=== PATIENT | female | born 1945 | race Caucasian/White ===

== ENCOUNTER → 2016-06-24 | Outpatient (CLI) | payer OTHER ==
[~2016-06-24] MED LIST: CYAN50TA2; FLUC150T54 PO; [UNRECOGNIZED DRUG - CODE]
[2016-06-24 12:09] LABS: BASO % 0.3 %; BASO ABS # 0.03 K/uL (0-0.2); COMPLETE YES; EOS % 1.9 %; HEMATOCRIT 44.1 % (37-47); IG% 0.1 %; LYMPH % 19.4 %; LYMPH ABS # 2.29 K/uL (1.2-3.4); MEAN CELL VOLUME 93.8 fL (80-100); MEAN CORPUSCULAR HEMOGLOBIN 32.1 pg (25-34); MEAN CORPUSCULAR HGB CONC 34.2 g/dl (32-36); MONO % 8.1 %; NEUT % 70.2 %; PLATELET COUNT 291 K/uL (130-400); WHITE BLOOD COUNT 11.82 K/uL (4.8-10.8)
[2016-06-24 12:38] LABS: ALT/SGPT 25 U/L (12-78); BLOOD UREA NITROGEN 22 mg/dl (7-18); BUN/CREATININE RATIO 28.7 (10-20); CALCIUM 8.6 mg/dl (8.5-10.1); CARBON DIOXIDE 26 mmol/L (21-32); CHLORIDE 105 mmol/L (98-107); CHOLESTEROL 249 mg/dl (0-200); CREATININE 0.75 mg/dl (0.60-1.20); GLUCOSE 88 mg/dl (70-99); SODIUM 141 mmol/L (136-145)
[2016-06-24 12:43] LABS: ALB/GLOB RATIO 0.9 (0.9-2); ALKALINE PHOSPHATASE 55 U/L (45-117); AST/SGOT 21 U/L (15-37); CHOLESTEROL/HDL RATIO 3.2; HDL CHOLESTEROL 77 mg/dl; LDL CHOLESTEROL CALCULATED 157 mg/dl; TRIGLYCERIDES 74 mg/dl (0-150); VERY LOW DENSITY LIPOPROT CALC 15 mg/dl
--- NOTE | 2016-07-23 12:30 | CODING QUERY MEDICAL NECESSITY ---
CQSUPPORTING DIAGNOSIS NEEDED A supporting diagnosis is required for the test/procedure performed on this patient in order for us to be reimbursed by the patient's insurance. Please provide a supporting diagnosis for the following test/procedure listed below next to the test name along with your signature. *If there is no additional diagnosis for this patient that would support the following test/procedure please document that below next to the test/procedure. Test(s)/Procedure(s) that require a supporting diagnosis: DOS 06/24/16 VITAMIN D TEST Provider Signature: Date: Thank you Ana Munoz Health Information Management Once completed, please kindly fax back to [phone] For questions please call [phone]
== END | disposition home or self-care (01) ==
LOC: C.LAB 11:35
PROVIDERS: ATTEND Internal Medicine
DX: Z00.00 Encounter for general adult medical examination without abnormal findings (principal); E78.5 Hyperlipidemia, unspecified; K52.831 Collagenous colitis; M85.80 Other specified disorders of bone density and structure, unspecified site

== ENCOUNTER → 2016-08-21 | Outpatient (CLI) | payer OTHER ==
[2016-08-21 18:35] LABS: URINE APPEARANCE CLOUDY (CLEAR); URINE BILIRUBIN NEG (NEG); URINE COLOR DK YELLOW; URINE EPITHELIAL CELL AUTO >30 /lpf (0-5); URINE NITRITE NEG (NEG); URINE PH 5.5 (4.5-7.5); URINE SPECIFIC GRAVITY 1.024 (1.000-1.030); UROBILINOGEN NEG (NEG)
[2016-08-21 18:42] LABS: MANUAL MICROSCOPIC REQUIRED? NO; REVIEW REQ? NO
== END | disposition home or self-care (01) ==
LOC: C.LABPVFM 07:35
PROVIDERS: ATTEND Internal Medicine
DX: R10.31 Right lower quadrant pain (principal); R39.9 Unspecified symptoms and signs involving the genitourinary system

== ENCOUNTER → 2016-08-23 | Outpatient (CLI) | payer OTHER ==
[2016-08-23 12:42] LABS: BASO % 0.6 %; BASO ABS # 0.05 K/uL (0-0.2); COMPLETE YES; EOS % 1.8 %; HEMATOCRIT 43.8 % (37-47); IG% 0.1 %; LYMPH % 30.7 %; LYMPH ABS # 2.56 K/uL (1.2-3.4); MEAN CELL VOLUME 92.2 fL (80-100); MEAN CORPUSCULAR HEMOGLOBIN 31.8 pg (25-34); MEAN CORPUSCULAR HGB CONC 34.5 g/dl (32-36); MEAN PLATELET VOLUME 10.6 fL (7.4-10.4); MONO % 11.6 %; NEUT % 55.2 %; PLATELET COUNT 316 K/uL (130-400); RED BLOOD COUNT 4.75 M/uL (4.2-5.4); WHITE BLOOD COUNT 8.33 K/uL (4.8-10.8)
[2016-08-23 13:32] LABS: ALT/SGPT 22 U/L (12-78); BLOOD UREA NITROGEN 12 mg/dl (7-18); CALCIUM 8.7 mg/dl (8.5-10.1); CARBON DIOXIDE 26 mmol/L (21-32); CHLORIDE 107 mmol/L (98-107); CREATININE 0.69 mg/dl (0.60-1.20); GLUCOSE 90 mg/dl (70-99); POTASSIUM 4.2 mmol/L (3.5-5.1); SODIUM 140 mmol/L (136-145)
[2016-08-23 13:35] LABS: ALB/GLOB RATIO 0.9 (0.9-2); ALKALINE PHOSPHATASE 55 U/L (45-117); AST/SGOT 14 U/L (15-37)
== END | disposition home or self-care (01) ==
LOC: C.LABPVFM 10:05
PROVIDERS: ATTEND Internal Medicine
DX: R10.31 Right lower quadrant pain (principal)

== ENCOUNTER → 2016-08-28 | Outpatient (CLI) | payer OTHER ==
[~2016-08-28] MED LIST changes: +OPTIRAY 320 IV PRN
--- NOTE | 2016-08-28 13:38 | DIAGNOSTIC IMAGING REPORT ---
CT UROGRAM CLINICAL HISTORY: Generalized abdominal pain. Hematuria. COMPARISON STUDY: No priors. TECHNIQUE: Before and following the IV administration of 93 cc of Optiray 320, CT urogram of the abdomen and pelvis is performed from the lung bases to the proximal femora. Images are reviewed in the axial, sagittal, and coronal planes. IV contrast was administered without complication. CT DOSE: 1794.28 mGycm FINDINGS: Lung bases: The heart is normal in size and without pericardial effusion. The lung bases are clear noting chronic dependent change. There is a tiny hiatal hernia. Liver: The contrast-enhanced liver is normal in size, contour, and attenuation. There is minimal central intrahepatic biliary ductal dilatation. The hepatic veins and portal veins are patent. Gallbladder: There is a large calcified gallstone which measures at least 2.3 cm. The gallbladder is otherwise normal in appearance. Spleen: Normal in size and attenuation. Pancreas: Moderately atrophic and grossly unremarkable. Adrenal glands: Unremarkable. Kidneys and ureters: The contrast enhanced kidneys demonstrate mild cortical atrophy. There are no renal calculi identified on the unenhanced images. The kidneys enhance and excrete symmetrically. There is no enhancing renal cortical mass lesion identified. There is an approximately 1 cm segment of focal ureteral narrowing with urothelial thickening and mild surrounding inflammatory change involving the proximal right ureter located just below the ureteropelvic junction. This is best seen on axial image #180, and is located at the level of L2-L3. This causes minimal right hydronephrosis. There is no left-sided hydronephrosis. The remainder of the right ureter is normal in appearance. No abnormalities seen involving the renal pelvis bilaterally or along the course of the left ureter. Abdominal vasculature: The abdominal aorta is normal in course and caliber noting mild to moderate atherosclerotic calcification. Bowel: The small bowel and colon are normal in course and caliber. A duodenal diverticulum is incidentally noted. There is mild colonic diverticulosis without CT evidence of acute diverticulitis. Moderate colonic fecal retention is observed. The appendix is well-visualized and normal. Peritoneum: There is no intraperitoneal free air or abdominal ascites. There is a fat-containing umbilical hernia, as well as fat-containing infraumbilical hernias. Lymphadenopathy: None. Pelvic viscera: The bladder is normal as visualized. The uterus is surgically absent. No adnexal lesion is seen. Numerous phleboliths are identified in the pelvis. Skeletal structures: The Skeletal structures are osteopenic. There is mild lumbar sacral spondylosis. A hemitransitional left lumbosacral segment is incidentally noted. There are sclerotic degenerative changes noted at the sacroiliac joints. No lytic or blastic bony lesions are seen. IMPRESSION: 1. There is an approximately 1 cm segment of focal narrowing with associated urothelial thickening and mild periureteric stranding involving the proximal right ureter located just below the ureteropelvic junction. This causes very mild right-sided hydronephrosis. The appearance is nonspecific, and although this could represent focal stricture or an inflammatory process a urothelial lesion is not excluded. Follow-up with urology is recommended. 2. The remainder of the right ureter is normal. No urothelial abnormality is suggested within the renal pelvis bilaterally or along the course of the left ureter. 3. No renal calculi are identified. 4. No enhancing renal cortical mass is seen. 5. Cholelithiasis. 6. The bladder is normal as imaged. 7. Additional findings as above. Electronically signed by: Michael Grimaldo M.D. 08/28/2016 1:36 PM Dictated Date/Time: 08/28/2016 1:20 PM
== END | disposition home or self-care (01) ==
LOC: C.CTS 11:05
PROVIDERS: ATTEND Internal Medicine
DX: R10.31 Right lower quadrant pain (principal); R31.9 Hematuria, unspecified; R93.41 Abnormal radiologic findings on diagnostic imaging of renal pelvis, ureter, or bladder; K80.20 Calculus of gallbladder without cholecystitis without obstruction

== ENCOUNTER → 2016-10-22 | Outpatient (CLI) | payer OTHER ==
[~2016-10-22] MED LIST changes: +FUROSEMIDE INJ 10 MG/ML 2 ML VIAL IV ONE; -OPTIRAY 320 IV PRN
--- NOTE | 2016-10-22 12:29 | DIAGNOSTIC IMAGING REPORT ---
RENAL SCAN DIURETIC (MAG 3) CLINICAL HISTORY: Hydronephrosis. COMPARISON STUDY: CT of the abdomen and pelvis August 28, 2016. TECHNIQUE: 8.2 mCi of technetium 99m MAG3 was injected IV at 10:50 AM on October 22, 2016. Flow and function curves were obtained. 20 mg of Lasix IV was administered during this exam. FINDINGS: Flow to both kidneys is preserved and relatively symmetric. Excretion of radiotracer by both kidneys was noted prior to Lasix administration. Split function was 43% left kidney and 57% right kidney. There is no evidence for a significant obstruction following Lasix administration. IMPRESSION: 1. No evidence of a significant obstruction. 2. Split function of 43% left kidney and 57% right kidney. Electronically signed by: Vance Khan M.D. 10/22/2016 12:28 PM Dictated Date/Time: 10/22/2016 12:24 PM
== END | disposition home or self-care (01) ==
LOC: C.NUCL 10:30
PROVIDERS: ATTEND Urology
DX: N13.30 Unspecified hydronephrosis (principal)

== ENCOUNTER → 2016-12-25 | Outpatient (CLI) | payer OTHER ==
[~2016-12-25] MED LIST changes: -FUROSEMIDE INJ 10 MG/ML 2 ML VIAL IV ONE
[2016-12-25 12:43] LABS: BASO % 0.4 %; BASO ABS # 0.03 K/uL (0-0.2); COMPLETE YES; HEMATOCRIT 45.7 % (37-47); IG% 0.1 %; LYMPH % 25.4 %; LYMPH ABS # 2.17 K/uL (1.2-3.4); MEAN CELL VOLUME 93.5 fL (80-100); MEAN CORPUSCULAR HEMOGLOBIN 32.1 pg (25-34); MEAN CORPUSCULAR HGB CONC 34.4 g/dl (32-36); MEAN PLATELET VOLUME 10.9 fL (7.4-10.4); MONO % 11.7 %; NEUT % 60.4 %; PLATELET COUNT 261 K/uL (130-400); RED BLOOD COUNT 4.89 M/uL (4.2-5.4); WHITE BLOOD COUNT 8.55 K/uL (4.8-10.8)
[2016-12-25 13:00] LABS: ALT/SGPT 28 U/L (12-78); AST/SGOT 20 U/L (15-37); BLOOD UREA NITROGEN 17 mg/dl (7-18); BUN/CREATININE RATIO 23.4 (10-20); CALCIUM 9.5 mg/dl (8.5-10.1); CARBON DIOXIDE 29 mmol/L (21-32); CHLORIDE 105 mmol/L (98-107); CREATININE 0.74 mg/dl (0.60-1.20); GLUCOSE 91 mg/dl (70-99); POTASSIUM 4.3 mmol/L (3.5-5.1); SODIUM 140 mmol/L (136-145)
[2016-12-25 13:11] LABS: ALB/GLOB RATIO 0.9 (0.9-2); ALKALINE PHOSPHATASE 63 U/L (45-117)
== END | disposition home or self-care (01) ==
LOC: C.LABBFT 10:03
PROVIDERS: ATTEND Internal Medicine
DX: R39.9 Unspecified symptoms and signs involving the genitourinary system (principal); R53.83 Other fatigue

== ENCOUNTER → 2017-04-04 | Outpatient (CLI) | payer OTHER ==
--- NOTE | 2017-04-04 13:29 | DIAGNOSTIC IMAGING REPORT ---
LEFT HIP 2 VIEWS HISTORY: M25.552 Left hip pain left [id number] COMPARISON: None. FINDINGS: There is no fracture or dislocation. Soft tissues are unremarkable. Moderate cartilage space narrowing within the left hip consistent with degenerative change. The visualized pelvic bones are intact. IMPRESSION: 1. No fracture or dislocation within the left hip. 2. Moderate left hip osteoarthritis. Electronically signed by: Villa Rushing M.D. 04/04/2017 1:27 PM Dictated Date/Time: 04/04/2017 1:25 PM
== END | disposition home or self-care (01) ==
LOC: C.RAD1850 13:14
PROVIDERS: ATTEND Internal Medicine
DX: M25.552 Pain in left hip (principal)

== ENCOUNTER → 2017-04-09 | Outpatient (CLI) | payer OTHER ==
--- NOTE | 2017-04-11 08:12 | MAMMOGRAPHY REPORT ---
BILATERAL DIGITAL SCREENING MAMMOGRAM WITH CAD: 04/09/2017 CLINICAL HISTORY: Routine screening. Patient has no complaints. TECHNIQUE: Bilateral CC and MLO views were obtained. Current study was also evaluated with a Compute r Aided Detection (CAD) system. COMPARISON: Comparison is made to exams dated: 10/28/2014 mammogram, 07/28/2014 mammogram, 05/07/2013 mammogram, 03/13/2011 mammogram, and 03/04/2011 mammogram. BREAST COMPOSITION: There are scattered areas of fibroglandular density in both breasts. FINDINGS: There is a newly visualized 11 mm mass versus focal asymmetry in the upper outer middle on e third of the right breast, for which additional spot compression tomosynthesis views and possible u ltrasound are recommended. There are stable asymmetries in the left upper outer quadrant. Scattered benign-appearing punctate m acro calcifications in the left breast, and a stable right-shaped biopsy marker clip in the right lorne ast. No other suspicious mass, architectural distortion or cluster of microcalcifications is seen. IMPRESSION: ACR BI-RADS CATEGORY 0: INCOMPLETE EVALUATION: NEED ADDITIONAL IMAGING EVALUATION The newly visualized 11 mm mass versus focal asymmetry in the right upper outer breast needs addition al evaluation. The patient will be called to schedule an appointment. Approximately 10% of breast cancers are not detected with mammography. A negative mammographic report should not delay biopsy if a clinically suggestive mass is present. Nery Connell M.D. ay/:04/09/2017 11:15:34 Solderer: Shana CHAVEZ)(Hussein), [facility] letter sent: Addl Imaging 0 BI-RADS Code: ACR BI-RADS Category 0: Incomplete Evaluation: Need Additional Imaging Evaluation
== END | disposition home or self-care (01) ==
LOC: C.MAMM 10:41
PROVIDERS: ATTEND Internal Medicine
DX: Z12.31 Encounter for screening mammogram for malignant neoplasm of breast (principal); N63.11 Unspecified lump in the right breast, upper outer quadrant

== ENCOUNTER → 2017-04-15 | Outpatient (CLI) | payer OTHER ==
[2017-04-15 17:55] LABS: BLOOD UREA NITROGEN 18 mg/dl (7-18); BUN/CREATININE RATIO 27.1 (10-20); CREATININE 0.66 mg/dl (0.60-1.20)
== END | disposition home or self-care (01) ==
LOC: C.LABPVFM 12:37
PROVIDERS: ATTEND Urology
DX: R31.9 Hematuria, unspecified (principal)

== ENCOUNTER → 2017-04-28 | Outpatient (CLI) | payer OTHER ==
--- NOTE | 2017-04-29 07:49 | MAMMOGRAPHY REPORT ---
UNILATERAL RIGHT DIGITAL DIAGNOSTIC MAMMOGRAM TOMOSYNTHESIS AND TARGETED RIGHT ULTRASOUND: 04/28/2017 CLINICAL HISTORY: 72-year-old woman called back from screening mammography for a newly visualized 11 mm mass in the right upper outer quadrant. Patient has a history of prior benign right breast biopsy with cherelle-shaped biopsy marker clip in place in the 12:00 axis. TECHNIQUE: Spot compression right CC and MLO 2-D and tomosynthesis images were obtained. COMPARISON: Comparison is made to exams dated: 04/09/2017 mammogram - [facility], 10/28/2014 mammogram, 07/28/2014 mammogram, 05/07/2013 mammogram, 03/13/2011 mammogram, and 03/04/2011 mammogram. BREAST COMPOSITION: There are scattered areas of fibroglandular density in the right breast. FINDINGS: There is a persistent lobulated, partially circumscribed, 6 x 6 x 13 mm mass in the upper outer middle one third of the right breast. No associated architectural distortion or calcification, however a portion of the mass is tubular extending anteriorly from the mass, which suggests it could be within a duct. Further characterization with ultrasound was performed. Targeted ultrasound was performed in the right upper outer quadrant, in the 9:00 axis, 8 cm from the nipple, there is a multiloculated cystic mass within internal nonvascular septations and debris. On ultrasound it measures approximately 7.4 x 3.8 x 7.8 mm although difficult to measure the largest vineet ne due to multiple lobulations of the mass. Given the interval development mammographically, althoug h this most likely represents a complicated cyst/focal fibrocystic change, definitive characterizatio n with ultrasound guided cyst aspiration versus core needle biopsy is recommended. IMPRESSION: ACR BI-RADS CATEGORY 4: SUSPICIOUS, TARGETED ULTRASOUND ACR BI-RADS CATEGORY 4: SUSPICIO US 1. Ultrasound guided cyst aspiration versus core needle biopsy is recommended for a multiloculated c ystic appearing 13 mm mass in the 9:00 right breast, 8 cm from the nipple, thought to correlate with a newly visualized mammographic mass. These results and recommendations were discussed with the patient at the time of the exam. She tenta tively scheduled the procedure prior to leaving our department. Approximately 10% of breast cancers are not detected with mammography. A negative mammographic report should not delay biopsy if a clinically suggestive mass is present. Nery Connell M.D. ay/:04/28/2017 12:27:03 Nuclear Medicine Tech: Shana CHAVEZ)(Hussein), [facility] letter sent: Abnormal 4/5 BI-RADS Code: ACR BI-RADS Category 4: Suspicious Ultrasound BI-RADS: ACR BI-RADS Category 4: Suspici ous
== END | disposition home or self-care (01) ==
LOC: C.MAMM 11:05
PROVIDERS: ATTEND Internal Medicine
DX: N63.11 Unspecified lump in the right breast, upper outer quadrant (principal)

== ENCOUNTER → 2017-04-30 | Outpatient (CLI) | payer OTHER ==
--- NOTE | 2017-04-30 17:50 | DIAGNOSTIC IMAGING REPORT ---
IVP CLINICAL HISTORY: Hematuria. Right ureteral stricture. COMPARISON STUDY: CT of the abdomen and pelvis September 07, 2012 and renal MAG3 scan October 22, 2016. TECHNIQUE: Initially, a paralegal legal secretary KUB was obtained. An intravenous pyelogram was then performed following intravenous injection 100 cc of Optiray 320 IV. FINDINGS: Numerous pelvic calcifications are unchanged and likely reflect phleboliths when correlating with prior CT. No urinary calculi are identified. Both nephrograms are symmetric. There is no hydronephrosis. There is mild smooth narrowing of the proximal right ureter. This is immediately inferior to the ureteropelvic junction and is at site of narrowing shown on CT of August 28, 2016. However, the degree of narrowing appears diminished when compared to prior exam. Left collecting system and ureter are normal. There is minimal post void residual. IMPRESSION: 1. No urinary calculi or hydronephrosis. 2. Mild smooth narrowing of the proximal right ureter immediately inferior to the right ureteropelvic junction. This is at site of narrowing shown on CT of August 28, 2016 however the degree of narrowing appears diminished compared to prior exam. This remains indeterminate although no significant irregularity to strongly suggest a urothelial malignancy. Consideration could be given to a follow-up hematuria protocol CT in 6 months. Electronically signed by: Vance Khan M.D. 04/30/2017 5:48 PM Dictated Date/Time: 04/30/2017 2:30 PM
== END | disposition home or self-care (01) ==
LOC: C.RAD 12:37
PROVIDERS: ATTEND Urology
DX: N13.5 Crossing vessel and stricture of ureter without hydronephrosis (principal); R31.9 Hematuria, unspecified

== ENCOUNTER → 2017-05-06 | Outpatient (CLI) | payer OTHER ==
--- NOTE | 2017-05-06 13:08 | MAMMOGRAPHY REPORT ---
UNILATERAL RIGHT DIGITAL DIAGNOSTIC MAMMOGRAM TOMOSYNTHESIS: 05/06/2017 CLINICAL HISTORY: Status post ultrasound-guided cyst aspiration of a multiloculated cyst in the 9:00 right breast. Please refer to the report from right breast ultrasound guided cyst aspiration performed at the same time for full detail. IMPRESSION: Please refer to the report from right breast ultrasound guided cyst aspiration performed at the same time for full detail. Approximately 10% of breast cancers are not detected with mammography. A negative mammographic report should not delay biopsy if a clinically suggestive mass is present. Nery Connell M.D. ay/:05/06/2017 10:20:52 Senior Writer: Laura Mccullough, [facility] BI-RADS Code: n/a
--- NOTE | 2017-05-06 13:08 | MAMMOGRAPHY REPORT ---
ASPIRATION RIGHT BREAST: 05/06/2017 CLINICAL HISTORY: Cystic appearing multiloculated mass in the 9:00 right breast, 8 cm from the nipple thought to correlate with an increasing mammographic mass. Patient presents for ultrasound guided c yst aspiration versus core needle biopsy. COMPARISON: Comparison is made to exams dated: 04/28/2017 ultrasound, 04/28/2017 mammogram, 04/09/20 17 mammogram - [facility], 10/28/2014 mammogram, 07/28/2014 mammogram, and 05/07/2013 mammogram. PROCEDURE DESCRIPTION: After explaining the risks, benefits and alternatives of the procedure to the patient, informed consent was obtained both verbally and in writing. Specific risks for cyst aspirat ion include: Bleeding, infection, puncture of adjacent structure, pain, bruising, nontarget biopsy, s ampling error and medication reaction. The anechoic multi loculated cystic appearing mass in the 9:00 right breast, 8 cm from the nipple was identified and targeted for cyst aspiration. 1% buffered lidocaine without epinephrine was administ ered subcutaneously and intraparenchymally as local anesthesia. While watching with ultrasound, a 22 -gauge needle was advanced into the locules of the suspected cyst and aspiration was performed. The mass resolved completely, confirming cystic nature. The fluid was clear to pinkish in color and rins ed in [employer]toL[employer]. It was then sent to the pathology department for cytologic analysis. Postprocedure right CC and ML 2-D and tomosynthesis images were obtained. On the 2-D views, there is persistent focal asymmetry in the 9:00 middle to posterior right breast in the area of suspected cys t. On the corresponding tomosynthesis images, masslike borders are no longer present, concordant wit h the resolution seen on ultrasound. Pending benign cytology results would recommend routine tomosyn thesis mammography in one year. IMPRESSION: ASPIRATION Status post aspiration to resolution of the suspected multiloculated 13 mm cyst in the 9:00 right lorne ast. The fluid was sent to the pathology department for cytologic analysis. The patient will receive notification of the pathology results from her referring physician. Nery Connell M.D. ay/:05/06/2017 10:24:30 Religious Education Director: Laura Mccullough, [facility]
== END | disposition home or self-care (01) ==
LOC: C.MAMM 09:22
PROVIDERS: ATTEND Internal Medicine
DX: R92.8 Other abnormal and inconclusive findings on diagnostic imaging of breast (principal); N63.10 Unspecified lump in the right breast, unspecified quadrant

== ENCOUNTER 2017-05-12 16:19 | Observation (INO) | payer OTHER ==
[~2017-05-12] VITALS: Ht 167.6 cm; Wt 92.4 kg
[~2017-05-12 16:19] MED LIST changes: -FLUC150T54 PO; +FLUC150T63 PO; -[UNRECOGNIZED DRUG - CODE]; +[UNRECOGNIZED DRUG - CODE] TOP
--- NOTE | 2017-05-12 17:07 | DIAGNOSTIC IMAGING REPORT ---
CHEST ONE VIEW PORTABLE CLINICAL HISTORY: 72 years-old Female presenting with CHEST PAIN. TECHNIQUE: Portable upright AP view of the chest was obtained. COMPARISON: None. FINDINGS: Cardiomediastinal silhouette normal. Lungs and pleural spaces clear. Osseous structures normal. Upper abdomen normal. IMPRESSION: 1. No acute cardiopulmonary disease. Electronically signed by: Juliocesar Alfred M.D. 05/12/2017 5:06 PM Dictated Date/Time: 05/12/2017 5:05 PM
[2017-05-12 17:11] LABS: BASO % 0.2 %; BASO ABS # 0.02 K/uL (0-0.2); EOS % 0.8 %; HEMATOCRIT 45.6 % (37-47); HEMOGLOBIN 15.7 g/dL (12.0-16.0); IG# 0.05 K/uL (0.00-0.02); LYMPH % 18.4 %; LYMPH ABS # 2.24 K/uL (1.2-3.4); MEAN CELL VOLUME 93.1 fL (80-100); MEAN CORPUSCULAR HGB CONC 34.4 g/dl (32-36); MEAN PLATELET VOLUME 9.6 fL (7.4-10.4); MONO % 8.7 %; MONO ABS # 1.06 K/uL (0.11-0.59); NEUT % 71.5 %; PLATELET COUNT 267 K/uL (130-400); RED CELL DISTRIBUTION WIDTH CV 12.7 % (11.5-14.5); RED CELL DISTRIBUTION WIDTH SD 43.7 fL (36.4-46.3); WHITE BLOOD COUNT 12.17 K/uL (4.8-10.8)
[2017-05-12 17:33] LABS: ALBUMIN 3.6 gm/dl (3.4-5.0); ALT/SGPT 25 U/L (12-78); AST/SGOT 20 U/L (15-37); BLOOD UREA NITROGEN 17 mg/dl (7-18); CARBON DIOXIDE 25 mmol/L (21-32); CREATININE 0.75 mg/dl (0.60-1.20); GLUCOSE 90 mg/dl (70-99); LIPASE 243 U/L (73-393); POTASSIUM 3.8 mmol/L (3.5-5.1); SODIUM 136 mmol/L (136-145)
[2017-05-12 17:38] LABS: ALKALINE PHOSPHATASE 63 U/L (45-117); CKMB 1.9 ng/ml (0.5-3.6); TOTAL PROTEIN 7.7 gm/dl (6.4-8.2)
[2017-05-12] MEDS ORDERED: MELO7.5T5 PO (18:19)
[2017-05-12] MEDS ORDERED: ASPIRIN 81 MG CHEW PO STA (18:20)
[2017-05-12] MEDS ORDERED: NITROGLYCERIN OINT 2% 1GM PACKET EXT ONE (18:30)
[2017-05-12] MEDS ORDERED: GI COCKTAIL PO STA (19:00)
[2017-05-12] MEDS ORDERED: LIDOCAINE HCL 2% VISC SOLN 20 ML UDC ONE (19:10)
[2017-05-12] MEDS ORDERED: ALUMINUM/MAGNESIUM SUSP 30 ML UDC ONE (19:10)
--- NOTE | 2017-05-12 20:20 | EMERGENCY ROOM VISIT NOTE ---
History Report prepared by Jack: Lina Brantley Under the Supervision of: Dr. Genaro River M.D. First contact with patient: 16:35 Chief Complaint: CARDIAC ASSESSMENT Stated Complaint: CHEST PAIN INTO BACK, SOB, GERD History of Present Illness The patient is a 72 year old female who presents to the Emergency Room for a cardiac assessment. The patient states that she started to experience chest pressure last night when walking home up a hill. She reports that this is abnormal. She complains that it radiated right into the center of her back. She states that she was short of breath and nauseous. She states that the chest pain is intermittent. The patient states that at its peak the pain was a 5/10 in severity. She notes that she was also weak. The patient complains of a cough. She states that she took one tablet of Meloxicam last night and a tablespoon of vinegar and water with no relief. She notes that she has the prescription for her knee arthritis. The patient denies having heart or lung problems and being a smoker. The patient notes that her mother was a smoker, she normally has a low blood pressure, and that both her parents of CHF. Pt denies LOC, headache, fevers, chills, runny nose, lightheadedness, diaphoresis, visual changes, neck pain, vomiting, abdominal pain, melena, hematochezia, urinary symptoms, numbness, lymphadenopathy, rash, or other complaints. Source of History: patient Onset: last night Position: other (global) Symptom Intensity: 5/10 Quality: pressure Timing: intermittent Associated Symptoms: + cough, + chest pain, + SOB, + nausea, + back pain, + weakness Review of Systems See HPI for pertinent positives and negatives. A total of ten systems were reviewed and were otherwise negative. Past Medical & Surgical Medical Problems: (1) Arthritis (2) GERD (gastroesophageal reflux disease) (3) Uterine cancer Surgical Problems: (1) S/P hysterectomy Family History CHF (congestive heart failure) Social History Smoking Status: Never Smoker Drug Use: none Marital Status: Housing Status: lives alone Occupation Status: retired Current/Historical Medications Scheduled Estradiol (Climara), 1 PATCH TOP WK Scheduled PRN Meloxicam (Mobic), 1 TAB PO UD PRN for Pain Allergies Coded Allergies: Adhesives (Verified Allergy, Intermediate, Skin reaction, 05/12/17) Diazepam (Verified Allergy, Intermediate, Paradoxial reaction, 05/12/17) Physical Exam Vital Signs Date Time Temp Pulse Resp B/P (MAP) Pulse Ox O2 Delivery O2 Flow Rate FiO2 05/12/17 18:25 65 16 188/96 97 Room Air 05/12/17 17:52 97 Room Air 05/12/17 17:37 65 05/12/17 16:52 98 Room Air 05/12/17 16:52 99 Room Air 05/12/17 16:34 37.1 68 20 182/91 99 Room Air Physical Exam GENERAL: Awake, alert, well-appearing, in no distress HENT: Normocephalic, atraumatic. Oropharynx unremarkable. EYES: Normal conjunctiva. Sclera non-icteric. NECK: Supple. No nuchal rigidity. FROM. No JVD. RESPIRATORY: Clear to auscultation. CARDIAC: Regular rate, normal rhythm. Extremities warm and well perfused. Pulses equal. ABDOMEN: Soft, non-distended. No tenderness to palpation. No rebound or guarding. No masses. RECTAL: Deferred. MUSCULOSKELETAL: Chest examination reveals no tenderness. The back is symmetrical on inspection without obvious abnormality. There is no CVA tenderness to palpation. No joint edema. LOWER EXTREMITIES: Calves are equal size bilaterally and non-tender. No edema. No discoloration. NEURO: Normal sensorium. No sensory or motor deficits noted. SKIN: No rash or jaundice noted. Medical Decision & Procedures ER Provider Diagnostic Interpretation: Radiology results as stated below per my review and radiologist interpretation: CHEST ONE VIEW PORTABLE CLINICAL HISTORY: 72 years-old Female presenting with CHEST PAIN. TECHNIQUE: Portable upright AP view of the chest was obtained. COMPARISON: None. FINDINGS: Cardiomediastinal silhouette normal. Lungs and pleural spaces clear. Osseous structures normal. Upper abdomen normal. IMPRESSION: 1. No acute cardiopulmonary disease. Electronically signed by: Juliocesar Alfred M.D. 05/12/2017 5:06 PM Dictated Date/Time: 05/12/2017 5:05 PM Laboratory Results 05/12/17 17:00 Red Blood Count 4.90, Mean Corpuscular Volume 93.1, Mean Corpuscular Hemoglobin 32.0, Mean Corpuscular Hemoglobin Concent 34.4, Mean Platelet Volume 9.6, Neutrophils (%) (Auto) 71.5, Lymphocytes (%) (Auto) 18.4, Monocytes (%) (Auto) 8.7, Eosinophils (%) (Auto) 0.8, Basophils (%) (Auto) 0.2, Neutrophils # (Auto) 8.70, Lymphocytes # (Auto) 2.24, Monocytes # (Auto) 1.06, Eosinophils # (Auto) 0.10, Basophils # (Auto) 0.02 05/12/17 17:00 Test 05/12/17 17:00 05/12/17 17:45 White Blood Count 12.17 K/uL (4.8-10.8) Red Blood Count 4.90 M/uL (4.2-5.4) Hemoglobin 15.7 g/dL (12.0-16.0) Hematocrit 45.6 % (37-47) Mean Corpuscular Volume 93.1 fL (80-100) Mean Corpuscular Hemoglobin 32.0 pg (25-34) Mean Corpuscular Hemoglobin Concent 34.4 g/dl (32-36) Platelet Count 267 K/uL (130-400) Mean Platelet Volume 9.6 fL (7.4-10.4) Neutrophils (%) (Auto) 71.5 % Lymphocytes (%) (Auto) 18.4 % Monocytes (%) (Auto) 8.7 % Eosinophils (%) (Auto) 0.8 % Basophils (%) (Auto) 0.2 % Neutrophils # (Auto) 8.70 K/uL (1.4-6.5) Lymphocytes # (Auto) 2.24 K/uL (1.2-3.4) Monocytes # (Auto) 1.06 K/uL (0.11-0.59) Eosinophils # (Auto) 0.10 K/uL (0-0.5) Basophils # (Auto) 0.02 K/uL (0-0.2) RDW Standard Deviation 43.7 fL (36.4-46.3) RDW Coefficient of Variation 12.7 % (11.5-14.5) Immature Granulocyte % (Auto) 0.4 % Immature Granulocyte # (Auto) 0.05 K/uL (0.00-0.02) Anion Gap 9.0 mmol/L (3-11) Est Creatinine Clear Calc Drug Dose 79.8 ml/min Estimated GFR () 91.0 Estimated GFR (Non- 78.5 BUN/Creatinine Ratio 22.6 (10-20) Calcium Level 9.0 mg/dl (8.5-10.1) Total Bilirubin 0.5 mg/dl (0.2-1) Direct Bilirubin < 0.1 mg/dl (0-0.2) Aspartate Amino Transf (AST/SGOT) 20 U/L (15-37) Alanine Aminotransferase (ALT/SGPT) 25 U/L (12-78) Alkaline Phosphatase 63 U/L (45-117) Total Creatine Kinase 82 U/L (26-192) Creatine Kinase MB 1.9 ng/ml (0.5-3.6) Creatine Kinase MB Ratio 2.3 (0-3.0) Troponin I < 0.015 ng/ml (0-0.045) Pro-B-Type Natriuretic Peptide 432 pg/ml (0-900) Total Protein 7.7 gm/dl (6.4-8.2) Albumin 3.6 gm/dl (3.4-5.0) Lipase 243 U/L (73-393) D-Dimer 740 ug/L FEU (0-500) Laboratory results reviewed by me Medications Administered Medications (Trade) Dose Ordered Sig/Colette Route Start Time Stop Time Status Last Admin Dose Admin Nitroglycerin (Nitroglycerin 2% Oint) 0.5 inch NOW ONCE EXT 05/12/17 18:30 05/12/17 18:31 DC 05/12/17 18:24 0.5 INCH Aspirin (Aspirin Chew) 324 mg NOW STAT PO 05/12/17 18:20 05/12/17 18:23 DC 05/12/17 18:25 324 MG Miscellaneous Medication (Gi Cocktail) 24 ml NOW STAT PO 05/12/17 19:00 05/12/17 19:02 DC 05/12/17 19:14 24 ML ECG Indication: chest pain Rate (beats per minute): 69 Rhythm: normal sinus Findings: ST depression (Anterior, mild), no ectopy Comparison ECG Date: no prior available Change: Repeat ECG: Sinus with premature supraventricular complex. Rate of 64 bpm. No ischemic change. When compared to the first, the ST depression is resolved. ED Course 1636: The patient was evaluated in room B4B. A complete history and physical exam was performed. 1816: I reevaluated the patient and she is still experiencing some chest discomfort. We will repeat the EKG. 1819: Ordered Aspirin 324 mg PO. 1821: Discussed the patient's case with Dr. Elle Scott [facility]. He asked for the patient to have a D-Dimer done. 1829: Ordered Nitroglycerin 0.5 inch EXT. 1899: I reevaluated the patient and is doing well. She still has some discomfort in her chest. 1914: I discussed the patient's case with Dr. Elle Scott [facility] Hospitalist. I let him know the patient's D-Dimer was elevated and gave him her second ECG. The patient will be evaluated for further treatment and disposition.. Medical Decision Triage Nursing notes reviewed. The patient's presentation and history were concerning for chest pain. Etiologies such as cardiac ischemia, aortic dissection, pulmonary embolism, pneumonia, pneumothorax, musculoskeletal, infections, gastrointestinal, as well as others were entertained. Patient was evaluated. ECG showed some subtle ST depressions. No old ones available. Chest imaging was unremarkable. Mediastinum normal. The patient had a slight leukocytosis on CBC. Chem panel was unremarkable. Cardiac markers negative. The patient had a benign abdomen. She was given aspirin and nitro paste. A repeat ECG was performed and actually looked better than the first. The patient has a concerning story given her symptoms. Internal medicine was consulted. Dr. Almeida. I discussed the case. He requested a d- dimer be added. This was mildly elevated over the normal range. I did notify him. He will follow-up on the workup as he is going to evaluate the patient now. Medication Reconcilliation Current Medication List: was personally reviewed by me Blood Pressure Screening Patient's blood pressure: Elevated blood pressure Will be further monitored by hospitalist. Consults Time Called: 1816 Consulting Physician: Dr. Elle Scott [facility] Returned Call: 1821 Discussed the patient's case with Dr. Elle Scott [facility]. He asked for the patient to have a D-Dimer done. 1914: I discussed the patient's case with Dr. Elle Scott [facility]. I let him know the patient's D-Dimer was elevated and gave him her second ECG. The patient will be evaluated for further treatment and disposition.. Impression Primary Impression: Substernal chest pain Scribe Attestation The scribe's documentation has been prepared under my direction and personally reviewed by me in its entirety. I confirm that the note above accurately reflects all work, treatment, procedures, and medical decision making performed by me. Departure Information Dispostion Being Evaluated By Hospitalist Referrals Brooklyn Khan M.D. (PCP) Patient Instructions [facility]
[2017-05-12] MEDS ORDERED: ALUMINUM/MAGNESIUM/SIMETH (MAALOX MAX) 30 ML UDC PO PRN (21:15)
[2017-05-12] MEDS ORDERED: ONDANSETRON INJ 2 MG/ML 2 ML VIAL IV PRN (21:15)
[2017-05-12] MEDS ORDERED: POLYETHYLENE (MIRALAX) 17 GM PACK PO PRN (21:15)
[2017-05-12] MEDS ORDERED: ZOLPIDEM TARTRATE 5 MG TAB PO PRN (21:15)
[2017-05-12] MEDS ORDERED: MAGNESIUM HYDROXIDE SUSP 30 ML UDC PO PRN (21:15)
[2017-05-12] MEDS ORDERED: MoRPHine SULFATE 2 MG/ML CARP IV PRN (21:15)
[2017-05-12] MEDS ORDERED: NITROGLYCERIN 0.4 MG SL PER TAB CHARGE SL PRN (21:15)
[2017-05-12] MEDS ORDERED: ACETAMINOPHEN 325 MG TAB PO PRN (21:15)
[2017-05-12] MEDS ORDERED: IV FLUIDS COMPLETED PRN (21:30)
[2017-05-12] MEDS ORDERED: SIMVASTATIN 20 MG TAB PO SCH (21:30)
--- NOTE | 2017-05-12 21:30 | History and Physical ---
History & Physical Date & Time of Service: May 12, 2017 at 21:21 Chief Complaint: Chest Pain Into Back, Sob, Gerd Primary Care Physician: Brooklyn Khan M.D. History of Present Illness Source: patient 72 year old female with no significant past medical history presented to the emergency room for evaluation of chest pain. Patient was going up until yesterday when she started having significant shortness of breath. Today she woke up with pain substernal that radiates to the back 11/25. Pain was not associated with any diaphoresis/dizziness or shortness of breath. She did have some weakness and some cough that was not resolved with meloxicam. After coming to the ED she had nitroglycerin placed on her chest and chest pain improved Her EKG in the ED showed some ST depressions that improved after the nitroglycerin on the repeat EKG Denies smoking or drinking Both parents had congestive heart failure in a very old age Past medical history of arthritis/GERD/uterine cancer status post hysterectomy Past Medical/Surgical History Medical Problems: (1) Arthritis Status: Chronic (2) GERD (gastroesophageal reflux disease) Status: Chronic (3) Uterine cancer Status: Resolved Surgical Problems: (1) S/P hysterectomy Status: Resolved Family History CHF (congestive heart failure) Social History Smoking Status: Never Smoker Drug Use: none Marital Status: Occupational Status: retired Allergies Coded Allergies: Adhesives (Verified Allergy, Intermediate, Skin reaction, 05/12/17) Diazepam (Verified Allergy, Intermediate, Paradoxial reaction, 05/12/17) Home Medications Scheduled Estradiol (Climara), 1 PATCH TOP WK Scheduled PRN Meloxicam (Mobic), 1 TAB PO UD PRN for Pain Review of Systems Constitutional: No fever, No chills, No sweats, No weight loss, No weakness, No fatigue, No problem reported Eyes: No worsening of vision, No eye pain, No redness, No discharge, No diplopia, No problem reported ENT: No hearing loss, No unusual epistaxis, No nasal symptoms, No sore throat, No tinnitus, No dental problems, No trouble swallowing, No problem reported Respiratory: + shortness of breath, No cough, No sputum, No wheezing, No dyspnea on exertion, No dyspnea at rest, No hemoptysis, No problem reported Cardiovascular: + chest pain, No orthopnea, No PND, No edema, No claudication, No palpitations, No problem reported Abdomen: No pain, No nausea, No vomiting, No diarrhea, No constipation, No GI bleeding, No problem reported Musculoskeletal: No joint pain, No muscle pain, No swelling, No calf pain, No problem reported Genitourinary - Female: No dysuria, No urinary frequency, No urinary urgency, No urinary incontinence, No urinary retention, No hematuria, No dysmenorrhea, No menorrhagia, No metrorrhagia, No rash, No vaginal bleeding, No vaginal discharge, No vaginal itching, No vulvodynia, No , No problem reported Neurologic: No memory loss, No paralysis, No weakness, No numbness/tingling, No vertigo, No balance problems, No problem reported Psychiatric: No depression symptoms, No anhedonism, No anxiety, No insomnia, No substance abuse, No problem reported Endocrine: No fatigue, No excessive thirst, No excessive urination, No problem reported Hematologic / Lymphatic: No abnormal bleeding/bruising, No clotting problems, No swollen lymph nodes, No night sweats, No problem reported Integumentary: No rash, No itch, No new/changing skin lesions, No color change , No bleeding, No problem reported Allergic / Immunologic: No environmental allergies, No seasonal allergies, No pet sensitivities, No food allergies, No hives, No frequent infections, No poor healing, No prolonged convalescence, No problem reported Physical Exam Vital Signs Date Time Temp Pulse Resp B/P (MAP) Pulse Ox O2 Delivery O2 Flow Rate FiO2 05/12/17 21:10 82 18 160/97 97 Room Air 05/12/17 20:19 19 05/12/17 20:10 166/108 05/12/17 20:09 169/96 05/12/17 19:49 66 20 05/12/17 19:19 64 12 05/12/17 18:49 67 16 05/12/17 18:26 188/96 05/12/17 18:25 65 16 188/96 97 Room Air 05/12/17 18:19 66 13 96 05/12/17 17:52 97 Room Air 05/12/17 17:49 65 13 97 05/12/17 17:37 65 05/12/17 17:30 176/104 05/12/17 16:52 98 Room Air 05/12/17 16:52 99 Room Air 05/12/17 16:34 37.1 68 20 182/91 99 Room Air General Appearance: WD/WN, no apparent distress Head: normocephalic, atraumatic Eyes: normal inspection, EOMI ENT: normal ENT inspection, hearing grossly normal Neck: supple Respiratory/Chest: chest non-tender, lungs clear, normal breath sounds, no respiratory distress, no accessory muscle use Cardiovascular: regular rate, rhythm, no edema, no gallop, no JVD, no murmur, normal peripheral pulses Abdomen/GI: normal bowel sounds, non tender, soft, no organomegaly, no pulsatile mass Back: normal inspection Extremities/Musculoskelatal: normal inspection, no calf tenderness, normal capillary refill Neurologic/Psych: ride mechanic II-XII nml as tested, no motor/sensory deficits, alert, normal mood/affect, normal reflexes, oriented x 3 Skin: normal color, warm/dry, no rash Diagnostics Laboratory Results Results Past 24 Hours Test 05/12/17 17:00 05/12/17 17:45 05/12/17 21:15 Range/Units White Blood Count 12.17 4.8-10.8 K/uL Red Blood Count 4.90 4.2-5.4 M/uL Hemoglobin 15.7 12.0-16.0 g/dL Hematocrit 45.6 37-47 % Mean Corpuscular Volume 93.1 80-100 fL Mean Corpuscular Hemoglobin 32.0 25-34 pg Mean Corpuscular Hemoglobin Concent 34.4 32-36 g/dl Platelet Count 267 130-400 K/uL Mean Platelet Volume 9.6 7.4-10.4 fL Neutrophils (%) (Auto) 71.5 % Lymphocytes (%) (Auto) 18.4 % Monocytes (%) (Auto) 8.7 % Eosinophils (%) (Auto) 0.8 % Basophils (%) (Auto) 0.2 % Neutrophils # (Auto) 8.70 1.4-6.5 K/uL Lymphocytes # (Auto) 2.24 1.2-3.4 K/uL Monocytes # (Auto) 1.06 0.11-0.59 K/uL Eosinophils # (Auto) 0.10 0-0.5 K/uL Basophils # (Auto) 0.02 0-0.2 K/uL RDW Standard Deviation 43.7 36.4-46.3 fL RDW Coefficient of Variation 12.7 11.5-14.5 % Immature Granulocyte % (Auto) 0.4 % Immature Granulocyte # (Auto) 0.05 0.00-0.02 K/uL Sodium Level 136 136-145 mmol/L Potassium Level 3.8 3.5-5.1 mmol/L Chloride Level 103 98-107 mmol/L Carbon Dioxide Level 25 21-32 mmol/L Anion Gap 9.0 3-11 mmol/L Blood Urea Nitrogen 17 7-18 mg/dl Creatinine 0.75 0.60-1.20 mg/dl Est Creatinine Clear Calc Drug Dose 79.8 ml/min Estimated GFR () 91.0 Estimated GFR (Non- 78.5 BUN/Creatinine Ratio 22.6 10-20 Random Glucose 90 70-99 mg/dl Calcium Level 9.0 8.5-10.1 mg/dl Total Bilirubin 0.5 0.2-1 mg/dl Direct Bilirubin < 0.1 0-0.2 mg/dl Aspartate Amino Transf (AST/SGOT) 20 15-37 U/L Alanine Aminotransferase (ALT/SGPT) 25 12-78 U/L Alkaline Phosphatase 63 45-117 U/L Total Creatine Kinase 82 26-192 U/L Creatine Kinase MB 1.9 0.5-3.6 ng/ml Creatine Kinase MB Ratio 2.3 0-3.0 Troponin I < 0.015 0-0.045 ng/ml Pro-B-Type Natriuretic Peptide 432 0-900 pg/ml Total Protein 7.7 6.4-8.2 gm/dl Albumin 3.6 3.4-5.0 gm/dl Lipase 243 73-393 U/L D-Dimer 740 0-500 ug/L FEU Impression Assessment and Plan 72 year old female with no significant past medical history presented to the emergency room for evaluation of chest pain. Assessment Chest pain rule out ACS GERD History of dyslipidemia, as per patient she took Lipitor for a long time but close to home muscle aches so she stopped it History of uterine cancer status post hysterectomy plan: D-dimer was minimally elevated, patient does not have tachycardia and not on beta bobby to suppress any tachycardia, no shortness of breath right now, normal oxygen saturation in room air, no history suggestive of pulmonary embolism, risks of having CT angiogram to rule out pulmonary embolism are more than benefits, d-dimer can be repeated prior to discharge after hydration if primary team thinks it's necessary admit to telemetry obtain serial cardiac enz NTG SL/topical prn CP consult spike driver pain management Check hemoglobin A1c/lipids to stratify patient risk factors repeat EKG prn chest pain Patient agreed to start lower dose of simvastatin until her LDL results come back Resuscitation Status FULL RESUSCITATION VTE Prophylaxis VTE Risk Assessment Done? Y/N: Yes Risk Level: Moderate
[2017-05-12 22:53] VITALS: BP 152/87; PULSE 72; TEMP 37.1; O2SAT 98; Ht 167.6 cm; Wt 92.4 kg
[2017-05-12] MEDS ORDERED: SODIUM CHLORIDE 0.9% 1000ML 1,000 ML IV SCH (23:00)
--- NOTE | 2017-05-12 23:00 | NUR ---
A/ID: Patient received to room 221. Ambulated without difficulty from litter to bed. A/O X4, denies pain or SOB at this time. campus monitor on, SR on quality assurance monitor, vitals stable. Patient denies history of falls. Patient oriented to room. Call krishnamurthy in reach.
[2017-05-13] MEDS ORDERED: NITROGLYCERIN OINT 2% 1GM PACKET EXT SCH
--- NOTE | 2017-05-13 | NUR ---
assessment completed refer to emr. vss. sr on tele rate 60's. nss infusing at 50ml/hr. denies needs. call krishnamurthy in reach
[2017-05-13 00:13] VITALS: BP 121/79; PULSE 66; TEMP 37.3; O2SAT 97
[2017-05-13] MEDS: NITROGLYCERIN 2% OINTMENT 30GM TUBE EXT SCH ×2 (00:22→05:57)
[2017-05-13 03:23] LABS: BASO % 0.2 %; BASO ABS # 0.03 K/uL (0-0.2); EOS % 0.6 %; EOS ABS # 0.08 K/uL (0-0.5); HEMATOCRIT 40.2 % (37-47); HEMOGLOBIN 13.7 g/dL (12.0-16.0); IG# 0.03 K/uL (0.00-0.02); LYMPH % 11.8 %; LYMPH ABS # 1.59 K/uL (1.2-3.4); MEAN CELL VOLUME 92.6 fL (80-100); MEAN CORPUSCULAR HEMOGLOBIN 31.6 pg (25-34); MEAN CORPUSCULAR HGB CONC 34.1 g/dl (32-36); MEAN PLATELET VOLUME 9.5 fL (7.4-10.4); MONO % 11.5 %; MONO ABS # 1.55 K/uL (0.11-0.59); NEUT % 75.7 %; NEUT ABS # 10.16 K/uL (1.4-6.5); PLATELET COUNT 223 K/uL (130-400); RED CELL DISTRIBUTION WIDTH CV 12.7 % (11.5-14.5); RED CELL DISTRIBUTION WIDTH SD 43.1 fL (36.4-46.3); WHITE BLOOD COUNT 13.44 K/uL (4.8-10.8)
[2017-05-13 03:41] LABS: ALBUMIN 2.9 gm/dl (3.4-5.0); ALT/SGPT 20 U/L (12-78); AST/SGOT 17 U/L (15-37); BLOOD UREA NITROGEN 12 mg/dl (7-18); CALCIUM 7.7 mg/dl (8.5-10.1); CARBON DIOXIDE 25 mmol/L (21-32); CREATININE 0.65 mg/dl (0.60-1.20); GLUCOSE 105 mg/dl (70-99); POTASSIUM 3.7 mmol/L (3.5-5.1); SODIUM 136 mmol/L (136-145)
[2017-05-13 03:54] LABS: ALKALINE PHOSPHATASE 49 U/L (45-117); TOTAL PROTEIN 6.2 gm/dl (6.4-8.2)
[2017-05-13 03:55] VITALS: BP 123/76; PULSE 76; TEMP 37; O2SAT 96
--- NOTE | 2017-05-13 04:19 | NUR ---
denies needs. resting in bed. call krishnamurthy in reach
[2017-05-13 07:12] LABS: HEMOGLOBIN A1C 5.5 % (4.5-5.6)
--- NOTE | 2017-05-13 08:00 | NUR ---
A/ID: [id number]. States she has chest pain when laying flat. SR on the monitor. No edema. Lungs clear on room air. Abdomen soft, non-tender. Voiding clear, yellow urine. Skin intact. IV site intact, IVF infusing per order. Call krishnamurthy within reach, encouraged to ring for assistance. Will continue to monitor.
[2017-05-13 08:06] VITALS: BP 133/84; PULSE 75; TEMP 37.5; O2SAT 96
[2017-05-13] MEDS ORDERED: ASPIRIN 325 MG ECTAB PO SCH (09:00)
[2017-05-13] MEDS ORDERED: ENOXAPARIN 40 MG/0.4 ML SYR SC SCH (09:00)
--- NOTE | 2017-05-13 09:37 | CARDIOLOGY CONSULTATION ---
DATE OF CONSULTATION: 05/13/2017 DATE OF CONSULTATION: 05/13/2017 REQUESTING: Dr. Zachary Villalobos. BUTTER LIQUEFIER: Jose Alberto Vigil D.O, [facility]. REASON FOR CONSULTATION: Chest discomfort, possible esophageal reflux disease and esophageal spasm. Dear Kevon, Thank you for requesting cardiology consultation on Yuly with regards to her chest discomfort. She notes on Friday she was walking along a hill in her yard. She then carried some presents to a neighbor and while walking she had noticed some chest tightness. It did radiate into her back. She described shortness of breath as well. It lasted for a period of time and then resolved. There was no associated diaphoresis. There was no radiation to her neck or arm. She was not nauseous. She notes this sensation did scare her. It did resolve and then she notes yesterday she sort of had discomfort all day describing a mild tightness in her chest. Yesterday activity did not change it in any way. It persisted and she just kind of felt weak and tired all day. She was scared enough that she came to the Emergency Room. It sounds like she did receive lidocaine with Maalox and that did help her discomfort. She notes she has had some degree of worsening shortness of breath over the last year. She denies any fevers or chills or night sweats. She denies any recent viral illness or upper respiratory tract infection. She does have reflux symptoms often. She does lay flat at night and denies PND, orthopnea. She does note when she wakes in the morning that she has a cough and she describes her chest as rattling slightly like her parents when they had congestive heart failure. She denies any palpitations or fluttering, lower extremity edema, symptoms of claudication. Her appetite and weight are stable. She denies any current bleeding. She did have some bleeding in the spring which has been worked up by Dr. Rolle of urology, which she describes at this point as being benign. SOCIAL HISTORY: She lives by herself. She denies any tobacco or alcohol. ALLERGIES: She notes with atorvastatin that she took in 1999 she had significant myalgias. SHE IS ALLERGIC TO ADHESIVES AND DIAZEPAM. FAMILY HISTORY: Her dad had bypass surgery and had heart failure. Her mom had heart failure. MEDICATIONS: Reviewed. PAST MEDICAL HISTORY: 1. Esophageal reflux disease. 2. Cholelithiasis. 3. Marked hyperlipidemia with an LDL of 221. 4. Osteoarthritis. 5. History of uterine cancer status post hysterectomy. PHYSICAL EXAMINATION: GENERAL: She is awake, alert, oriented x3. She is in no acute distress, well-appearing female who looks her stated age. VITAL SIGNS: Her heart rate is 75, respirations 20, blood pressure 133/84, sats 96% on room air. HEAD, EYES, EARS, NOSE, AND THROAT: I could not palpate her carotid upstrokes well. They felt mildly reduced. Her sclerae is anicteric. Her hearing is normal. There were no carotid bruits. LUNGS: She has Velcro-like sounds in both lower lung [place], worse on the right compared to the left, concerning for sounds of interstitial lung disease. There were no rhonchi or wheezing. HEART: Regular rate and rhythm. No appreciable murmurs, rubs or gallops. ABDOMEN: Soft, nontender, nondistended, positive bowel sounds. EXTREMITIES: No clubbing, cyanosis or edema. PSYCHIATRIC: Affect appeared appropriate. NEUROLOGIC: She is awake, alert and oriented x3. EKG normal sinus rhythm. Mild nonspecific ST changes. When repeated the ST changes had resolved. Chest x-ray no active disease. Her previous CAT scan was reviewed. IMPRESSIONS: Chest discomfort. A lot of this sounds like esophageal reflux disease and possibly esophageal spasm. She had significant relief of her symptoms after receiving Maalox and viscous lidocaine. She wakes up in the morning and it sounds like she is having reflux at night. I did discuss that our job is to rule out things that are going to hurt her and in light of that I recommend a stress echo to rule out coronary ischemia which will be performed in the [facility] lab today. I did discuss with her the goal is to get her heart rate 85% maximum predicted for her age. At this point, she has refused reflux medication. I discussed with her I think it is important that she takes something at least like H2 blockers as she is against taking proton pump inhibitors. Her lung sounds do sound like she might have interstitial lung disease, I do wonder if she is aspirating at some point. This would explain potentially her elevated white count as well without any symptoms of a URI. She does note that she has gallstones, whether she has some intermittent acute cholecystitis is unclear. With regards to her lipids I discussed with her given the fact she had myalgias on atorvastatin we could try a hydrophilic statin like Crestor at a low dose starting at 5 mg along with Coenzyme Q10 200 mg daily to reduce her LDL, which based on the guidelines even with high HDL she should be on high intensity statin therapy. Further recommendations will be forthcoming after her stress echo.
[2017-05-13] MEDS ORDERED: ROSUVASTATIN CALCIUM 5 MG TAB PO SCH (10:00)
[2017-05-13] MEDS ORDERED: RANITIDINE HCL 150 MG TAB PO SCH (10:00)
--- NOTE | 2017-05-13 12:00 | NUR ---
Patient reassessed, see EMR for full details. Denies chest pain at this time. Call krishnamurthy within reach. Will continue to monitor.
[2017-05-13 12:26] VITALS: BP 133/82; PULSE 71; TEMP 37.5; O2SAT 97
--- NOTE | 2017-05-13 12:37 | EXERCISE STRESS ECHO ---
*NOTICE TO RECEIVING LIBERTARIAN AGENCY This information is strictly Confidential and protected under [place] law. [place] law prohibits you from making any further disclosure of this information unless further disclosure is expressly permitted by the written consent of the person to whom it pertains or is authorized by law. A general authorization for the release of medical or other information is not sufficient for this purpose. Hospital accepts no responsibility if the information is made available to any other person, INCLUDING THE PATIENT. Interpretation Summary * Name: LOGAN BILLINGSLEY Study Date: 05/13/2017 09:11 AM BP: 141/71 mmHg * Patient Location: C.2T\S\E221\S\1 HR: 67 * : 1945 (M/d/yyyy) Gender: Female Height: 66 in * Age: 72 yrs Ethnicity: CA Weight: 203 lb * Ordering Physician: Twila Goldman * Referring Physician: Self, Referred * Performed By: Neeru Knapp RCS * * Reason For Study: Chest Pain * BSA: 2.0 m2 * -- Conclusions -- * Stress Echo: * 1. Negative stress echo for ischemia at 95 % MPHR. * 2. Negative exercise ECG for ischemia at 95 % MPHR. * 3. No significant blood pressure change recorded. * 4. No arrhythmia. Occasional PVCs in recovery. * 5. Study terminated due to shortness of breath. No chest pain reported. * 6. Poor exercise tolerance. * Echo: * 1. Normal left ventricular size and systolic function. EF 55-60%. No definite regional wall motion abnormalities. No left ventricular hypertrophy. * 2. No significant valvular abnormalities visualized. * 3. Normal estimated right ventricular systolic pressure. Procedure Details * ECHOEX, CPT #[id number] * ECHO COLOR FLOW, CPT #[id number] * ECHO DOPPLER, CPT #[id number] Left Ventricle * The left ventricle is normal in size. * There is normal left ventricular wall thickness. * Ejection Fraction = 55-60%. * Left ventricular systolic function is normal. * Resting wall motion: Normal. Stress wall motion: Appropriate increase in Left ventricular systolic function and decrease in cavity size. No stress induced segmental wall motion abnormalities. * The left ventricular ejection fraction increases normally with stress. The left ventricular end-systolic cavity size reduces post-stress (normal response). The left ventricular wall motion with stress is normal. Right Ventricle * The right ventricle is normal in size and function. * The right ventricular systolic function is normal as assessed by tricuspid annular plane systolic excursion (TAPSE) (normal >1.5 cm). Atria * The left atrial size is normal. * Right atrial size is normal. * There is no evidence of atrial septal defect, but resolution does not allow assessment for a patent foramen ovale. Mitral Valve * The mitral valve leaflets appear normal. There is no evidence of stenosis, fluttering, or prolapse. * There is trace mitral regurgitation. Tricuspid Valve * The tricuspid valve is not well visualized, but is grossly normal. * There is no tricuspid stenosis. * There is trace tricuspid regurgitation. Aortic Valve * The aortic valve is trileaflet. * No hemodynamically significant valvular aortic stenosis. * No aortic regurgitation is present. Pulmonic Valve * The pulmonary valve is inadequately visualized, but the Doppler data is adequate for interpretation. * Mild pulmonic valvular regurgitation. Great Vessels * The aortic root is normal size. * Ascending aorta of normal dimension * Aortic arch of normal dimension. * IVC normal in size and inspiratory collapse. Pericardium * There is no pericardial effusion. Stress Parameters * NSR at [address] abnormality. * < [address] depression in II, III, aVF. * Rest heart rate was '67' BPM. * Rest blood pressure was '141/71' * Maximum heart rate achieved was 139 bpm. * Maximum heart rate was 95 % of maximum age-predicted heart rate. * Maximum blood pressure was '141/71' * Total exercise time was '3:48' * Maximum exercise MET level achieved was '5.5' METS * Maximum treadmill speed was '2.5' miles per hour. * Maximum treadmill elevation was '12'% grade. * Exercise was terminated due to 'fatigue after achieving target heart rate' MMode 2D Measurements and Calculations IVSd 0.93 cm IVSs 1.3 cm LVIDd 4.8 cm LVIDs 2.8 cm LVPWd 0.86 cm LVPWs 1.4 cm IVS/LVPW 1.1 FS 41.6 % EDV(Teich) 106.5 ml ESV(Teich) 29.3 ml EF(Teich) 72.5 % EDV(cubed) 109.3 ml ESV(cubed) 21.7 ml EF(cubed) 80.1 % % IVS thick 41.2 % % LVPW thick 67.2 % LV mass(C)d 145.0 grams LV mass(C)dI 72.0 grams/m\S\2 LV mass(C)s 123.2 grams LV mass(C)sI 61.2 grams/m\S\2 SV(Teich) 77.2 ml SI(Teich) 38.4 ml/m\S\2 SV(cubed) 87.5 ml SI(cubed) 43.5 ml/m\S\2 Ao root diam 3.1 cm Ao root area 7.6 cm\S\2 ACS 1.6 cm LA dimension 3.7 cm asc Aorta Diam 2.9 cm LA/Ao 1.2 EDV(MOD-sp4) 91.0 ml ESV(MOD-sp4) 40.0 ml EF(MOD-sp4) 56.0 % EDV(MOD-sp2) 95.0 ml ESV(MOD-sp2) 44.0 ml EF(MOD-sp2) 53.7 % SV(MOD-sp4) 51.0 ml SI(MOD-sp4) 25.3 ml/m\S\2 SV(MOD-sp2) 51.0 ml SI(MOD-sp2) 25.3 ml/m\S\2 Doppler Measurements and Calculations MV E max ila 66.1 cm/sec MV A max ila 53.6 cm/sec MV E/A 1.2 MV P1/2t max ila 81.5 cm/sec MV P1/2t 83.0 msec MVA(P1/2t) 2.7 cm\S\2 MV dec slope 287.7 cm/sec\S\2 MV dec time 0.26 sec Ao V2 max 140.2 cm/sec Ao max PG 7.9 mmHg Ao max PG (full) 2.5 mmHg LV V1 max PG 5.3 mmHg LV V1 max 115.6 cm/sec PA V2 max 82.0 cm/sec PA max PG 2.7 mmHg PI max ila 169.3 cm/sec PI max PG 11.7 mmHg PI dec slope 168.4 cm/sec\S\2 PI P1/2t 294.5 msec TR max ila 263.2 cm/sec RVSP(TR) 30.7 mmHg RAP systole 3.0 mmHg
[2017-05-13] MEDS ORDERED: ZNT150 PO ×2 (13:33→13:47)
[2017-05-13] MEDS ORDERED: CRS5 PO ×2 (13:33→13:47)
[2017-05-13] MEDS ORDERED: ASPEC325 PO ×2 (13:33→13:47)
--- NOTE | 2017-05-13 13:47 | Discharge Instructions ---
Discharge Instructions Date of Service May 13, 2017. Admission Reason for Admission: Substernal Chest Pain Discharge Discharge Diagnosis / Problem: Chest pain Discharge Goals Goal(s): Decrease discomfort, Improve function, Diagnostic testing, Therapeutic intervention Activity Recommendations Activity Limitations: resume your previous activity (as tolerated) . Instructions / Follow-Up Instructions / Follow-Up You were admitted to the hospital for observation after presenting with hours of chest pain and shortness of breath. You underwent cardiac workup which included a stress echocardiogram, EKGs, and checking serial cardiac enzymes. These tests were negative for acute ischemia or changes concerning for an acute cardiac event. It is possible that your pain may actually be more so due to your underlying acid reflux disease and/or esophageal spasms. While in the hospital, your cholesterol levels were checked, which were high. Since you developed muscle aches/pains previously while on Lipitor (atorvastatin), you were started on a different statin medication to help lower your cholesterol and lower your cardiovascular risk per the project mgr's recommendations. Medications: *Please take rosuvastatin (Crestor) 5 mg by mouth daily. This is a medication to lower your cholesterol. *You may take Coenzyme Q10 200 mg by mouth daily with the Crestor. This may help prevent muscle aches from the statin medication. *Please take aspirin daily. This also helps to reduce your cardiovascular risk. *You may take ranitidine (Zantac) 150 mg by mouth twice a day. This is an antihistamine that can help with your acid reflux. *Continue your other home medications as prescribed. Follow up: *You will be scheduled to follow up with your primary care provider following discharge. Please let them know about the changes to your medications. *You will also be scheduled to follow up with the project mgr, Dr. Vigil, in about 2 weeks. Please seek medical attention if you experience fevers, chills, sweats, dizziness/lightheadedness, loss of consciousness, chest pain, shortness of breath, nausea, vomiting, numbness or tingling. Current Hospital Diet Patient's current hospital diet: Vegetarian Diet, AHA Diet (Heart Healthy) Discharge Diet Recommended Diet: AHA Diet (Heart Healthy) Procedures Procedures Performed: Stress echocardiogram Pending Studies Studies pending at discharge: no Laboratory Results Hemoglobin A1c Test 05/13/17 03:16 Range/Units Estimated Average Glucose 111 mg/dl Hemoglobin A1c 5.5 4.5-5.6 % Lipid Panel Test 05/12/17 17:00 Range/Units Triglycerides Level 128 0-150 mg/dl Cholesterol Level 326 H 0-200 mg/dl HDL Cholesterol 79 mg/dl Cholesterol/HDL Ratio 4.1 LDL Cholesterol, Calculated 221 mg/dl Medical Emergencies . Who to Call and When: Medical Emergencies: If at any time you feel your situation is an emergency, please call 911 immediately. . Non-Emergent Contact Non-Emergency issues call your: Primary Care Provider, Chief Media Officer Call Non-Emergent contact if: you have a fever, your pain is not controlled, your pain is worsening, your pain is unusual for you, your pain is concerning you, you have any medication questions . Past History Medical & Surgical History: (1) Substernal chest pain . "Provider Documentation" section prepared by Twila Goldman. . VTE Core Measure Inpt VTE Proph given/why not?: Enoxaparin (Lovenox)SQ
[2017-05-13 13:57] VITALS: BP 133/82; PULSE 71; TEMP 37.5; O2SAT 97
--- NOTE | 2017-05-13 14:04 | NUR ---
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 Khan on FridayMay 23 at 2:00 pm. I also call Dr. Vigil's office to arrange a follow up appointment. The pattern wheel maker will talk w/ Dr. Vigil and then contact the pt directly w/ the appt details.
--- NOTE | 2017-05-13 14:04 | Discharge Summary ---
Discharge Summary Date of Service May 13, 2017. Discharge Summary Admission Date: May 12, 2017 at 21:20 Discharge Date: May 13, 2017 Discharge Disposition: Home Principal Diagnosis: Chest pain Problems/Secondary Diagnoses: HLD, GERD, arthritis, h/o uterine cancer Procedures: Stress echo: Interpretation Summary * Name: LOGAN BILLINGSLEY Study Date: 05/13/2017 09:11 AM BP: 141/71 mmHg * Patient Location: [facility]\S\[facility]\S\1 HR: 67 * : 1945 (M/d/yyyy) Gender: Female Height: 66 in * Age: 72 yrs Ethnicity: CA Weight: 203 lb * Ordering Physician: Twila Goldman * Referring Physician: Self, Referred * Performed By: Neeru Knapp RCS * * Reason For Study: Chest Pain * BSA: 2.0 m2 * -- Conclusions -- * Stress Echo: * 1. Negative stress echo for ischemia at 95 % MPHR. * 2. Negative exercise ECG for ischemia at 95 % MPHR. * 3. No significant blood pressure change recorded. * 4. No arrhythmia. Occasional PVCs in recovery. * 5. Study terminated due to shortness of breath. No chest pain reported. * 6. Poor exercise tolerance. * Echo: * 1. Normal left ventricular size and systolic function. EF 55-60%. No definite regional wall motion abnormalities. No left ventricular hypertrophy. * 2. No significant valvular abnormalities visualized. * 3. Normal estimated right ventricular systolic pressure. Procedure Details * ECHOEX, CPT #[id number] * ECHO COLOR FLOW, CPT #[id number] * ECHO DOPPLER, CPT #[id number] Left Ventricle * The left ventricle is normal in size. * There is normal left ventricular wall thickness. * Ejection Fraction = 55-60%. * Left ventricular systolic function is normal. * Resting wall motion: Normal. Stress wall motion: Appropriate increase in Left ventricular systolic function and decrease in cavity size. No stress induced segmental wall motion abnormalities. * The left ventricular ejection fraction increases normally with stress. The left ventricular end-systolic cavity size reduces post-stress (normal response). The left ventricular wall motion with stress is normal. Right Ventricle * The right ventricle is normal in size and function. * The right ventricular systolic function is normal as assessed by tricuspid annular plane systolic excursion (TAPSE) (normal >1.5 cm). Atria * The left atrial size is normal. * Right atrial size is normal. * There is no evidence of atrial septal defect, but resolution does not allow assessment for a patent foramen ovale. Mitral Valve * The mitral valve leaflets appear normal. There is no evidence of stenosis, fluttering, or prolapse. * There is trace mitral regurgitation. Tricuspid Valve * The tricuspid valve is not well visualized, but is grossly normal. * There is no tricuspid stenosis. * There is trace tricuspid regurgitation. Aortic Valve * The aortic valve is trileaflet. * No hemodynamically significant valvular aortic stenosis. * No aortic regurgitation is present. Pulmonic Valve * The pulmonary valve is inadequately visualized, but the Doppler data is adequate for interpretation. * Mild pulmonic valvular regurgitation. Great Vessels * The aortic root is normal size. * Ascending aorta of normal dimension * Aortic arch of normal dimension. * IVC normal in size and inspiratory collapse. Pericardium * There is no pericardial effusion. Consultations: Cardiology Medication Reconciliation New Medications: Aspirin (Aspirin) 325 Mg Ectab 325 MG PO QAM for 30 Days, #30 TABS . Ranitidine HCl (Ranitidine HCl) 150 Mg Tab 150 MG PO BID for 30 Days, #60 TAB . Rosuvastatin Calcium (Crestor) 5 Mg Tab 5 MG PO QAM for 30 Days, #30 TAB . Continued Medications: Estradiol (Climara) 0.075 Mg/24 Hr Dis 1 PATCH TOP WK CHANGE ON MONDAYS Meloxicam (Mobic) Unknown Strength Tab 1 TAB PO UD PRN for Pain Discharge Exam The patient reports feeling well. She did report some 4/10 dull, crampy/ spasmodic chest pain this morning, but it resolved on its own. She denies any shortness of breath, dizziness, sweats, or nausea today. She notes a history of GERD and a hiatal hernia. She was previously on a PPI but stopped taking it as her symptoms had gotten better. She does not want to take a PPI anymore but is open to Zantac. The patient denies fevers, chills, sweats, palpitations, claudication, cough, wheezing, shortness of breath, nausea, vomiting, abdominal pain, dysuria, hematuria, urinary retention, paralysis, weakness, numbness and tingling. Constitutional: No fever, No chills, No sweats Eyes: No worsening of vision, No eye pain, No diplopia ENT: No hearing loss, No nasal symptoms, No trouble swallowing Respiratory: No cough, No wheezing, No shortness of breath Cardiovascular: +Chest pain this morning, now resolved. No claudication, No palpitations Abdomen: No pain, No nausea, No vomiting Musculoskeletal: No joint pain, No muscle pain, No swelling Genitourinary - Female: No dysuria, No urinary retention, No hematuria Neurologic: No paralysis, No weakness, No numbness/tingling Integumentary: No rash, No itch, No color change General appearance: +Obese. Well-developed, well-nourished, no apparent distress Head: Normocephalic, atraumatic Eyes: Normal inspection, PERRL, EOMI ENT: Normal ENT inspection, hearing grossly normal, pharynx normal Neck: Supple, no JVD, trachea midline Respiratory/Chest: Lungs clear to auscultation, normal breath sounds, no respiratory distress Cardiovascular: Regular rate & rhythm, no gallop, no murmur Abdomen/GI: Normal bowel sounds, non-tender, soft Extremities/Musculoskeletal: Normal inspection, no calf tenderness, no pedal edema Neurological/Psych: Alert, normal mood/affect, oriented x 3 Skin: Normal color, warm/dry, no rash Hospital Course 72 y/o female with a history of HLD, GERD, arthritis and h/o uterine cancer who presents with chest pain and shortness of breath. Chest pain, ACS r/o -Admit to telemetry for observation. No acute events overnight. Pt in sinus rhythm with HR in 70s. -Troponin negative x 3 -Cardiology consulted, appreciate recs: Did not tolerate Lipitor in the past due to myalgia, will try Crestor instead with CoQ10 200 mg PO qd. Agree with stress testing. -Stress echo negative, stress EKG negative. No chest pain. -Lipid panel with elevated cholesterol -HgbA1c 5.5 -Continue ASA HLD -Total cholesterol 326, non-HDL 247 -Crestor 5 mg PO qd GERD--pain could be secondary to GERD/esophageal spasm -Zantac 150 mg PO BID DVT prophylaxis -Enoxaparin 40 mg SC q24h Code Status -Level I, FULL RESUSCITATION STATUS Dispo -D/C to home -F/u with PCP and cardiology (Dr. Vigil) PA Physician Supervision Note: I interviewed and examined the patient. Discussed with Twila Goldman PAC and agree with findings and plan as documented in the note. Any exceptions or clarifications are listed here: None Patient feels relieved that her stress test was unremarkable she is going to start on Zantac at home and attempt to use statin, Crestor was chosen by Dr. Rodrigues. Vitals are stable cardiac exam is regular lungs are clear Patient will be discharged with a noncardiac origin of her discomfort follow-up with Dr. Ward for management of her dyslipidemia and consideration of GI evaluation for dyspepsia Documented By: Zachary Villalobos Total Time Spent: Greater than 30 minutes This includes examination of the patient, discharge planning, medication reconciliation, and communication with other providers. Discharge Instructions Please refer to the electronic Patient Visit Report (Discharge Instructions) for additional information. Additional Copies To Brooklyn Khan M.D.
[2017-05-13] MEDS ORDERED: COEN100C6 PO (14:06)
--- NOTE | 2017-05-13 14:30 | NUR ---
Patient discharged. All instructions including follow up appointments and new prescriptions discussed. All questions and concerns addressed. IV site discontinued, site WNL. Telemetry leads removed. All belongings sent home with patient. Patient escorted out via wheelchair.
[2017-05-14] MEDS ORDERED: RANI150T85 PO (13:44)
[2017-05-14] MEDS ORDERED: ASPECOTC PO (13:44)
[2017-05-14] MEDS ORDERED: ROSU5TAB PO (13:44)
[2017-05-14] MEDS ORDERED: COEN200C17 PO (13:44)
== END 2017-05-13 14:39 | disposition home or self-care (01) ==
LOC: C.EDB 16:21 → C.2T 21:20 → ENRESERV 21:35
PROVIDERS: ADMIT Internal Medicine; ATTEND Internal Medicine
DX: R07.9 Chest pain, unspecified (principal); K21.9 Gastro-esophageal reflux disease without esophagitis; K80.20 Calculus of gallbladder without cholecystitis without obstruction; E78.5 Hyperlipidemia, unspecified; M19.90 Unspecified osteoarthritis, unspecified site; Z85.42 Personal history of malignant neoplasm of other parts of uterus; Z90.710 Acquired absence of both cervix and uterus; Z82.49 Family history of ischemic heart disease and other diseases of the circulatory system

== ENCOUNTER 2017-05-14 12:46 | Inpatient (IN) | payer OTHER ==
[~2017-05-14] VITALS: Ht 167.6 cm; Wt 93.0 kg
[~2017-05-14 12:46] MED LIST changes: +ASPEC325 PO; +COEN100C6 PO; +CRS5 PO; -CYAN50TA2; -FLUC150T63 PO; +MELO7.5T5 PO; +ZNT150 PO
[2017-05-14] MEDS ORDERED: COEN200C17 PO (13:44)
[2017-05-14] MEDS ORDERED: RANI150T85 PO (13:44)
[2017-05-14] MEDS ORDERED: ROSU5TAB PO (13:44)
[2017-05-14] MEDS ORDERED: ASPECOTC PO (13:44)
[2017-05-14 14:03] LABS: BASO % 0.1 %; BASO ABS # 0.02 K/uL (0-0.2); EOS % 0.2 %; EOS ABS # 0.03 K/uL (0-0.5); HEMATOCRIT 44.8 % (37-47); HEMOGLOBIN 15.3 g/dL (12.0-16.0); IG# 0.06 K/uL (0.00-0.02); LYMPH % 5.2 %; LYMPH ABS # 0.96 K/uL (1.2-3.4); MEAN CELL VOLUME 93.7 fL (80-100); MEAN CORPUSCULAR HGB CONC 34.2 g/dl (32-36); MEAN PLATELET VOLUME 10.4 fL (7.4-10.4); MONO % 10.2 %; NEUT ABS # 15.63 K/uL (1.4-6.5); PLATELET COUNT 253 K/uL (130-400); RED CELL DISTRIBUTION WIDTH CV 12.7 % (11.5-14.5); RED CELL DISTRIBUTION WIDTH SD 43.4 fL (36.4-46.3)
[2017-05-14] MEDS ORDERED: SODIUM CHLORIDE 0.9% 1000ML 1,000 ML IV STA (14:04)
[2017-05-14] MEDS ORDERED: SODIUM CHLORIDE 0.9% 1000ML 500 ML IV STA (14:04)
[2017-05-14 14:15] LABS: ALBUMIN 3.6 gm/dl (3.4-5.0); CALCIUM 8.7 mg/dl (8.5-10.1); CREATININE 0.75 mg/dl (0.60-1.20); POTASSIUM 3.9 mmol/L (3.5-5.1)
[2017-05-14 14:18] LABS: TOTAL PROTEIN 7.6 gm/dl (6.4-8.2)
--- NOTE | 2017-05-14 14:56 | DIAGNOSTIC IMAGING REPORT ---
GALLBLADDER-ABD LIMITED CLINICAL HISTORY: RUQ PAIN, KNOWN GALLSTONE pain. Nausea. TECHNIQUE: Ultrasound COMPARISON STUDY: None FINDINGS: Gallstone the region of the gallbladder neck measuring approximately 1 cm. Layering and mobile sludge dependent gallbladder. Gallbladder wall 5 mm. No pericholecystic fluid. Common bile duct 7 mm. Liver is uniform. Pancreas and right kidney are unremarkable. IMPRESSION: 1. Combination of a gallstone and thick sludge within the gallbladder. 2. Slight prominence of the common bile duct at 7 mm. 3. No evidence for intrahepatic biliary ductal distention or pericholecystic fluid. The above report was generated using voice recognition software. It may contain grammatical, syntax or spelling errors. Electronically signed by: Neil Bryson M.D. 05/14/2017 2:55 PM Dictated Date/Time: 05/14/2017 2:52 PM
[2017-05-14] MEDS ORDERED: OPTIRAY 320 IV PRN (15:30)
--- NOTE | 2017-05-14 15:49 | DIAGNOSTIC IMAGING REPORT ---
ABDOMEN 2VIEW W/PA CHEST RTN CLINICAL HISTORY: 72 years-old Female presenting with RUQ ABD PAIN. TECHNIQUE: PA view of the chest and supine and upright views of the abdomen were obtained. COMPARISON: 05/12/2017. FINDINGS: Atherosclerosis of the aortic arch. Cardiac silhouette normal in size. Mildly low lung volumes. Pleural thickening and reticular opacities at the right apex. No new focal infiltrate. No large effusion or pneumothorax. Nonobstructive bowel gas pattern. No gross pneumoperitoneum. Allowing for bowel gas and stool, possible right renal calculus. Numerous pelvic phleboliths. Osseous structures normal. IMPRESSION: 1. No acute cardiopulmonary disease. 2. Pleural-parenchymal scarring at the right apex. 3. Right renal calculus suspected. 4. No bowel obstruction or free air. Electronically signed by: Juliocesar Alfred M.D. 05/14/2017 3:47 PM Dictated Date/Time: 05/14/2017 3:44 PM
--- NOTE | 2017-05-14 16:10 | DIAGNOSTIC IMAGING REPORT ---
CT SCAN OF THE ABDOMEN AND PELVIS WITH IV CONTRAST CLINICAL HISTORY: Right upper quadrant abdominal pain. COMPARISON STUDY: Abdominal ultrasound dated 05/14/2017. TECHNIQUE: Following the IV administration of 93 cc of Optiray 320, CT scan of the abdomen and pelvis is performed from the lung bases to the proximal femora. Images are reviewed in the axial, sagittal, and coronal planes. IV contrast was administered without complication. A dose lowering technique was utilized adhering to the principles of ALARA. CT DOSE: 1043.53 mGy.cm FINDINGS: Lung bases: The heart is normal in size and without pericardial effusion. Chronic change is present at both lung bases. There is no airspace consolidation or pleural effusion. There is a tiny hiatal hernia. Liver: The contrast-enhanced liver is normal in size and contour. The liver is slightly heterogeneous in attenuation. There is mild central intrahepatic biliary ductal dilatation. The hepatic veins and portal veins are patent. Gallbladder: There is a large slightly hyperdense gallstone impacted in the region of the gallbladder neck. This measures up to 2.7 cm. The gallbladder is distended and thick-walled. There is pericholecystic stranding and fluid, and the appearance is consistent with acute cholecystitis. Spleen: Normal in size and attenuation. Pancreas: Mildly atrophic and grossly unremarkable. Adrenal glands: Unremarkable. Kidneys: The contrast enhanced kidneys demonstrate mild cortical atrophy and are without hydronephrosis. The kidneys enhance symmetrically. Abdominal vasculature: The abdominal aorta is normal in course and caliber noting moderate atherosclerotic calcification. Bowel: There is mild wall thickening noted at the hepatic flexure, likely related to adjacent cholecystitis. There is moderate sigmoid diverticulosis without CT evidence of acute diverticulitis. No bowel obstruction is seen. The appendix is well-visualized and normal. Peritoneum: There is a small volume of free fluid in the right upper quadrant as well as trace free fluid in the pelvis. No intraperitoneal free air is seen. There are complex fat-containing umbilical and periumbilical hernias. Lymphadenopathy: None. Pelvic viscera: The bladder is normal in appearance. The uterus is surgically absent. No adnexal lesion is seen. Skeletal structures: The skeletal structures are osteopenic. There is mild to moderate lumbosacral spondylosis. A hemitransitional left lumbosacral segment is incidentally noted. Degenerative change is also seen in the hips and sacroiliac joints. No lytic or blastic lesions are seen. IMPRESSION: 1. Findings are consistent with acute cholecystitis. Surgical consultation is advised. 2. A small volume of free fluid is seen in the right upper quadrant and pelvis, likely on a reactive basis. 3. Mild wall thickening involving the splenic flexure of the colon is likely related to adjacent cholecystitis. 4. Moderate sigmoid diverticulosis without CT evidence of acute diverticulitis. 5. Additional findings as above. Electronically signed by: Michael Grimaldo M.D. 05/14/2017 4:08 PM Dictated Date/Time: 05/14/2017 3:59 PM
--- NOTE | 2017-05-14 16:15 | EMERGENCY ROOM VISIT NOTE ---
ED Visit Note First contact with patient: 13:38 The patient was seen and examined with Rox Naylor PA-C. I agree with the history, physical and findings. Please see the note for disposition and details.
--- NOTE | 2017-05-14 16:29 | EMERGENCY ROOM VISIT NOTE ---
History First contact with patient: 13:38 Chief Complaint: ABDOMINAL PAIN Stated Complaint: ABDOMINAL PAIN Nursing Triage Summary: right side abdominal pain. slightly nauseated. History of Present Illness Patient is a 72-year-old white female who returns to the emergency department for complaints of right-sided abdominal pain times one day. Patient was actually seen and evaluated in the emergency department, then admitted for a chest pain workup 05/12 through 05/13. At that time she had generalized chest pain. She was seen and thoroughly evaluated. She had a negative stress echo, and was felt to have been cleared from a cardiology standpoint. She was started on a baby aspirin and Crestor, cardiology suggested that her pain may be GI related due to her history of GERD and a hiatal hernia, and they recommended that she start ranitidine, as she is reluctant to use a PPI. Patient does note that yesterday prior to discharge, she mentioned to 2 different practitioners that she was developing some right upper quadrant abdominal pain, but apparently nothing was done and she was discharged to home. Yesterday afternoon, she noted progressively worsening right upper quadrant pain that radiated to the epigastric region, and around to her right upper back slightly. The pain increased last night, and this morning. She reports associated nausea and anorexia. She notes that there is a sharp pain with deep breathing and with movement. She has not had anything to eat since eating a piece of a banana last evening. She did report 2 loose bowel movements this morning. She felt warm, but recorded her temperature at home and did not have a fever. She rates her discomfort a 6/10. She does note that she had CT scan and this spring which noted a gallstone. Review of Systems Review of systems as per HPI. All other systems reviewed were negative. 10 systems reviewed. Past Medical/Surgical History Medical Problems: (1) Arthritis (2) GERD (gastroesophageal reflux disease) (3) Hyperlipidemia, Unspecified (4) Substernal chest pain (5) Uterine cancer Surgical Problems: (1) S/P hysterectomy Electronic medical records are reviewed and summarized as above/below. See Problem List. Family History CHF (congestive heart failure) Social History Smoking Status: Never Smoker Drug Use: none Marital Status: Housing Status: lives alone Occupation Status: retired Current/Historical Medications Scheduled Aspirin (Aspirin), 325 MG PO QAM Coenzyme Q10 (Ubidecarenone) (Co-Enzyme Q10), 1 CAP PO DAILY Estradiol (Climara), 1 PATCH TOP WK Ranitidine (Zantac), 150 MG PO BID Rosuvastatin Calcium (Crestor), 5 MG PO QAM Scheduled PRN Meloxicam (Mobic), 1 TAB PO UD PRN for Pain Physical Exam Vital Signs Date Time Temp Pulse Resp B/P (MAP) Pulse Ox O2 Delivery O2 Flow Rate FiO2 05/14/17 15:13 85 18 174/98 98 Room Air 05/14/17 13:25 82 05/14/17 12:51 36.4 91 18 161/87 99 Room Air Physical Exam CONSTITUTIONAL: Patient is a well-appearing 72-year-old white female who is awake and alert and in no acute distress. EYES: Pupils equal, round, reactive to light and accommodation. EOMs intact without nystagmus. Sclera are anicteric. ENT: Tympanic membranes intact, with normal landmarks. External canals are clear. Oral and nasopharynx are clear. Mucous membranes are moist, no lesions , tongue and gums appear normal. CARDIOVASCULAR: Regular rate and rhythm, with normal S1 and S2, no murmur or gallop or rub is heard. No carotid bruits auscultated. No JVD. Peripheral pulses easily palpable. RESPIRATORY: Breath sounds equal and clear to auscultation without wheezes, rales, or rhonchi heard. Full and equal chest expansion without accessory muscle use or retractions. ABDOMEN: Bowel sounds are present. Abdomen is soft, nondistended, tender to percussion in the epigastric, right upper quadrant and left lower quadrants. She is markedly tender to palpation in the right upper quadrant, and has pain in the right upper quadrant when the left lower quadrant is palpated. Voluntary guarding noted. No rigidity. INTEGUMENTARY: No lesions or rash, normal skin turgor. LYMPH: No lymphadenopathy. Medical Decision & Procedures ER Provider Diagnostic Interpretation: CT SCAN OF THE ABDOMEN AND PELVIS WITH IV CONTRAST CLINICAL HISTORY: Right upper quadrant abdominal pain. COMPARISON STUDY: Abdominal ultrasound dated 05/14/2017. TECHNIQUE: Following the IV administration of 93 cc of Optiray 320, CT scan of the abdomen and pelvis is performed from the lung bases to the proximal femora. Images are reviewed in the axial, sagittal, and coronal planes. IV contrast was administered without complication. A dose lowering technique was utilized adhering to the principles of ALARA. CT DOSE: 1043.53 mGy.cm FINDINGS: Lung bases: The heart is normal in size and without pericardial effusion. Chronic change is present at both lung bases. There is no airspace consolidation or pleural effusion. There is a tiny hiatal hernia. Liver: The contrast-enhanced liver is normal in size and contour. The liver is slightly heterogeneous in attenuation. There is mild central intrahepatic biliary ductal dilatation. The hepatic veins and portal veins are patent. Gallbladder: There is a large slightly hyperdense gallstone impacted in the region of the gallbladder neck. This measures up to 2.7 cm. The gallbladder is distended and thick-walled. There is pericholecystic stranding and fluid, and the appearance is consistent with acute cholecystitis. Spleen: Normal in size and attenuation. Pancreas: Mildly atrophic and grossly unremarkable. Adrenal glands: Unremarkable. Kidneys: The contrast enhanced kidneys demonstrate mild cortical atrophy and are without hydronephrosis. The kidneys enhance symmetrically. Abdominal vasculature: The abdominal aorta is normal in course and caliber noting moderate atherosclerotic calcification. Bowel: There is mild wall thickening noted at the hepatic flexure, likely related to adjacent cholecystitis. There is moderate sigmoid diverticulosis without CT evidence of acute diverticulitis. No bowel obstruction is seen. The appendix is well-visualized and normal. Peritoneum: There is a small volume of free fluid in the right upper quadrant as well as trace free fluid in the pelvis. No intraperitoneal free air is seen. There are complex fat-containing umbilical and periumbilical hernias. Lymphadenopathy: None. Pelvic viscera: The bladder is normal in appearance. The uterus is surgically absent. No adnexal lesion is seen. Skeletal structures: The skeletal structures are osteopenic. There is mild to moderate lumbosacral spondylosis. A hemitransitional left lumbosacral segment is incidentally noted. Degenerative change is also seen in the hips and sacroiliac joints. No lytic or blastic lesions are seen. IMPRESSION: 1. Findings are consistent with acute cholecystitis. Surgical consultation is advised. 2. A small volume of free fluid is seen in the right upper quadrant and pelvis, likely on a reactive basis. 3. Mild wall thickening involving the splenic flexure of the colon is likely related to adjacent cholecystitis. 4. Moderate sigmoid diverticulosis without CT evidence of acute diverticulitis. 5. Additional findings as above. GALLBLADDER-ABD LIMITED CLINICAL HISTORY: RUQ PAIN, KNOWN GALLSTONE pain. Nausea. TECHNIQUE: Ultrasound COMPARISON STUDY: None FINDINGS: Gallstone the region of the gallbladder neck measuring approximately 1 cm. Layering and mobile sludge dependent gallbladder. Gallbladder wall 5 mm. No pericholecystic fluid. Common bile duct 7 mm. Liver is uniform. Pancreas and right kidney are unremarkable. IMPRESSION: 1. Combination of a gallstone and thick sludge within the gallbladder. 2. Slight prominence of the common bile duct at 7 mm. 3. No evidence for intrahepatic biliary ductal distention or pericholecystic fluid. ABDOMEN 2VIEW W/PA CHEST RTN CLINICAL HISTORY: 72 years-old Female presenting with RUQ ABD PAIN. TECHNIQUE: PA view of the chest and supine and upright views of the abdomen were obtained. COMPARISON: 05/12/2017. FINDINGS: Atherosclerosis of the aortic arch. Cardiac silhouette normal in size. Mildly low lung volumes. Pleural thickening and reticular opacities at the right apex. No new focal infiltrate. No large effusion or pneumothorax. Nonobstructive bowel gas pattern. No gross pneumoperitoneum. Allowing for bowel gas and stool, possible right renal calculus. Numerous pelvic phleboliths. Osseous structures normal. IMPRESSION: 1. No acute cardiopulmonary disease. 2. Pleural-parenchymal scarring at the right apex. 3. Right renal calculus suspected. 4. No bowel obstruction or free air. Laboratory Results 05/14/17 13:25 Red Blood Count 4.78, Mean Corpuscular Volume 93.7, Mean Corpuscular Hemoglobin 32.0, Mean Corpuscular Hemoglobin Concent 34.2, Mean Platelet Volume 10.4, Neutrophils (%) (Auto) 84.0, Lymphocytes (%) (Auto) 5.2, Monocytes (%) (Auto) 10.2, Eosinophils (%) (Auto) 0.2, Basophils (%) (Auto) 0.1, Neutrophils # (Auto ) 15.63, Lymphocytes # (Auto) 0.96, Monocytes # (Auto) 1.90, Eosinophils # (Auto ) 0.03, Basophils # (Auto) 0.02 05/14/17 13:25 Test 05/14/17 13:25 05/14/17 17:00 White Blood Count 18.60 K/uL (4.8-10.8) Red Blood Count 4.78 M/uL (4.2-5.4) Hemoglobin 15.3 g/dL (12.0-16.0) Hematocrit 44.8 % (37-47) Mean Corpuscular Volume 93.7 fL (80-100) Mean Corpuscular Hemoglobin 32.0 pg (25-34) Mean Corpuscular Hemoglobin Concent 34.2 g/dl (32-36) Platelet Count 253 K/uL (130-400) Mean Platelet Volume 10.4 fL (7.4-10.4) Neutrophils (%) (Auto) 84.0 % Lymphocytes (%) (Auto) 5.2 % Monocytes (%) (Auto) 10.2 % Eosinophils (%) (Auto) 0.2 % Basophils (%) (Auto) 0.1 % Neutrophils # (Auto) 15.63 K/uL (1.4-6.5) Lymphocytes # (Auto) 0.96 K/uL (1.2-3.4) Monocytes # (Auto) 1.90 K/uL (0.11-0.59) Eosinophils # (Auto) 0.03 K/uL (0-0.5) Basophils # (Auto) 0.02 K/uL (0-0.2) RDW Standard Deviation 43.4 fL (36.4-46.3) RDW Coefficient of Variation 12.7 % (11.5-14.5) Immature Granulocyte % (Auto) 0.3 % Immature Granulocyte # (Auto) 0.06 K/uL (0.00-0.02) Anion Gap 11.0 mmol/L (3-11) Est Creatinine Clear Calc Drug Dose 76.3 ml/min Estimated GFR () 91.0 Estimated GFR (Non- 78.5 BUN/Creatinine Ratio 13.4 (10-20) Calcium Level 8.7 mg/dl (8.5-10.1) Total Bilirubin 0.7 mg/dl (0.2-1) Aspartate Amino Transf (AST/SGOT) 21 U/L (15-37) Alanine Aminotransferase (ALT/SGPT) 21 U/L (12-78) Alkaline Phosphatase 64 U/L (45-117) Total Protein 7.6 gm/dl (6.4-8.2) Albumin 3.6 gm/dl (3.4-5.0) Globulin 4.0 gm/dl (2.5-4.0) Albumin/Globulin Ratio 0.9 (0.9-2) Lipase 184 U/L (73-393) Urine Color YELLOW Urine Appearance CLEAR (CLEAR) Urine pH 6.5 (4.5-7.5) Urine Specific [place] > 1.045 (1.000-1.030) Urine Protein NEG (NEG) Urine Glucose (UA) NEG (NEG) Urine Ketones 1+ (NEG) Urine Occult Blood 2+ (NEG) Urine Nitrite NEG (NEG) Urine Bilirubin NEG (NEG) Urine Urobilinogen NEG (NEG) Urine Leukocyte Esterase NEG (NEG) Urine WBC (Auto) 1-5 /hpf (0-5) Urine RBC (Auto) 10-30 /hpf (0-4) Urine Hyaline Casts (Auto) 0 /lpf (0-5) Urine Epithelial Cells (Auto) 20-30 /lpf (0-5) Urine Bacteria (Auto) NEG (NEG) Medications Administered Medications (Trade) Dose Ordered Sig/Colette Route Start Time Stop Time Status Last Admin Dose Admin Sodium Chloride 500 ml @ 999 mls/hr Q31M STAT IV 05/14/17 14:04 05/14/17 14:34 DC 05/14/17 14:04 999 MLS/HR Sodium Chloride 1,000 ml @ 250 mls/hr Q4H STAT IV 05/14/17 14:04 05/14/17 18:03 DC 05/14/17 17:48 250 MLS/HR ED Course The patient was seen and evaluated as above, her old records were reviewed specifically her observation for chest pain from just one day ago. She now presents to the emergency department with right upper quadrant abdominal pain. She is markedly tender on exam. IV lock was initiated and laboratory studies were collected including CBC with differential, CMP and lipase. Patient was offered, but declined medication for discomfort as she had driven herself to the emergency department, and wanted to be able to drive herself home. Acute abdominal series was obtained and was unremarkable. Right upper quadrant ultrasound was ordered. Laboratory studies today documented an elevated white count at 18,600 with left shift and bandemia, this is up from 13,000 yesterday. Electrolytes, renal functions, liver functions and lipase are all within normal limits. Patient has yet to provide a urine sample. Right upper quadrant ultrasound noted a 1 cm gallstone in the region of the gallbladder neck with layering and mobile sludge in the bladder. Gallbladder wall measured 5 mm without evidence for pericholecystic fluid. There is no intrahepatic biliary ductal dilatation. Common bile duct measured 7 mm. Given the patient's leukocytosis and physical exam findings, CT scan of the abdomen and pelvis with IV contrast was ordered. By CT, the gallstone appears to be impacted in the gallbladder neck and measures closer to 2.7 cm. The gallbladder is distended and thick walled with pericholecystic stranding and fluid, consistent with acute cholecystitis. Bowel wall thickening noted at the hepatic flexure is likely related to the adjacent cholecystitis. There was moderate diverticulosis without evidence for acute diverticulitis. No evidence for bowel instruction or acute appendicitis. All laboratory and diagnostic imaging studies were reviewed with attending physician, who independently evaluated the patient. The results of the patient' s ED workup were reviewed with her. Surgical consultation was placed. Patient was seen by the surgical team, and will be admitted with plans for surgical intervention. The patient remained hemodynamically stable while in the emergency department, remaining inpatient bed. Differential diagnoses entertained included GERD, gastritis, peptic ulcer disease, acute pancreatitis, biliary colic, acute cholecystitis, ascending cholangitis, bowel obstruction, perforation, diverticulitis, acute appendicitis , UTI, pyelonephritis, renal colic, among others. Medical Decision See ED Course. Medication Reconcilliation Current Medication List: was personally reviewed by wa Blood Pressure Screening Patient's blood pressure: Elevated blood pressure Blood pressure disposition: Elevated BP felt to be situational Impression Primary Impression: Acute calculous cholecystitis Departure Information Dispostion Being Evaluated By Surgeon Referrals Brooklyn Khan M.D. (PCP) Patient Instructions [facility]
[2017-05-14] MEDS ORDERED: MELOXICAM 7.5 MG TAB PO PRN (17:45)
[2017-05-14] MEDS ORDERED: MoRPHine SULFATE 4 MG/ML 1 ML CARP\\VIAL IV PRN ×2 (17:45)
[2017-05-14] MEDS ORDERED: MoRPHine SULFATE 2 MG/ML CARP IV PRN (17:45)
--- NOTE | 2017-05-14 17:45 | History and Physical ---
History & Physical Date & Time of Service: May 14, 2017 at 17:32 Chief Complaint: Abdominal Pain Primary Care Physician: Brooklyn Khan M.D. History of Present Illness 72-year-old female presented to the emergency department with right upper quadrant abdominal pain and nausea. She started feeling ill and having abdominal pain and chest pain along with some shortness of breath on Friday. She was admitted over the with epigastric and chest pain. She had a 24-hour observation for chest pain rule out and had a stress test that was unremarkable and she was discharged. She continued to have abdominal pain that continued to worsen along with nausea. Her pain is localized to the right upper quadrant. She has a known gallstone that was seen on prior CT scans or years ago. She has a history of endometrial cancer and had a total abdominal hysterectomy and salpingo-oophorectomy several years ago. She has never had similar symptoms in the past. She was started on aspirin, Crestor, and Zantac upon discharge from the hospital on Friday, however she has only taking one dose of aspirin. Past Medical/Surgical History Medical Problems: (1) Arthritis Status: Chronic (2) GERD (gastroesophageal reflux disease) Status: Chronic (3) Hyperlipidemia, Unspecified Status: Chronic (4) Substernal chest pain Status: Resolved (5) Uterine cancer Status: Resolved Surgical Problems: (1) S/P hysterectomy Status: Resolved Family History CHF (congestive heart failure) Social History Smoking Status: Never Smoker Drug Use: none Marital Status: Occupational Status: retired Allergies Coded Allergies: Adhesives (Verified Allergy, Intermediate, Skin reaction, 05/14/17) Diazepam (Verified Allergy, Intermediate, Paradoxial reaction, 05/14/17) Home Medications Scheduled Aspirin (Aspirin), 325 MG PO QAM Coenzyme Q10 (Ubidecarenone) (Co-Enzyme Q10), 1 CAP PO DAILY Estradiol (Climara), 1 PATCH TOP WK Ranitidine (Zantac), 150 MG PO BID Rosuvastatin Calcium (Crestor), 5 MG PO QAM Scheduled PRN Meloxicam (Mobic), 1 TAB PO UD PRN for Pain Review of Systems 10 point review of systems negative except as noted above Physical Exam Vital Signs Date Time Temp Pulse Resp B/P (MAP) Pulse Ox O2 Delivery O2 Flow Rate FiO2 05/14/17 15:13 85 18 174/98 98 Room Air 05/14/17 13:25 82 05/14/17 12:51 36.4 91 18 161/87 99 Room Air General Appearance: WD/WN, + mild distress Head: normocephalic, atraumatic Eyes: normal inspection, PERRL, EOMI ENT: normal ENT inspection, hearing grossly normal, pharynx normal Neck: supple, no adenopathy, thyroid normal, no JVD Respiratory/Chest: chest non-tender, lungs clear, normal breath sounds, no respiratory distress, no accessory muscle use Cardiovascular: regular rate, rhythm, no edema, no JVD, no murmur, normal peripheral pulses Abdomen/GI: normal bowel sounds, soft, no organomegaly, no pulsatile mass, + tenderness (tender to palpation right upper quadrant), + pertinent finding ( positive Burnett sign) Back: normal inspection, no CVA tenderness, no muscle spasm, normal range of motion Extremities/Musculoskelatal: normal inspection, no calf tenderness, normal capillary refill, no pedal edema, normal range of motion 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, no motor/sensory deficits, alert, normal mood/affect, oriented x 3 Skin: normal color, warm/dry, no rash Lymphatic: no adenopathy Diagnostics Laboratory Results Results Past 24 Hours Test 05/14/17 13:25 05/14/17 17:00 Range/Units White Blood Count 18.60 4.8-10.8 K/uL Red Blood Count 4.78 4.2-5.4 M/uL Hemoglobin 15.3 12.0-16.0 g/dL Hematocrit 44.8 37-47 % Mean Corpuscular Volume 93.7 80-100 fL Mean Corpuscular Hemoglobin 32.0 25-34 pg Mean Corpuscular Hemoglobin Concent 34.2 32-36 g/dl Platelet Count 253 130-400 K/uL Mean Platelet Volume 10.4 7.4-10.4 fL Neutrophils (%) (Auto) 84.0 % Lymphocytes (%) (Auto) 5.2 % Monocytes (%) (Auto) 10.2 % Eosinophils (%) (Auto) 0.2 % Basophils (%) (Auto) 0.1 % Neutrophils # (Auto) 15.63 1.4-6.5 K/uL Lymphocytes # (Auto) 0.96 1.2-3.4 K/uL Monocytes # (Auto) 1.90 0.11-0.59 K/uL Eosinophils # (Auto) 0.03 0-0.5 K/uL Basophils # (Auto) 0.02 0-0.2 K/uL RDW Standard Deviation 43.4 36.4-46.3 fL RDW Coefficient of Variation 12.7 11.5-14.5 % Immature Granulocyte % (Auto) 0.3 % Immature Granulocyte # (Auto) 0.06 0.00-0.02 K/uL Sodium Level 136 136-145 mmol/L Potassium Level 3.9 3.5-5.1 mmol/L Chloride Level 102 98-107 mmol/L Carbon Dioxide Level 23 21-32 mmol/L Anion Gap 11.0 3-11 mmol/L Blood Urea Nitrogen 10 7-18 mg/dl Creatinine 0.75 0.60-1.20 mg/dl Est Creatinine Clear Calc Drug Dose 76.3 ml/min Estimated GFR () 91.0 Estimated GFR (Non- 78.5 BUN/Creatinine Ratio 13.4 10-20 Random Glucose 102 70-99 mg/dl Calcium Level 8.7 8.5-10.1 mg/dl Total Bilirubin 0.7 0.2-1 mg/dl Aspartate Amino Transf (AST/SGOT) 21 15-37 U/L Alanine Aminotransferase (ALT/SGPT) 21 12-78 U/L Alkaline Phosphatase 64 45-117 U/L Total Protein 7.6 6.4-8.2 gm/dl Albumin 3.6 3.4-5.0 gm/dl Globulin 4.0 2.5-4.0 gm/dl Albumin/Globulin Ratio 0.9 0.9-2 Lipase 184 73-393 U/L Urine Color YELLOW Urine Appearance CLEAR CLEAR Urine pH 6.5 4.5-7.5 Urine Specific [place] > 1.045 1.000-1.030 Urine Protein NEG NEG Urine Glucose (UA) NEG NEG Urine Ketones 1+ NEG Urine Occult Blood 2+ NEG Urine Nitrite NEG NEG Urine Bilirubin NEG NEG Urine Urobilinogen NEG NEG Urine Leukocyte Esterase NEG NEG Urine WBC (Auto) 1-5 0-5 /hpf Urine RBC (Auto) 10-30 0-4 /hpf Urine Hyaline Casts (Auto) 0 0-5 /lpf Urine Epithelial Cells (Auto) 20-30 0-5 /lpf Urine Bacteria (Auto) NEG NEG Diagnostic Radiology Right upper quadrant ultrasound: GALLBLADDER-ABD LIMITED CLINICAL HISTORY: RUQ PAIN, KNOWN GALLSTONE pain. Nausea. TECHNIQUE: Ultrasound COMPARISON STUDY: None FINDINGS: Gallstone the region of the gallbladder neck measuring approximately 1 cm. Layering and mobile sludge dependent gallbladder. Gallbladder wall 5 mm. No pericholecystic fluid. Common bile duct 7 mm. Liver is uniform. Pancreas and right kidney are unremarkable. IMPRESSION: 1. Combination of a gallstone and thick sludge within the gallbladder. 2. Slight prominence of the common bile duct at 7 mm. 3. No evidence for intrahepatic biliary ductal distention or pericholecystic fluid. The above report was generated using voice recognition software. It may contain grammatical, syntax or spelling errors. CT abdomen/pelvis: CT SCAN OF THE ABDOMEN AND PELVIS WITH IV CONTRAST CLINICAL HISTORY: Right upper quadrant abdominal pain. COMPARISON STUDY: Abdominal ultrasound dated 05/14/2017. TECHNIQUE: Following the IV administration of 93 cc of Optiray 320, CT scan of the abdomen and pelvis is performed from the lung bases to the proximal femora. Images are reviewed in the axial, sagittal, and coronal planes. IV contrast was administered without complication. A dose lowering technique was utilized adhering to the principles of ALARA. CT DOSE: 1043.53 mGy.cm FINDINGS: Lung bases: The heart is normal in size and without pericardial effusion. Chronic change is present at both lung bases. There is no airspace consolidation or pleural effusion. There is a tiny hiatal hernia. Liver: The contrast-enhanced liver is normal in size and contour. The liver is slightly heterogeneous in attenuation. There is mild central intrahepatic biliary ductal dilatation. The hepatic veins and portal veins are patent. Gallbladder: There is a large slightly hyperdense gallstone impacted in the region of the gallbladder neck. This measures up to 2.7 cm. The gallbladder is distended and thick-walled. There is pericholecystic stranding and fluid, and the appearance is consistent with acute cholecystitis. Spleen: Normal in size and attenuation. Pancreas: Mildly atrophic and grossly unremarkable. Adrenal glands: Unremarkable. Kidneys: The contrast enhanced kidneys demonstrate mild cortical atrophy and are without hydronephrosis. The kidneys enhance symmetrically. Abdominal vasculature: The abdominal aorta is normal in course and caliber noting moderate atherosclerotic calcification. Bowel: There is mild wall thickening noted at the hepatic flexure, likely related to adjacent cholecystitis. There is moderate sigmoid diverticulosis without CT evidence of acute diverticulitis. No bowel obstruction is seen. The appendix is well-visualized and normal. Peritoneum: There is a small volume of free fluid in the right upper quadrant as well as trace free fluid in the pelvis. No intraperitoneal free air is seen. There are complex fat-containing umbilical and periumbilical hernias. Lymphadenopathy: None. Pelvic viscera: The bladder is normal in appearance. The uterus is surgically absent. No adnexal lesion is seen. Skeletal structures: The skeletal structures are osteopenic. There is mild to moderate lumbosacral spondylosis. A hemitransitional left lumbosacral segment is incidentally noted. Degenerative change is also seen in the hips and sacroiliac joints. No lytic or blastic lesions are seen. IMPRESSION: 1. Findings are consistent with acute cholecystitis. Surgical consultation is advised. 2. A small volume of free fluid is seen in the right upper quadrant and pelvis, likely on a reactive basis. 3. Mild wall thickening involving the splenic flexure of the colon is likely related to adjacent cholecystitis. 4. Moderate sigmoid diverticulosis without CT evidence of acute diverticulitis. 5. Additional findings as above. Electronically signed by: Michael Grimaldo M.D. Impression Assessment and Plan Assessment: 72-year-old female with acute calculus cholecystitis. She is otherwise healthy and appears to be low cardiac risk. Plan: Admit to [facility] floor Clear liquids until midnight, nothing by mouth after midnight IV antibiotics, IV fluids IV acetaminophen, when necessary IV morphine Plan for laparoscopic cholecystectomy with possible intraoperative cholangiogram tomorrow morning The risks of the procedure were discussed to include but are not limited to bleeding, infection, damage to common bile duct or surrounding structures, retained stone, bile leak, conversion to open, need for future more extensive surgery, and the risks of anesthesia The diagnosis, treatment options, details surgery and recovery, and plan of care were discussed with the patient, all questions were answered, the patient expressed understanding and agrees with the plan of care as stated ASA Classification: ASA Class II VTE Prophylaxis Given or contraindicated: SCD's
[2017-05-14 17:50] VITALS: Ht 167.6 cm; Wt 93.0 kg
--- NOTE | 2017-05-14 17:59 | NUR ---
admission database completed in ED room C10. call krishnamurthy in reach. awaiting bed placement.
[2017-05-14] MEDS: ACETAMINOPHEN IV 1,000 MG in EMPTY BAG 0 ML IV SCH (18:00)
[2017-05-14] MEDS ORDERED: ONDANSETRON INJ 2 MG/ML 2 ML VIAL IV PRN (18:00)
[2017-05-14 18:55] VITALS: BP 144/78; PULSE 89; TEMP 36.9; O2SAT 97
[2017-05-14] MEDS: CEFOXITIN IV 2,000 MG in DEXTROSE 5% 50ML 50 ML IV SCH (20:30)
[2017-05-14] MEDS: SODIUM CHLORIDE 0.9% 1000ML 1,000 ML IV SCH (20:31)
[2017-05-14] MEDS: RANITIDINE HCL 150 MG TAB PO SCH ×2 (21:00→21:39)
[2017-05-14 23:17] VITALS: BP 106/68; PULSE 78; TEMP 37.3; O2SAT 97
[2017-05-15] VITALS (12 sets, daily range): BP systolic 77–140; BP diastolic 51–75; PULSE 59–86; TEMP 36.4–37.3; O2SAT 94–97
[2017-05-15] MEDS: SODIUM CHLORIDE 0.9% 1000ML 1,000 ML IV SCH ×4 (01:16→19:42)
[2017-05-15] MEDS: CEFOXITIN IV 2,000 MG in DEXTROSE 5% 50ML 50 ML IV SCH ×4 (01:43→19:40)
[2017-05-15] MEDS: ACETAMINOPHEN IV 1,000 MG in EMPTY BAG 0 ML IV SCH ×2 (01:43→10:00)
[2017-05-15 06:02] LABS: BASO % 0.1 %; BASO ABS # 0.02 K/uL (0-0.2); EOS % 0.2 %; EOS ABS # 0.03 K/uL (0-0.5); HEMOGLOBIN 13.5 g/dL (12.0-16.0); IG# 0.05 K/uL (0.00-0.02); LYMPH % 8.1 %; LYMPH ABS # 1.46 K/uL (1.2-3.4); MEAN CELL VOLUME 93.2 fL (80-100); MEAN CORPUSCULAR HEMOGLOBIN 31.5 pg (25-34); MEAN CORPUSCULAR HGB CONC 33.8 g/dl (32-36); MEAN PLATELET VOLUME 10.1 fL (7.4-10.4); MONO ABS # 2.88 K/uL (0.11-0.59); NEUT % 75.3 %; PLATELET COUNT 244 K/uL (130-400); RED CELL DISTRIBUTION WIDTH CV 12.6 % (11.5-14.5); RED CELL DISTRIBUTION WIDTH SD 43.1 fL (36.4-46.3); WHITE BLOOD COUNT 18.04 K/uL (4.8-10.8)
[2017-05-15 06:34] LABS: ALBUMIN 2.5 gm/dl (3.4-5.0); CALCIUM 7.6 mg/dl (8.5-10.1); CREATININE 0.67 mg/dl (0.60-1.20); POTASSIUM 3.5 mmol/L (3.5-5.1)
[2017-05-15 06:43] LABS: TOTAL PROTEIN 6.1 gm/dl (6.4-8.2)
--- NOTE | 2017-05-15 07:37 | Surgery Progress Note ---
Surgery Progress Note Date of Service May 15, 2017. Subjective 72 year old female with cholecystitis, plan for laparoscopic cholecystectomy today. no changes since yesterday, pain slightly improved but still present. Objective Vital Signs: Date Time Temp Pulse Resp B/P (MAP) Pulse Ox O2 Delivery O2 Flow Rate FiO2 05/15/17 01:13 37.3 80 18 126/75 (92) 96 Room Air 05/14/17 23:17 37.3 78 16 106/68 (81) 97 Room Air 05/14/17 19:45 Room Air 05/14/17 18:55 36.9 89 18 144/78 (100) 97 Room Air 05/14/17 17:50 Room Air 05/14/17 17:47 80 18 157/77 99 Room Air 05/14/17 15:13 85 18 174/98 98 Room Air 05/14/17 13:25 82 05/14/17 12:51 36.4 91 18 161/87 99 Room Air General Appearance: WD/WN, no apparent distress Head: normocephalic, atraumatic Neck: supple, no adenopathy, thyroid normal, no JVD, no carotid bruits, trachea midline Respiratory/Chest: chest non-tender, lungs clear, normal breath sounds, no respiratory distress, no accessory muscle use Cardiovascular: regular rate, rhythm, no edema, no gallop, no JVD, no murmur Abdomen: normal bowel sounds, non distended, soft, no organomegaly, no pulsatile mass, + tenderness (RUQ) Laboratory Results: Results Past 24 Hours Test 05/14/17 13:25 05/14/17 17:00 05/15/17 05:33 Range/Units White Blood Count 18.60 18.04 4.8-10.8 K/uL Red Blood Count 4.78 4.29 4.2-5.4 M/uL Hemoglobin 15.3 13.5 12.0-16.0 g/dL Hematocrit 44.8 40.0 37-47 % Mean Corpuscular Volume 93.7 93.2 80-100 fL Mean Corpuscular Hemoglobin 32.0 31.5 25-34 pg Mean Corpuscular Hemoglobin Concent 34.2 33.8 32-36 g/dl Platelet Count 253 244 130-400 K/uL Mean Platelet Volume 10.4 10.1 7.4-10.4 fL Neutrophils (%) (Auto) 84.0 75.3 % Lymphocytes (%) (Auto) 5.2 8.1 % Monocytes (%) (Auto) 10.2 16.0 % Eosinophils (%) (Auto) 0.2 0.2 % Basophils (%) (Auto) 0.1 0.1 % Neutrophils # (Auto) 15.63 13.60 1.4-6.5 K/uL Lymphocytes # (Auto) 0.96 1.46 1.2-3.4 K/uL Monocytes # (Auto) 1.90 2.88 0.11-0.59 K/uL Eosinophils # (Auto) 0.03 0.03 0-0.5 K/uL Basophils # (Auto) 0.02 0.02 0-0.2 K/uL RDW Standard Deviation 43.4 43.1 36.4-46.3 fL RDW Coefficient of Variation 12.7 12.6 11.5-14.5 % Immature Granulocyte % (Auto) 0.3 0.3 % Immature Granulocyte # (Auto) 0.06 0.05 0.00-0.02 K/uL Sodium Level 136 134 136-145 mmol/L Potassium Level 3.9 3.5 3.5-5.1 mmol/L Chloride Level 102 105 98-107 mmol/L Carbon Dioxide Level 23 22 21-32 mmol/L Anion Gap 11.0 7.0 3-11 mmol/L Blood Urea Nitrogen 10 8 7-18 mg/dl Creatinine 0.75 0.67 0.60-1.20 mg/dl Est Creatinine Clear Calc Drug Dose 76.3 84.6 ml/min Estimated GFR () 91.0 100.4 Estimated GFR (Non- 78.5 86.6 BUN/Creatinine Ratio 13.4 11.8 10-20 Random Glucose 102 101 70-99 mg/dl Calcium Level 8.7 7.6 8.5-10.1 mg/dl Total Bilirubin 0.7 0.9 0.2-1 mg/dl Aspartate Amino Transf (AST/SGOT) 21 12 15-37 U/L Alanine Aminotransferase (ALT/SGPT) 21 15 12-78 U/L Alkaline Phosphatase 64 48 45-117 U/L Total Protein 7.6 6.1 6.4-8.2 gm/dl Albumin 3.6 2.5 3.4-5.0 gm/dl Globulin 4.0 2.5-4.0 gm/dl Albumin/Globulin Ratio 0.9 0.9-2 Lipase 184 73-393 U/L Urine Color YELLOW Urine Appearance CLEAR CLEAR Urine pH 6.5 4.5-7.5 Urine Specific [place] > 1.045 1.000-1.030 Urine Protein NEG NEG Urine Glucose (UA) NEG NEG Urine Ketones 1+ NEG Urine Occult Blood 2+ NEG Urine Nitrite NEG NEG Urine Bilirubin NEG NEG Urine Urobilinogen NEG NEG Urine Leukocyte Esterase NEG NEG Urine WBC (Auto) 1-5 0-5 /hpf Urine RBC (Auto) 10-30 0-4 /hpf Urine Hyaline Casts (Auto) 0 0-5 /lpf Urine Epithelial Cells (Auto) 20-30 0-5 /lpf Urine Bacteria (Auto) NEG NEG Direct Bilirubin 0.2 0-0.2 mg/dl Assessment & Plan 72 year old female with cholecystitis plan for laparoscopic cholecystectomy with possible cholangiogram today advance diet post op possible discharge tomorrow risks reviewed, questions answered, agrees to proceed with surgery as planned.
--- NOTE | 2017-05-15 08:03 | Surgery Progress Note ---
Surgery Progress Note Date of Service May 15, 2017. Subjective Post OP Day: HD#1 + complaints (Still some RUQ pain unchanged ), + flatus, + nausea, + diet (NPO after midnight), No ambulating, No vomiting Symptoms still present and have not improved much. She does feel her pain is slightly more controlled since being admitted yesterday evening. Objective Vital Signs: Date Time Temp Pulse Resp B/P (MAP) Pulse Ox O2 Delivery O2 Flow Rate FiO2 05/15/17 01:13 37.3 80 18 126/75 (92) 96 Room Air 05/14/17 23:17 37.3 78 16 106/68 (81) 97 Room Air 05/14/17 19:45 Room Air 05/14/17 18:55 36.9 89 18 144/78 (100) 97 Room Air 05/14/17 17:50 Room Air 05/14/17 17:47 80 18 157/77 99 Room Air 05/14/17 15:13 85 18 174/98 98 Room Air 05/14/17 13:25 82 05/14/17 12:51 36.4 91 18 161/87 99 Room Air General Appearance: WD/WN, no apparent distress Head: normocephalic, atraumatic Neck: trachea midline Respiratory/Chest: no respiratory distress, no accessory muscle use Abdomen: normal bowel sounds, no organomegaly, + distended (RUQ distension), + guarding, + tenderness (RUQ, mild-moderate) Laboratory Results: Results Past 24 Hours Test 05/14/17 13:25 05/14/17 17:00 05/15/17 05:33 Range/Units White Blood Count 18.60 18.04 4.8-10.8 K/uL Red Blood Count 4.78 4.29 4.2-5.4 M/uL Hemoglobin 15.3 13.5 12.0-16.0 g/dL Hematocrit 44.8 40.0 37-47 % Mean Corpuscular Volume 93.7 93.2 80-100 fL Mean Corpuscular Hemoglobin 32.0 31.5 25-34 pg Mean Corpuscular Hemoglobin Concent 34.2 33.8 32-36 g/dl Platelet Count 253 244 130-400 K/uL Mean Platelet Volume 10.4 10.1 7.4-10.4 fL Neutrophils (%) (Auto) 84.0 75.3 % Lymphocytes (%) (Auto) 5.2 8.1 % Monocytes (%) (Auto) 10.2 16.0 % Eosinophils (%) (Auto) 0.2 0.2 % Basophils (%) (Auto) 0.1 0.1 % Neutrophils # (Auto) 15.63 13.60 1.4-6.5 K/uL Lymphocytes # (Auto) 0.96 1.46 1.2-3.4 K/uL Monocytes # (Auto) 1.90 2.88 0.11-0.59 K/uL Eosinophils # (Auto) 0.03 0.03 0-0.5 K/uL Basophils # (Auto) 0.02 0.02 0-0.2 K/uL RDW Standard Deviation 43.4 43.1 36.4-46.3 fL RDW Coefficient of Variation 12.7 12.6 11.5-14.5 % Immature Granulocyte % (Auto) 0.3 0.3 % Immature Granulocyte # (Auto) 0.06 0.05 0.00-0.02 K/uL Sodium Level 136 134 136-145 mmol/L Potassium Level 3.9 3.5 3.5-5.1 mmol/L Chloride Level 102 105 98-107 mmol/L Carbon Dioxide Level 23 22 21-32 mmol/L Anion Gap 11.0 7.0 3-11 mmol/L Blood Urea Nitrogen 10 8 7-18 mg/dl Creatinine 0.75 0.67 0.60-1.20 mg/dl Est Creatinine Clear Calc Drug Dose 76.3 84.6 ml/min Estimated GFR () 91.0 100.4 Estimated GFR (Non- 78.5 86.6 BUN/Creatinine Ratio 13.4 11.8 10-20 Random Glucose 102 101 70-99 mg/dl Calcium Level 8.7 7.6 8.5-10.1 mg/dl Total Bilirubin 0.7 0.9 0.2-1 mg/dl Aspartate Amino Transf (AST/SGOT) 21 12 15-37 U/L Alanine Aminotransferase (ALT/SGPT) 21 15 12-78 U/L Alkaline Phosphatase 64 48 45-117 U/L Total Protein 7.6 6.1 6.4-8.2 gm/dl Albumin 3.6 2.5 3.4-5.0 gm/dl Globulin 4.0 2.5-4.0 gm/dl Albumin/Globulin Ratio 0.9 0.9-2 Lipase 184 73-393 U/L Urine Color YELLOW Urine Appearance CLEAR CLEAR Urine pH 6.5 4.5-7.5 Urine Specific [place] > 1.045 1.000-1.030 Urine Protein NEG NEG Urine Glucose (UA) NEG NEG Urine Ketones 1+ NEG Urine Occult Blood 2+ NEG Urine Nitrite NEG NEG Urine Bilirubin NEG NEG Urine Urobilinogen NEG NEG Urine Leukocyte Esterase NEG NEG Urine WBC (Auto) 1-5 0-5 /hpf Urine RBC (Auto) 10-30 0-4 /hpf Urine Hyaline Casts (Auto) 0 0-5 /lpf Urine Epithelial Cells (Auto) 20-30 0-5 /lpf Urine Bacteria (Auto) NEG NEG Direct Bilirubin 0.2 0-0.2 mg/dl Assessment & Plan 72 y/o female with cholecystitis Symptoms remain unchanged, pain slightly improved. Will proceed with laparoscopic cholecystectomy with possible intraoperative cholangiogram with Dr. Christianson today. risks, benefits, alternatives reviewed - questions answered. ADAT post-op - NPO until procedure. Findings discussed with Dr. Christainson. Please contact with questions or concerns.
--- NOTE | 2017-05-15 08:44 | NUR ---
a: Estradiol patch removed prior to sending pt to OR
--- NOTE | 2017-05-15 08:51 | NUR ---
a: AM antibiotic sent by charge nurse to OR
[2017-05-15] MEDS: ROSUVASTATIN CALCIUM 10 MG TAB PO SCH (08:52)
[2017-05-15] MEDS: RANITIDINE HCL 150 MG TAB PO SCH ×2 (08:52→20:43)
[2017-05-15] MEDS ORDERED: COENZYME Q10 PO SCH (09:00)
[2017-05-15] MEDS ORDERED: BUPIVACAINE 0.5 % 5 MG/1 ML MPF 30ML VIAL ONE (09:05)
[2017-05-15] MEDS ORDERED: LIDOCAINE/EPINEPHRINE 1% 20 ML VIAL ONE (09:06)
[2017-05-15] MEDS ORDERED: ATROPINE SULFATE 0.1 MG/ML 5ML SYR IV PRN (09:15)
[2017-05-15] MEDS ORDERED: FLUMAZENIL 0.1 MG/1 ML 10 ML VIAL IV PRN (09:15)
[2017-05-15] MEDS ORDERED: LABETALOL HCL IV 5 MG/ML 20ML IV PRN (09:15)
[2017-05-15] MEDS ORDERED: MEPERIDINE HCL 25 MG/ML CARP IV PRN (09:15)
[2017-05-15] MEDS ORDERED: PHENYLEPHRINE 100MCG/ML 5ML SYR IV PRN (09:15)
[2017-05-15] MEDS ORDERED: EpHEDrine SULFATE INJ 50 MG/ML AMP IV PRN (09:15)
[2017-05-15] MEDS ORDERED: ONDANSETRON INJ 2 MG/ML 2 ML VIAL IV PRN (09:15)
[2017-05-15] MEDS ORDERED: HYDROmorphone INJ 0.5 MG/0.5 ML SYR IV PRN (09:15)
[2017-05-15] MEDS ORDERED: NALOXONE HCL 0.4 MG/1 ML VIAL/CARP IV PRN (09:15)
[2017-05-15] MEDS ORDERED: FENTANYL CITRATE INJ 50 MCG/1 ML 2 ML VIAL ONE ×2 (09:20→10:01)
[2017-05-15] MEDS ORDERED: DEXAMETHASONE SOD INJ 4 MG/ML VIAL ONE (09:43)
[2017-05-15] MEDS ORDERED: PROPOFOL IV EMULSION 10 MG/ML 20 ML VIAL IV ONE (09:43)
[2017-05-15] MEDS ORDERED: ONDANSETRON INJ 2 MG/ML 2 ML VIAL ONE (09:43)
[2017-05-15] MEDS ORDERED: LIDOCAINE HCL 2% 2 ML VIAL (20MG/ML) ONE (09:43)
[2017-05-15] MEDS ORDERED: NEOSTIGMINE METHYLSULFATE 5 MG/5 ML SYR ONE (09:44)
[2017-05-15] MEDS ORDERED: GLYCOPYRROLATE INJ 0.2 MG/ML VIAL ONE (09:44)
[2017-05-15] MEDS ORDERED: ROCURONIUM BROMIDE 10 MG/ML 5 ML VIAL IV ONE (09:44)
--- NOTE | 2017-05-15 10:37 | [facility] Post Operative Brief Note ---
Immediate Operative Summary Operative Date May 15, 2017. Pre-Operative Diagnosis Acute Cholecysitis Post-Operative Diagnosis Acute Cholecysitis Procedure(s) Performed Laparoscopic Cholecystectomy Surgeon Dr. Jose Cruz Christianson Head Grower Surgeon(s) None Estimated Blood Loss 10ML Findings Significantly inflamed gallbladder. Omental adhesions taken down with blunt dissection. Window of safety obtained, cystic duct and artery doubly clipped and divided. Hemostasis was good at conclusion of case. Specimens Permanent Solution: A.) Gallbladder Drains none Anesthesia GETA Complication(s) None Disposition Recovery Room / PACU
--- NOTE | 2017-05-15 10:42 | [facility] Operative Report ---
Operative Report Operative Date May 15, 2017. Pre-Operative Diagnosis Acute Cholecysitis Post-Operative Diagnosis acute cholecystitis Procedure(s) Performed Laparoscopic cholecystectomy Surgeon Dr. Jose Cruz Christianson Acetylene Burner Surgeon(s) None Estimated Blood Loss 10ML Findings Significantly inflamed gallbladder. Omental adhesions taken down with blunt dissection. Window of safety obtained, cystic duct and artery doubly clipped and divided. Hemostasis was good at conclusion of case. Specimens Permanent Solution: A.) Gallbladder Drains none Anesthesia GETA Complication(s) None Disposition Recovery Room / PACU Indications 72-year-old female with acute cholecystitis, plan for laps, cholecystectomy with possible intraoperative cholangiogram. The risks of the procedure were discussed, all questions were answered, and the patient agreed to proceed with surgery as planned. Description of Procedure The patient was properly identified, consented, and taken to the operating room where she was placed in the supine position. General endotracheal anesthesia was induced. SCDs and a safety belt were placed. Preoperative antibiotics were administered. The patient's abdomen was prepped and draped in the standard sterile fashion. A surgical timeout was performed and all parties were in agreement that this was the correct patient and procedure to be performed and we continued as planned. An incision was made superior and to the left of the umbilicus overlying the rectus muscle and the Veress needle was inserted. Saline drop test confirmed entry into the peritoneum. The abdomen was insufflated with carbon dioxide which the patient tolerated without incident. The abdomen was then entered using the Optiview technique and a 5 mm trocar. The laparoscope was inserted and no damage from initial trocar or Veress needle placement was noted, no gross abnormalities were noted within the 4 quadrants of the abdomen. An 11 mm port was placed in the subxiphoid position and two 5 mm ports were then placed in the right subcostal position. The patient was placed in reverse Trendelenburg position and rotated towards the left. The gallbladder was significantly inflamed and had omental adhesions encompassing it. The omental adhesions were taken down with blunt dissection. The gallbladder was then aspirated to allow for retraction. The dome of the gallbladder was retracted towards the left upper quadrant and the infundibulum was retracted toward the right lower quadrant revealing Calot's triangle. Further omental and peritoneal attachments were taken down with electrocautery and blunt dissection. The cystic duct and artery were circumferentially dissected. A window of safety was obtained showing the cystic duct entering the gallbladder with no aberrant structures noted. The cystic duct and artery were doubly clipped and divided. The gallbladder was then lifted off the gallbladder fossa with electrocautery. The gallbladder was placed in an Endo Catch bag and removed through the subxiphoid port site. The right upper quadrant was irrigated and hemostasis was achieved with electrocautery and found to be good. 5 mm trochars were removed under direct visualization and the abdomen was allowed to collapse. The subxiphoid port site fascia was closed with 0 Vicryl suture. The wound was irrigated, and the skin of all ports was closed with 4-0 Monocryl subcuticular sutures. Dermabond was placed over the wounds. The patient was extubated in the operating room and taken to the PACU where she recovered without apparent incident. All sponge, instrument and needle counts were correct at the conclusion of the procedure. The patient tolerated the procedure well. I attest to the content of the Intraoperative Record and any orders documented therein. Any exceptions are noted below.
[2017-05-15] MEDS ORDERED: OXYCODONE/ACETAMINOPHEN 5-325 TAB PO PRN (10:45)
[2017-05-15] MEDS ORDERED: NURSING VERBAL MED ORDER ONE (11:00)
[2017-05-15] MEDS: FENTANYL CITRATE INJ 50 MCG/1 ML 2 ML VIAL IV PRN ×2 (11:00→11:05)
[2017-05-15] MEDS ORDERED: RACEPINEPHRINE 2.25% NEBU SOLN 0.5 ML VIAL INH ONE (11:30)
[2017-05-15] MEDS ORDERED: KETOROLAC TROMETHAMINE 30 MG/ML VIAL IV STA (11:33)
[2017-05-15] MEDS ORDERED: KETOROLAC TROMETHAMINE 30 MG/ML VIAL ONE (11:33)
--- NOTE | 2017-05-15 11:37 | Anesthesiology Progress Note ---
Anesthesia Post Op Note Date & Time May 15, 2017 at 11:33 Vital Signs Pain Intensity: 0 Vital Signs Past 12 Hours Date Time Temp Pulse Resp B/P (MAP) Pulse Ox O2 Delivery O2 Flow Rate FiO2 05/15/17 07:23 Room Air 05/15/17 01:13 37.3 80 18 126/75 (92) 96 Room Air Notes Mental Status: alert / awake / arousable, participated in evaluation Pt Amnestic to Procedure: Yes Nausea / Vomiting: adequately controlled Pain: adequately controlled Airway Patency, RR, SpO2: stable & adequate, see Notes BP & HR: stable & adequate Hydration State: stable & adequate Anesthetic Complications: no major complications apparent The patient did well during the procedure. She had 4/4 twitches prior to and after receiving neostigmine for reversal. She had tidal volumes in the 600s upon extubation. She was extubated without incident and transported with oxygen to PACU. Upon entering the PACU, the patient became anxious and stated that she could not breath. She sounded slightly hoarse but was able to talk and breath adequately. Her SpO2 was 100 and other vitals were stable. She was given reassurance and a racemic epinephrine nebulizer. The patient feels better now and is resting comfortably.
[2017-05-15] MEDS: OXYCODONE/ACETAMINOPHEN 5-325 TAB PO PRN (17:44)
--- NOTE | 2017-05-15 22:01 | Surgery Progress Note ---
Surgery Progress Note Date of Service May 15, 2017. Subjective + feeling well, + ambulating (as tolerated), + flatus, + pain controlled, + diet (Full liquids), No bowel movement, No nausea, No vomiting Nursing staff called because patient has not been putting out much urine despite drinking water, Full liquid diet, and NSS running at 125ml/hr. Bladder scan was performed showing on 97ml of fluid. Patient does have a mild smooth narrowing of her right proximal ureter found on IVP on 04/30/17. She was seen by Dr. Rolle for this. At that time no intervention was performed. Nursing staff reports noticing some possible crackles in her RLL on auscultation Objective Vital Signs: Date Time Temp Pulse Resp B/P (MAP) Pulse Ox O2 Delivery O2 Flow Rate FiO2 05/15/17 19:18 36.4 60 18 140/72 (94) 94 Room Air 05/15/17 16:10 Room Air 05/15/17 15:17 36.4 62 18 88/55 (66) 95 Nasal Cannula 2.0 05/15/17 14:10 65 16 92/58 (69) 97 Nasal Cannula 2.0 05/15/17 13:10 70 16 94/58 (70) 96 Nasal Cannula 2.0 05/15/17 12:40 71 16 96/65 (75) 97 Nasal Cannula 2.0 05/15/17 12:33 96 Nasal Cannula 2.0 05/15/17 12:10 36.8 72 16 94/61 (72) 96 Nasal Cannula 4.0 05/15/17 12:00 71 17 96/58 95 Nasal Cannula 3 05/15/17 11:45 36.8 74 17 109/59 95 Nasal Cannula 3 05/15/17 11:35 73 18 107/60 95 Nasal Cannula 3 05/15/17 11:25 77 20 99/57 97 Nasal Cannula 3 05/15/17 11:15 76 20 94/61 97 Oxymask 8 05/15/17 11:05 79 24 108/64 99 Nebulizer 15 05/15/17 11:00 86 20 97 Mask 12.0 05/15/17 10:59 37 80 22 88/63 99 Oxymask 15 05/15/17 07:23 Room Air 05/15/17 01:13 37.3 80 18 126/75 (92) 96 Room Air 05/14/17 23:17 37.3 78 16 106/68 (81) 97 Room Air General Appearance: WD/WN, no apparent distress Head: normocephalic, atraumatic Neck: trachea midline Respiratory/Chest: normal breath sounds, no respiratory distress, no accessory muscle use Abdomen: normal bowel sounds, soft, no organomegaly, no pulsatile mass, + distended (Mild at incision sites), + tenderness (Mild at incision sites) Incision(s): clean, dry, intact, no erythema, no drainage Laboratory Results: Results Past 24 Hours Test 05/15/17 05:33 Range/Units White Blood Count 18.04 4.8-10.8 K/uL Red Blood Count 4.29 4.2-5.4 M/uL Hemoglobin 13.5 12.0-16.0 g/dL Hematocrit 40.0 37-47 % Mean Corpuscular Volume 93.2 80-100 fL Mean Corpuscular Hemoglobin 31.5 25-34 pg Mean Corpuscular Hemoglobin Concent 33.8 32-36 g/dl Platelet Count 244 130-400 K/uL Mean Platelet Volume 10.1 7.4-10.4 fL Neutrophils (%) (Auto) 75.3 % Lymphocytes (%) (Auto) 8.1 % Monocytes (%) (Auto) 16.0 % Eosinophils (%) (Auto) 0.2 % Basophils (%) (Auto) 0.1 % Neutrophils # (Auto) 13.60 1.4-6.5 K/uL Lymphocytes # (Auto) 1.46 1.2-3.4 K/uL Monocytes # (Auto) 2.88 0.11-0.59 K/uL Eosinophils # (Auto) 0.03 0-0.5 K/uL Basophils # (Auto) 0.02 0-0.2 K/uL RDW Standard Deviation 43.1 36.4-46.3 fL RDW Coefficient of Variation 12.6 11.5-14.5 % Immature Granulocyte % (Auto) 0.3 % Immature Granulocyte # (Auto) 0.05 0.00-0.02 K/uL Sodium Level 134 136-145 mmol/L Potassium Level 3.5 3.5-5.1 mmol/L Chloride Level 105 98-107 mmol/L Carbon Dioxide Level 22 21-32 mmol/L Anion Gap 7.0 3-11 mmol/L Blood Urea Nitrogen 8 7-18 mg/dl Creatinine 0.67 0.60-1.20 mg/dl Est Creatinine Clear Calc Drug Dose 84.6 ml/min Estimated GFR () 100.4 Estimated GFR (Non- 86.6 BUN/Creatinine Ratio 11.8 10-20 Random Glucose 101 70-99 mg/dl Calcium Level 7.6 8.5-10.1 mg/dl Total Bilirubin 0.9 0.2-1 mg/dl Direct Bilirubin 0.2 0-0.2 mg/dl Aspartate Amino Transf (AST/SGOT) 12 15-37 U/L Alanine Aminotransferase (ALT/SGPT) 15 12-78 U/L Alkaline Phosphatase 48 45-117 U/L Total Protein 6.1 6.4-8.2 gm/dl Albumin 2.5 3.4-5.0 gm/dl Assessment & Plan Decreased urine output s/p laparoscopic cholecystectomy today Feeling well, mild tenderness and distension to be expected - pain controlled , no nausea or vomiting, fever or chills. Abdomen otherwise benign on exam. Increased bp 140/72. No acute intervention warranted at this time - will recheck urine output in AM. Continue care as ordered. Findings discussed with Dr. Gray. Please contact with questions or concerns. 72 y/o female with cholecystitis Symptoms remain unchanged, pain slightly improved. Will proceed with laparoscopic cholecystectomy with possible intraoperative cholangiogram with Dr. Christianson today. risks, benefits, alternatives reviewed - questions answered. ADAT post-op - NPO until procedure. Findings discussed with Dr. Christianson. Please contact with questions or concerns.
--- NOTE | 2017-05-15 22:10 | NUR ---
The patient has demonstrated progress toward goals and readiness for discharge as demonstrated by:Patient alert x4. Surgical incisions x4 to abdomen, well approximated with surgical glue. Patient denies numbness or tingling. Pulses strong and equal in pedal and radial pulses, brisk cap refill, generalized edema noted towards end of shift. Patient states she feels "swollen all over." IV fluids running in left AC per MD order. Patient voided 1 time of 50 ml since arriving to the floor at 1210. PVR scan for 94ml. dermatologist general surgery KANDY Downing made aware. Bilateral upper lung lobes clear, bilateral bases crackles on 2L. Triflow to 500. Hypoactive bowels sounds in all quadrants, patient denies gas, states LBM was 12/27. Abdomen tender to touch and distended, both surgical procedure related. Tolerating full liquid/vegetarian diet well. Ambulated 250ft with supervision. Complained of pain 5/10, medicated. Discharge plan unknown at this time.
[2017-05-16] MEDS: CEFOXITIN IV 2,000 MG in DEXTROSE 5% 50ML 50 ML IV SCH ×3 (01:49→14:00)
[2017-05-16] MEDS: SODIUM CHLORIDE 0.9% 1000ML 1,000 ML IV SCH ×2 (01:49→09:38)
[2017-05-16] MEDS: OXYCODONE/ACETAMINOPHEN 5-325 TAB PO PRN ×2 (01:53→16:14)
[2017-05-16 03:33] VITALS: BP 96/64; PULSE 54; TEMP 36.5; O2SAT 94
--- NOTE | 2017-05-16 05:41 | Surgery Progress Note ---
Surgery Progress Note Date of Service May 16, 2017. Subjective + feeling well, + ambulating, + pain controlled, + diet (Tolerating full liquids ), No bowel movement, No nausea, No vomiting Objective Vital Signs: Date Time Temp Pulse Resp B/P (MAP) Pulse Ox O2 Delivery O2 Flow Rate FiO2 05/16/17 03:33 36.5 54 14 96/64 (75) 94 Room Air 05/16/17 00:00 Room Air 05/15/17 23:33 97/64 (75) 05/15/17 23:29 36.4 59 14 77/51 (60) 95 Room Air 05/15/17 19:18 36.4 60 18 140/72 (94) 94 Room Air 05/15/17 16:10 Room Air 05/15/17 15:17 36.4 62 18 88/55 (66) 95 Nasal Cannula 2.0 05/15/17 14:10 65 16 92/58 (69) 97 Nasal Cannula 2.0 05/15/17 13:10 70 16 94/58 (70) 96 Nasal Cannula 2.0 05/15/17 12:40 71 16 96/65 (75) 97 Nasal Cannula 2.0 05/15/17 12:33 96 Nasal Cannula 2.0 05/15/17 12:10 36.8 72 16 94/61 (72) 96 Nasal Cannula 4.0 05/15/17 12:00 71 17 96/58 95 Nasal Cannula 3 05/15/17 11:45 36.8 74 17 109/59 95 Nasal Cannula 3 05/15/17 11:35 73 18 107/60 95 Nasal Cannula 3 05/15/17 11:25 77 20 99/57 97 Nasal Cannula 3 05/15/17 11:15 76 20 94/61 97 Oxymask 8 05/15/17 11:05 79 24 108/64 99 Nebulizer 15 05/15/17 11:00 86 20 97 Mask 12.0 05/15/17 10:59 37 80 22 88/63 99 Oxymask 15 05/15/17 07:23 Room Air General Appearance: WD/WN, no apparent distress Head: normocephalic, atraumatic Neck: trachea midline Respiratory/Chest: no respiratory distress, no accessory muscle use Abdomen: soft, no organomegaly, + distended (mild), + tenderness (mild) Incision(s): clean, dry, intact, no erythema, no drainage Laboratory Results: Results Past 24 Hours Test 05/16/17 04:44 Range/Units Assessment & Plan POD #1 s/p laparoscopic cholecystectomy Pain controlled Tolerating full liquids, no nausea/vomiting - will advance to reg diet vegetarian Still minimal urine output despite PO and IV fluids Awaiting AM labs Possible discharge today if White count trending down and more urine output. 72 y/o female with cholecystitis Symptoms remain unchanged, pain slightly improved. Will proceed with laparoscopic cholecystectomy with possible intraoperative cholangiogram with Dr. Christianson today. risks, benefits, alternatives reviewed - questions answered. ADAT post-op - NPO until procedure. Findings discussed with Dr. Christianson. Please contact with questions or concerns.
--- NOTE | 2017-05-16 05:45 | Discharge Instructions ---
Discharge Instructions Date of Service May 16, 2017. Admission Reason for Admission: Acute Calculous Cholecystitis Discharge Discharge Diagnosis / Problem: Acute calculous cholecystitis Discharge Goals Goal(s): Decrease discomfort, Improve function Activity Recommendations Activity Limitations: as noted below Lifting Limitations: no more than 10 pounds, until after follow-up appointment Exercise/Sports Limitations: until after follow-up appointment Shower/Bathe: no limitations Driving or Machine Use: resume 3 days after discharge (Please do not drive while using narcotic pain medication) . Instructions / Follow-Up Instructions / Follow-Up You have surgical glue covering your incision sites. Please allow this to fall off on its own. You have been given Percocet to take as needed for pain relief. You may alternate this with Ibuprofen for better pain relief as well. Follow-up with Dr. Christianson in 1-2 weeks. Please contact our office at [phone] to schedule an appointment if you have not done so already. Please contact our office with any questions or concerns. [facility]. [address] [place] [address] Current Hospital Diet Patient's current hospital diet: Full Liquid Diet, Vegetarian Diet Discharge Diet Recommended Diet: Regular Diet Procedures Procedures Performed: Laparoscopic Cholecystectomy Pending Studies Studies pending at discharge: yes List of pending studies: Pathology Laboratory Results Hemoglobin A1c Test 05/13/17 03:16 Range/Units Estimated Average Glucose 111 mg/dl Hemoglobin A1c 5.5 4.5-5.6 % Lipid Panel Test 05/12/17 17:00 Range/Units Triglycerides Level 128 0-150 mg/dl Cholesterol Level 326 H 0-200 mg/dl HDL Cholesterol 79 mg/dl Cholesterol/HDL Ratio 4.1 LDL Cholesterol, Calculated 221 mg/dl Medical Emergencies . Who to Call and When: Medical Emergencies: If at any time you feel your situation is an emergency, please call 911 immediately. . Non-Emergent Contact Non-Emergency issues call your: Primary Care Provider, Surgeon Call Non-Emergent contact if: you have a fever, temperature is above 101.5, your pain is not controlled, your pain is worsening, wound has increased drainage, wound has increased redness, you have any medication questions . "Provider Documentation" section prepared by Ajith Hernández. . VTE Core Measure Inpt VTE Proph given/why not?: SCD's [place] Drug Monitoring Program Search Results: patient reviewed within database, no issues identified
[2017-05-16 05:46] LABS: BASO % 0.1 %; BASO ABS # 0.01 K/uL (0-0.2); HEMOGLOBIN 12.6 g/dL (12.0-16.0); IG# 0.07 K/uL (0.00-0.02); LYMPH % 4.4 %; LYMPH ABS # 0.84 K/uL (1.2-3.4); MEAN CELL VOLUME 93.9 fL (80-100); MEAN CORPUSCULAR HGB CONC 34.1 g/dl (32-36); MEAN PLATELET VOLUME 10.2 fL (7.4-10.4); MONO % 7.2 %; MONO ABS # 1.37 K/uL (0.11-0.59); NEUT % 87.9 %; NEUT ABS # 16.77 K/uL (1.4-6.5); PLATELET COUNT 230 K/uL (130-400); RED CELL DISTRIBUTION WIDTH CV 12.8 % (11.5-14.5); RED CELL DISTRIBUTION WIDTH SD 44.2 fL (36.4-46.3); WHITE BLOOD COUNT 19.06 K/uL (4.8-10.8)
[2017-05-16 06:22] LABS: ALBUMIN 2.4 gm/dl (3.4-5.0); CALCIUM 7.9 mg/dl (8.5-10.1); CREATININE 0.92 mg/dl (0.60-1.20)
[2017-05-16 06:24] LABS: TOTAL PROTEIN 6.2 gm/dl (6.4-8.2)
[2017-05-16] MEDS ORDERED: OXYC-57 PO (06:48)
[2017-05-16 07:30] VITALS: BP 98/66; PULSE 54; TEMP 36.4; O2SAT 96
[2017-05-16] MEDS: ROSUVASTATIN CALCIUM 10 MG TAB PO SCH (07:39)
[2017-05-16] MEDS: RANITIDINE HCL 150 MG TAB PO SCH ×2 (07:40→20:38)
--- NOTE | 2017-05-16 08:14 | Anesthesiology Progress Note ---
Anesthesia Post Op Note Date & Time May 16, 2017 at 08:13 Vital Signs Pain Intensity: 4.0 Vital Signs Past 12 Hours Date Time Temp Pulse Resp B/P (MAP) Pulse Ox O2 Delivery O2 Flow Rate FiO2 05/16/17 07:30 36.4 54 18 98/66 (77) 96 Room Air 05/16/17 03:33 36.5 54 14 96/64 (75) 94 Room Air 05/16/17 00:00 Room Air 05/15/17 23:33 97/64 (75) 05/15/17 23:29 36.4 59 14 77/51 (60) 95 Room Air Notes Mental Status: alert / awake / arousable, participated in evaluation Pt Amnestic to Procedure: Yes Nausea / Vomiting: adequately controlled Pain: adequately controlled Airway Patency, RR, SpO2: stable & adequate BP & HR: stable & adequate Hydration State: stable & adequate Anesthetic Complications: no major complications apparent
--- NOTE | 2017-05-16 08:55 | NUR ---
Case Management: Met with pt at bedside. Pt reports she lives alone. States she is independent with ADLs and ambulation. She drives and does her own shopping, cooking, and cleaning. Pt plans to return home on discharge and denies needs. Case Management to follow.
[2017-05-16 12:13] VITALS: BP 105/70; PULSE 54; TEMP 36.5; O2SAT 94
[2017-05-16] MEDS ORDERED: CPR500 PO (12:39)
--- NOTE | 2017-05-16 12:52 | Surgery Progress Note ---
Surgery Progress Note Date of Service May 16, 2017. Subjective + ambulating, + pain controlled Objective Vital Signs: Date Time Temp Pulse Resp B/P (MAP) Pulse Ox O2 Delivery O2 Flow Rate FiO2 05/16/17 12:13 36.5 54 18 105/70 (82) 94 Room Air 05/16/17 07:30 36.4 54 18 98/66 (77) 96 Room Air 05/16/17 07:30 Room Air 05/16/17 03:33 36.5 54 14 96/64 (75) 94 Room Air 05/16/17 00:00 Room Air 05/15/17 23:33 97/64 (75) 05/15/17 23:29 36.4 59 14 77/51 (60) 95 Room Air 05/15/17 19:18 36.4 60 18 140/72 (94) 94 Room Air 05/15/17 16:10 Room Air 05/15/17 15:17 36.4 62 18 88/55 (66) 95 Nasal Cannula 2.0 05/15/17 14:10 65 16 92/58 (69) 97 Nasal Cannula 2.0 05/15/17 13:10 70 16 94/58 (70) 96 Nasal Cannula 2.0 Laboratory Results: Results Past 24 Hours Test 05/16/17 05:31 Range/Units White Blood Count 19.06 4.8-10.8 K/uL Red Blood Count 3.94 4.2-5.4 M/uL Hemoglobin 12.6 12.0-16.0 g/dL Hematocrit 37.0 37-47 % Mean Corpuscular Volume 93.9 80-100 fL Mean Corpuscular Hemoglobin 32.0 25-34 pg Mean Corpuscular Hemoglobin Concent 34.1 32-36 g/dl Platelet Count 230 130-400 K/uL Mean Platelet Volume 10.2 7.4-10.4 fL Neutrophils (%) (Auto) 87.9 % Lymphocytes (%) (Auto) 4.4 % Monocytes (%) (Auto) 7.2 % Eosinophils (%) (Auto) 0.0 % Basophils (%) (Auto) 0.1 % Neutrophils # (Auto) 16.77 1.4-6.5 K/uL Lymphocytes # (Auto) 0.84 1.2-3.4 K/uL Monocytes # (Auto) 1.37 0.11-0.59 K/uL Eosinophils # (Auto) 0.00 0-0.5 K/uL Basophils # (Auto) 0.01 0-0.2 K/uL RDW Standard Deviation 44.2 36.4-46.3 fL RDW Coefficient of Variation 12.8 11.5-14.5 % Immature Granulocyte % (Auto) 0.4 % Immature Granulocyte # (Auto) 0.07 0.00-0.02 K/uL Sodium Level 132 136-145 mmol/L Potassium Level 4.0 3.5-5.1 mmol/L Chloride Level 104 98-107 mmol/L Carbon Dioxide Level 23 21-32 mmol/L Anion Gap 5.0 3-11 mmol/L Blood Urea Nitrogen 15 7-18 mg/dl Creatinine 0.92 0.60-1.20 mg/dl Est Creatinine Clear Calc Drug Dose 61.6 ml/min Estimated GFR () 71.1 Estimated GFR (Non- 61.3 BUN/Creatinine Ratio 16.1 10-20 Random Glucose 129 70-99 mg/dl Calcium Level 7.9 8.5-10.1 mg/dl Total Bilirubin 0.4 0.2-1 mg/dl Aspartate Amino Transf (AST/SGOT) 41 15-37 U/L Alanine Aminotransferase (ALT/SGPT) 42 12-78 U/L Alkaline Phosphatase 47 45-117 U/L Total Protein 6.2 6.4-8.2 gm/dl Albumin 2.4 3.4-5.0 gm/dl Globulin 3.8 2.5-4.0 gm/dl Albumin/Globulin Ratio 0.6 0.9-2 Assessment & Plan s/p lap chastity, acute cholecystitis WBC remains elevated, will keep here today, continue abx, repeat CBC in AM seen with Dr. Gray
[2017-05-16] MEDS ORDERED: NURSING DECISION MEDICATION ORDER SCH (15:15)
[2017-05-16 15:49] VITALS: BP 132/75; PULSE 68; TEMP 36.4; O2SAT 96
[2017-05-16] MEDS: CIPROFLOXACIN 500 MG TAB PO SCH (20:38)
--- NOTE | 2017-05-16 20:58 | NUR ---
The patient has demonstrated progress toward goals and readiness for discharge as demonstrated by:Patient alert x4. Surgical incisions x4 to abdomen, well approximated with surgical glue. Patient denies numbness or tingling. Pulses strong and equal in pedal and radial pulses, brisk cap refill, no edema visualized, but patient states she still feels "swollen all over." No IV site. Bilateral upper lung lobes clear, bilateral bases crackles on 2L. Triflow to 1000. Hypoactive bowels sounds in all quadrants, patient is passing gas, states LBM was 12/27. Abdomen tender to touch and distended, both surgical procedure related. Tolerating regular/vegetarian diet well. Ambulating with supervision. Pain being controlled with medication per MD order. Discharge plan is be discharged home.
[2017-05-16 23:30] VITALS: BP 102/61; PULSE 55; TEMP 36.5; O2SAT 97
[2017-05-17 06:30] LABS: BASO % 0.1 %; BASO ABS # 0.01 K/uL (0-0.2); EOS % 0.4 %; EOS ABS # 0.06 K/uL (0-0.5); HEMOGLOBIN 12.8 g/dL (12.0-16.0); IG# 0.04 K/uL (0.00-0.02); LYMPH % 10.9 %; LYMPH ABS # 1.55 K/uL (1.2-3.4); MEAN CELL VOLUME 94.3 fL (80-100); MEAN CORPUSCULAR HEMOGLOBIN 31.8 pg (25-34); MEAN CORPUSCULAR HGB CONC 33.7 g/dl (32-36); MEAN PLATELET VOLUME 10.5 fL (7.4-10.4); MONO % 10.1 %; MONO ABS # 1.43 K/uL (0.11-0.59); NEUT % 78.2 %; NEUT ABS # 11.09 K/uL (1.4-6.5); PLATELET COUNT 298 K/uL (130-400); WHITE BLOOD COUNT 14.18 K/uL (4.8-10.8)
[2017-05-17 07:29] VITALS: BP 122/77; PULSE 54; TEMP 36.4; O2SAT 97
[2017-05-17] MEDS: ROSUVASTATIN CALCIUM 10 MG TAB PO SCH (08:41)
[2017-05-17] MEDS: RANITIDINE HCL 150 MG TAB PO SCH (08:42)
[2017-05-17] MEDS: CIPROFLOXACIN 500 MG TAB PO SCH (08:42)
--- NOTE | 2017-05-17 10:32 | Surgery Progress Note ---
Surgery Progress Note Date of Service May 17, 2017. Subjective + feeling well, + ambulating, + pain controlled, + diet (tolerating), No nausea , No vomiting Objective Vital Signs: Date Time Temp Pulse Resp B/P (MAP) Pulse Ox O2 Delivery O2 Flow Rate FiO2 05/17/17 07:29 36.4 54 20 122/77 (92) 97 05/17/17 07:15 Room Air 05/16/17 23:55 Room Air 05/16/17 23:30 36.5 55 18 102/61 (75) 97 Room Air 05/16/17 19:50 Room Air 05/16/17 16:14 Room Air 05/16/17 15:49 36.4 68 16 132/75 (94) 96 Room Air 05/16/17 12:13 36.5 54 18 105/70 (82) 94 Room Air General Appearance: WD/WN, no apparent distress Respiratory/Chest: lungs clear, normal breath sounds, no respiratory distress Cardiovascular: regular rate, rhythm Abdomen: normal bowel sounds, non tender, non distended, soft Incision(s): clean, dry, intact Laboratory Results: Results Past 24 Hours Test 05/17/17 06:03 Range/Units White Blood Count 14.18 4.8-10.8 K/uL Red Blood Count 4.03 4.2-5.4 M/uL Hemoglobin 12.8 12.0-16.0 g/dL Hematocrit 38.0 37-47 % Mean Corpuscular Volume 94.3 80-100 fL Mean Corpuscular Hemoglobin 31.8 25-34 pg Mean Corpuscular Hemoglobin Concent 33.7 32-36 g/dl Platelet Count 298 130-400 K/uL Mean Platelet Volume 10.5 7.4-10.4 fL Neutrophils (%) (Auto) 78.2 % Lymphocytes (%) (Auto) 10.9 % Monocytes (%) (Auto) 10.1 % Eosinophils (%) (Auto) 0.4 % Basophils (%) (Auto) 0.1 % Neutrophils # (Auto) 11.09 1.4-6.5 K/uL Lymphocytes # (Auto) 1.55 1.2-3.4 K/uL Monocytes # (Auto) 1.43 0.11-0.59 K/uL Eosinophils # (Auto) 0.06 0-0.5 K/uL Basophils # (Auto) 0.01 0-0.2 K/uL RDW Standard Deviation 45.0 36.4-46.3 fL RDW Coefficient of Variation 13.0 11.5-14.5 % Immature Granulocyte % (Auto) 0.3 % Immature Granulocyte # (Auto) 0.04 0.00-0.02 K/uL Assessment & Plan s/p lap cholecystectomy on for acute cholecystitis. Labs are improving today with WBC ct down to 14. Overall, looks stable for discharge. Discharge instructions reviewed with pt.
[2017-05-17 10:58] VITALS: BP 122/77; PULSE 54; TEMP 36.4; O2SAT 97
[2017-05-17 13:30] VITALS: BP 126/80; PULSE 69; O2SAT 97
--- NOTE | 2017-05-20 09:10 | DISCHARGE SUMMARY ---
PRIMARY DISCHARGE DIAGNOSIS: Acute cholecystitis. SECONDARY DISCHARGE DIAGNOSES: 1. Gastroesophageal reflux disease. 2. High cholesterol. 3. Arthritis. PROCEDURE PERFORMED: Laparoscopic cholecystectomy. HOSPITAL COURSE: The patient is a 72-year-old female with her second presentation to the Emergency Department, initially for chest pain and now epigastric and right-sided pain. Her CT was consistent with acute cholecystitis. Her white count was 18,000. She was admitted to the surgery service that evening and kept on IV antibiotics overnight and taken to the operating room the next morning for laparoscopic cholecystectomy. Procedure was well tolerated. She did have significantly inflamed gallbladder. She was returned to the surgical floor and kept on IV antibiotics. On postoperative day 1, her white count had increased to 19,000. She was gradually making progress with diet and activity. On postoperative day 2, she was tolerating diet and oral analgesics. Her white count improved to 14,000. She had been afebrile. She was stable for discharge. DISCHARGE INSTRUCTIONS: Discharge home. Follow up with Dr. Christianson in 2 weeks. DISCHARGE MEDICATIONS: Cipro 500 mg p.o. b.i.d. x5 days and can continue Mobic 15 mg daily, aspirin 325 mg daily, Coenzyme Q 200 mg daily, Zantac 150 mg b.i.d., Crestor 5 mg daily.
== END 2017-05-17 13:40 | disposition home or self-care (01) | DRG 419 ==
LOC: C.EDB 12:48 → C.3E 17:34 → ENRESERV 17:54 → C.3E 05-15 08:36
PROVIDERS: ADMIT Surgery; ATTEND Surgery
PROC: 0FT44ZZ Resection of Gallbladder, Percutaneous Endoscopic Approach (ICD-10-PCS; principal; 2017-05-15 08:45)
DX: K80.00 Calculus of gallbladder with acute cholecystitis without obstruction (principal); D72.829 Elevated white blood cell count, unspecified; R39.198 Other difficulties with micturition; K21.9 Gastro-esophageal reflux disease without esophagitis; E78.5 Hyperlipidemia, unspecified; M19.90 Unspecified osteoarthritis, unspecified site; E66.9 Obesity, unspecified; Z68.33 Body mass index [BMI] 33.0-33.9, adult; Z85.42 Personal history of malignant neoplasm of other parts of uterus; Z90.710 Acquired absence of both cervix and uterus; Z90.722 Acquired absence of ovaries, bilateral; Z90.79 Acquired absence of other genital organ(s); Z79.82 Long term (current) use of aspirin; Z79.890 Hormone replacement therapy; Z79.899 Other long term (current) drug therapy; Z82.49 Family history of ischemic heart disease and other diseases of the circulatory system; R07.9 Chest pain, unspecified

== ENCOUNTER → 2017-08-20 | Outpatient (CLI) | payer OTHER ==
[~2017-08-20] MED LIST changes: -ASPEC325 PO; +ASPECOTC PO; -COEN100C6 PO; +COEN200C17 PO; +CPR500 PO; -CRS5 PO; +RANI150T85 PO; +ROSU5TAB PO; -ZNT150 PO
[2017-08-20 17:51] LABS: ALBUMIN 3.3 gm/dl (3.4-5.0); ALT/SGPT 25 U/L (12-78); BLOOD UREA NITROGEN 21 mg/dl (7-18); CALCIUM 8.3 mg/dl (8.5-10.1); CARBON DIOXIDE 25 mmol/L (21-32); CHOLESTEROL 226 mg/dl (0-200); CREATININE 0.76 mg/dl (0.60-1.20); GLUCOSE 83 mg/dl (70-99); POTASSIUM 3.9 mmol/L (3.5-5.1); SODIUM 137 mmol/L (136-145)
[2017-08-20 17:53] LABS: ALKALINE PHOSPHATASE 54 U/L (45-117); AST/SGOT 20 U/L (15-37); LDL CHOLESTEROL CALCULATED 145 mg/dl; TOTAL PROTEIN 7.1 gm/dl (6.4-8.2)
[2017-08-20 19:35] LABS: HEMATOCRIT 43.1 % (37-47); HEMOGLOBIN 14.7 g/dL (12.0-16.0); MEAN CELL VOLUME 91.7 fL (80-100); MEAN CORPUSCULAR HEMOGLOBIN 31.3 pg (25-34); MEAN CORPUSCULAR HGB CONC 34.1 g/dl (32-36); MEAN PLATELET VOLUME 10.9 fL (7.4-10.4); PLATELET COUNT 249 K/uL (130-400); RED CELL DISTRIBUTION WIDTH CV 12.8 % (11.5-14.5); RED CELL DISTRIBUTION WIDTH SD 43.3 fL (36.4-46.3); WHITE BLOOD COUNT 7.53 K/uL (4.8-10.8)
== END | disposition home or self-care (01) ==
LOC: C.LABPVFM 12:01
PROVIDERS: ATTEND Internal Medicine
DX: Z00.00 Encounter for general adult medical examination without abnormal findings (principal); E78.5 Hyperlipidemia, unspecified; R06.02 Shortness of breath; Z79.890 Hormone replacement therapy; R53.83 Other fatigue; E55.9 Vitamin D deficiency, unspecified

== ENCOUNTER 2018-07-16 09:28 | Inpatient (IN) ==
--- NOTE | 2018-07-09 10:20 | Anesthesiology Consultation ---
Date of Service July 09, 2018 Assessment & Plan (1) Encounter for pre-operative examination: Chart Review Chart Review: Acceptable Risk for Surgery and Patient NOT seen in Pre Admission Testing History Surgery Operation Date: 07/16/18 10:50 Proposed Procedures p Right Laparoscopic Hand Assisted Nephrectomy with Inraoperative Mitomyocin C Instillation - Catalino Rolle MD Height/Weight Height: 5 ft 6.5 in Weight: 90.718 kg Allergies Allergy/AdvReac Type Severity Reaction Status Date / Time adhesive Allergy Intermediate Skin Verified 07/06/18 13:15 reaction diazepam Allergy Intermediate Paradoxial Verified 07/06/18 13:15 reaction Medications Home Medications Medication Instructions Recorded Confirmed Last Taken ascorbic acid (vitamin C) [Vitamin 500 mg PO QPM 05/28/18 07/06/18 06/01/18 C] calcium carbonate [Calcium 600] 600 mg PO QPM 05/28/18 07/06/18 06/01/18 cholecalciferol (vitamin D3) 1,000 unit PO QPM 05/28/18 07/06/18 06/01/18 [Vitamin D3] coQ10 (ubiquinol) 200 mg PO QPM 05/28/18 07/06/18 06/01/18 multivitamin 1 tab PO QAM 05/28/18 07/06/18 06/01/18 omega [id number] oil 0.5 dose PO BID 05/28/18 07/06/18 06/01/18 turmeric 1 dose PO QAM 05/28/18 07/06/18 06/01/18 alpha lipoic acid [Lipoic Acid] 1 cap PO QAM 07/06/18 07/06/18 Unknown estradiol 1 packet TRANSDERMAL WK 07/06/18 07/06/18 Unknown magnesium citrate 100 mg PO DAILY PRN 07/06/18 07/06/18 Unknown milk thistle 150 mg PO QAM 07/06/18 07/06/18 Unknown vitamin E 400 unit PO QAM 07/06/18 07/06/18 Unknown Past Medical History Medical History History of scarlet fever 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2 History of uterine cancer GERD (gastroesophageal reflux disease) OCCASIONAL Microscopic hematuria Osteoarthritis Obesity Cancer RENAL (RIGHT), URETER History of TMJ disorder Past Surgical History Surgical History History of total abdominal hysterectomy and bilateral salpingo-oophorectomy History of cholecystectomy 05/15/17= GRADE 1 VIEW, MAC 3, ETT 7.0 History of colonoscopy History of esophagogastroduodenoscopy (EGD) History of breast biopsy History of bilateral tubal ligation Hx of cystoscopy WITH BIOPSY + STENT; SUBSEQUENT STENT REMOVAL Past Anesthesia History Other Dyspnea post-op cholecystectomy- Per records: Anesthesia progress note s/p chastity 04/2017: "She was extubated without incident and transported with oxygen to PACU. Upon entering the PACU, the patient became anxious and stated that she could not breath. She sounded slightly hoarse but was able to talk and breath adequately. Her SpO2 was 100 and other vitals were stable. She was given reassurance and a racemic epinephrine nebulizer. The patient feels better now and is resting comfortably." S/P right cysto/ureteroscopy/stent= 06/11/18= LMA#4 at [facility] Father- post-op confusion/hallucinations* Social History Smoking Status: Never smoker Hx Alcohol Use: Yes Alcohol type: wine alcohol intake frequency: holidays/special occasions only Hx Substance Use: No substance use type: does not use Testing Electrocardiogram Date: 06/01/18 Findings: + SB @ (57) Stress Test Date: 05/13/17 Type: exercise Negative exercise stress ECHO/EKG for ischemia at 95% MPHR. No chest pain. Poor exercise tolerance. EF 55-60%. No significant valvular disease. 5.5 METS. Other Testing Chest CT= 06/24/18= No acute intrathoracic abnormality. No adenopathy or evidence of thoracic metastatic disease. Mild chronic interstitial lung disease. Prior cholecystectomy. Small sliding-type hiatal hernia. Laboratory Results 07/08/18 WBC 8.081 H/H 14.2/43.0 PLATELETS 271 SODIUM 139 POTASSIUM 4.1 CHLORIDE 109 CO2 26 BUN 19 CREATININE 0.72 GLUCOSE 85 UA negative T&S AB+ (no antibodies noted)
[~2018-07-16 09:28] MED LIST changes: +ACETAMINOPHEN 1,000 MG/100 ML VIAL IV SCH; -ASPECOTC PO; +CEFAZOLIN 2000MG 2,000 MG/15 ML SYR IV SCH; -COEN200C17 PO; -CPR500 PO; +LR 15ML/HR IV SCH; -MELO7.5T5 PO; +OR USE ONLY INSTIL SCH; -RANI150T85 PO; -ROSU5TAB PO; -[UNRECOGNIZED DRUG - CODE] TOP
[2018-07-16] MEDS ORDERED: ePHEDrine sulfate 50 MG/ML AMP IV PRN (11:33)
[2018-07-16] MEDS ORDERED: HYDROmorphone INJ 2 MG/ML SYR/VIAL IV PRN (11:33)
[2018-07-16] MEDS ORDERED: ONDANSETRON INJ 2 MG/ML 2 ML VIAL IV PRN ×2 (11:33→18:55)
[2018-07-16] MEDS ORDERED: ATROPINE SULFATE 0.1 MG/ML 10ML SYR IV PRN (11:33)
[2018-07-16] MEDS ORDERED: PROMETHAZINE HCL 6.25 MG in SODIUM CHLORIDE 0.9% 50 ML IV PRN (11:33)
[2018-07-16] MEDS ORDERED: fentaNYL citrate 100 MCG/2 ML VIAL ONE (12:18)
--- NOTE | 2018-07-16 12:42 | History & Physical Bridge Note ---
Date of Service July 16, 2018 History & Physical Bridge Note I have examined the patient, reviewed the History & Physical and in the interval since the performance of the History & Physical I have noted the following changes of clinical significance: no changes noted
[2018-07-16] MEDS ORDERED: BUPIVACAINE 0.5 % 5 MG/1 ML MPF 30ML VIAL ONE (12:56)
[2018-07-16] MEDS ORDERED: ePHEDrine sulfate 50 MG/ML SYR ONE (14:12)
[2018-07-16] MEDS ORDERED: LIDOCAINE HCL 2% 2 ML VIAL/AMP(20MG/ML) INFIL ONE (14:12)
[2018-07-16] MEDS ORDERED: PROPOFOL IV EMULSION 10 MG/ML 20 ML VIAL IV ONE (14:12)
[2018-07-16] MEDS ORDERED: DEXAMETHASONE SOD INJ 4 MG/ML VIAL ONE (14:12)
[2018-07-16] MEDS ORDERED: ROCURONIUM BROMIDE 10 MG/ML 5 ML VIAL ONE ×2 (14:12→16:50)
[2018-07-16] MEDS ORDERED: ONDANSETRON INJ 2 MG/ML 2 ML VIAL ONE ×2 (14:12→17:35)
[2018-07-16] MEDS ORDERED: TISSEEL FIBRIN SEALANT 10ML TOP ONE (16:31)
[2018-07-16] MEDS ORDERED: NEOSTIGMINE METHYLSULFATE 5 MG/5 ML SYR ONE (16:50)
[2018-07-16] MEDS ORDERED: GLYCOPYRROLATE 0.2 MG/ML VIAL ONE (16:50)
--- NOTE | 2018-07-16 17:17 | Operative Report ---
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 Post-Op Diagnosis: Transitional Cell Carcinoma of Right Kidney Procedure Operation Date: 07/16/18 10:50 Actual Procedures p Right Laparoscopic Hand Assisted Nephrectomy with Inraoperative Mitomyocin C Instillation(Right) - Catalino Rolle MD s Nephroureterectomy Radical - Catalino Rolle MD Surgeon Catalino Rolle MD Home Appraiser Cr Singleton MD, ML SHAYNA Martin Estimated Blood Loss 50 Findings Consistent with Post-Op Diagnosis Specimens Right retroperitoneal tissue, R kidney + ureter Description of Procedure R OMARU I attest to the content of the Intraoperative Record and any orders documented therein. Any exceptions are noted below.
--- NOTE | 2018-07-16 17:25 | XRay Report ---
XR KUB CLINICAL HISTORY: instrument count postoperative COMPARISON STUDY: 05/14/2017 FINDINGS: Nonobstructive bowel pattern. Surgical drain overlying the right flank. No metallic instrum ent is identified. IMPRESSION: No evidence for metallic instrument. Radiopaque drain right lower quadrant of the abdome n and pelvis The above report was generated using voice recognition software. It may contain grammatical, syntax or spelling errors. Electronically signed by: Neil Bryson M.D. 07/16/2018 5:24 PM
[2018-07-16] MEDS: fentaNYL citrate 100 MCG/2 ML VIAL IV PRN ×2 (18:01→18:06)
[2018-07-16] MEDS ORDERED: ACETAMINOPHEN 1,000 MG/100 ML VIAL IV STA (18:11)
[2018-07-16 18:24] LABS: Hematocrit (blood only) 43.6 % (37-47); Hemoglobin 14.7 g/dL (12.0-16.0); Mean Corpuscular Volume 94.4 fL (80-100); Mean Platelet Volume 9.7 fL (7.4-10.4); Platelet Count 257 K/uL (130-400); RDW Coefficient of Variation 12.8 % (11.5-14.5); RDW Standard Deviation 43.4 fL (36.4-46.3); Red Blood Count 4.62 M/uL (4.2-5.4); White Blood Count 24.55 K/uL (4.8-10.8)
[2018-07-16 18:31] LABS: Mean Corpuscular Hgb Conc 33.7 g/dL (32-36)
--- NOTE | 2018-07-16 18:35 | Anesthesiology Progress Note ---
Date of Service July 16, 2018 Anesthesia Post Procedure Vital Signs Vital Signs: Temp Pulse Pulse Resp BP Pulse Ox 07/16/18 18:30 97.2 F L 49 L 18 128/67 98 07/16/18 18:20 97.2 F L 49 L 15 120/62 97 07/16/18 18:10 55 L 14 127/66 97 07/16/18 18:00 62 15 138/65 96 07/16/18 17:50 61 19 136/77 98 07/16/18 17:40 62 21 141/74 H 97 07/16/18 17:31 97.3 F L 101 H 16 117/90 97 07/16/18 10:08 97.5 F L 64 20 163/93 H 96 Pain Intensity Abdomen: Pain Intensity: 5 Notes Mental Status: alert / awake / arousable and participated in evaluation Patient Amnestic to Procedure: Yes Nausea / Vomiting: adequately controlled Pain: adequately controlled Airway Patency, RR, SpO2: stable & adequate BP & HR: stable & adequate Hydration State: stable & adequate Anesthetic Complications: no major complications apparent and Pt Satisfied with anesthetic care
[2018-07-16 18:39] LABS: Basophils # (auto) 0.02 K/uL (0-0.2); Basophils % (auto) 0.1 %; Immature Granulocytes # (auto) 0.09 K/uL (0.00-0.02); Immature Granulocytes % (auto) 0.4 %; Lymphocytes # (auto) 1.21 K/uL (1.2-3.4); Lymphocytes % (auto) 4.9 %; Monocytes % (auto) 2.9 %; Neutrophils # (auto) 22.53 K/uL (1.4-6.5); Neutrophils % (auto) 91.7 %
[2018-07-16 18:49] LABS: BUN Creatinine Ratio 14.2 (10-20); Calcium 7.8 mg/dl (8.5-10.1); Creatinine Clr Calc Pharmacy 63.7 ml/min; Est GFR (African American) 74.5; Est GFR (Non-African American) 64.3; Potassium 3.4 mmol/L (3.5-5.1)
[2018-07-16] MEDS ORDERED: BELLADONNA/OPIUM SUPP 60 MG SUPP PR PRN (18:55)
[2018-07-16] MEDS: LACTATED RINGER'S 1,000 ML IV SCH ×2 (19:11→23:49)
[2018-07-16] MEDS: OXYCODONE HCL IR 5 MG TAB (IMMEDIATE RELEASE) PO PRN ×2 (19:17→20:06)
[2018-07-16 19:47] LABS: Hematocrit (blood only) 45.1 % (37-47); Hemoglobin 15.5 g/dL (12.0-16.0); Mean Corpuscular Volume 94.2 fL (80-100); Mean Platelet Volume 9.7 fL (7.4-10.4); Nucleated RBC # (auto) 0.07 K/uL (0-0); Nucleated RBC % (auto) 0.3 %; Platelet Count 269 K/uL (130-400); RDW Coefficient of Variation 12.7 % (11.5-14.5); RDW Standard Deviation 43.8 fL (36.4-46.3); Red Blood Count 4.79 M/uL (4.2-5.4); White Blood Count 26.57 K/uL (4.8-10.8)
[2018-07-16 19:52] LABS: Mean Corpuscular Hgb Conc 34.4 g/dL (32-36)
[2018-07-16 20:13] LABS: Basophils # (auto) 0.03 K/uL (0-0.2); Basophils % (auto) 0.1 %; Immature Granulocytes # (auto) 0.12 K/uL (0.00-0.02); Immature Granulocytes % (auto) 0.5 %; Lymphocytes # (auto) 1.04 K/uL (1.2-3.4); Lymphocytes % (auto) 3.9 %; Monocytes # (auto) 1.22 K/uL (0.11-0.59); Monocytes % (auto) 4.6 %; Neutrophils # (auto) 24.16 K/uL (1.4-6.5); Neutrophils % (auto) 90.9 %
[2018-07-16 20:13] LABS: Prothrombin Time 10.4 Seconds (9.0-12.0)
[2018-07-16] MEDS: DOCUSATE SODIUM 100 MG CAP PO SCH (20:25)
[2018-07-16] MEDS: CHOLECALCIFEROL 1,000 UNITS TAB PO SCH (20:25)
[2018-07-16] MEDS: FAMOTIDINE 20 MG in SYRINGE 3 ML IV SCH (20:25)
[2018-07-16] MEDS: HEPARIN SOD 5,000 UNIT/0.5 ML VIAL SQ SCH (21:19)
[2018-07-16] MEDS: CEFAZOLIN 2000MG 2,000 MG/15 ML SYR IV SCH (21:20)
[2018-07-16] MEDS: MoRPHine SULFATE 4 MG/ML 1 ML CARP\\VIAL IV PRN (21:34)
[2018-07-16] MEDS: ACETAMINOPHEN 1,000 MG/100 ML VIAL IV SCH (23:49)
[2018-07-17] MEDS: MoRPHine SULFATE 4 MG/ML 1 ML CARP\\VIAL IV PRN ×3 (00:25→20:31)
[2018-07-17] MEDS: CEFAZOLIN 2000MG 2,000 MG/15 ML SYR IV SCH ×2 (05:24→13:11)
--- NOTE | 2018-07-17 06:04 | Urology Progress Note ---
Date of Service July 17, 2018 Assessment & Plan (1) Urothelial carcinoma of kidney: A/P 73 yo female POD#1 s/p R HALNU. Doing well. Clears until lunch, advance diet at that time if tolerated well. Increase activity, pain control. Intraop findings reviewed with patient. Monitor labwork - expect a bump in Cr with some recovery over time. Rosario on DC home, TOV in ~ 2 weeks [address] in place. Possible DC home tomorrow depending on progress. Present on Admission?: Yes Subjective 73 yo female POD#1 s/p R HALNU. She notes appropriate abdominal pain, + ambulating in room, yasmeen clears and rosario without emesis. Intraop findings reviewed, AM labs pending, postop labs noted. No new complaints, minimal SEE output. Constitutional: no fever and no chills Ear, Nose, Mouth, Throat: no ear trauma Respiratory: no hemoptysis Cardiovascular: no chest pain Gastrointestinal: + abdominal pain; no nausea and no vomiting Integumentary: no acne Neurologic: no paralysis and no numbness Endocrine: + fatigue Physical Exam Vital Signs (Past 24 Hours): Last Vital Signs Temp 36.5 C 07/17/18 03:20 Pulse 64 07/17/18 03:20 Resp 14 07/17/18 03:20 BP 101/66 07/17/18 03:20 Pulse Ox 95 07/17/18 03:20 Constitutional: WD/WN, vitals as above Neck: trachea midline; no anterior neck swelling Respiratory: no respiratory distress, no labored breathing and does not use accessory muscles Cardiovascular: Vessels: radial pulses present Gastrointestinal (Abdomen): Percussion/Palpation: + abdomen tender (minimal) and abdomen soft; no guarding and abdomen not rigid inc c/d/i, some ecchymosis at extraction site, SEE intact Skin: normal turgor Neurologic: CN's II-XI intact bilaterally and awake; not obtunded Psychiatric: Orientation: oriented x 3 Lymphatic: no lymphadenopathy Results & Data Laboratory Results Laboratory Results - last 48 hr 07/16/18 07/16/18 07/16/18 10:07 18:08 18:08 WBC 24.55 H RBC 4.62 Hgb 14.7 Hct 43.6 MCV 94.4 MCH 31.8 MCHC 33.7 RDW Std Deviation 43.4 RDW Coeff of Marlene 12.8 Plt Count 257 MPV 9.7 Immature Gran % (Auto) 0.4 Neut % (Auto) 91.7 Lymph % (Auto) 4.9 [place] % (Auto) 2.9 Eos % (Auto) 0.0 Baso % (Auto) 0.1 Immature Gran # (Auto) 0.09 H Neut # (Auto) 22.53 H Lymph # (Auto) 1.21 [place] # (Auto) 0.70 H Eos # (Auto) 0.00 Baso # (Auto) 0.02 Absolute Nucleated RBC Nucleated RBC % (auto) PT INR Sodium 139 Potassium 3.4 L Chloride 108 H Carbon Dioxide 22 Anion Gap 9.0 BUN 12 Creatinine 0.88 Est Cr Clr Drug Dosing 63.7 Est GFR ( Amer) 74.5 Est GFR (Non-Af Amer) 64.3 BUN/Creatinine Ratio 14.2 Glucose 135 H Calcium 7.8 L Specimen Hemolysis Blood Type AB Positive Antibody Screen NEGATIVE 07/16/18 07/16/18 19:34 19:51 WBC 26.57 H RBC 4.79 Hgb 15.5 Hct 45.1 MCV 94.2 MCH 32.4 MCHC 34.4 RDW Std Deviation 43.8 RDW Coeff of Marlene 12.7 Plt Count 269 MPV 9.7 Immature Gran % (Auto) 0.5 Neut % (Auto) 90.9 Lymph % (Auto) 3.9 [place] % (Auto) 4.6 Eos % (Auto) 0.0 Baso % (Auto) 0.1 Immature Gran # (Auto) 0.12 H Neut # (Auto) 24.16 H Lymph # (Auto) 1.04 L [place] # (Auto) 1.22 H Eos # (Auto) 0.00 Baso # (Auto) 0.03 Absolute Nucleated RBC 0.07 H Nucleated RBC % (auto) 0.3 PT 10.4 INR 1.0 Sodium Potassium Chloride Carbon Dioxide Anion Gap BUN Creatinine Est Cr Clr Drug Dosing Est GFR ( Amer) Est GFR (Non-Af Amer) BUN/Creatinine Ratio Glucose Calcium Specimen Hemolysis Blood Type Antibody Screen
[2018-07-17 06:49] LABS: Basophils # (auto) 0.01 K/uL (0-0.2); Basophils % (auto) 0.1 %; Hematocrit (blood only) 40.3 % (37-47); Hemoglobin 13.2 g/dL (12.0-16.0); Immature Granulocytes # (auto) 0.04 K/uL (0.00-0.02); Immature Granulocytes % (auto) 0.3 %; Lymphocytes # (auto) 0.85 K/uL (1.2-3.4); Lymphocytes % (auto) 5.7 %; Mean Corpuscular Hgb Conc 32.8 g/dL (32-36); Mean Corpuscular Volume 94.8 fL (80-100); Mean Platelet Volume 9.7 fL (7.4-10.4); Monocytes # (auto) 1.42 K/uL (0.11-0.59); Monocytes % (auto) 9.6 %; Neutrophils # (auto) 12.53 K/uL (1.4-6.5); Neutrophils % (auto) 84.3 %; Platelet Count 246 K/uL (130-400); RDW Coefficient of Variation 12.9 % (11.5-14.5); RDW Standard Deviation 44.5 fL (36.4-46.3); Red Blood Count 4.25 M/uL (4.2-5.4); White Blood Count 14.85 K/uL (4.8-10.8)
[2018-07-17 07:23] LABS: BUN Creatinine Ratio 12.3 (10-20); Calcium 7.8 mg/dl (8.5-10.1); Creatinine Clr Calc Pharmacy 44.9 ml/min; Est GFR (African American) 48.7; Potassium 4.1 mmol/L (3.5-5.1)
[2018-07-17] MEDS: LACTATED RINGER'S 1,000 ML IV SCH ×2 (07:55→16:28)
[2018-07-17] MEDS: ACETAMINOPHEN 1,000 MG/100 ML VIAL IV SCH ×3 (08:13→23:29)
--- NOTE | 2018-07-17 08:32 | Anesthesiology Progress Note ---
Date of Service July 17, 2018 Anesthesia Post Procedure Vital Signs Vital Signs: Temp Pulse Pulse Pulse Resp BP BP 07/17/18 08:06 36.7 C 66 12 103/67 07/17/18 03:20 36.5 C 64 14 101/66 07/16/18 23:11 36.3 C L 69 16 123/79 07/16/18 21:56 36.4 C L 61 16 137/81 07/16/18 20:50 36.6 C 66 19 161/85 H 07/16/18 19:50 36.6 C 55 L 21 140/82 07/16/18 19:20 36.6 C 53 L 20 146/80 H 07/16/18 18:50 36.3 C L 58 L 16 153/78 H 07/16/18 18:30 36.2 C L 49 L 18 128/67 07/16/18 18:20 36.2 C L 49 L 15 120/62 07/16/18 18:10 55 L 14 127/66 07/16/18 18:00 62 15 138/65 07/16/18 17:50 61 19 136/77 07/16/18 17:40 62 21 141/74 H 07/16/18 17:31 36.3 C L 101 H 16 117/90 07/16/18 10:08 36.4 C L 64 20 163/93 H Pulse Ox 07/17/18 08:06 07/17/18 03:20 95 07/16/18 23:11 96 07/16/18 21:56 90 07/16/18 20:50 95 07/16/18 19:50 98 07/16/18 19:20 99 07/16/18 18:50 93 07/16/18 18:30 98 07/16/18 18:20 97 07/16/18 18:10 97 07/16/18 18:00 96 07/16/18 17:50 98 07/16/18 17:40 97 07/16/18 17:31 97 07/16/18 10:08 96 Pain Intensity Abdomen: Pain Intensity: 5 Notes Mental Status: alert / awake / arousable Patient Amnestic to Procedure: Yes Nausea / Vomiting: adequately controlled Pain: adequately controlled Airway Patency, RR, SpO2: stable & adequate BP & HR: stable & adequate Hydration State: stable & adequate Anesthetic Complications: no major complications apparent and Pt Satisfied with anesthetic care
[2018-07-17] MEDS: HEPARIN SOD 5,000 UNIT/0.5 ML VIAL SQ SCH ×2 (09:44→20:41)
[2018-07-17] MEDS: DOCUSATE SODIUM 100 MG CAP PO SCH ×2 (09:44→20:32)
[2018-07-17] MEDS: FAMOTIDINE 20 MG in SYRINGE 3 ML IV SCH ×2 (09:44→20:32)
[2018-07-17] MEDS: OXYCODONE HCL IR 5 MG TAB (IMMEDIATE RELEASE) PO PRN ×2 (13:11→18:06)
[2018-07-17] MEDS: CHOLECALCIFEROL 1,000 UNITS TAB PO SCH (20:33)
--- NOTE | 2018-07-17 21:53 | Operative Report ---
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 PROCEDURE: Right-sided hand-assisted laparoscopic nephroureterectomy with follow up with a right-sided retroperitoneal dissection. Intravesical instillation of mitomycin C. SURGEON: Catalino Rolle MD TREATMENT SPECIALIST: Jose Cruz Singleton MD and SHAYNA Elmore. Assistants are presents throughout the case for retraction, management of the laparoscopic camera, passage of instruments, exposure of tissues, patient positioning, and general patient safety. ANESTHESIA: General anesthesia with endotracheal intubation plus local at port sites. SPECIMENS SENT TO PATHOLOGY: Right kidney plus ureter and right retroperitoneal tissue. DRAINS LEFT IN PLACE: Include an 18-Latvian Pendleton catheter with 10 mL of sterile water in the balloon to gravity drainage and a right lower quadrant #10 flat SEE drain. ESTIMATED BLOOD LOSS: 50 mL IV FLUIDS: 1400 mL crystalloid. COMPLICATIONS: None. FINDINGS: Excellent distal ureteral dissection with a closure of the bladder using a 0 Vicryl suture, after completion of case. No evidence of any significant anatomic variation or injury to the intraabdominal structures over the course of the case, paucity of right retroperitoneal naomi tissue. BRIEF HISTORY: Mr. Walker is a pleasant 73-year-old female with a history of chronic right-sided flank pain was undergone evaluation over the course of some time. More recently, CT scan imaging demonstrated progressive thickening of the urothelium of the right ureter, not felt to be somewhat more suspicious for the possibility of malignancy. Cytologies were positive and ureteroscopy demonstrated inflammatory-appearing mucosa with a positive cytology is felt to be consistent with carcinoma in situ. Please see H and P and prior operative notes for further details. The patient is here today for right-sided hand-assisted laparoscopic nephroureterectomy to manage her disease. Intravenous Ancef was provided for antibiotic coverage and SCDs used for DVT prophylaxis. Intravenous Tylenol was provided preoperatively for additional analgesia. Consent reviewed with the patient preoperatively today and care discussed with her sons who were present in the hospital. DESCRIPTION OF PROCEDURE: The patient was properly identified and brought into the preoperative suite after identification of appropriate consent on the chart. General anesthesia with endotracheal intubation was initiated. The patient was prepped and draped in standard fashion for this procedure. A beam dyer-out procedure was followed. The stomach was drained using an orogastric tube and the patient was placed in a gentle right flank up position with all pressure points generously padded. An 18-Latvian sterile catheter was placed at the onset of the case draining the bladder and then 40 mg of mitomycin and 40 mL of sterile water were placed in the catheter, which was then clamped. This was to prevent any distal seating of malignant cells at the time of renal manipulation. After prepping and draping patient in the standard fashion, a Alfonso incision was made in the right lower quadrant and brought down through the subcutaneous tissues to the fascia of the external oblique. This was divided and then using a cold Metzenbaum scissors, the abdomen was entered cautiously under direct visualization with no evidence of injury to the bowels or intraabdominal structures. Incision was enlarged over the surgeon's finger and a GelPort hand port was placed to proceed. Abdomen was insufflated to 15 mmHg and laparoscope was placed via the GelPort to inspect intra-abdominal contents. The patient was noted to have some relatively distended bowel and a collapsed stomach after placement of an orogastric tube, but no other significant intra-abdominal variance. Throughout the case, an inflammation around the right kidney was appreciated but this was felt to likely be due to the patient's previous ureteroscopy, biopsy, and ureteral stent placement. The colon was mobilized medially by incising the white line of Toldt laterally. The lateral attachments of the liver were divided to allow for exposure of the retroperitoneum. Dissection was carried down to the psoas muscle and the patient's ureter was identified in the normal anatomic location. A gonadal vessel and the IVC were also appreciated at the entrance to the true pelvis. Once the ureter was identified, it was clipped using a Weck clip to prevent distal migration of any urothelial malignant cells. Dissection was then carried out cephalad with lateral retraction of the kidney at the level of the ureter. Attempts were made to leave the majority of the retroperitoneal fat on the kidney itself. This was carried out until the renal vasculature was identified. This was circumscribed with surgeon's finger and taken using a vascular load in its entirety. After this was complete, the adrenal tissue was left in situ by it from the kidney using a separate vascular load. A Harmonic scalpel was used to divide the remaining perirenal attachments until the kidney was free within the abdomen and able to be brought down into the pelvis for further dissection. Attention was turned to the retroperitoneum, where excellent hemostasis was appreciated. A small amount of fatty tissues were present behind and lateral to the IVC and using clips and Harmonic scalpel, these were dissected free down to the level of the pelvis and sent as a retroperitoneal tissue. Minimal fatty tissue and naomi tissue were present and this was not grossly abnormal. In addition on previous CT scan imaging, no lymphadenopathy had been appreciated. Tisseel tissue sealant was placed over the adrenal and renal pelvis bed as well as the hilar dissection. This was noted to be hemostatic and then the liver and the bowel was returned to the normal anatomic positions. Ports were removed and abdomen was desufflated. The kidney was delivered via the hand incision and wrapped to prevent excess contact with the surgical field. The case was then converted to an open distal ureterectomy via the hand port site. Using a Auxier and hand held retractors, the ureter was dissected free down into the level of the pelvis. Clips and extended tip Bovie cautery was used as necessary for hemostasis and good vision of small vessels. Dissection was continued until the ureter was visualized dilating on its entry to the bladder. Using a long-tip Bovie cautery, the intramural tunnel was a cored out with a modest cuff of bladder being present as well. After this was complete, the bladder was entered along the intramural tunnel and the specimen was removed. This was handed off for pathologic analysis. Prior to completion of the distal ureterectomy, the bladder had been drained of the intravesical mitomycin and flushed with greater than 200 mL of sterile saline to ensure no spillage of mitomycin into the surgical field. Bladder had been placed to gravity drainage prior to completion of this. Stay sutures, which had been placed on either side of the ureter were tied in a [id number] fashion to allow for closure of the vesicotomy. The wound was generously irrigated and attention was turned to the pelvis and the retroperitoneum, where excellent hemostasis was appreciated. A #10 SEE drain was brought in via a separate stab incision superior to the plane of the distal ureteral dissection and placed lateral to the bladder. The fascia was visible at the 12-mm port. It was closed using an 0 Vicryl suture on a UR-6 needle. The musculature of the abdominal wall was closed in 2 layers after removal of flexion from the table with an 0 Vicryl suture being used on the deeper muscular layers and a #1 Vicryl suture being used on the fascia of the external oblique. Subcutaneous fat was reapproximated using a 3-0 Monocryl and 2-0 silk was used to secure the SEE drain in place. A 4-0 Monocryl and Dermabond were used for skin closure. The patient was replaced in supine position and anesthesia was reversed. The patient was transferred from the recovery room in stable condition. FOLLOWUP CARE: The patient will be admitted to the floor for standard postoperative management. I attest to the content of the Intraoperative Record and any orders documented therein. Any exceptions are noted below. PRAVEENAD
[2018-07-18 06:39] LABS: Basophils # (auto) 0.02 K/uL (0-0.2); Basophils % (auto) 0.2 %; Eosinophils # (auto) 0.18 K/uL (0-0.5); Eosinophils % (auto) 1.6 %; Hemoglobin 11.4 g/dL (12.0-16.0); Immature Granulocytes # (auto) 0.02 K/uL (0.00-0.02); Immature Granulocytes % (auto) 0.2 %; Lymphocytes # (auto) 2.41 K/uL (1.2-3.4); Lymphocytes % (auto) 21.9 %; Mean Corpuscular Hgb Conc 32.6 g/dL (32-36); Mean Platelet Volume 9.8 fL (7.4-10.4); Monocytes # (auto) 0.91 K/uL (0.11-0.59); Monocytes % (auto) 8.3 %; Neutrophils # (auto) 7.44 K/uL (1.4-6.5); Neutrophils % (auto) 67.8 %; Platelet Count 197 K/uL (130-400); RDW Coefficient of Variation 13.2 % (11.5-14.5); RDW Standard Deviation 46.6 fL (36.4-46.3); Red Blood Count 3.61 M/uL (4.2-5.4); White Blood Count 10.98 K/uL (4.8-10.8)
[2018-07-18 07:18] LABS: BUN Creatinine Ratio 14.7 (10-20); Calcium 7.6 mg/dl (8.5-10.1); Creatinine Clr Calc Pharmacy 41.5 ml/min; Est GFR (African American) 44.4; Est GFR (Non-African American) 38.3; Potassium 4.1 mmol/L (3.5-5.1)
[2018-07-18] MEDS: LACTATED RINGER'S 1,000 ML IV SCH ×2 (07:18→15:29)
[2018-07-18] MEDS: ACETAMINOPHEN 1,000 MG/100 ML VIAL IV SCH ×2 (08:01→15:30)
[2018-07-18] MEDS: HEPARIN SOD 5,000 UNIT/0.5 ML VIAL SQ SCH ×2 (08:02→21:47)
[2018-07-18] MEDS: DOCUSATE SODIUM 100 MG CAP PO SCH ×2 (08:02→21:44)
[2018-07-18] MEDS: FAMOTIDINE 20 MG in SYRINGE 3 ML IV SCH ×2 (08:28→21:51)
[2018-07-18] MEDS: OXYCODONE HCL IR 5 MG TAB (IMMEDIATE RELEASE) PO PRN ×2 (10:00→15:29)
--- NOTE | 2018-07-18 13:28 | Urology Progress Note ---
Date of Service July 18, 2018 Assessment & Plan (1) Urothelial carcinoma of kidney: A/P 73 yo female POD#2 s/p R HALNU. Tolerating diet. Tolerating activity. Tolerating Pendleton and SEE. Increased discomfort. ambulating. Continuing IS. Worried about climbing stairs. Lives on second story of building and has to use stairs at home. Will monitor today. possibly home tomorrow depending on activity. Subjective 73 yo female POD#2 s/p R HALNU. Increased SEE. Increased pain. Tolerating diet. No flatus No BM. Discomfort when standing or sitting. Mostly during transfer. Has 2 flights of stairs at home and nervous about stairs. NO N/v No severe issues. Pain tolerated Gastrointestinal: + abdominal pain; no nausea and no vomiting Endocrine: + fatigue Physical Exam Vital Signs (Past 24 Hours): Last Vital Signs Temp 36.9 C 07/18/18 07:36 Pulse 58 L 07/18/18 07:36 Resp 18 07/18/18 07:36 BP 98/55 L 07/18/18 07:36 Pulse Ox 95 07/18/18 07:36 Constitutional: WD/WN, vitals as above ENMT: Mouth: no TMJ abnormality Mallampati Class: II Neck: normal visual inspection and trachea midline; no anterior neck swelling Respiratory: normal respiratory effort; no respiratory distress, no labored breathing and does not use accessory muscles Cardiovascular: Rate/Rhythm: regular rate and regular rhythm Vessels: radial pulses present Gastrointestinal (Abdomen): Percussion/Palpation: + abdomen tender (minimal) and abdomen soft; no guarding and abdomen not rigid Skin: normal turgor Neurologic: CN's II-XI intact bilaterally, moves all extremities and awake; not obtunded Psychiatric: Orientation: alert and oriented x 3 Lymphatic: no lymphadenopathy
[2018-07-18] MEDS: CHOLECALCIFEROL 1,000 UNITS TAB PO SCH (21:44)
[2018-07-19] MEDS: LACTATED RINGER'S 1,000 ML IV SCH ×5 (00:06→16:07)
[2018-07-19] MEDS: ACETAMINOPHEN 1,000 MG/100 ML VIAL IV SCH ×4 (00:06→23:37)
[2018-07-19] MEDS: OXYCODONE HCL IR 5 MG TAB (IMMEDIATE RELEASE) PO PRN ×3 (05:51→22:40)
[2018-07-19 06:08] LABS: Basophils # (auto) 0.02 K/uL (0-0.2); Basophils % (auto) 0.2 %; Eosinophils # (auto) 0.37 K/uL (0-0.5); Eosinophils % (auto) 4.3 %; Hematocrit (blood only) 34.7 % (37-47); Hemoglobin 10.8 g/dL (12.0-16.0); Immature Granulocytes # (auto) 0.02 K/uL (0.00-0.02); Immature Granulocytes % (auto) 0.2 %; Lymphocytes # (auto) 2.27 K/uL (1.2-3.4); Lymphocytes % (auto) 26.2 %; Mean Corpuscular Hgb Conc 31.1 g/dL (32-36); Mean Corpuscular Volume 97.2 fL (80-100); Mean Platelet Volume 10.1 fL (7.4-10.4); Monocytes # (auto) 0.84 K/uL (0.11-0.59); Monocytes % (auto) 9.7 %; Neutrophils # (auto) 5.14 K/uL (1.4-6.5); Neutrophils % (auto) 59.4 %; Platelet Count 206 K/uL (130-400); RDW Standard Deviation 46.4 fL (36.4-46.3); Red Blood Count 3.57 M/uL (4.2-5.4); White Blood Count 8.66 K/uL (4.8-10.8)
[2018-07-19 07:01] LABS: BUN Creatinine Ratio 14.7 (10-20); Calcium 8.1 mg/dl (8.5-10.1); Creatinine Clr Calc Pharmacy 43.1 ml/min; Est GFR (African American) 46.5; Est GFR (Non-African American) 40.1; Potassium 4.1 mmol/L (3.5-5.1)
[2018-07-19] MEDS: HEPARIN SOD 5,000 UNIT/0.5 ML VIAL SQ SCH ×2 (08:50→21:09)
[2018-07-19] MEDS: DOCUSATE SODIUM 100 MG CAP PO SCH ×2 (08:50→21:07)
[2018-07-19] MEDS: FAMOTIDINE 20 MG in SYRINGE 3 ML IV SCH ×2 (08:54→20:59)
--- NOTE | 2018-07-19 14:34 | Urology Progress Note ---
Date of Service July 19, 2018 Assessment & Plan (1) Urothelial carcinoma of kidney: A/P 73 yo female POD#3 s/p R HALNU. Tolerating diet. Tolerating activity. Tolerating Pendleton and SEE. Flatus today. Continue ambulating. Continuing IS. Worried about climbing stairs. Lives on second story of building and has to use stairs at home. Will monitor today. possibly home tomorrow depending on activity. Subjective 73 yo female POD#3 s/p R HALNU. Pain better tolerated. In abd in waves. Passing gas. No major issues. no bleeding. Tolerating catheter. Tolerating diet. Feeling "distended" nervous about stairs at home. Gastrointestinal: + abdominal pain; no nausea and no vomiting Endocrine: + fatigue Physical Exam Vital Signs (Past 24 Hours): Last Vital Signs Temp 36.6 C 07/19/18 07:27 Pulse 64 07/19/18 07:27 Resp 18 07/19/18 07:27 BP 117/70 07/19/18 07:27 Pulse Ox 95 07/19/18 07:27 Constitutional: WD/WN, vitals as above ENMT: Mouth: no TMJ abnormality Mallampati Class: II Neck: normal visual inspection and trachea midline; no anterior neck swelling Respiratory: normal respiratory effort; no respiratory distress, no labored breathing and does not use accessory muscles Cardiovascular: Rate/Rhythm: regular rate and regular rhythm Vessels: radial pulses present Gastrointestinal (Abdomen): Percussion/Palpation: + abdomen tender (minimal) and abdomen soft; no guarding and abdomen not rigid Skin: normal turgor Neurologic: CN's II-XI intact bilaterally, moves all extremities and awake; not obtunded Psychiatric: Orientation: alert and oriented x 3 Lymphatic: no lymphadenopathy
[2018-07-19] MEDS: CHOLECALCIFEROL 1,000 UNITS TAB PO SCH (21:06)
[2018-07-20 07:22] LABS: Basophils # (auto) 0.02 K/uL (0-0.2); Basophils % (auto) 0.2 %; Eosinophils # (auto) 0.48 K/uL (0-0.5); Eosinophils % (auto) 5.3 %; Hematocrit (blood only) 34.7 % (37-47); Hemoglobin 11.3 g/dL (12.0-16.0); Immature Granulocytes # (auto) 0.02 K/uL (0.00-0.02); Immature Granulocytes % (auto) 0.2 %; Lymphocytes # (auto) 2.02 K/uL (1.2-3.4); Lymphocytes % (auto) 22.3 %; Mean Corpuscular Hgb Conc 32.6 g/dL (32-36); Mean Corpuscular Volume 95.9 fL (80-100); Mean Platelet Volume 10.1 fL (7.4-10.4); Monocytes # (auto) 1.05 K/uL (0.11-0.59); Monocytes % (auto) 11.6 %; Neutrophils # (auto) 5.48 K/uL (1.4-6.5); Neutrophils % (auto) 60.4 %; Platelet Count 227 K/uL (130-400); RDW Coefficient of Variation 12.8 % (11.5-14.5); RDW Standard Deviation 44.7 fL (36.4-46.3); Red Blood Count 3.62 M/uL (4.2-5.4); White Blood Count 9.07 K/uL (4.8-10.8)
[2018-07-20] MEDS: OXYCODONE HCL IR 5 MG TAB (IMMEDIATE RELEASE) PO PRN ×2 (07:38→12:22)
[2018-07-20 07:54] LABS: Calcium 7.8 mg/dl (8.5-10.1); Creatinine Clr Calc Pharmacy 40.9 ml/min; Est GFR (African American) 43.6; Est GFR (Non-African American) 37.6; Potassium 4.1 mmol/L (3.5-5.1)
[2018-07-20] MEDS: DOCUSATE SODIUM 100 MG CAP PO SCH (09:04)
[2018-07-20] MEDS: HEPARIN SOD 5,000 UNIT/0.5 ML VIAL SQ SCH (09:04)
[2018-07-20] MEDS: ACETAMINOPHEN 1,000 MG/100 ML VIAL IV SCH (09:15)
[2018-07-20] MEDS: FAMOTIDINE 20 MG in SYRINGE 3 ML IV SCH (09:15)
--- NOTE | 2018-07-20 09:19 | Urology Progress Note ---
Date of Service July 20, 2018 Assessment & Plan (1) Urothelial carcinoma of kidney: 73yo F POD #4 s/p HALNU Progressing well. VS stable, SEE with minima output. Labs as expected. Discussed options moving forward with her concerns regarding ambulation including PT evaluation vs d/c to rehab. Pt feels she is ready to d/c home. Does not feel PT evaluation is necessary. She will have her sons with her the first 2-3days at home to assist with ADLs. Okay to discharge home today with rosario catheter intact. Please D/C SEE drain prior to discharge. Subjective 73 yo female POD#4 s/p R HALNU Progressively feeling better, stronger today. Sitting in chair having breakfast at time of evaluation. She continues to express concern regarding stairs at home. Having intermittent sharp pains at site of incision with position changes Passing gas. She has been ambulating in the halls independently. Rosario catheter intact, draining clear yellow. No hematuria. Denies CP/SOB. Denies n/v/f/c. Denies suprapubic or flank pain. Denies bladder spasms or significant irritation. Physical Exam Vital Signs (Past 24 Hours): Last Vital Signs Temp 36.7 C 07/20/18 08:00 Pulse 60 07/20/18 08:00 Resp 12 07/20/18 08:00 BP 114/76 07/20/18 08:00 Pulse Ox 97 07/20/18 08:00 Physical Exam: A&OX3 RRR Abd soft incisions well approximated, no erythema or drainage. SEE site intact with old bloody around 4x4s. Scant serosang output.
--- NOTE | 2018-07-21 09:24 | Discharge Summary ---
Date of Service July 28, 2018 Discharge Data Procedures Performed Operation Date: 07/16/18 10:50 Actual Procedures p Right Laparoscopic Hand Assisted Nephrectomy with Inraoperative Mitomyocin C Instillation(Right) - Catalino Rolle MD s Nephroureterectomy Radical - Catalino Rolle MD
--- NOTE | 2018-07-26 00:16 | Discharge Summary ---
PREOPERATIVE DIAGNOSIS: Right high grade urothelial malignancy of the kidney. DISCHARGE DIAGNOSIS: Right high grade urothelial malignancy of the kidney. PROCEDURES OVER THE COURSE OF ADMISSION: Include a right-sided hand-assisted laparoscopic nephroureterectomy over the course of admission. ADMITTING ATTENDING: Dr. Catalino Rolle. COMPLICATIONS: None. BRIEF HISTORY: Ms. Walker is a pleasant 73-year-old female found on evaluation to have positive biopsies on ureteroscopy of high grade urothelial carcinoma from the right kidney. Please see H and P and outpatient chart for further details. She is being admitted for a right-sided hand-assisted laparoscopic nephroureterectomy to manage her disease with intravesical instillation of mitomycin C to avoid distal seating. HOSPITAL COURSE: The patient was admitted to the hospital after uncomplicated right-sided hand-assisted laparoscopic nephroureterectomy as planned. Postoperatively, the patient's diet and activity were slowly advanced. The patient was concerned over the possibility of activity limitations at home with some weakness and slow advancement of diet. Her incisional pain was noted postoperatively, somewhat appropriate but still concerning to the patient. Over the course of her hospital course minimal SEE output was appreciated with stable labs and diet and activity, improving. By postoperative day #4, the patient was tolerating regular diet, ambulatory and considered stable for discharge home. Her creatinine stabilized around 1.4 in the postoperative period. A Pendleton catheter will be left in place with outpatient cystogram prior to a trial of void. Please see progress notes for further details. DISCHARGE INSTRUCTIONS: The patient will be discharged home with a Pendleton catheter in place. Please see medication list for outpatient prescriptions. The patient is instructed to contact our service should she note any fevers, chills, nausea, vomiting, or other difficulties in the postoperative period. Outpatient appointments for a trial of void and pathology discussion are confirmed.
== END 2018-07-20 14:22 | disposition home or self-care (01) | DRG 658 ==
LOC: ASU 09:28 → 3W 17:48

== ENCOUNTER 2021-04-16 13:32 | Inpatient (IN) ==
[2021-04-16] MEDS ORDERED: ALBUT/IPRATROP 3MG/0.5MG NEB 3 ML VIAL INH STA (14:13)
[2021-04-16] MEDS ORDERED: methylPREDNISolone 125 MG/2 ML VIAL IV STA ×2 (14:13→19:18)
--- NOTE | 2021-04-16 14:23 | Emergency Department Note ---
Impression & Plan Hypoxia, Pneumonia ADMIT ED Provider Note HPI: The patient is a 76-year-old female with history of interstitial lung disease (idiopathic versus chemotherapy-induced), not on any home oxygen currently, chronic kidney disease, presents the emergency department with a chief complaint of increasing shortness of breath over the past 2 to 3 days. Patient states that she recently did finish a course of ciprofloxacin that she believes was for community-acquired pneumonia. She states that this did help with her symptoms and she finished the course shortly before Thanksgiving, however over the past 2 to 3 days her shortness of breath is increased. She denies any chest pain. On arrival here to the ED she is saturating 85% on room air and was placed on 4 L nasal cannula oxygen with good improvement to 96%. On my assessment she is resting comfortably in bed on nasal cannula oxygen, she displays mild increased work of breathing with diminished bilateral breath sounds. She is otherwise afebrile and in no acute distress. Denies any chest pain. ROS: -Pulmonary: Shortness of breath *10 point review systems was conducted and is otherwise negative unless stated above *Outpatient medications and allergy history reviewed PE: General: Alert, NAD HEENT: Normocephalic, atraumatic, trachea midline Eyes: Extraocular eye movement is intact, no scleral erythema Pulmonary: Diminished bilateral breath sounds without wheezing or crackles Cardio: Regular rate and rhythm GI: Abdomen is soft, nontender : No suprapubic tenderness MSK: No evidence of trauma or malformation of the extremities, no edema Skin: No evidence of rash Neuro: Alert, no focal deficits Psychiatric: Cooperative library monitor: - An order was placed for continuous cardiac monitoring - Patient was noted to be in sinus rhythm with rate of 72 EKG: Rate: 70 Rhythm: Normal sinus rhythm Intervals: Within normal limits ST changes: No ST elevation Time: 1504 Medical Decision Making: Patient presented to the emergency department with symptoms of increasing shortness of breath. On arrival here to the ED she is hypoxic at 85% on room air, she does not wear supplemental oxygen at baseline. She was placed on nasal cannula oxygen with good improvement initially. CT imaging of the chest was obtained that shows evidence of pneumonia, blood cultures were drawn in the ED, patient was started on cefepime and azithromycin. Her lab work otherwise shows evidence of leukocytosis, troponin is negative x1, patient is otherwise hemodynamically stable here in the ED. EKG does not show any ischemic changes. Patient did have an episode of desaturations despite nasal cannula oxygen on 2 L nasal cannula, she was placed on oxygen mask at 3 L with good improvement. I discussed the above findings with the patient and she is in agreement for admission. Patient was admitted to the [facility] hospitalist service for further care. COVID-19 testing was performed in the ED and is negative. * Diagnosis: Community-acquired pneumonia, hypoxia * Disposition: Admission * CRITICAL CARE TIME: 43min -I personally spent the above time with medical management of the patient including application of supplemental oxygen for stabilization of hypoxia with oxygen saturations less than 90% on room air, interpretation of diagnostic studies, time spent at the bedside in discussion with the patient and family, discussion with other healthcare providers Neil Zeng DO Emergency Medicine Past Med/Surg History Medical History (Updated 04/16/21 @ 19:04 by Neil Zeng DO) Chronic kidney disease, stage 3 single kidney Diverticular disease GERD (gastroesophageal reflux disease) History of scarlet fever 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 History of uterine cancer Hyperlipidemia declines statins Impaired fasting glucose Microscopic colitis Microscopic hematuria Osteoarthritis Temporomandibular joint disorder Ureteral stricture, right Vertigo Surgical History History of anesthesia reaction DYSPNEA IN PACU WITH KRISHNA (2017); NO NOTED ISSUES WITH SUBSEQUENT ANESTHESIA/SURGERIES History of bilateral tubal ligation History of breast biopsy History of cholecystectomy History of colonoscopy History of esophagogastroduodenoscopy (EGD) History of nephrectomy, right S/P laparoscopic hand assisted right nephroureterectomy, retroperitoneal dis section: 07/16/18: Grade view 1, MAC#3, ETT 7.0 at [facility] History of total abdominal hysterectomy and bilateral salpingo-oophorectomy History of vascular access device Aport left chest wall 09/2018 Hx of cystoscopy WITH BIOPSY + STENT; SUBSEQUENT STENT REMOVAL Family History Father Family history of diabetes mellitus Asthma Congestive heart failure (CHF) Grandfather (Paternal) No problems noted. Grandmother (Paternal) Throat cancer Uncle Lung cancer Cancer of nasal cavities Aunt Breast cancer Mother Congestive heart failure (CHF) Other No family history of bleeding disorder Denies family history of Ovarian cancer Prostate cancer Myocardial infarction Colorectal cancer Social History Smoking Status: Never smoker Second Hand Exposure: Yes (mom smoked); Hx Alcohol Use: No Hx Substance Use: No Preferred Language: Nepalese Communication Ability: Effective Visual Impairment: No Limitations Hearing Ability: Normal Patient Carrier Required: No Beliefs That Will Affect Care: None marital status: single Current Living Situation: Alone current occupational status: retired 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 Feels Safe at Home: Yes Childhood Exposure to Second-Hand Smoke: Yes Diet Comment: does eat some fish Dental Care, Regularly: Yes Physical Activity Frequency: Daily Seatbelt Use: always Sunscreen Use: Yes Assistive Devices: Glasses Allergies Allergies Allergy/AdvReac Type Severity Reaction Status Date / Time adhesive Allergy Intermediate Skin Verified 04/16/21 14:54 reaction diazepam Allergy Intermediate Paradoxial Verified 04/16/21 14:54 reaction sorbitol Allergy Mild Gastrointestinal Verified 04/16/21 14:54 Upset Home Meds Home Medications Medication Instructions Recorded Confirmed multivitamin (Daily Multi-Vitamin) 1 tab PO QAM 06/10/19 04/16/21 coenzyme Q10 100 mg capsule 200 mg PO QAM cap 09/01/20 04/16/21 ascorbate calcium (vitamin C) 500 500 mg PO QAM 09/26/20 04/16/21 mg tablet cholecalciferol (vitamin D3) 25 25 mcg PO QAM 09/26/20 04/16/21 mcg (1,000 unit) capsule turmeric 400 mg capsule 1,000 mg PO QAM cap 09/26/20 04/16/21 vitamin E 200 unit capsule 400 unit PO DAILY cap 09/26/20 04/10/21 calcium carbonate 500 mg calcium 500 mg PO QAM 04/16/21 04/16/21 (1,250 mg) chewable tablet ciprofloxacin HCl 500 mg tablet 500 mg PO BID 04/16/21 04/16/21 magnesium chloride 71.5 mg 71.5 mg PO QAM 04/16/21 04/16/21 (magnesium chloride) tablet,delayed release (Slow-Mag) pseudoephedrine-guaifenesin ER 120 1 tab PO Q12H PRN 04/16/21 04/16/21 mg-1,200 mg tab,extend release 12hr (Mucinex D Maximum Strength) Previous Rx's Medication Instructions Recorded Climara 0.075 mg/24 hr transdermal 1 patch TRANSDERMAL WK #12 ea NS 08/14/20 patch (estradiol) umeclidinium 62.5 mcg-vilanterol 1 inh INHALATION DAILY #60 ea 04/11/21 25 mcg/actuation powdr for inhalation (Anoro Ellipta) Results & Data (ED) Vital Signs Vital Signs - 24 hr 04/16/21 13:55 04/16/21 14:01 04/16/21 15:11 Temperature 36.5 C Temperature Source Temporal Artery Scan Pulse Rate Pulse Rate [Right Finger] 74 Pulse Rate from SpO2 Sensor Pulse Rhythm [Right Finger] Regular Pulse Strength [Right Finger] Respiratory Rate 26 H 16 Respiratory Effort / Characteristics Spontaneous Labored Non-Labored Respiratory Depth Shallow Normal Respiratory Pattern Rapid/Shallow Tachypnea Blood Pressure 155/75 H Blood Pressure [Right Arm] 133/84 Blood Pressure Mean 101 Blood Pressure Mean [Right Arm] 100 Blood Pressure Position [Right Arm] Pulse Oximetry 87 L 85 L 96 Oxygen Delivery Method Room Air Room Air Nasal Cannula Oxygen Flow Rate 2 Sepsis Recent Fever Within 48 Hours No Sepsis New/Unexplained Change in Mental Status No Sepsis Action Taken by Nursing No Action Required Oxygen Flow Rate - Titration 4 04/16/21 15:12 04/16/21 15:30 04/16/21 16:00 Temperature Temperature Source Pulse Rate 78 87 Pulse Rate [Right Finger] 71 Pulse Rate from SpO2 Sensor 78 Pulse Rhythm [Right Finger] Pulse Strength [Right Finger] Respiratory Rate 20 22 22 Respiratory Effort / Characteristics Non-Labored Spontaneous Respiratory Depth Respiratory Pattern Blood Pressure 139/84 Blood Pressure [Right Arm] Blood Pressure Mean 102 Blood Pressure Mean [Right Arm] Blood Pressure Position [Right Arm] Pulse Oximetry 94 98 97 Oxygen Delivery Method Nasal Cannula Oxymask Oxygen Flow Rate 2 4 Sepsis Recent Fever Within 48 Hours Sepsis New/Unexplained Change in Mental Status Sepsis Action Taken by Nursing Oxygen Flow Rate - Titration 04/16/21 16:15 04/16/21 16:21 04/16/21 16:30 Temperature Temperature Source Pulse Rate 84 Pulse Rate [Right Finger] 112 H 84 Pulse Rate from SpO2 Sensor Pulse Rhythm [Right Finger] Regular Regular Pulse Strength [Right Finger] Normal Normal Respiratory Rate 30 H 24 22 Respiratory Effort / Characteristics Nasal Flaring Short of Breath Non-Labored Short of Breath Respiratory Depth Normal Normal Respiratory Pattern Blood Pressure 125/86 Blood Pressure [Right Arm] 134/76 134/76 Blood Pressure Mean 99 Blood Pressure Mean [Right Arm] 95 95 Blood Pressure Position [Right Arm] Lying Pulse Oximetry 86 L 95 96 Oxygen Delivery Method Nasal Cannula Oxymask Oxygen Flow Rate 2 3 Sepsis Recent Fever Within 48 Hours Sepsis New/Unexplained Change in Mental Status Sepsis Action Taken by Nursing Oxygen Flow Rate - Titration 04/16/21 17:00 04/16/21 17:30 04/16/21 18:00 Temperature Temperature Source Pulse Rate 79 80 92 H Pulse Rate [Right Finger] Pulse Rate from SpO2 Sensor Pulse Rhythm [Right Finger] Pulse Strength [Right Finger] Respiratory Rate 22 22 22 Respiratory Effort / Characteristics Respiratory Depth Respiratory Pattern Blood Pressure 140/72 110/77 125/89 Blood Pressure [Right Arm] Blood Pressure Mean 94 88 101 Blood Pressure Mean [Right Arm] Blood Pressure Position [Right Arm] Pulse Oximetry 97 98 97 Oxygen Delivery Method Oxymask Oxymask Oxygen Flow Rate 4 4 Sepsis Recent Fever Within 48 Hours Sepsis New/Unexplained Change in Mental Status Sepsis Action Taken by Nursing Oxygen Flow Rate - Titration Laboratory Data Result diagrams: 04/16/21 15:08 04/16/21 15:08 Lab Results 04/16/21 04/16/21 04/16/21 Range/Units 15:08 15:08 15:08 WBC 14.39 H (4.8-10.8) K/uL RBC 4.30 (4.2-5.4) M/uL Hgb 13.6 (12.0-16.0) g/dL Hct 40.3 (37-47) % MCV 93.7 (80-100) fL MCH 31.6 (25-34) pg MCHC 33.7 (32-36) g/dL RDW Std Deviation 43.4 (36.4-46.3) fL RDW Coeff of Marlene 12.8 (11.5-14.5) % Plt Count 364 (130-400) K/uL MPV 9.3 (7.4-10.4) fL Immature Gran % (Auto) 0.2 % Neut % (Auto) 74.7 % Lymph % (Auto) 10.6 % Swisher % (Auto) 9.9 % Eos % (Auto) 4.3 % Baso % (Auto) 0.3 % Neut # (Auto) 10.75 H (1.4-6.5) K/uL Lymph # (Auto) 1.52 (1.2-3.4) K/uL Swisher # (Auto) 1.43 H (0.11-0.59) K/uL Eos # (Auto) 0.62 H (0-0.5) K/uL Baso # (Auto) 0.04 (0-0.2) K/uL Immature Gran # (Auto) 0.03 H (0.00-0.02) K/uL PT 10.4 (9.0-12.0) Seconds INR 1.0 (0.9-1.1) APTT 28.5 (21.0-31.0) Seconds PTT Ratio 1.1 VBG pH (7.36-7.41) VBG pCO2 (38-50) mmHg VBG pO2 mmHg VBG HCO3 mmol/L VBG O2 Saturation % VBG Base Excess mEq/L Barometric Pressure mm/Hg Sodium 136 (136-145) mmol/L Potassium 3.7 (3.5-5.1) mmol/L Chloride 104 (98-107) mmol/L Carbon Dioxide 25 (21-32) mmol/L Anion Gap 7.0 (3-11) BUN 19 H (7-18) mg/dl Creatinine 1.30 H (0.6-1.2) mg/dl Est Cr Clr Drug Dosing 36.9 ml/min Est GFR ( Amer) 45.5 ml/min Est GFR (Non-Af Amer) 39.3 ml/min BUN/Creatinine Ratio 14.2 (10-20) Glucose 98 (70-99) mg/dl Lactate (0.4-2.0) mmol/L Calcium 9.1 (8.5-10.1) mg/dl Total Bilirubin 0.3 (0.2-1) mg/dl AST 31 (15-37) U/L ALT 20 (12-78) U/L Alkaline Phosphatase 80 (45-117) U/L Troponin I < 0.015 (0-0.045) ng/ml NT-Pro-B Natriuret Pep 975 (0-1800) pg/ml Total Protein 7.4 (6.4-8.2) gm/dl Albumin 2.2 L (3.4-5.0) gm/dl Globulin 5.2 H (2.5-4.0) gm/dl Albumin/Globulin Ratio 0.4 L (0.9-2) SARS-CoV-2 (PCR) (Negative) Influ A Molecular Assay (Negative) Influ B Molecular Assay (Negative) 04/16/21 04/16/21 04/16/21 Range/Units 15:08 15:08 15:15 WBC (4.8-10.8) K/uL RBC (4.2-5.4) M/uL Hgb (12.0-16.0) g/dL Hct (37-47) % MCV (80-100) fL MCH (25-34) pg MCHC (32-36) g/dL RDW Std Deviation (36.4-46.3) fL RDW Coeff of Marlene (11.5-14.5) % Plt Count (130-400) K/uL MPV (7.4-10.4) fL Immature Gran % (Auto) % Neut % (Auto) % Lymph % (Auto) % Swisher % (Auto) % Eos % (Auto) % Baso % (Auto) % Neut # (Auto) (1.4-6.5) K/uL Lymph # (Auto) (1.2-3.4) K/uL Swisher # (Auto) (0.11-0.59) K/uL Eos # (Auto) (0-0.5) K/uL Baso # (Auto) (0-0.2) K/uL Immature Gran # (Auto) (0.00-0.02) K/uL PT (9.0-12.0) Seconds INR (0.9-1.1) APTT (21.0-31.0) Seconds PTT Ratio VBG pH 7.40 (7.36-7.41) VBG pCO2 44 (38-50) mmHg VBG pO2 26 mmHg VBG HCO3 26 mmol/L VBG O2 Saturation < 60.0 % VBG Base Excess 0.9 mEq/L Barometric Pressure 731.2 mm/Hg Sodium (136-145) mmol/L Potassium (3.5-5.1) mmol/L Chloride (98-107) mmol/L Carbon Dioxide (21-32) mmol/L Anion Gap (3-11) BUN (7-18) mg/dl Creatinine (0.6-1.2) mg/dl Est Cr Clr Drug Dosing ml/min Est GFR ( Amer) ml/min Est GFR (Non-Af Amer) ml/min BUN/Creatinine Ratio (10-20) Glucose (70-99) mg/dl Lactate 1.2 (0.4-2.0) mmol/L Calcium (8.5-10.1) mg/dl Total Bilirubin (0.2-1) mg/dl AST (15-37) U/L ALT (12-78) U/L Alkaline Phosphatase (45-117) U/L Troponin I (0-0.045) ng/ml NT-Pro-B Natriuret Pep (0-1800) pg/ml Total Protein (6.4-8.2) gm/dl Albumin (3.4-5.0) gm/dl Globulin (2.5-4.0) gm/dl Albumin/Globulin Ratio (0.9-2) SARS-CoV-2 (PCR) (Negative) Influ A Molecular Assay Negative (Negative) Influ B Molecular Assay Negative (Negative) 04/16/21 Range/Units 15:15 WBC (4.8-10.8) K/uL RBC (4.2-5.4) M/uL Hgb (12.0-16.0) g/dL Hct (37-47) % MCV (80-100) fL MCH (25-34) pg MCHC (32-36) g/dL RDW Std Deviation (36.4-46.3) fL RDW Coeff of Marlene (11.5-14.5) % Plt Count (130-400) K/uL MPV (7.4-10.4) fL Immature Gran % (Auto) % Neut % (Auto) % Lymph % (Auto) % Swisher % (Auto) % Eos % (Auto) % Baso % (Auto) % Neut # (Auto) (1.4-6.5) K/uL Lymph # (Auto) (1.2-3.4) K/uL Swisher # (Auto) (0.11-0.59) K/uL Eos # (Auto) (0-0.5) K/uL Baso # (Auto) (0-0.2) K/uL Immature Gran # (Auto) (0.00-0.02) K/uL PT (9.0-12.0) Seconds INR (0.9-1.1) APTT (21.0-31.0) Seconds PTT Ratio VBG pH (7.36-7.41) VBG pCO2 (38-50) mmHg VBG pO2 mmHg VBG HCO3 mmol/L VBG O2 Saturation % VBG Base Excess mEq/L Barometric Pressure mm/Hg Sodium (136-145) mmol/L Potassium (3.5-5.1) mmol/L Chloride (98-107) mmol/L Carbon Dioxide (21-32) mmol/L Anion Gap (3-11) BUN (7-18) mg/dl Creatinine (0.6-1.2) mg/dl Est Cr Clr Drug Dosing ml/min Est GFR ( Amer) ml/min Est GFR (Non-Af Amer) ml/min BUN/Creatinine Ratio (10-20) Glucose (70-99) mg/dl Lactate (0.4-2.0) mmol/L Calcium (8.5-10.1) mg/dl Total Bilirubin (0.2-1) mg/dl AST (15-37) U/L ALT (12-78) U/L Alkaline Phosphatase (45-117) U/L Troponin I (0-0.045) ng/ml NT-Pro-B Natriuret Pep (0-1800) pg/ml Total Protein (6.4-8.2) gm/dl Albumin (3.4-5.0) gm/dl Globulin (2.5-4.0) gm/dl Albumin/Globulin Ratio (0.9-2) SARS-CoV-2 (PCR) NEGATIVE (Negative) Influ A Molecular Assay (Negative) Influ B Molecular Assay (Negative) Administered Medications Discontinued Medications Albuterol (Albut/Ipratrop 3mg/0.5mg Neb 3 Ml Vial) 3 ml INH NOW STA Stop: 04/16/21 14:14 Last Admin: 04/16/21 15:11 Dose: 3 ml Documented by: [id number] Ioversol (Optiray 320 100ml) 90 ml IV ONCE ONE Stop: 04/16/21 18:01 Last Admin: 04/16/21 18:00 Dose: 1 ml Documented by: [id number] Methylprednisolone (Methylprednisolone 125 Mg/2 Ml Vial) 125 mg IV NOW STA Stop: 04/16/21 14:14 Last Admin: 04/16/21 15:59 Dose: 125 mg Documented by: [id number] Imaging Data Radiologist's Impression: Chest CT 04/16/21 14:46 CT SCAN OF THE CHEST WITH IV CONTRAST CLINICAL HISTORY: Cough. Chronic interstitial lung disease. Carcinoma of the renal pelvis. COMPARISON STUDY: Chest CT scans dated 01/29/2021 and 06/24/2018. TECHNIQUE: Following the IV administration of 90 cc of Optiray 320, CT scan of the thorax was performed from the thoracic inlet to the upper abdomen. Images are reviewed in the axial, sagittal, and coronal planes. IV contrast was administered without complication. A dose lowering technique was utilized adhering to the principles of ALARA. CT DOSE: 191.81 mGy.cm FINDINGS: Thyroid: Imaged portions of the thyroid gland are normal in size and attenuation. Thoracic aorta: There is atherosclerotic calcification of the thoracic aorta, which is normal in caliber and demonstrates standard 3-vessel arch anatomy. No dissection is seen. Pulmonary vasculature: The pulmonary trunk is normal in caliber. There are no filling defects identified in the central pulmonary vessels to indicate pulmonary embolus. Note that this examination was not protocoled for evaluation of the pulmonary arteries. Heart: A left internal jugular central venous infusion port is in place. The heart is mildly enlarged and without pericardial effusion. The pulmonary trunk is normal in caliber. The pulmonary vessels are not opacified. Lungs and pleural spaces: Multifocal airspace consolidation is seen throughout both lungs. No pleural effusion is identified. Underlying findings of chronic interstitial lung disease with subpleural reticulation are similar to previous. Minimal bronchiectasis is suggested in the lower lobes. No honeycombing is identified. There is postoperative change from previous right-sided pulmonary resection. The trachea and central airways are clear. Mediastinum: There are numerous prominent mediastinal lymph nodes, likely reactive. Ofe: Mildly enlarged hilar nodes measure up to 12 mm in short axis. These are likely reactive. Axillae: There is no axillary lymphadenopathy. Upper abdomen: There is a small hiatal hernia. Partially visualized upper abdominal viscera is otherwise within normal limits. Skeletal structures: The skeletal structures are osteopenic. No lytic or blastic bony lesions are seen. IMPRESSION: 1. Multifocal airspace consolidation is typical for pneumonia. Clinical correlation will be required and radiographic follow-up to resolution is recommended. 2. Findings of underlying chronic interstitial lung disease are likely similar to previous. 3. Cardiomegaly. 4. No pleural effusion is identified. 5. Prominent mediastinal and hilar lymph nodes are likely reactive. ACT 112: Negative or not required by law. Electronically signed by: Michael Grimaldo M.D. 04/16/2021 6:28 PM Discharge Plan Visit Data Chief Complaint: Shortness of Breath/Dyspnea Stated Complaint: SOB ED Provider: Neil Zeng Discharge Problem: Hypoxia, Pneumonia Forms Stand Alone Forms: [facility] QFO Labs Prescriptions Prescriptions: No Action estradiol [Climara] 0.075 mg/24 hr patch weekly 1 patch Transdermal WK Qty: 12 RF: 3 Anoro Ellipta 62.5-25 mcg/actuation blister with device 1 inh inhalation DAILY Qty: 60 RF: 2 multivitamin [Daily Multi-Vitamin] Tablet 1 tab PO QAM RF: 0 coenzyme Q10 100 mg capsule 200 mg PO QAM RF: 0 turmeric 400 mg capsule 1,000 mg PO QAM RF: 0 cholecalciferol (vitamin D3) 25 mcg (1,000 unit) capsule 25 mcg PO QAM RF: 0 vitamin E 200 unit capsule 400 unit PO DAILY RF: 0 ascorbate calcium (vitamin C) 500 mg tablet 500 mg PO QAM RF: 0 calcium carbonate 500 mg calcium (1,250 mg) tablet,chewable 500 mg PO QAM RF: 0 Slow-Mag 71.5 mg tablet,delayed release (DR/EC) 71.5 mg PO QAM RF: 0 ciprofloxacin HCl 500 mg tablet 500 mg PO BID RF: 0 pseudoephedrine-guaifenesin [Mucinex D Maximum Strength] 120-1,200 mg Tablet Extended Release 12 Hr 1 tab PO Q12H PRN (Reason: Congestion) RF: 0 Referrals Referrals: Brooklyn Khan MD [Primary Care Provider] - Discharge Problem: Pneumonia Qualifiers: Pneumonia type: due to unspecified organism Laterality: unspecified laterality Lung location: unspecified part of lung Qualified Code(s): J18.9 - Pneumonia, unspecified organism
[2021-04-16 15:30] LABS: Base Excess VBG 0.9 mEq/L; HCO3 VBG 26 mmol/L; PCO2 VBG 44 mmHg (38-50); PO2 VBG 26 mmHg
[2021-04-16 15:31] LABS: Basophils # (auto) 0.04 K/uL (0-0.2); Basophils % (auto) 0.3 %; Eosinophils # (auto) 0.62 K/uL (0-0.5); Eosinophils % (auto) 4.3 %; Hematocrit (blood only) 40.3 % (37-47); Hemoglobin 13.6 g/dL (12.0-16.0); Immature Granulocytes # (auto) 0.03 K/uL (0.00-0.02); Immature Granulocytes % (auto) 0.2 %; Lymphocytes # (auto) 1.52 K/uL (1.2-3.4); Lymphocytes % (auto) 10.6 %; Mean Corpuscular Hemoglobin 31.6 pg (25-34); Mean Corpuscular Hgb Conc 33.7 g/dL (32-36); Mean Corpuscular Volume 93.7 fL (80-100); Mean Platelet Volume 9.3 fL (7.4-10.4); Monocytes # (auto) 1.43 K/uL (0.11-0.59); Monocytes % (auto) 9.9 %; Neutrophils # (auto) 10.75 K/uL (1.4-6.5); Neutrophils % (auto) 74.7 %; Platelet Count 364 K/uL (130-400); RDW Coefficient of Variation 12.8 % (11.5-14.5); RDW Standard Deviation 43.4 fL (36.4-46.3); White Blood Count 14.39 K/uL (4.8-10.8)
[2021-04-16 15:33] LABS: Partial Thromboplastin Ratio 1.1; Partial Thromboplastin Time 28.5 Seconds (21.0-31.0); Prothrombin Time 10.4 Seconds (9.0-12.0)
[2021-04-16 15:39] LABS: Alanine Aminotransferase 20 U/L (12-78); Albumin Level 2.2 gm/dl (3.4-5.0); Aspartate Aminotransferase 31 U/L (15-37); BUN Creatinine Ratio 14.2 (10-20); Blood Urea Nitrogen 19 mg/dl (7-18); Calcium 9.1 mg/dl (8.5-10.1); Carbon Dioxide 25 mmol/L (21-32); Chloride 104 mmol/L (98-107); Creatinine Clr Calc Pharmacy 36.9 ml/min; Est GFR (African American) 45.5 ml/min; Est GFR (Non-African American) 39.3 ml/min; Glucose 98 mg/dl (70-99); Oxygen Saturation VBG < 60.0 %; Potassium 3.7 mmol/L (3.5-5.1); Sodium 136 mmol/L (136-145)
[2021-04-16 15:43] LABS: Influenza A virus by PCR Negative (Negative); Influenza B virus by PCR Negative (Negative)
[2021-04-16 15:44] LABS: Albumin Globulin Ratio 0.4 (0.9-2); Alkaline Phosphatase 80 U/L (45-117); Bilirubin,Total 0.3 mg/dl (0.2-1); Globulin 5.2 gm/dl (2.5-4.0); NT Pro B Type Natriuretic Pept 975 pg/ml (0-1800); Total Protein 7.4 gm/dl (6.4-8.2); Troponin I < 0.015 ng/ml (0-0.045)
--- NOTE | 2021-04-16 17:58 | Electrocardiogram Report ---
Test Reason : Blood Pressure : / mmHG Vent. Rate : 070 BPM Atrial Rate : 070 BPM P-R Int : 140 ms QRS Dur : 084 ms QT Int : 370 ms P-R-T Axes : 060 034 020 degrees QTc Int : 399 ms Normal sinus rhythm Possible Left atrial enlargement Borderline ECG When compared with ECG of 22-JUN-2020 12:20, No significant change was found Confirmed by Luis Stanford ([id number]) on 04/16/2021 5:58:26 PM Referred By: REFERRED SELF Confirmed By:Vern Stanford
[2021-04-16] MEDS ORDERED: OPTIRAY 320 100ml IV ONE (18:00)
--- NOTE | 2021-04-16 18:30 | CT Scan Report ---
CT SCAN OF THE CHEST WITH IV CONTRAST CLINICAL HISTORY: Cough. Chronic interstitial lung disease. Carcinoma of the renal pelvis. COMPARISON STUDY: Chest CT scans dated 01/29/2021 and 06/24/2018. TECHNIQUE: Following the IV administration of 90 cc of Optiray 320, CT scan of the thorax was perform ed from the thoracic inlet to the upper abdomen. Images are reviewed in the axial, sagittal, and laquita nal planes. IV contrast was administered without complication. A dose lowering technique was utilize d adhering to the principles of ALARA. CT DOSE: 191.81 mGy.cm FINDINGS: Thyroid: Imaged portions of the thyroid gland are normal in size and attenuation. Thoracic aorta: There is atherosclerotic calcification of the thoracic aorta, which is normal in [place]ott [place] and demonstrates standard 3-vessel arch anatomy. No dissection is seen. Pulmonary vasculature: The pulmonary trunk is normal in caliber. There are no filling defects identif ied in the central pulmonary vessels to indicate pulmonary embolus. Note that this examination was no t protocoled for evaluation of the pulmonary arteries. Heart: A left internal jugular central venous infusion port is in place. The heart is mildly enlarged and without pericardial effusion. The pulmonary trunk is normal in caliber. The pulmonary vessels ar e not opacified. Lungs and pleural spaces: Multifocal airspace consolidation is seen throughout both lungs. No pleural effusion is identified. Underlying findings of chronic interstitial lung disease with subpleural ret iculation are similar to previous. Minimal bronchiectasis is suggested in the lower lobes. No honeyco mbing is identified. There is postoperative change from previous right-sided pulmonary resection. The trachea and central airways are clear. Mediastinum: There are numerous prominent mediastinal lymph nodes, likely reactive. Ofe: Mildly enlarged hilar nodes measure up to 12 mm in short axis. These are likely reactive. Axillae: There is no axillary lymphadenopathy. Upper abdomen: There is a small hiatal hernia. Partially visualized upper abdominal viscera is otherw ise within normal limits. Skeletal structures: The skeletal structures are osteopenic. No lytic or blastic bony lesions are see n. IMPRESSION: 1. Multifocal airspace consolidation is typical for pneumonia. Clinical correlation will be required and radiographic follow-up to resolution is recommended. 2. Findings of underlying chronic interstitial lung disease are likely similar to previous. 3. Cardiomegaly. 4. No pleural effusion is identified. 5. Prominent mediastinal and hilar lymph nodes are likely reactive. ACT 112: Negative or not required by law. Electronically signed by: Michael Grimaldo M.D. 04/16/2021 6:28 PM
[2021-04-16] MEDS ORDERED: CEFEPIME 1,000 MG in SYRINGE 0 ML IV STA (18:34)
[2021-04-16] MEDS ORDERED: AZITHROMYCIN 500 MG in DEXTROSE 5% 250 ML IV ONE (18:34)
--- NOTE | 2021-04-16 19:22 | History & Physical Report ---
Date of Service April 16, 2021 Assessment & Plan (1) Pneumonia: Plan: Multifocal pneumonia/chronic interstitial lung disease/with hypoxia, 85% on room air- Admit to monitored bed COVID-19 testing negative From the ED received: Methylprednisolone 125 mg IV, azithromycin 500 mg IV, cefepime 1 g IV. Admit on: Methylprednisolone 40 mg IV every 8 hours, azithromycin 500 mg IV daily, Zosyn 4.5 g IV every 8 hours. Duonebs every 4 hours while awake and every 2 hours when necessary. Guaifenesin extended release 1200 mg p.o. twice daily Tessalon Perles 20 mg p.o. 3 times daily as needed Nasal cannula oxygen, titrate to keep pulse ox 92-94% (2) Interstitial lung disease: Plan: See above (3) Hypoxia: Plan: See above (4) Chronic kidney disease, stage 3: Plan: Creatinine 1.30 upon admission, with range 1.31-1.62 Follow laboratory serially (5) GERD (gastroesophageal reflux disease): Plan: On no long-term treatment at this time. Place on famotidine 20 mg p.o. twice daily History of Present Illness Chief Complaint: The patient presents to the emergency department with complaint of symptoms of cough productive of thick mucus, shortness of breath, and dyspnea on exertion that initially began on 04/01, was seen at her bundle tier's office and was placed on Cipro on 04/02, and symptoms have continued to worsen since that time. 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 She presents emergency department symptoms as noted above, in particular worsening over the past 2 to 3 days. Allergies Allergy/AdvReac Type Severity Reaction Status Date / Time adhesive Allergy Intermediate Skin Verified 04/16/21 14:54 reaction diazepam Allergy Intermediate Paradoxial Verified 04/16/21 14:54 reaction sorbitol Allergy Mild Gastrointestinal Verified 04/16/21 14:54 Upset Home Medications Medication Instructions Recorded Confirmed Type multivitamin (Daily Multi-Vitamin) 1 tab PO QAM 06/10/19 04/16/21 History Climara 0.075 mg/24 hr transdermal 1 patch TRANSDERMAL WK #12 ea NS 08/14/20 04/16/21 Rx patch (estradiol) coenzyme Q10 100 mg capsule 200 mg PO QAM cap 09/01/20 04/16/21 History ascorbate calcium (vitamin C) 500 500 mg PO QAM 09/26/20 04/16/21 History mg tablet cholecalciferol (vitamin D3) 25 25 mcg PO QAM 09/26/20 04/16/21 History mcg (1,000 unit) capsule turmeric 400 mg capsule 1,000 mg PO QAM cap 09/26/20 04/16/21 History vitamin E 200 unit capsule 400 unit PO DAILY cap 09/26/20 04/10/21 History umeclidinium 62.5 mcg-vilanterol 1 inh INHALATION DAILY #60 ea 04/11/21 Rx 25 mcg/actuation powdr for inhalation (Anoro Ellipta) calcium carbonate 500 mg calcium 500 mg PO QAM 04/16/21 04/16/21 History (1,250 mg) chewable tablet ciprofloxacin HCl 500 mg tablet 500 mg PO BID 04/16/21 04/16/21 History magnesium chloride 71.5 mg 71.5 mg PO QAM 04/16/21 04/16/21 History (magnesium chloride) tablet,delayed release (Slow-Mag) pseudoephedrine-guaifenesin ER 120 1 tab PO Q12H PRN 04/16/21 04/16/21 History mg-1,200 mg tab,extend release 12hr (Mucinex D Maximum Strength) Past Med/Surg History Medical History (Updated 04/16/21 @ 19:04 by Neil Zeng DO) Chronic kidney disease, stage 3 single kidney Diverticular disease GERD (gastroesophageal reflux disease) History of scarlet fever 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 History of uterine cancer Hyperlipidemia declines statins Impaired fasting glucose Microscopic colitis Microscopic hematuria Osteoarthritis Temporomandibular joint disorder Ureteral stricture, right Vertigo Surgical History History of anesthesia reaction DYSPNEA IN PACU WITH KRISHNA (2017); NO NOTED ISSUES WITH SUBSEQUENT ANESTHESIA/SURGERIES History of bilateral tubal ligation History of breast biopsy History of cholecystectomy History of colonoscopy History of esophagogastroduodenoscopy (EGD) History of nephrectomy, right S/P laparoscopic hand assisted right nephroureterectomy, retroperitoneal dissection: 07/16/18: Grade view 1, MAC#3, ETT 7.0 at [facility] History of total abdominal hysterectomy and bilateral salpingo-oophorectomy History of vascular access device Aport left chest wall 09/2018 Hx of cystoscopy WITH BIOPSY + STENT; SUBSEQUENT STENT REMOVAL Family History Father Family history of diabetes mellitus Asthma Congestive heart failure (CHF) Grandfather (Paternal) No problems noted. Grandmother (Paternal) Throat cancer Uncle Lung cancer Cancer of nasal cavities Aunt Breast cancer Mother Congestive heart failure (CHF) Other No family history of bleeding disorder Denies family history of Ovarian cancer Prostate cancer Myocardial infarction Colorectal cancer Social History Smoking Status: Never smoker Second Hand Exposure: Yes (mom smoked); Hx Alcohol Use: No Hx Substance Use: No Preferred Language: Icelandic Communication Ability: Effective Visual Impairment: No Limitations Hearing Ability: Normal Global Coordinator Required: No Beliefs That Will Affect Care: None marital status: single Current Living Situation: Alone current occupational status: retired 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 Feels Safe at Home: Yes Childhood Exposure to Second-Hand Smoke: Yes Diet Comment: does eat some fish Dental Care, Regularly: Yes Physical Activity Frequency: Daily Seatbelt Use: always Sunscreen Use: Yes Assistive Devices: Glasses Review of Systems Review of Systems: The patient denies chest pain, palpitations, lower extremity swelling, fevers, chills, sweats, nausea, vomiting, diarrhea , constipation, abdominal pain, pelvic pain, blood in urine or stool, dysuria, urinary frequency or urgency, lightheadedness, dizziness, headache, memory loss, loss of consciousness, rash, abnormal bruising or bleeding, imbalance, focal weakness, numbness or tingling in arms or legs, generalized arthralgias or myalgias, back or neck pain, or night sweats. The review of systems is otherwise negative other than for that already noted above, and at least 10 systems have been reviewed. Physical Exam Physical Exam: The patient is awake, alert and oriented 3, well developed and well nourished, normocephalic and atraumatic, lying in bed and in no acute distress. HEENT--PERRL, EOMI, mucous membranes and oropharynx normal. Neck--supple. No JVD. No bruits. Thyroid normal, trachea midline, no adenopathy. Heart--normal S1 and S2. No murmurs, rubs or gallops. Lungs--coarse breath sounds and crackles bilaterally. No respiratory distress, no accessory muscle use. Abdomen--normal bowel sounds and soft. Nontender. Nondistended, no hernias or masses, no organomegaly. Extremities--no cyanosis or clubbing. No edema. Dermatologic--normal skin turgor, normal color, no abnormal lymph nodes, no rash. Neurologic--cranial nerves II through XII grossly intact. Rheumatologic--normal range of motion. Psychiatric--normal affect. Results & Data Results & Data ([facility]) Vital Signs (Past 12 Hours) Vital Signs Temp Pulse Pulse Resp BP BP Pulse Ox 04/16/21 18:00 92 H 22 125/89 97 04/16/21 17:30 80 22 110/77 98 04/16/21 17:00 79 22 140/72 97 04/16/21 16:30 84 22 125/86 96 04/16/21 16:21 84 24 134/76 95 04/16/21 16:15 112 H 30 H 134/76 86 L 04/16/21 16:00 87 22 97 04/16/21 15:30 78 22 139/84 98 04/16/21 15:12 71 20 94 04/16/21 15:11 74 16 133/84 96 04/16/21 14:01 85 L 04/16/21 13:55 36.5 C 26 H 155/75 H 87 L Laboratory Results Laboratory Results WBC 14.39 K/uL (4.8-10.8) H 04/16/21 15:08 RBC 4.30 M/uL (4.2-5.4) 04/16/21 15:08 Hgb 13.6 g/dL (12.0-16.0) 04/16/21 15:08 Hct 40.3 % (37-47) 04/16/21 15:08 MCV 93.7 fL (80-100) 04/16/21 15:08 MCH 31.6 pg (25-34) 04/16/21 15:08 MCHC 33.7 g/dL (32-36) 04/16/21 15:08 RDW Std Deviation 43.4 fL (36.4-46.3) 04/16/21 15:08 RDW Coeff of Marlene 12.8 % (11.5-14.5) 04/16/21 15:08 Plt Count 364 K/uL (130-400) 04/16/21 15:08 MPV 9.3 fL (7.4-10.4) 04/16/21 15:08 Immature Gran % (Auto) 0.2 % 04/16/21 15:08 Neut % (Auto) 74.7 % 04/16/21 15:08 Lymph % (Auto) 10.6 % 04/16/21 15:08 [place] % (Auto) 9.9 % 04/16/21 15:08 Eos % (Auto) 4.3 % 04/16/21 15:08 Baso % (Auto) 0.3 % 04/16/21 15:08 Neut # (Auto) 10.75 K/uL (1.4-6.5) H 04/16/21 15:08 Lymph # (Auto) 1.52 K/uL (1.2-3.4) 04/16/21 15:08 [place] # (Auto) 1.43 K/uL (0.11-0.59) H 04/16/21 15:08 Eos # (Auto) 0.62 K/uL (0-0.5) H 04/16/21 15:08 Baso # (Auto) 0.04 K/uL (0-0.2) 04/16/21 15:08 Immature Gran # (Auto) 0.03 K/uL (0.00-0.02) H 04/16/21 15:08 PT 10.4 Seconds (9.0-12.0) 04/16/21 15:08 INR 1.0 (0.9-1.1) 04/16/21 15:08 APTT 28.5 Seconds (21.0-31.0) 04/16/21 15:08 PTT Ratio 1.1 04/16/21 15:08 VBG pH 7.40 (7.36-7.41) 04/16/21 15:08 VBG pCO2 44 mmHg (38-50) 04/16/21 15:08 VBG pO2 26 mmHg 04/16/21 15:08 VBG HCO3 26 mmol/L 04/16/21 15:08 VBG O2 Saturation < 60.0 % 04/16/21 15:08 VBG Base Excess 0.9 mEq/L 04/16/21 15:08 Barometric Pressure 731.2 mm/Hg 04/16/21 15:08 Sodium 136 mmol/L (136-145) 04/16/21 15:08 Potassium 3.7 mmol/L (3.5-5.1) 04/16/21 15:08 Chloride 104 mmol/L (98-107) 04/16/21 15:08 Carbon Dioxide 25 mmol/L (21-32) 04/16/21 15:08 Anion Gap 7.0 (3-11) 04/16/21 15:08 BUN 19 mg/dl (7-18) H 04/16/21 15:08 Creatinine 1.30 mg/dl (0.6-1.2) H 04/16/21 15:08 Est Cr Clr Drug Dosing 36.9 ml/min 04/16/21 15:08 Est GFR ( Amer) 45.5 ml/min 04/16/21 15:08 Est GFR (Non-Af Amer) 39.3 ml/min 04/16/21 15:08 BUN/Creatinine Ratio 14.2 (10-20) 04/16/21 15:08 Glucose 98 mg/dl (70-99) 04/16/21 15:08 Lactate 1.2 mmol/L (0.4-2.0) 04/16/21 15:08 Calcium 9.1 mg/dl (8.5-10.1) 04/16/21 15:08 Total Bilirubin 0.3 mg/dl (0.2-1) 04/16/21 15:08 AST 31 U/L (15-37) 04/16/21 15:08 ALT 20 U/L (12-78) 04/16/21 15:08 Alkaline Phosphatase 80 U/L (45-117) 04/16/21 15:08 Troponin I < 0.015 ng/ml (0-0.045) 04/16/21 15:08 NT-Pro-B Natriuret Pep 975 pg/ml (0-1800) 04/16/21 15:08 Total Protein 7.4 gm/dl (6.4-8.2) 04/16/21 15:08 Albumin 2.2 gm/dl (3.4-5.0) L 04/16/21 15:08 Globulin 5.2 gm/dl (2.5-4.0) H 04/16/21 15:08 Albumin/Globulin Ratio 0.4 (0.9-2) L 04/16/21 15:08 Urine Color Yellow 04/16/21 21:04 Urine Appearance Clear (Clear) 04/16/21 21:04 Urine pH 5.0 (4.5-7.5) 04/16/21 21:04 Ur Specific [place] > 1.045 (1.000-1.030) H 04/16/21 21:04 Urine Protein Trace (Negative) H 04/16/21 21:04 Urine Glucose (UA) Negative (Negative) 04/16/21 21:04 Urine Ketones 1+ (Negative) H 04/16/21 21:04 Urine Blood Negative (Negative) 04/16/21 21:04 Urine Nitrite Negative (Negative) 04/16/21 21:04 Urine Bilirubin Negative (Negative) 04/16/21 21:04 Urine Urobilinogen Negative (Negative) 04/16/21 21:04 Ur Leukocyte Esterase Negative (Negative) 04/16/21 21:04 Urine WBC (Auto) 0 /hpf (0-5) 04/16/21 21:04 Urine RBC (Auto) 0-4 /hpf (0-4) 04/16/21 21:04 U Hyaline Cast (Auto) 0 /lpf (0-5) 04/16/21 21:04 U Epithel Cells (Auto) 0-5 /lpf (0-5) 04/16/21 21:04 Urine Bacteria (Auto) Negative (Negative) 04/16/21 21:04 SARS-CoV-2 (PCR) NEGATIVE (Negative) 04/16/21 15:15 Influ A Molecular Assay Negative (Negative) 04/16/21 15:15 Influ B Molecular Assay Negative (Negative) 04/16/21 15:[address] 04/16/21 14:46 CT SCAN OF THE CHEST WITH IV CONTRAST CLINICAL HISTORY: Cough. Chronic interstitial lung disease. Carcinoma of the renal pelvis. COMPARISON STUDY: Chest CT scans dated 01/29/2021 and 06/24/2018. TECHNIQUE: Following the IV administration of 90 cc of Optiray 320, CT scan of the thorax was performed from the thoracic inlet to the upper abdomen. Images are reviewed in the axial, sagittal, and coronal planes. IV contrast was administered without complication. A dose lowering technique was utilized adhering to the principles of ALARA. CT DOSE: 191.81 mGy.cm FINDINGS: Thyroid: Imaged portions of the thyroid gland are normal in size and attenuation. Thoracic aorta: There is atherosclerotic calcification of the thoracic aorta, which is normal in caliber and demonstrates standard 3-vessel arch anatomy. No dissection is seen. Pulmonary vasculature: The pulmonary trunk is normal in caliber. There are no filling defects identified in the central pulmonary vessels to indicate pulmonary embolus. Note that this examination was not protocoled for evaluation of the pulmonary arteries. Heart: A left internal jugular central venous infusion port is in place. The heart is mildly enlarged and without pericardial effusion. The pulmonary trunk is normal in caliber. The pulmonary vessels are not opacified. Lungs and pleural spaces: Multifocal airspace consolidation is seen throughout both lungs. No pleural effusion is identified. Underlying findings of chronic interstitial lung disease with subpleural reticulation are similar to previous. Minimal bronchiectasis is suggested in the lower lobes. No honeycombing is identified. There is postoperative change from previous right-sided pulmonary resection. The trachea and central airways are clear. Mediastinum: There are numerous prominent mediastinal lymph nodes, likely reactive. Ofe: Mildly enlarged hilar nodes measure up to 12 mm in short axis. These are likely reactive. Axillae: There is no axillary lymphadenopathy. Upper abdomen: There is a small hiatal hernia. Partially visualized upper abdominal viscera is otherwise within normal limits. Skeletal structures: The skeletal structures are osteopenic. No lytic or blastic bony lesions are seen. IMPRESSION: 1. Multifocal airspace consolidation is typical for pneumonia. Clinical correlation will be required and radiographic follow-up to resolution is recommended. 2. Findings of underlying chronic interstitial lung disease are likely similar to previous. 3. Cardiomegaly. 4. No pleural effusion is identified. 5. Prominent mediastinal and hilar lymph nodes are likely reactive. ACT 112: Negative or not required by law. Electronically signed by: Michael Grimaldo M.D. 04/16/2021 6:28 PM Code Status & VTE Plan Code Status Full code VTE Prophylaxis Plan VTE Prophylaxis will be ordered: Yes PG Care Time/CCT Total # of Minutes Spent Total Time Spent with Patient: Total time spent is greater than 50% in coordination of care (as documented) at patient's floor/unit and/or counseling patient: Coding Level of Care Code 10154 Initial Inpt Care Lvl 3 Diagnoses Pneumonia J18.9 Laterality: unspecified laterality Lung location: unspecified part of lung Pneumonia type: due to unspecified organism Interstitial lung disease J84.9 Hypoxia R09.02 Chronic kidney disease, stage 3 N18.3 GERD (gastroesophageal reflux disease) K21.9 (1) Pneumonia Laterality: unspecified laterality Lung location: unspecified part of lung Pneumonia type: due to unspecified organism Qualified Code(s): J18.9 - P neumonia, unspecified organism
[2021-04-16 21:17] LABS: Appearance Urine Clear (Clear); Bacteria Urine Automated Negative (Negative); Bilirubin Urine Negative (Negative); Blood Urine Negative (Negative); Cast Urine Automated 0 /lpf (0-5); Color Urine Yellow; Epithelial Cell Urine Auto 0-5 /lpf (0-5); Glucose Urine UA Negative (Negative); Ketones Urine 1+ (Negative); Leukocyte Esterase Urine Negative (Negative); Nitrite Urine Negative (Negative); Protein Urine Trace (Negative); RBC Urine Automated 0-4 /hpf (0-4); Specific Gravity Urine > 1.045 (1.000-1.030); Urobilinogen Urine Negative (Negative); WBC Urine Automated 0 /hpf (0-5)
[2021-04-16] MEDS ORDERED: PIPERACILL/TAZOBAC CONSULT ACTIVE PRN (22:20)
[2021-04-16] MEDS ORDERED: ONDANSETRON INJ 2 MG/ML 2 ML VIAL IV PRN (22:20)
[2021-04-16] MEDS ORDERED: PIPERACILLIN/TAZOBACTAM 4.5 GM in DEXTROSE 5% 100 ML IV ONE (22:30)
[2021-04-16] MEDS: methylPREDNISolone 40 MG in SYRINGE 0 ML IV SCH (23:40)
[2021-04-16] MEDS: ENOXAPARIN INJ 30 MG/0.3 ML SYR SQ SCH (23:42)
[2021-04-16] MEDS: guaiFENesin 600 MG TABCR PO SCH (23:43)
[2021-04-16] MEDS: BENZONATATE 100 MG CAPSULE PO SCH (23:43)
[2021-04-16] MEDS: ACETAMINOPHEN 325 MG TAB PO PRN (23:49)
[2021-04-17] MEDS: AZITHROMYCIN 500 MG in DEXTROSE 5% 250 ML IV SCH ×2 (00:27→23:40)
[2021-04-17] MEDS: HEPARIN 100 UNIT/ML 5ML FLUSH FLUSH PRN ×3 (03:28→17:34)
[2021-04-17] MEDS: methylPREDNISolone 40 MG in SYRINGE 0 ML IV SCH ×3 (05:39→21:40)
[2021-04-17] MEDS: PIPERACILLIN/TAZOBACTAM 3.375 GM in DEXTROSE 5% 100 ML IV SCH ×3 (05:40→21:40)
[2021-04-17] MEDS ORDERED: PIPERACILLIN/TAZOBACTAM 4.5 GM in DEXTROSE 5% 100 ML IV SCH (06:00)
[2021-04-17 06:13] LABS: Immature Granulocytes # (auto) 0.01 K/uL (0.00-0.02); Immature Granulocytes % (auto) 0.1 %; Lymphocytes # (auto) 0.75 K/uL (1.2-3.4); Lymphocytes % (auto) 7.1 %; Mean Corpuscular Hemoglobin 31.9 pg (25-34); Mean Corpuscular Hgb Conc 34.3 g/dL (32-36); Mean Corpuscular Volume 93.1 fL (80-100); Mean Platelet Volume 9.2 fL (7.4-10.4); Monocytes # (auto) 0.21 K/uL (0.11-0.59); Neutrophils # (auto) 9.54 K/uL (1.4-6.5); Neutrophils % (auto) 90.8 %; Platelet Count 343 K/uL (130-400); RDW Coefficient of Variation 12.7 % (11.5-14.5); RDW Standard Deviation 42.9 fL (36.4-46.3); Red Blood Count 3.76 M/uL (4.2-5.4); White Blood Count 10.51 K/uL (4.8-10.8)
[2021-04-17 06:40] LABS: BUN Creatinine Ratio 15.8 (10-20); Calcium 8.9 mg/dl (8.5-10.1); Creatinine Clr Calc Pharmacy 36.1 ml/min; Est GFR (African American) 44.7 ml/min; Est GFR (Non-African American) 38.5 ml/min; Magnesium 2.3 mg/dl (1.8-2.4); Potassium 3.8 mmol/L (3.5-5.1)
[2021-04-17 06:43] LABS: Albumin Globulin Ratio 0.4 (0.9-2); Bilirubin,Total 0.3 mg/dl (0.2-1); Globulin 4.9 gm/dl (2.5-4.0); Total Protein 6.9 gm/dl (6.4-8.2)
--- NOTE | 2021-04-17 08:14 | Hospitalist Progress Note ---
Date of Service April 17, 2021 Assessment & Plan (1) Pneumonia: Plan: Multifocal pneumonia/chronic interstitial lung disease/with hypoxia, significant with exertion acute on chronic respiratory failure with hypoxia COVID-19 and influenza bio fire testing negative question if cryptogenic organizing pneumonia will have pulmonary consultation continuing the below treatment until seen by pulmonary medicine Methylprednisolone 40 mg IV every 8 hours, azithromycin 500 mg IV daily, Zosyn 4.5 g IV every 8 hours. Duonebs every 4 hours while awake and every 2 hours when necessary. Guaifenesin extended release 1200 mg p.o. twice daily Tessalon Perles 20 mg p.o. 3 times daily as needed Nasal cannula oxygen, titrate to keep pulse ox 92-94% (2) Interstitial lung disease: Plan: places her at risk for Gram negative pneumonia (3) Chronic kidney disease, stage 3: Plan: Creatinine 1.30 upon admission, with range 1.31-1.62 Follow laboratory serially (4) GERD (gastroesophageal reflux disease): Plan: On no long-term treatment at this time. Place on famotidine 20 mg p.o. twice daily Admission and Anticipated Discharge Date Admission Date: April 16, 2021 Subjective Pt with significant exertional hypoxia, multifocal infiltrates seen on CT chest, no leukocytosis , is on steroids Review of Systems Review of Systems: Moderate exertional respiratory distress and fatigue no headache, no visual changes no speech or swallowing issues no chest pain, pressure or palpitations exertional shortness of breath, nonproductive cough no abdominal pain, nausea or vomiting, diarrhea or constipation no dysuria, hematuria or frequency no focal joint pain or swelling no back pain, CVA tenderness or radicular pain no bruising, bleeding or rashes no focal signs of weakness or numbness or altered sensation no complaints of anxiety or depression.. Physical Exam Physical Exam: The patient appeared well nourished and normally developed. Vital signs as documented. Head exam is normocephalic atraumatic Neck is without JVD, thyromegaly, or carotid bruits. Lungs are coarse rales in all lung [place] very reminiscent of a viral pneumonitis Cardiac exam, Rhythm is regular.. No murmurs, rubs or gallops. Abdominal exam reveals normal bowel sounds, soft non tender, no masses Extremities are nonedematous and both pedal pulses are present Neurologic exam is alert and oriented, no focal loss of strength or sensation Skin is without bruises or rashes Psychologically is without concerns for anxiety or depression.. Results & Data Results & Data ([facility]) Vital Signs (Past 12 Hours) Vital Signs Temp Pulse Pulse Resp BP Pulse Ox Pulse Ox 04/17/21 08:07 54 L 04/17/21 07:35 97.5 F L 55 L 16 90/58 L 98 04/17/21 03:22 97.9 F 80 16 112/64 94 04/17/21 02:12 95 04/17/21 01:28 97.7 F 82 18 107/72 92 04/17/21 01:14 73 04/16/21 23:16 97.7 F 82 18 107/72 92 04/16/21 21:51 73 20 95 04/16/21 21:07 84 18 93 PG Care Time/CCT Total # of Minutes Spent Total Time Spent with Patient: Total time spent is greater than 50% in coordination of care (as documented) at patient's floor/unit and/or counseling patient: Coding Level of Care Code 84997 Subseq Hosp Care Lvl 3 Diagnoses Pneumonia J18.9 Laterality: unspecified laterality Lung location: unspecified part of lung Pneumonia type: due to unspecified organism Interstitial lung disease J84.9 Chronic kidney disease, stage 3 N18.3 GERD (gastroesophageal reflux disease) K21.9 (1) Pneumonia Laterality: unspecified laterality Lung location: unspecified part of lung Pneumonia type: due to unspecified organism Qualified Code(s): J18.9 - Pneumonia, unspecified organism
[2021-04-17] MEDS: BENZONATATE 100 MG CAPSULE PO SCH ×3 (08:22→21:39)
[2021-04-17] MEDS: CHOLECALCIFEROL 1,000 UNITS 25 MCG TAB PO SCH (08:22)
[2021-04-17] MEDS: CALCIUM CARBONATE 1250MG TAB PO SCH (08:22)
[2021-04-17] MEDS: TOCOPHERYL, DL-ALPHA 100 UNITS CAP PO SCH (08:22)
[2021-04-17] MEDS: guaiFENesin 600 MG TABCR PO SCH ×2 (08:22→21:40)
[2021-04-17] MEDS: ASCORBIC ACID 500 MG TAB PO SCH (08:22)
[2021-04-17] MEDS: MAGNESIUM CHLORIDE 64MG DELAYED REL TAB PO SCH (08:23)
[2021-04-17] MEDS: FAMOTIDINE 20 MG TAB PO SCH ×2 (08:23→21:40)
[2021-04-17] MEDS: MULTIVITAMIN TAB PO SCH (08:24)
[2021-04-17] MEDS: ACETAMINOPHEN 325 MG TAB PO PRN ×2 (08:29→21:41)
[2021-04-17] MEDS ORDERED: NON-FORMULARY MEDICATION (Turmeric 400 mg capsule) PO SCH (09:00)
[2021-04-17] MEDS ORDERED: NON-FORMULARY MEDICATION (Coenzyme Q10 100 mg capsule) PO SCH (09:00)
[2021-04-17 15:33] LABS: Adenovirus PCR Not Detected (NotDetected); Bordetella parapertussis PCR Not Detected (NotDetected); Bordetella pertussis PCR Not Detected (NotDetected); Chlamydia pneumoniae PCR Not Detected (NotDetected); Coronavirus 229E PCR Not Detected (NotDetected); Coronavirus CoV-2 (COVID19)PCR Not Detected (NotDetected); Coronavirus HKU1 PCR Not Detected (NotDetected); Coronavirus NL63 PCR Not Detected (NotDetected); Coronavirus OC43PCR Not Detected (NotDetected); Human Metapneumovirus PCR Not Detected (NotDetected); Influenza A PCR Not Detected (NotDetected); Influenza B PCR Not Detected (NotDetected); Mycoplasma pneumoniae PCR Not Detected (NotDetected); Parainfluenza Virus 1 PCR Not Detected (NotDetected); Parainfluenza Virus 2 PCR Not Detected (NotDetected); Parainfluenza Virus 3 PCR Not Detected (NotDetected); Parainfluenza Virus 4 PCR Not Detected (NotDetected); Respiratory Syncytial VirusPCR Not Detected (NotDetected); Rhinovirus/Enterovirus PCR Not Detected (NotDetected)
[2021-04-17] MEDS ORDERED: guaiFENesin 600 MG TABCR PO SCH (21:00)
[2021-04-17] MEDS: ENOXAPARIN INJ 30 MG/0.3 ML SYR SQ SCH (21:39)
[2021-04-18] MEDS: methylPREDNISolone 40 MG in SYRINGE 0 ML IV SCH ×2 (05:55→13:03)
[2021-04-18] MEDS: PIPERACILLIN/TAZOBACTAM 3.375 GM in DEXTROSE 5% 100 ML IV SCH ×3 (05:55→21:03)
[2021-04-18 08:01] LABS: Hematocrit (blood only) 37.5 % (37-47); Hemoglobin 12.5 g/dL (12.0-16.0); Mean Corpuscular Hemoglobin 31.3 pg (25-34); Mean Corpuscular Hgb Conc 33.3 g/dL (32-36); Mean Corpuscular Volume 93.8 fL (80-100); Mean Platelet Volume 9.3 fL (7.4-10.4); Platelet Count 379 K/uL (130-400); RDW Coefficient of Variation 12.8 % (11.5-14.5); RDW Standard Deviation 43.7 fL (36.4-46.3); White Blood Count 27.85 K/uL (4.8-10.8)
[2021-04-18] MEDS: CALCIUM CARBONATE 1250MG TAB PO SCH (08:15)
[2021-04-18] MEDS: MAGNESIUM CHLORIDE 64MG DELAYED REL TAB PO SCH (08:15)
[2021-04-18] MEDS: TOCOPHERYL, DL-ALPHA 100 UNITS CAP PO SCH (08:15)
[2021-04-18] MEDS: ASCORBIC ACID 500 MG TAB PO SCH (08:15)
[2021-04-18] MEDS: CHOLECALCIFEROL 1,000 UNITS 25 MCG TAB PO SCH (08:15)
[2021-04-18] MEDS: BENZONATATE 100 MG CAPSULE PO SCH ×3 (08:15→21:03)
[2021-04-18] MEDS: FAMOTIDINE 20 MG TAB PO SCH ×2 (08:15→21:04)
[2021-04-18] MEDS: guaiFENesin 600 MG TABCR PO SCH ×2 (08:16→21:04)
[2021-04-18] MEDS: MULTIVITAMIN TAB PO SCH (08:17)
[2021-04-18 08:18] LABS: BUN Creatinine Ratio 18.3 (10-20); Calcium 9.2 mg/dl (8.5-10.1); Creatinine Clr Calc Pharmacy 31.7 ml/min; Est GFR (African American) 37.4 ml/min; Est GFR (Non-African American) 32.2 ml/min; Magnesium 2.3 mg/dl (1.8-2.4); Potassium 3.6 mmol/L (3.5-5.1)
[2021-04-18 08:21] LABS: Albumin Globulin Ratio 0.4 (0.9-2); Bilirubin,Total 0.3 mg/dl (0.2-1); Globulin 5.5 gm/dl (2.5-4.0); Total Protein 7.5 gm/dl (6.4-8.2)
[2021-04-18 08:22] LABS: Basophils # (auto) 0.01 K/uL (0-0.2); Echinocytes 2+; Immature Granulocytes # (auto) 0.12 K/uL (0.00-0.02); Immature Granulocytes % (auto) 0.4 %; Lymphocytes # (auto) 1.18 K/uL (1.2-3.4); Lymphocytes % (auto) 4.2 %; Monocytes # (auto) 0.73 K/uL (0.11-0.59); Monocytes % (auto) 2.6 %; Neutrophils # (auto) 25.81 K/uL (1.4-6.5); Neutrophils % (auto) 92.8 %
[2021-04-18] MEDS: HEPARIN 100 UNIT/ML 5ML FLUSH FLUSH PRN ×2 (10:15→17:37)
[2021-04-18] MEDS: VANCOMYCIN HCL 125 MG/2.5ML SOLN PO SCH ×2 (13:00→17:19)
[2021-04-18] MEDS: RASPBERRY SYRUP 5 ML UDP PO SCH ×2 (13:00→17:19)
[2021-04-18] MEDS: ACETAMINOPHEN 325 MG TAB PO PRN ×2 (15:38→21:15)
--- NOTE | 2021-04-18 17:44 | Pulmonary Consultation ---
Date of Consultation April 18, 2021 Assessment & Plan (1) Hypoxia: (2) Pneumonia: Laterality: unspecified laterality Lung location: unspecified part of lung Pneumonia type: due to unspecified organism Qualified Code(s): J18.9 - Pneumonia, unspecified organism (3) Interstitial lung disease: (4) Abnormal CT scan of lung: Impression: 76-year-old female with biopsy-proven UIP pattern of unclear significance. Unclear if this represented prior pulmonary toxicity from chemotherapeutic agents or potentially a seronegative interstitial lung disease. She now presents with progression of pulmonary infiltrates hypoxemia and fever. Her bio fire was negative but the pattern remains consistent with probable viral pneumonitis. Organizing pneumonia may have a similar pattern although it is fairly diffuse currently. Recommendations: 1. Abnormal CT scan: We will repeat the patient's serological evaluation. Agree with antibiotics for now in the form of a azithromycin and Zosyn. Would continue steroids as well. 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 2. Hypoxemic respiratory failure: Continue supplemental oxygen titrated to keep saturations at or above 88%. 3. Based on her clinical response, may consider bronchoscopy with BAL. U nfortunately due to the Covid restrictions, trying to avoid these procedures currently. I do not think a surgical lung biopsy would add much at the current time. We will request LDH and galactomannan although again the patient has not been on immune suppressive medications or other medications which would increase her risk of opportunistic infections. Should she fail to improve, would have a low threshold for proceeding with bronchoscopy with BAL. The pattern does not appear consistent with alveolar hemorrhage. Thanks for the opportunity of participating in the care of this patient. We w ill continue to follow with you. Feel free to contact us with questions in the interim. History of Present Illness Attending Physician: Zachary Villalobos MD History of Present Illness Asked by hospitalist to assist in evaluation management this patient with known interstitial lung disease admitted with progressive pulmonary infiltrates and hypoxemic respiratory failure. History is obtained from review electronic medical record as well as discussion with the patient. The patient is well-known to me from the outpatient clinic. We have been following her for interstitial lung disease. She had subpleural fibrosis which was not typical for a UIP pattern and she was eventually sent for surgical lung biopsy. This revealed pathology consistent with a UIP pattern, questionable related to prior chemotherapy versus interstitial lung disease. The patient does have microscopic colitis/inflammatory bowel disease. She had been relatively stable with regards to her clinical symptoms, CT scan, and PFTs and we have been following her clinically. Approximately 10 days ago the patient was seen in the oncology clinic. She was noted to be coughing and expectorating some clear phlegm. Her lung exam was abnormal on auscultation. She was sent for chest x-ray which was abnormal. She was then placed on ciprofloxacin. She completed the antibiotics with no improve ment in her symptoms. She continued to have subjective fevers up to 102 and progressive shortness of breath. Due to her persistent symptoms she was referred to the emergency room. She was seen there and had a CT scan performed which unfortunately revealed her stable interstitial lung disease with new subpleural patchy parenchymal densities. Her procalcitonin was negative. She was admitted to the hospital and placed on IV antibiotics in the form of a azithromycin and Zosyn. Bio fire respiratory panel was negative. She was also placed on Solu-Medrol. She states she desaturates fairly quickly with significant ambulation. She is not had any hemoptysis. Allergies Allergy/AdvReac Type Severity Reaction Status Date / Time adhesive Allergy Intermediate Skin Verified 04/16/21 14:54 reaction diazepam Allergy Intermediate Paradoxial Verified 04/16/21 14:54 reaction sorbitol Allergy Mild Gastrointestinal Verified 04/16/21 14:54 Upset Home Medications Medication Instructions Recorded Confirmed Type multivitamin (Daily Multi-Vitamin) 1 tab PO QAM 06/10/19 04/16/21 History Climara 0.075 mg/24 hr transdermal 1 patch TRANSDERMAL WK #12 ea NS 08/14/20 04/16/21 Rx patch (estradiol) coenzyme Q10 100 mg capsule 200 mg PO QAM cap 09/01/20 04/16/21 History ascorbate calcium (vitamin C) 500 500 mg PO QAM 09/26/20 04/16/21 History mg tablet cholecalciferol (vitamin D3) 25 25 mcg PO QAM 09/26/20 04/16/21 History mcg (1,000 unit) capsule turmeric 400 mg capsule 1,000 mg PO QAM cap 09/26/20 04/16/21 History vitamin E 200 unit capsule 400 unit PO DAILY cap 09/26/20 04/10/21 History umeclidinium 62.5 mcg-vilanterol 1 inh INHALATION DAILY #60 ea 04/11/21 Rx 25 mcg/actuation powdr for inhalation (Anoro Ellipta) calcium carbonate 500 mg calcium 500 mg PO QAM 04/16/21 04/16/21 History (1,250 mg) chewable tablet ciprofloxacin HCl 500 mg tablet 500 mg PO BID 04/16/21 04/16/21 History magnesium chloride 71.5 mg 71.5 mg PO QAM 04/16/21 04/16/21 History (magnesium chloride) tablet,delayed release (Slow-Mag) pseudoephedrine-guaifenesin ER 120 1 tab PO Q12H PRN 04/16/21 04/16/21 History mg-1,200 mg tab,extend release 12hr (Mucinex D Maximum Strength) Patient History Medical History (Updated 04/18/21 @ 17:41 by Papa Cameron MD) Chronic kidney disease, stage 3 single kidney Diverticular disease GERD (gastroesophageal reflux disease) History of scarlet fever 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 History of uterine cancer Hyperlipidemia declines statins Impaired fasting glucose Microscopic colitis Microscopic hematuria Osteoarthritis Temporomandibular joint disorder Ureteral stricture, right Vertigo Surgical History History of anesthesia reaction DYSPNEA IN PACU WITH KRISHNA (2017); NO NOTED ISSUES WITH SUBSEQUENT ANESTHESIA/SURGERIES History of bilateral tubal ligation History of breast biopsy History of cholecystectomy History of colonoscopy History of esophagogastroduodenoscopy (EGD) History of nephrectomy, right S/P laparoscopic hand assisted right nephroureterectomy, retroperitoneal dissection: 07/16/18: Grade view 1, MAC#3, ETT 7.0 at [facility] History of total abdominal hysterectomy and bilateral salpingo-oophorectomy History of vascular access device Aport left chest wall 09/2018 Hx of cystoscopy WITH BIOPSY + STENT; SUBSEQUENT STENT REMOVAL Family History Father Family history of diabetes mellitus Asthma Congestive heart failure (CHF) Grandfather (Paternal) No problems noted. Grandmother (Paternal) Throat cancer Uncle Lung cancer Cancer of nasal cavities Aunt Breast cancer Mother Congestive heart failure (CHF) Other No family history of bleeding disorder Denies family history of Ovarian cancer Prostate cancer Myocardial infarction Colorectal cancer Social History Smoking Status: Never smoker Second Hand Exposure: Yes (As a child, mother smoked); Hx Alcohol Use: No Hx Substance Use: No Preferred Language: Albanian Communication Ability: Effective Visual Impairment: No Limitations Hearing Ability: Normal Market Specialist Required: No Beliefs That Will Affect Care: None marital status: Current Living Situation: Alone current occupational status: retired 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 No additions or deletions Physical Exam Physical Exam: The patient appeared well nourished and normally developed. Vital signs as documented. Head exam is normocephalic atraumatic Neck is without JVD, thyromegaly, or carotid bruits. Lungs are coarse rales in all lung [place] very reminiscent of a viral pneumonitis Cardiac exam, Rhythm is regular.. No murmurs, rubs or gallops. Abdominal exam reveals normal bowel sounds, soft non tender, no masses Extremities are nonedematous and both pedal pulses are present Neurologic exam is alert and oriented, no focal loss of strength or sensation Skin is without bruises or rashes Psychologically is without concerns for anxiety or depression.. Results & Data Results & Data ([facility]) Vital Signs (Past 12 Hours) Vital Signs Temp Pulse Pulse Resp BP Pulse Ox 04/18/21 15:11 63 04/18/21 14:47 36.5 C 65 18 94/65 L 96 04/18/21 11:14 36.4 C L 65 16 105/70 90 04/18/21 07:56 65 04/18/21 07:27 36.5 C 66 16 108/74 97 Laboratory Results 04/18/21 07:42 04/18/21 07:42 Procalcitonin negative Bio fire respiratory panel negative Diagnostic Findings Imaging was independently reviewed. CT scan with subpleural fibrotic changes with new fairly diffuse peripheral groundglass opacities. PG Care Time/CCT Total # of Minutes Spent Total Time Spent with Patient: Total time spent is greater than 50% in coordination of care (as documented) at patient's floor/unit and/or counseling patient: Coding Level of Care Code 68904 Initial Inpt Care Lvl 3 Diagnoses Hypoxia R09.02 Pneumonia J18.9 Laterality: unspecified laterality Lung location: unspecified part of lung Pneumonia type: due to unspecified organism Interstitial lung disease J84.[address] scan of lung R91.8
[2021-04-18 18:50] LABS: C Reactive Protein 5.3 mg/dl (0-0.29)
--- NOTE | 2021-04-18 19:22 | Hospitalist Progress Note ---
Date of Service April 18, 2021 Assessment & Plan (1) Pneumonia: Plan: Multifocal pneumonia/chronic interstitial lung disease/with hypoxia, significant with exertion acute on chronic respiratory failure with hypoxia COVID-19 and influenza bio fire testing negative question if cryptogenic organizing pneumonia will have pulmonary consultation continuing the below treatment until seen by pulmonary medicine, does have a history of interstitial lung disease, just was not as prominent on previous CT chest Methylprednisolone increase to 80 mg IV every 8 hours, azithromycin 500 mg IV daily, Zosyn 4.5 g IV every 8 hours. Guaifenesin extended release 1200 mg p.o. twice daily Tessalon Perles 20 mg p.o. 3 times daily as needed Nasal cannula oxygen, titrate to keep pulse ox 92-94% (2) Interstitial lung disease: Plan: places her at risk for Gram negative pneumonia (3) Chronic kidney disease, stage 3: Plan: Creatinine 1.30 upon admission, with range 1.31-1.62 Follow laboratory serially (4) GERD (gastroesophageal reflux disease): Plan: On no long-term treatment at this time. Place on famotidine 20 mg p.o. twice daily (5) Leukocytosis: Plan: Pt has significant leukocytosis did check C diff with diarrhea is negative, maybe demargination from steroids follow Admission and Anticipated Discharge Date Admission Date: April 16, 2021 Subjective Pt continues with significant exertional hypoxia, multifocal infiltrates seen on CT chest, no leukocytosis , is on steroids, has leukocytosis but negative C Diff Review of Systems Review of Systems: Moderate exertional respiratory distress and fatigue no headache, no visual changes no speech or swallowing issues no chest pain, pressure or palpitations exertional shortness of breath, nonproductive cough no abdominal pain, nausea or vomiting, diarrhea or constipation no dysuria, hematuria or frequency no focal joint pain or swelling no back pain, CVA tenderness or radicular pain no bruising, bleeding or rashes no focal signs of weakness or numbness or altered sensation no complaints of anxiety or depression.. Physical Exam Physical Exam: The patient appeared well nourished and normally developed. Vital signs as documented. Head exam is normocephalic atraumatic Neck is without JVD, thyromegaly, or carotid bruits. Lungs continue coarse rales in all lung [place] very reminiscent of a viral pneumonitis Cardiac exam, Rhythm is regular.. No murmurs, rubs or gallops. Abdominal exam reveals normal bowel sounds, soft non tender, no masses Extremities are nonedematous and both pedal pulses are present Neurologic exam is alert and oriented, no focal loss of strength or sensation Skin is without bruises or rashes Psychologically is without concerns for anxiety or depression.. Results & Data Results & Data ([facility]) Vital Signs (Past 12 Hours) Vital Signs Temp Pulse Pulse Resp BP Pulse Ox 04/18/21 15:11 63 04/18/21 14:47 97.7 F 65 18 94/65 L 96 04/18/21 11:14 97.5 F L 65 16 105/70 90 04/18/21 07:56 65 04/18/21 07:27 97.7 F 66 16 108/74 97 PG Care Time/CCT Total # of Minutes Spent Total Time Spent with Patient: Total time spent is greater than 50% in coordination of care (as documented) at patient's floor/unit and/or counseling patient: Coding Level of Care Code 70878 Subseq Hosp Care Lvl 3 Diagnoses Pneumonia J18.9 Laterality: unspecified laterality Lung location: unspecified part of lung Pneumonia type: due to unspecified organism Interstitial lung disease J84.9 Chronic kidney disease, stage 3 N18.3 GERD (gastroesophageal reflux disease) K21.9 Leukocytosis D72.829 (1) Pneumonia Laterality: unspecified laterality Lung location: unspecified part of lung Pneumonia type: due to unspecified organism Qualified Code(s): J18.9 - Pneumonia, unspecified organism
[2021-04-18] MEDS: ENOXAPARIN INJ 30 MG/0.3 ML SYR SQ SCH (21:05)
[2021-04-18] MEDS: methylPREDNISolone 80 MG in SYRINGE 0 ML IV SCH (23:00)
[2021-04-19] MEDS: AZITHROMYCIN 500 MG in DEXTROSE 5% 250 ML IV SCH ×2 (00:26→23:50)
[2021-04-19] MEDS: HEPARIN 100 UNIT/ML 5ML FLUSH FLUSH PRN ×2 (02:27→16:53)
[2021-04-19] MEDS: PIPERACILLIN/TAZOBACTAM 3.375 GM in DEXTROSE 5% 100 ML IV SCH ×3 (05:33→21:23)
[2021-04-19] MEDS: methylPREDNISolone 80 MG in SYRINGE 0 ML IV SCH ×3 (05:34→21:19)
[2021-04-19 08:13] LABS: Hemoglobin 12.3 g/dL (12.0-16.0); Mean Corpuscular Hemoglobin 31.5 pg (25-34); Mean Corpuscular Hgb Conc 33.2 g/dL (32-36); Mean Corpuscular Volume 94.9 fL (80-100); Mean Platelet Volume 9.4 fL (7.4-10.4); Platelet Count 360 K/uL (130-400); RDW Coefficient of Variation 13.2 % (11.5-14.5); RDW Standard Deviation 45.7 fL (36.4-46.3); White Blood Count 22.18 K/uL (4.8-10.8)
[2021-04-19 08:36] LABS: Basophils # (auto) 0.01 K/uL (0-0.2); Immature Granulocytes # (auto) 0.11 K/uL (0.00-0.02); Immature Granulocytes % (auto) 0.5 %; Lymphocytes # (auto) 0.78 K/uL (1.2-3.4); Lymphocytes % (auto) 3.5 %; Monocytes # (auto) 0.29 K/uL (0.11-0.59); Monocytes % (auto) 1.3 %; Neutrophils # (auto) 20.99 K/uL (1.4-6.5); Neutrophils % (auto) 94.7 %
[2021-04-19 08:47] LABS: BUN Creatinine Ratio 21.2 (10-20); Bilirubin,Total 0.3 mg/dl (0.2-1); Calcium 9.1 mg/dl (8.5-10.1); Creatinine Clr Calc Pharmacy 30.6 ml/min; Est GFR (African American) 36.5 ml/min; Est GFR (Non-African American) 31.5 ml/min; Magnesium 2.3 mg/dl (1.8-2.4); Potassium 3.8 mmol/L (3.5-5.1)
[2021-04-19 08:49] LABS: Albumin Globulin Ratio 0.4 (0.9-2); Globulin 4.6 gm/dl (2.5-4.0); Total Protein 6.6 gm/dl (6.4-8.2)
[2021-04-19] MEDS: MULTIVITAMIN TAB PO SCH (10:06)
[2021-04-19] MEDS: MAGNESIUM CHLORIDE 64MG DELAYED REL TAB PO SCH ×2 (10:06→10:34)
[2021-04-19] MEDS: FAMOTIDINE 20 MG TAB PO SCH ×2 (10:06→21:18)
[2021-04-19] MEDS: guaiFENesin 600 MG TABCR PO SCH ×2 (10:06→21:17)
[2021-04-19] MEDS: CHOLECALCIFEROL 1,000 UNITS 25 MCG TAB PO SCH (10:07)
[2021-04-19] MEDS: TOCOPHERYL, DL-ALPHA 100 UNITS CAP PO SCH (10:07)
[2021-04-19] MEDS: CALCIUM CARBONATE 1250MG TAB PO SCH (10:07)
[2021-04-19] MEDS: BENZONATATE 100 MG CAPSULE PO SCH ×3 (10:08→21:17)
[2021-04-19] MEDS: SACCHAROMYCES BOULARDII 250 MG CAP PO SCH (14:09)
--- NOTE | 2021-04-19 19:31 | Hospitalist Progress Note ---
Date of Service April 19, 2021 Assessment & Plan (1) Pneumonia: Plan: Multifocal pneumonia/chronic interstitial lung disease/with hypoxia, significant with exertion acute on chronic respiratory failure with hypoxia secondary to flare of interstitial lung disease, will complete antibiotics as per pulmonary consult, high dose steroids also by their recommendation, suspect will be a long course COVID-19 and influenza bio fire testing negative Methylprednisolone increase to 80 mg IV every 8 hours, azithromycin 500 mg IV daily, Zosyn 4.5 g IV every 8 hours. Guaifenesin extended release 1200 mg p.o. twice daily Tessalon Perles 20 mg p.o. 3 times daily as needed Nasal cannula oxygen, titrate to keep pulse ox 92-94% (2) Interstitial lung disease: Plan: places her at risk for Gram negative pneumonia, continues on antibiotics (3) Chronic kidney disease, stage 3: Plan: Creatinine 1.30 upon admission, with range 1.31-1.62 (4) GERD (gastroesophageal reflux disease): Plan: On no long-term treatment at this time. Place on famotidine 20 mg p.o. twice daily (5) Leukocytosis: Plan: Pt has significant leukocytosis, negative C diff with diarrhea is negative, maybe demargination from steroids pt requests florastor Admission and Anticipated Discharge Date Admission Date: April 16, 2021 Subjective Pt continues with significant exertional hypoxia, multifocal infiltrates seen on CT chest,leukocytosis likely secondary to steroids, negative C Diff Review of Systems Review of Systems: Moderate exertional respiratory distress and fatigue no headache, no visual changes no speech or swallowing issues no chest pain, pressure or palpitations exertional shortness of breath, nonproductive cough no abdominal pain, nausea or vomiting, diarrhea or constipation no dysuria, hematuria or frequency no focal joint pain or swelling no back pain, CVA tenderness or radicular pain no bruising, bleeding or rashes no focal signs of weakness or numbness or altered sensation no complaints of anxiety or depression.. Physical Exam Physical Exam: The patient appeared well nourished and normally developed. Vital signs as documented. Head exam is normocephalic atraumatic Neck is without JVD, thyromegaly, or carotid bruits. Lungs continue coarse rales in all lung [place] very reminiscent of a viral pneumonitis Cardiac exam, Rhythm is regular.. No murmurs, rubs or gallops. Abdominal exam reveals normal bowel sounds, soft non tender, no masses Extremities are nonedematous and both pedal pulses are present Neurologic exam is alert and oriented, no focal loss of strength or sensation Skin is without bruises or rashes Psychologically is without concerns for anxiety or depression.. Results & Data Results & Data ([facility]) Vital Signs (Past 12 Hours) Vital Signs Temp Pulse Resp BP Pulse Ox 04/19/21 11:06 97.5 F L 60 18 95/63 L 97 PG Care Time/CCT Total # of Minutes Spent Total Time Spent with Patient: Total time spent is greater than 50% in coordination of care (as documented) at patient's floor/unit and/or counseling patient: Coding Level of Care Code 96612 Subseq Hosp Care Lvl 3 Diagnoses Pneumonia J18.9 Laterality: unspecified laterality Lung location: unspecified part of lung Pneumonia type: due to unspecified organism Interstitial lung disease J84.9 Chronic kidney disease, stage 3 N18.3 GERD (gastroesophageal reflux disease) K21.9 Leukocytosis D72.829 (1) Pneumonia Laterality: unspecified laterality Lung location: unspecified part of lung Pneumonia type: due to unspecified organism Qualified Code(s): J18.9 - Pneumonia, unspecified organism
[2021-04-19] MEDS: ENOXAPARIN INJ 30 MG/0.3 ML SYR SQ SCH (21:26)
--- NOTE | 2021-04-19 23:03 | Pulmonology Progress Note ---
Date of Service April 19, 2021 Assessment & Plan (1) Hypoxia: (2) Pneumonia: Laterality: unspecified laterality Lung location: unspecified part of lung Pneumonia type: due to unspecified organism Qualified Code(s): J18.9 - Pneumonia, unspecified organism (3) Interstitial lung disease: (4) Abnormal CT scan of lung: Plan: Impression: 76-year-old female with biopsy-proven UIP pattern of unclear significance. Unclear if this represented prior pulmonary toxicity from chemotherapeutic agents or potentially a seronegative interstitial lung disease. She now presents with progression of pulmonary infiltrates hypoxemia and fever. Her bio fire was negative but the pattern remains consistent with probable viral pneumonitis. Organizing pneumonia may have a similar pattern although it is fairly diffuse currently. Recommendations: 1. Abnormal CT scan: We will repeat the patient's serological evaluation. Continue antibiotics for now with Zosyn and azithromycin (day #4). Patient continues on methylprednisolone 80 mg every 8 hours. 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 2. Hypoxemic respiratory failure: Continue supplemental oxygen titrated to keep saturations at or above 88%. Currently on 4 L/min via Oxymask. SARSCOV2 PCR negative. Bio fire negative. 3. Based on her clinical response, may consider bronchoscopy with BAL. Unfortunately due to the Covid restrictions, trying to avoid these procedures currently. Patient with previous lung biopsy with wedge resection in [place] in August 2020. LDH slightly elevated at 317. ESR 61. Galactomannan is pending. Lona 1 antibody and TAMMY screening is currently pending. Patient has not been on immune suppressive medications or other medications which would increase her risk of opportunistic infections. Should she fail to improve, would have a low threshold for proceeding with bronchoscopy with BAL. The pattern does not appear consistent with alveolar hemorrhage. Thank you for including us in the care of this patient. We will continue to follow with you. Feel free to contact us with questions in the interim. Admission and Anticipated Discharge Date Admission Date: April 16, 2021 Subjective Attending: Dr. Nuno Patient continues with shortness of breath and hypoxia requiring 4 L/min via Oxymask. She is persistently monitoring her own pulse oximetry as well as heart rate with telemetry pack. Patient reports no worsening. She also reports that she is feels no improvement since admission. Continues with dyspnea with exertion with short trips to the restroom. Continues on methylprednisolone 80 mg every 8 hours.. Review of Systems Review of Systems: All systems reviewed & are unremarkable except as noted in Subjective Physical Exam Physical Exam: GENERAL : No acute distress. Anxious EYES: No icterus, gaze conjugate NOSE: No evidence of epistaxis MOUTH: No lesions or candidiasis NECK: Supple LUNGS: Coarse crackles in all lung [place]. No rhonchi. No appreciation of bronchospasm. HEART: Regular, rate controlled ABDOMEN: Soft, NT, ND, BS Present EXTREMITIES: No LE edema, pedal pulses intact NEURO: A&OX3. Difficult to keep discussion on task. Able to redirect. Results & Data Results & Data ([facility]) Vital Signs (Past 12 Hours) Vital Signs Temp Pulse Pulse Resp BP Pulse Ox 04/19/21 15:00 60 04/19/21 11:06 36.4 C L 60 18 95/63 L 97 Laboratory Results 04/19/21 07:37 04/19/21 07:37 04/16/21 15:08 VBG pH 7.40 VBG pCO2 44 VBG pO2 26 VBG HCO3 26 VBG O2 Saturation < 60.0 VBG Base Excess 0.9 Diagnostic Findings No further diagnostic imaging PG Care Time/CCT Total # of Minutes Spent Total Time Spent with Patient: Total time spent is greater than 50% in coordination of care (as documented) at patient's floor/unit and/or counseling patient: Coding Level of Care Code 10080 Subseq Hosp Care Lvl 2 Diagnoses Hypoxia R09.02 Pneumonia J18.9 Laterality: unspecified laterality Lung location: unspecified part of lung Pneumonia type: due to unspecified organism Interstitial lung disease J84.[address] scan of lung R91.8
[2021-04-20] MEDS: methylPREDNISolone 80 MG in SYRINGE 0 ML IV SCH ×3 (05:29→21:39)
[2021-04-20] MEDS: PIPERACILLIN/TAZOBACTAM 3.375 GM in DEXTROSE 5% 100 ML IV SCH ×3 (05:32→21:40)
[2021-04-20] MEDS: CALCIUM CARBONATE 1250MG TAB PO SCH (08:47)
[2021-04-20] MEDS: FAMOTIDINE 20 MG TAB PO SCH ×2 (08:48→21:40)
[2021-04-20] MEDS: MAGNESIUM CHLORIDE 64MG DELAYED REL TAB PO SCH (08:48)
[2021-04-20] MEDS: TOCOPHERYL, DL-ALPHA 100 UNITS CAP PO SCH (08:49)
[2021-04-20] MEDS: MULTIVITAMIN TAB PO SCH (08:49)
[2021-04-20] MEDS: CHOLECALCIFEROL 1,000 UNITS 25 MCG TAB PO SCH (08:49)
[2021-04-20] MEDS: guaiFENesin 600 MG TABCR PO SCH ×2 (08:49→21:40)
[2021-04-20] MEDS: BENZONATATE 100 MG CAPSULE PO SCH ×3 (08:49→21:40)
[2021-04-20] MEDS: SACCHAROMYCES BOULARDII 250 MG CAP PO SCH (08:49)
[2021-04-20 10:58] LABS: ANA Screen NEGATIVE (NEGATIVE)
[2021-04-20] MEDS: ACETAMINOPHEN 325 MG TAB PO PRN ×2 (17:51→21:58)
[2021-04-20] MEDS: HEPARIN 100 UNIT/ML 5ML FLUSH FLUSH PRN (17:51)
--- NOTE | 2021-04-20 19:47 | Hospitalist Progress Note ---
Date of Service April 20, 2021 Assessment & Plan (1) Pneumonia: Plan: Multifocal pneumonia/chronic interstitial lung disease/with hypoxia, significant with exertion acute on chronic respiratory failure with hypoxia secondary to flare of interstitial lung disease, will complete antibiotics as per pulmonary consult, high dose steroids also by their recommendation, suspect will be a long course COVID-19 and influenza bio fire testing negative Methylprednisolone increase to 80 mg IV every 8 hours, azithromycin 500 mg IV daily, Zosyn 4.5 g IV every 8 hours. Guaifenesin extended release 1200 mg p.o. twice daily Tessalon Perles 20 mg p.o. 3 times daily as needed Nasal cannula oxygen, titrate to keep pulse ox 92-94% (2) Interstitial lung disease: Plan: places her at risk for Gram negative pneumonia, continues on antibiotics Patient using flutter valve to try to expectorate mucus concern for possible bronchoscopy in the future Pulmonary medicine sent off testing for fungus (3) Chronic kidney disease, stage 3: Plan: Creatinine 1.30 upon admission, with range 1.31-1.62 (4) GERD (gastroesophageal reflux disease): Plan: On no long-term treatment at this time. Place on famotidine 20 mg p.o. twice daily (5) Leukocytosis: Plan: Pt has significant leukocytosis, negative C diff with diarrhea is negative, maybe demargination from steroids pt requests florastor Admission and Anticipated Discharge Date Admission Date: April 16, 2021 Subjective Patient does not feel significantly better and markedly desaturates when denying any type of movement in her room. There has been discussion from pulmonary medicine about possibly doing a bronchoscopy. We will trying high-dose steroids at this time completing a course of antibiotics for 5 days patient has very thick tenacious sputum is difficult for her to cough it up Review of Systems Review of Systems: Moderate exertional respiratory distress and fatigue no headache, no visual changes no speech or swallowing issues no chest pain, pressure or palpitations exertional shortness of breath, nonproductive cough no abdominal pain, nausea or vomiting, diarrhea or constipation no dysuria, hematuria or frequency no focal joint pain or swelling no back pain, CVA tenderness or radicular pain no bruising, bleeding or rashes no focal signs of weakness or numbness or altered sensation no complaints of anxiety or depression.. Physical Exam Physical Exam: The patient appeared well nourished and normally developed. Vital signs as documented. Head exam is normocephalic atraumatic Neck is without JVD, thyromegaly, or carotid bruits. Lungs continue coarse rales in all lung [place] very reminiscent of a viral pneumonitis Cardiac exam, Rhythm is regular.. No murmurs, rubs or gallops. Abdominal exam reveals normal bowel sounds, soft non tender, no masses Extremities are nonedematous and both pedal pulses are present Neurologic exam is alert and oriented, no focal loss of strength or sensation Skin is without bruises or rashes Psychologically is without concerns for anxiety or depression.. Results & Data Results & Data ([facility]) Vital Signs (Past 12 Hours) Vital Signs Temp Pulse Pulse Resp BP Pulse Ox 04/20/21 16:00 97.7 F 59 L 18 106/96 98 04/20/21 14:48 98.1 F 60 16 110/74 97 04/20/21 12:03 97.7 F 60 18 111/73 96 04/20/21 07:45 65 PG Care Time/CCT Total # of Minutes Spent Total Time Spent with Patient: Total time spent is greater than 50% in coordination of care (as documented) at patient's floor/unit and/or counseling patient: Coding Level of Care Code 59984 Subseq Hosp Care Lvl 2 Diagnoses Pneumonia J18.9 Laterality: unspecified laterality Lung location: unspecified part of lung Pneumonia type: due to unspecified organism Interstitial lung disease J84.9 Chronic kidney disease, stage 3 N18.3 GERD (gastroesophageal reflux disease) K21.9 Leukocytosis D72.829 (1) Pneumonia Laterality: unspecified laterality Lung location: unspecified part of lung Pneumonia type: due to unspecified organism Qualified Code(s): J18.9 - Pneumonia, unspecified organism
[2021-04-20] MEDS: ENOXAPARIN INJ 30 MG/0.3 ML SYR SQ SCH (21:41)
[2021-04-20] MEDS: AZITHROMYCIN 500 MG in DEXTROSE 5% 250 ML IV SCH (23:41)
[2021-04-21] MEDS: HEPARIN 100 UNIT/ML 5ML FLUSH FLUSH PRN ×3 (01:50→17:20)
[2021-04-21] MEDS: methylPREDNISolone 80 MG in SYRINGE 0 ML IV SCH ×3 (06:04→23:12)
[2021-04-21] MEDS: PIPERACILLIN/TAZOBACTAM 3.375 GM in DEXTROSE 5% 100 ML IV SCH ×3 (06:04→20:52)
[2021-04-21] MEDS: CALCIUM CARBONATE 1250MG TAB PO SCH (08:47)
[2021-04-21] MEDS: CHOLECALCIFEROL 1,000 UNITS 25 MCG TAB PO SCH (08:47)
[2021-04-21] MEDS: BENZONATATE 100 MG CAPSULE PO SCH ×3 (08:47→20:39)
[2021-04-21] MEDS: guaiFENesin 600 MG TABCR PO SCH ×2 (08:48→20:39)
[2021-04-21] MEDS: TOCOPHERYL, DL-ALPHA 100 UNITS CAP PO SCH (08:48)
[2021-04-21] MEDS: FAMOTIDINE 20 MG TAB PO SCH ×2 (08:49→20:43)
[2021-04-21] MEDS: MULTIVITAMIN TAB PO SCH (08:49)
[2021-04-21] MEDS: MAGNESIUM CHLORIDE 64MG DELAYED REL TAB PO SCH (08:49)
[2021-04-21] MEDS: SACCHAROMYCES BOULARDII 250 MG CAP PO SCH (08:50)
--- NOTE | 2021-04-21 15:49 | Hospitalist Progress Note ---
Date of Service April 21, 2021 Assessment & Plan (1) Pneumonia: Plan: Multifocal pneumonia/chronic interstitial lung disease/with hypoxia, significant with exertion acute on chronic respiratory failure with hypoxia secondary to flare of interstitial lung disease, will complete antibiotics as per pulmonary consult, high dose steroids also by their recommendation, suspect will be a long course COVID-19 and influenza bio fire testing negative Methylprednisolone increase to 80 mg IV every 8 hours, azithromycin 500 mg IV daily, Zosyn 4.5 g IV every 8 hours. consider changing to oral steroids on 04/[address] plan to speak with Dr. Cameron on Friday since he knows patient from clinic Guaifenesin extended release 1200 mg p.o. twice daily Tessalon Perles 20 mg p.o. 3 times daily as needed Nasal cannula oxygen, titrate to keep pulse ox 92-94% (2) Interstitial lung disease: Plan: places her at risk for Gram negative pneumonia, continues on antibiotics Patient using flutter valve to try to expectorate mucus concern for possible bronchoscopy in the future Pulmonary medicine sent off testing for fungus, still pending (3) Chronic kidney disease, stage 3: Plan: Creatinine stable (4) GERD (gastroesophageal reflux disease): Plan: On no long-term treatment at this time. Place on famotidine 20 mg p.o. twice daily (5) Leukocytosis: Plan: Pt has significant leukocytosis, negative C diff with diarrhea is negative, maybe demargination from steroids pt requests florastor Admission and Anticipated Discharge Date Admission Date: April 16, 2021 Subjective patient feels she is breathing easier, titrated down to room air no cough we discussed the work up of her illness thus far I talked with Dr. Nuno, Dr. Cameron will take over pulmonary service Friday, he knows patient from clinic patient eating okay, not many options for her as she is vegetarian Review of Systems Review of Systems: All systems reviewed & are unremarkable except as noted in Subjective Respiratory: + cough, + dyspnea and + dyspnea on exertion Physical Exam Physical Exam: General: well developed, well nourished, no acute distress, comfortable Neck: supple, trachea midline, normal thyroid Lungs: clear to auscultation bilaterally, normal respiratory effort, no accessory muscle use, no distress Heart: regular S1 and S2, no murmur, peripheral pulses normal, capillary refill normal, no edema Abdomen: soft, NT, ND, + BS, no hepatomegaly, normal to percussion Extremities: normal in appearance, no cyanosis, no petechiae, strength is 5/5 bilaterally Neuro: awake, cooperative, moves all extremities, no focal motor deficits, CN II-XII intact, sensation in extremities intact, normal speech Skin: warm, dry, no rash, normal turgor Psych: Awake, alert oriented x 3, euthymic affect Results & Data Results & Data ([facility]) Vital Signs (Past 12 Hours) Vital Signs Temp Pulse Resp BP Pulse Ox 04/21/21 07:00 36.5 C 52 L 18 113/79 93 04/21/21 06:09 94 04/21/21 04:54 84 L 04/21/21 04:33 92 Medications Administered Current Inpatient Medications Acetaminophen (Acetaminophen 325 Mg Tab) 650 mg PO Q4H PRN PRN Reason: Pain or Fever Stop: 05/16/21 22:19 Last Admin: 04/20/21 21:58 Dose: 650 mg Documented by: Benzonatate (Benzonatate 100 Mg Capsule) 100 mg PO TID [facility] Stop: 05/16/21 22:59 Last Admin: 04/21/21 13:13 Dose: 100 mg Documented by: Calcium Carbonate (Calcium Carbonate 1250mg Tab) 1,250 mg PO QAM [facility] Stop: 05/17/21 08:59 Last Admin: 04/21/21 08:47 Dose: 1,250 mg Documented by: Enoxaparin Sodium (Enoxaparin Inj 30 Mg/0.3 Ml Syr) 30 mg SQ HS [facility] Stop: 05/16/21 22:59 Last Admin: 04/20/21 21:41 Dose: 30 mg Documented by: Famotidine (Famotidine 20 Mg Tab) 20 mg PO BID [facility] Stop: 05/17/21 08:59 Last Admin: 04/21/21 08:49 Dose: Not Given Documented by: Guaifenesin (Guaifenesin 600 Mg Tabcr) 1,200 mg PO Q12 [facility] Stop: 05/16/21 22:59 Last Admin: 04/21/21 08:48 Dose: 1,200 mg Documented by: Heparin Sodium (Porcine) (Heparin 100 Unit/Ml 5ml Flush) 5 ml FLUSH PRN PRN PRN Reason: Flush Stop: 05/17/21 02:00 Last Admin: 04/21/21 10:12 Dose: 5 ml Documented by: Azithromycin 500 mg/ Dextrose 255 mls @ 125 mls/hr IV Q24H [facility]; Protocol Stop: 04/23/21 22:59 Last Infusion: 04/21/21 01:50 Dose: Infused Documented by: Piperacillin Sod/Tazobactam (Sod 3.375 gm/ Dextrose) 115 mls @ 28.75 mls/hr IV Q8H [facility]; Protocol Stop: 04/24/21 04:59 Last Admin: 04/21/21 13:06 Dose: 28.8 mls/hr Documented by: Methylprednisolone 80 mg/ (Syringe) 1.28 mls @ 1.5 mls/min IV Q8 [facility] Stop: 05/18/21 21:59 Last Admin: 04/21/21 13:13 Dose: 1.5 mls/min Documented by: Magnesium Chloride (Magnesium Chloride 64mg Delayed Rel Tab) 64 mg PO QAM [facility]; Protocol Stop: 05/17/21 08:59 Last Admin: 04/21/21 08:49 Dose: Not Given Documented by: Miscellaneous (Estradiol 0.075 Mg/24 Hr Patch: Order Awaiting Action) 1 ea N/A QS [facility] Stop: 05/20/21 00:00 Last Admin: 04/21/21 15:37 Dose: Not Given Documented by: Miscellaneous Information (Piperacill/Tazobac Consult Active) 1 ea N/A UD PRN PRN Reason: Consult Stop: 05/16/21 22:19 Multivitamins (Multivitamin Tab) [facility] Stop: 05/17/21 08:59 Last Admin: 04/21/21 08:49 Dose: 1 tab Documented by: Ondansetron HCl (Ondansetron Inj 2 Mg/Ml 2 Ml Vial) 4 mg IV Q6H PRN PRN Reason: Nausea Stop: 05/16/21 22:19 Saccharomyces Boulardii (Saccharomyces Boulardii 250 Mg Cap) 250 mg PO DAILY [facility] Stop: 05/19/21 11:59 Last Admin: 04/21/21 08:50 Dose: 250 mg Documented by: Vitamin D (Cholecalciferol 1,000 Units 25 Mcg Tab) 1,000 units PO QAM [facility] Stop: 05/17/21 08:59 Last Admin: 04/21/21 08:47 Dose: 1,000 units Documented by: Vitamin E (Tocopheryl, Dl-Alpha 100 Units Cap) 400 units PO DAILY [facility] Stop: 05/17/21 08:59 Last Admin: 04/21/21 08:48 Dose: 400 units Documented by: PG Care Time/CCT Total # of Minutes Spent Total Time Spent with Patient: Total time spent is greater than 50% in coordination of care (as documented) at patient's floor/unit and/or counseling patient: Coding Level of Care Code 85118 Subseq Hosp Care Lvl 2 Diagnoses Pneumonia J18.9 Laterality: unspecified laterality Lung location: unspecified part of lung Pneumonia type: due to unspecified organism Interstitial lung disease J84.9 Chronic kidney disease, stage 3 N18.3 GERD (gastroesophageal reflux disease) K21.9 Leukocytosis D72.829 (1) Pneumonia Laterality: unspecified laterality Lung location: unspecified part of lung Pneumonia type: due to unspecified organism Qualified Code(s): J18.9 - Pneumonia, unspecified organism
[2021-04-21 19:02] LABS: Fungitell (1-3)-B-D-Glucan 33 pg/mL
[2021-04-21] MEDS: ENOXAPARIN INJ 30 MG/0.3 ML SYR SQ SCH (20:39)
[2021-04-21] MEDS: ACETAMINOPHEN 325 MG TAB PO PRN (20:47)
[2021-04-21] MEDS: AZITHROMYCIN 500 MG in DEXTROSE 5% 250 ML IV SCH (23:12)
[2021-04-22] MEDS: PIPERACILLIN/TAZOBACTAM 3.375 GM in DEXTROSE 5% 100 ML IV SCH ×3 (05:52→22:01)
[2021-04-22] MEDS: methylPREDNISolone 80 MG in SYRINGE 0 ML IV SCH ×3 (05:53→22:03)
[2021-04-22] MEDS: CALCIUM CARBONATE 1250MG TAB PO SCH (08:52)
[2021-04-22] MEDS: CHOLECALCIFEROL 1,000 UNITS 25 MCG TAB PO SCH (08:52)
[2021-04-22] MEDS: BENZONATATE 100 MG CAPSULE PO SCH ×3 (08:52→22:17)
[2021-04-22] MEDS: TOCOPHERYL, DL-ALPHA 100 UNITS CAP PO SCH (08:52)
[2021-04-22] MEDS: guaiFENesin 600 MG TABCR PO SCH ×2 (08:53→22:02)
[2021-04-22] MEDS: MULTIVITAMIN TAB PO SCH (08:53)
[2021-04-22] MEDS: FAMOTIDINE 20 MG TAB PO SCH ×2 (08:53→22:02)
[2021-04-22] MEDS: SACCHAROMYCES BOULARDII 250 MG CAP PO SCH (08:53)
[2021-04-22] MEDS: MAGNESIUM CHLORIDE 64MG DELAYED REL TAB PO SCH (08:53)
[2021-04-22] MEDS: HEPARIN 100 UNIT/ML 5ML FLUSH FLUSH PRN ×2 (09:47→17:35)
[2021-04-22 16:10] LABS: Creatinine Clr Calc Pharmacy 28.5 ml/min; Est GFR (African American) 33.1 ml/min; Est GFR (Non-African American) 28.6 ml/min
--- NOTE | 2021-04-22 20:30 | Hospitalist Progress Note ---
Date of Service April 22, 2021 Assessment & Plan (1) Pneumonia: Plan: Multifocal pneumonia/chronic interstitial lung disease/with hypoxia, significant with exertion acute on chronic respiratory failure with hypoxia secondary to flare of interstitial lung disease, will complete antibiotics as per pulmonary consult, high dose steroids also by their recommendation, suspect will be a long course COVID-19 and influenza bio fire testing negative Methylprednisolone increase to 80 mg IV every 8 hours, azithromycin 500 mg IV daily, Zosyn 4.5 g IV every 8 hours. consider changing to oral steroids on 04/[address] plan to speak with Dr. Cameron on Friday since he knows patient from clinic Guaifenesin extended release 1200 mg p.o. twice daily Tessalon Perles 20 mg p.o. 3 times daily as needed Nasal cannula oxygen, titrate to keep pulse ox 92-94% (2) Interstitial lung disease: Plan: places her at risk for Gram negative pneumonia, continues on antibiotics Patient using flutter valve to try to expectorate mucus concern for possible bronchoscopy in the future Pulmonary medicine sent off testing for fungus, still pending (3) Chronic kidney disease, stage 3: Plan: Creatinine 1.6 today (4) GERD (gastroesophageal reflux disease): Plan: On no long-term treatment at this time. Place on famotidine 20 mg p.o. twice daily (5) Leukocytosis: Plan: Pt has significant leukocytosis, negative C diff with diarrhea is negative, maybe demargination from steroids pt requests florastor Admission and Anticipated Discharge Date Admission Date: April 16, 2021 Subjective patient sitting in a chair, saturations are 91% on room air she feels like she is getting URI symptoms of congestion, runny nose discussed that she is on high dose steroids, antibiotics remove the heart healthy diet to give her more options told her I will speak with Dr. Cameron tomorrow, determine if bronchoscopy necessary or possible right now Review of Systems Review of Systems: All systems reviewed & are unremarkable except as noted in Subjective Physical Exam Physical Exam: General: well developed, well nourished, no acute distress, comfortable Neck: supple, trachea midline, normal thyroid Lungs: clear to auscultation bilaterally, normal respiratory effort, no accessory muscle use, no distress Heart: regular S1 and S2, no murmur, peripheral pulses normal, capillary refill normal, no edema Abdomen: soft, NT, ND, + BS, no hepatomegaly, normal to percussion Extremities: normal in appearance, no cyanosis, no petechiae, strength is 5/5 bilaterally Neuro: awake, cooperative, moves all extremities, no focal motor deficits, CN II-XII intact, sensation in extremities intact, normal speech Skin: warm, dry, no rash, normal turgor Psych: Awake, alert oriented x 3, euthymic affect Results & Data Results & Data ([facility]) Vital Signs (Past 12 Hours) Vital Signs Temp Pulse Resp BP Pulse Ox 04/22/21 16:38 36.3 C L 61 16 97/65 L 92 Laboratory Results Laboratory Results - last 24 hr 04/22/21 15:46 Creatinine 1.69 H Est Cr Clr Drug Dosing 28.5 Est GFR ( Amer) 33.1 Est GFR (Non-Af Amer) 28.6 Medications Administered Current Inpatient Medications Acetaminophen (Acetaminophen 325 Mg Tab) 650 mg PO Q4H PRN PRN Reason: Pain or Fever Stop: 05/16/21 22:19 Last Admin: 04/21/21 20:47 Dose: 650 mg Documented by: Benzonatate (Benzonatate 100 Mg Capsule) 100 mg PO TID [facility] Stop: 05/16/21 22:59 Last Admin: 04/22/21 13:40 Dose: 100 mg Documented by: Calcium Carbonate (Calcium Carbonate 1250mg Tab) 1,250 mg PO QAM [facility] Stop: 05/17/21 08:59 Last Admin: 04/22/21 08:52 Dose: 1,250 mg Documented by: Enoxaparin Sodium (Enoxaparin Inj 30 Mg/0.3 Ml Syr) 30 mg SQ HS [facility] Stop: 05/16/21 22:59 Last Admin: 04/21/21 20:39 Dose: 30 mg Documented by: Famotidine (Famotidine 20 Mg Tab) 20 mg PO BID [facility] Stop: 05/17/21 08:59 Last Admin: 04/22/21 08:53 Dose: Not Given Documented by: Guaifenesin (Guaifenesin 600 Mg Tabcr) 1,200 mg PO Q12 [facility] Stop: 05/16/21 22:59 Last Admin: 04/22/21 08:53 Dose: 1,200 mg Documented by: Heparin Sodium (Porcine) (Heparin 100 Unit/Ml 5ml Flush) 5 ml FLUSH PRN PRN PRN Reason: Flush Stop: 05/17/21 02:00 Last Admin: 04/22/21 17:35 Dose: 5 ml Documented by: Azithromycin 500 mg/ Dextrose 255 mls @ 125 mls/hr IV Q24H [facility]; Protocol Stop: 04/23/21 22:59 Last Infusion: 04/22/21 01:25 Dose: Infused Documented by: Piperacillin Sod/Tazobactam (Sod 3.375 gm/ Dextrose) 115 mls @ 28.75 mls/hr IV Q8H [facility]; Protocol Stop: 04/24/21 04:59 Last Infusion: 04/22/21 18:09 Dose: Infused Documented by: Methylprednisolone 80 mg/ (Syringe) 1.28 mls @ 1.5 mls/min IV Q8 [facility] Stop: 05/18/21 21:59 Last Admin: 04/22/21 13:26 Dose: 1.5 mls/min Documented by: Magnesium Chloride (Magnesium Chloride 64mg Delayed Rel Tab) [facility] Stop: 05/17/21 08:59 Last Admin: 04/22/21 08:53 Dose: Not Given Documented by: Miscellaneous (Estradiol 0.075 Mg/24 Hr Patch: Order Awaiting Action) 1 ea N/A QS [facility] Stop: 05/20/21 00:00 Last Admin: 04/22/21 16:00 Dose: Not Given Documented by: Miscellaneous Information (Piperacill/Tazobac Consult Active) 1 ea N/A UD PRN PRN Reason: Consult Stop: 05/16/21 22:19 Multivitamins (Multivitamin Tab) [facility] Stop: 05/17/21 08:59 Last Admin: 04/22/21 08:53 Dose: 1 tab Documented by: Ondansetron HCl (Ondansetron Inj 2 Mg/Ml 2 Ml Vial) 4 mg IV Q6H PRN PRN Reason: Nausea Stop: 05/16/21 22:19 Saccharomyces Boulardii (Saccharomyces Boulardii 250 Mg Cap) 250 mg PO DAILY [facility] Stop: 05/19/21 11:59 Last Admin: 04/22/21 08:53 Dose: 250 mg Documented by: Vitamin D (Cholecalciferol 1,000 Units 25 Mcg Tab) 1,000 [facility] Stop: 05/17/21 08:59 Last Admin: 04/22/21 08:52 Dose: 1,000 units Documented by: Vitamin E (Tocopheryl, Dl-Alpha 100 Units Cap) 400 units PO DAILY [facility] Stop: 05/17/21 08:59 Last Admin: 04/22/21 08:52 Dose: 400 units Documented by: PG Care Time/CCT Total # of Minutes Spent Total Time Spent with Patient: Total time spent is greater than 50% in coordination of care (as documented) at patient's floor/unit and/or counseling patient: Coding Level of Care Code 18908 Subseq Hosp Care Lvl 2 Diagnoses Pneumonia J18.9 Laterality: unspecified laterality Lung location: unspecified part of lung Pneumonia type: due to unspecified organism Interstitial lung disease J84.9 Chronic kidney disease, stage 3 N18.3 GERD (gastroesophageal reflux disease) K21.9 Leukocytosis D72.829 (1) Pneumonia Laterality: unspecified laterality Lung location: unspecified part of lung Pneumonia type: due to unspecified organism Qualified Code(s): J18.9 - Pneumonia, unspecified organism
[2021-04-22] MEDS: ENOXAPARIN INJ 30 MG/0.3 ML SYR SQ SCH (22:03)
[2021-04-22] MEDS: AZITHROMYCIN 500 MG in DEXTROSE 5% 250 ML IV SCH (22:19)
[2021-04-23] MEDS: HEPARIN 100 UNIT/ML 5ML FLUSH FLUSH PRN ×4 (02:55→16:37)
[2021-04-23] MEDS: PIPERACILLIN/TAZOBACTAM 3.375 GM in DEXTROSE 5% 100 ML IV SCH ×2 (05:27→12:53)
[2021-04-23] MEDS: methylPREDNISolone 80 MG in SYRINGE 0 ML IV SCH ×2 (05:27→13:35)
[2021-04-23 07:03] LABS: Basophils # (auto) 0.01 K/uL (0-0.2); Basophils % (auto) 0.1 %; Hematocrit (blood only) 37.5 % (37-47); Hemoglobin 12.6 g/dL (12.0-16.0); Immature Granulocytes # (auto) 0.12 K/uL (0.00-0.02); Immature Granulocytes % (auto) 0.9 %; Lymphocytes # (auto) 0.98 K/uL (1.2-3.4); Lymphocytes % (auto) 7.4 %; Mean Corpuscular Hemoglobin 31.7 pg (25-34); Mean Corpuscular Hgb Conc 33.6 g/dL (32-36); Mean Corpuscular Volume 94.2 fL (80-100); Mean Platelet Volume 9.7 fL (7.4-10.4); Monocytes # (auto) 0.46 K/uL (0.11-0.59); Monocytes % (auto) 3.5 %; Neutrophils # (auto) 11.62 K/uL (1.4-6.5); Neutrophils % (auto) 88.1 %; Platelet Count 386 K/uL (130-400); RDW Standard Deviation 45.2 fL (36.4-46.3); Red Blood Count 3.98 M/uL (4.2-5.4); White Blood Count 13.19 K/uL (4.8-10.8)
[2021-04-23 07:27] LABS: BUN Creatinine Ratio 27.7 (10-20); Calcium 8.6 mg/dl (8.5-10.1); Creatinine Clr Calc Pharmacy 33.6 ml/min; Est GFR (African American) 40.6 ml/min
[2021-04-23 07:29] LABS: C Reactive Protein 0.49 mg/dl (0-0.29)
[2021-04-23] MEDS: SACCHAROMYCES BOULARDII 250 MG CAP PO SCH (07:50)
[2021-04-23] MEDS: BENZONATATE 100 MG CAPSULE PO SCH ×3 (07:50→21:50)
[2021-04-23] MEDS: CALCIUM CARBONATE 1250MG TAB PO SCH ×2 (07:50→07:51)
[2021-04-23] MEDS: MAGNESIUM CHLORIDE 64MG DELAYED REL TAB PO SCH (07:50)
[2021-04-23] MEDS: TOCOPHERYL, DL-ALPHA 100 UNITS CAP PO SCH (07:50)
[2021-04-23] MEDS: FAMOTIDINE 20 MG TAB PO SCH ×2 (07:51→21:52)
[2021-04-23] MEDS: CHOLECALCIFEROL 1,000 UNITS 25 MCG TAB PO SCH (07:51)
[2021-04-23] MEDS: guaiFENesin 600 MG TABCR PO SCH ×2 (07:51→21:50)
[2021-04-23] MEDS: MULTIVITAMIN TAB PO SCH (07:52)
--- NOTE | 2021-04-23 11:27 | XRay Report ---
XR chest 2V PA/lateral CLINICAL HISTORY: hypoxemia. Shortness of breath. COMPARISON STUDY: 04/02/[address] from 04/16/2021 TECHNIQUE: 2 views of the chest FINDINGS: Frontal and lateral radiographs of the chest demonstrate the cardiomediastinal silhouette to be withi n normal limits. Port-A-Cath is in place with its tip in the right atrium. Compared to the previous e xamination, there is evidence for underlying COPD with interval development of patchy interstitial an d alveolar opacities bilaterally. Findings are suspicious for underlying viral type pneumonitis. Covi d 19 pneumonia should be evaluated for. This corresponds to the groundglass opacity seen on the inter teresa CT. There is no evidence for effusion bilaterally. There is no evidence for vascular congestion. There is no acute osseous pathology. IMPRESSION: COPD with interval development of patchy interstitial and alveolar opacities characterist ic of a viral type pneumonitis and probable Covid 19 pneumonia. ACT 112: Negative or not required by law. Electronically signed by: Pernell Daly M.D. 04/23/2021 11:25 AM
--- NOTE | 2021-04-23 16:10 | Pulmonology Progress Note ---
Date of Service April 23, 2021 Assessment & Plan (1) Hypoxia: (2) Pneumonia: Laterality: unspecified laterality Lung location: unspecified part of lung Pneumonia type: due to unspecified organism Qualified Code(s): J18.9 - Pneumonia, unspecified organism (3) Interstitial lung disease: (4) Abnormal CT scan of lung: Plan: Impression: 76-year-old female with biopsy-proven UIP pattern of unclear significance. Unclear if this represented prior pulmonary toxicity from chemotherapeutic agents or potentially a seronegative interstitial lung disease. She now presents with progression of pulmonary infiltrates hypoxemia and fever. Her bio fire was negative but the pattern remains consistent with probable viral pneumonitis. Organizing pneumonia may have a similar pattern although it is fairly diffuse currently. She is improved with empiric steroids and antibiotics. Recommendations: 1. Abnormal CT scan: Serologies have not been particularly helpful. Nevertheless the patient is significantly better on empiric steroids. We will discontinue antibiotics at this point time and change Solu-Medrol to prednisone 20 mg twice daily. Recommend that she taper steroids by 5 mg weekly until we see her back in clinic. She will require a follow-up chest x-ray and PFTs at some point. Bactrim prophylaxis is recommended every Friday and Friday until the patient's prednisone dose is below 20 mg daily. 2. Hypoxemic respiratory failure: Recommend the patient undergo two-step oxygen evaluation prior to discharge. 3. No plans for bronchoscopy currently. Recommend physical therapy and Occupational Therapy evaluations as the patient is is unclear if she is able to go home currently as she lives independently. From a pulmonary standpoint, I think the patient can be dismissed from the hospital. She already has outpatient follow-up scheduled with me in a few weeks. Thank you for including us in the care of this patient. Feel free to contact me with questions. Admission and Anticipated Discharge Date Admission Date: April 16, 2021 Subjective Patient seen and examined. She is awake alert and conversant sitting up in a chair. She is now off supplemental oxygen. She is not coughing or expectorating phlegm. No chest pain. She does feel winded when she gets up to use the restroom. She is tolerating a diet. Review of Systems Review of Systems: All systems reviewed & are unremarkable except as noted in Subjective Physical Exam Constitutional: WD/WN, vitals as above Neck: trachea midline, no thyromegaly Respiratory: normal respiratory effort; no respiratory distress and no labored breathing Auscultation: + crackles Cardiovascular: RRR, no murmur, no edema Gastrointestinal (Abdomen): normal bowel sounds, soft, nontender, no hepatosplenomegaly Musculoskeletal: Extremities: extremities normal to inspection Skin: no rashes, warm and dry Neurologic: Nonfocal exam Lymphatic: no cervical lymphadenopathy Results & Data Results & Data ([facility]) Vital Signs (Past 12 Hours) Vital Signs Temp Pulse Resp BP Pulse Ox 04/23/21 14:51 36.6 C 61 16 109/71 92 04/23/21 07:19 36.6 C 54 L 16 97/67 L 92 Laboratory Results 04/23/21 05:45 04/23/21 05:45 ESR 61 LDH 317 CPK 42 CRP initially 5.3 now down to 0.49 Procalcitonin undetectable TAMMY screen negative Diagnostic Findings Chest x-ray from today was independently reviewed. It demonstrates peripheral interstitial markings, not significantly changed from prior. PG Care Time/CCT Total # of Minutes Spent Total Time Spent with Patient: Total time spent is greater than 50% in coordination of care (as documented) at patient's floor/unit and/or counseling patient: Coding Level of Care Code 21233 Subseq Hosp Care Lvl 3 Diagnoses Hypoxia R09.02 Pneumonia J18.9 Laterality: unspecified laterality Lung location: unspecified part of lung Pneumonia type: due to unspecified organism Interstitial lung disease J84.[address] scan of lung R91.8
--- NOTE | 2021-04-23 18:30 | Hospitalist Progress Note ---
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 Follows Dr. Cameron as an outpatient COVID-19 and influenza bio fire testing negative Completed a full course of IV antibiotic therapy (Zosyn and azithromycin) Limited response until IV steroids added and uptitrated. Was receiving 80 mg IV every 8 hours. Pulmonology has been on board. Appreciate recommendations Patient receiving pulmonary toilet, mucolytic agents, and antitussives She has shown favorable response. Current pulse oximetry is 92 to 94% on room air There was concern that she would require bronchoscopy prior to discharge; however, this is not necessary given her favorable response. Given Covid, ability to do this is limited At this point, patient has been seen by her established centerless grinder operator today who repeated a chest x-ray. This does show concerning for developing Covid. We will repeat her Covid test but I suspect this may be chronic changes due to her underlying fibrosis. Especially in the setting of clinical/favorable response Recommendations are for a long taper of prednisone and prophylactic Bactrim (see note as outlined). Appreciate recommendations Consult PT/OT Obtain a two-step pulse oximetry in the a.m. and plan for likely discharge tomorrow (2) Interstitial lung disease: Plan: places her at risk for Gram negative pneumonia--patient completed a full course of Zosyn and azithromycin. Plan is for prophylactic Bactrim on Mondays, Wednesdays, and Fridays until prednisone dose is less than 20 mg a day Pulmonary medicine sent off testing for fungus, still pending (3) Chronic kidney disease, stage 3: Plan: Creatinine 1.4 today (4) GERD (gastroesophageal reflux disease): Plan: On no long-term treatment at this time. on famotidine 20 mg p.o. twice daily (5) Leukocytosis: Plan: Leukocytosis presumed steroid-induced at this time pt requests florastor Admission and Anticipated Discharge Date Admission Date: April 16, 2021 Subjective Patient seen on daily rounds today. Overall significantly improved compared to how she presented. Was 85% on room air upon presentation but now 92% on room air. Reports that she is getting very dyspneic with with minimal exertion such as toileting/eating. Seen by her established centerless grinder operator this morning who repeated her chest x-ray. Seems concerning for developing Covid (patient does have underlying fibrosis). Repeat Covid test obtainedpending. Otherwise, bronchoscopy not necessary prior to discharge given clinical improvement. He is recommending a taper of prednisone Review of Systems Review of Systems: All systems reviewed and are unremarkable except as noted in HPI and below Denies fevers, chills, headache, nasal congestion, sore throat, cough, chest pain, shortness of breath, palpitations, orthopnea, PND, abdominal pain, nausea, vomiting, diarrhea, constipation, dysuria, hematuria, frequency, back pain, joint pain or swelling, easy bruising or bleeding, skin lesions or rashes. Physical Exam Physical Exam: General: Resting comfortably in her hospital bed. NAD. HEENT: Head is AT/NC buccal mucosa is moist and pink Neck: No JVD. Negative hepatojugular reflex Cardiac: RRR without M/G/R Lungs: Speaking full sentences on ambient air. Diminished breath sounds throughout without W/R/R Abdomen: Normoactive X4. Soft and nontender in all quadrants. Extremities: No peripheral clubbing cyanosis or edema Neuro: A&O X4 cranial nerves II through XII are grossly intact no focal neuro deficits Skin: No obvious skin lesions or rashes Psych: Appropriate affect pleasant and cooperative Results & Data Results & Data ([facility]) Vital Signs (Past 12 Hours) Vital Signs Temp Pulse Resp BP Pulse Ox 04/23/21 14:51 36.6 C 61 16 109/71 92 04/23/21 07:19 36.6 C 54 L 16 97/67 L 92 Laboratory Results 04/23/21 05:45 04/23/21 05:45 PG Care Time/CCT Total # of Minutes Spent Total Time Spent with Patient: Total time spent is greater than 50% in coordination of care (as documented) at patient's floor/unit and/or counseling patient: Coding Level of Care Code 44323 Subseq Hosp Care Lvl 2 Diagnoses Interstitial lung disease J84.9 Chronic kidney disease, stage 3 N18.3 GERD (gastroesophageal reflux disease) K21.9 Leukocytosis D72.829 Hypoxemia R09.02
[2021-04-23] MEDS ORDERED: Nursing to Pharmacy Communication SCH (20:30)
[2021-04-23] MEDS ORDERED: predniSONE 20 MG TAB PO SCH (21:00)
[2021-04-23] MEDS: ENOXAPARIN INJ 30 MG/0.3 ML SYR SQ SCH (21:50)
[2021-04-23] MEDS: ACETAMINOPHEN 325 MG TAB PO PRN (22:05)
[2021-04-23] MEDS: SULFAMETHOXAZOLE/TRIMETHOPRIM DS 800/160MG TAB PO SCH (22:48)
[2021-04-24] MEDS: FAMOTIDINE 20 MG TAB PO SCH ×3 (08:21→21:46)
[2021-04-24] MEDS: SACCHAROMYCES BOULARDII 250 MG CAP PO SCH (08:21)
[2021-04-24] MEDS: MULTIVITAMIN TAB PO SCH (08:22)
[2021-04-24] MEDS: TOCOPHERYL, DL-ALPHA 100 UNITS CAP PO SCH (08:22)
[2021-04-24] MEDS: CHOLECALCIFEROL 1,000 UNITS 25 MCG TAB PO SCH (08:22)
[2021-04-24] MEDS: CALCIUM CARBONATE 1250MG TAB PO SCH (08:22)
[2021-04-24] MEDS: guaiFENesin 600 MG TABCR PO SCH ×2 (08:23→21:46)
[2021-04-24] MEDS: BENZONATATE 100 MG CAPSULE PO SCH ×3 (08:23→21:44)
[2021-04-24] MEDS: MAGNESIUM CHLORIDE 64MG DELAYED REL TAB PO SCH (08:27)
[2021-04-24] MEDS: dexAMETHasone 6 MG in SYRINGE 0 ML IV SCH (08:34)
[2021-04-24] MEDS: HEPARIN 100 UNIT/ML 5ML FLUSH FLUSH PRN (09:45)
[2021-04-24 09:54] LABS: Est GFR (African American) 36.8 ml/min; Est GFR (Non-African American) 31.7 ml/min
--- NOTE | 2021-04-24 19:28 | Hospitalist Progress Note ---
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 Follows Dr. Cameron as an outpatient COVID-19 x2and influenza bio fire testing negative Completed a full course of IV antibiotic therapy (Zosyn and azithromycin) Limited response until IV steroids added and uptitrated. Was receiving 80 mg IV every 8 hours. Pulmonology has been on board. Appreciate recommendations Patient receiving pulmonary toilet, mucolytic agents, and antitussives She has shown favorable response. Current pulse oximetry is 92 to 94% on room air There was concern that she would require bronchoscopy prior to discharge; however, this is not necessary given her favorable response. Given Covid pandemic and limited resources, ability to do this is limited At this point, patient has been seen by her established information tech who felt that no need for bronchoscopy at this time given favorable response; however, chest x-ray was repeated that showed concern for developing Covid It was thought that the abnormality seen on x-ray was likely given her underl ewa fibrosis given her significant clinical response; however, for completeness sake a repeat Covid test was performed and surprisingly came back positivesee below (2) COVID: Plan: Patient with 2 - Covid tests upon admission Subsequent Covid test done on 04/23 given abnormality seen on chest x-ray. This did come back positive I suspect that this has been the underlying issue from the beginning; however, patient had a false negative test She was requiring supplemental oxygen upfront. At this point, outside of the window for remdesivir Was treated with Solu-Medrol but will convert to Decadron (for total of 10 days) with transition to long taper of prednisone given her underlying interstitial lung disease (as outlined by [id number] mg twice a day with down taper by 5 mg weekly until seen back in clinic) Patient is doing rather well considering her underlying lung condition/interstitial lung disease She is fully vaccinated including her booster She seems to be not requiring any supplemental oxygen at rest but does require supplemental oxygen with limited exertion such as toileting Will do a formal two-step pulse oximetry tomorrow with anticipation for discharge Patient was concerned regarding her lack of central heat and needing to light her stove with a harbor boat pilot light. Education will be provided by the [employer] regarding this. (3) Interstitial lung disease: Plan: places her at risk for Gram negative pneumonia--patient completed a full course of Zosyn and azithromycin. See above Plan is for long taper of prednisone as outlined by pulmonology Will need prophylactic Bactrim on Mondays, Wednesdays, and Fridays until pr ednisone dose is less than 20 mg a day Will need pulmonary function testing and follow-up chest x-ray as an outpatientfollow-up with pulmonology for this Pulmonary medicine sent off testing for fungus, still pending (4) Chronic kidney disease, stage 3: Plan: Creatinine 1.4 today (5) GERD (gastroesophageal reflux disease): Plan: On no long-term treatment at this time. on famotidine 20 mg p.o. twice daily (6) Leukocytosis: Plan: Leukocytosis presumed steroid-induced at this time pt requests florastor Plan: Plan for likely discharge tomorrow Admission and Anticipated Discharge Date Admission Date: April 16, 2021 Subjective Patient seen on daily rounds today. Subsequently, has tested positive for Covid despite 2 - Covid test done upon arrival. Fortunately, she is not requiring any supplemental oxygen at rest. She is desaturating with ambulation requiring 2 to 3 units Other than feeling fatigued and having exertional shortness of breath, she denies fevers, chills, chest pain, shortness of breath at rest, abdominal pain, nausea or vomiting. Patient did have concerns regarding need for oxygen at home and her not having central heat and having to light a harbor boat pilot for her heat daily. [employer] has ensured us that they can provide education regarding this Review of Systems Review of Systems: All systems reviewed and are unremarkable except as noted in HPI and below Denies fevers, chills, headache, nasal congestion, sore throat, cough, chest pain, shortness of breath at rest palpitations, orthopnea, PND, abdominal pain, nausea, vomiting, diarrhea, constipation, dysuria, hematuria, frequency, back pain, joint pain or swelling, easy bruising or bleeding, skin lesions or rashes. Physical Exam Physical Exam: General: Resting comfortably in her hospital bed. NAD. HEENT: Head is AT/NC buccal mucosa is moist and pink Neck: No JVD. Negative hepatojugular reflex Cardiac: RRR without M/G/R Lungs: Speaking full sentences on ambient air. Diminished breath sounds throughout without W/R/R Abdomen: Normoactive X4. Soft and nontender in all quadrants. Extremities: No peripheral clubbing cyanosis or edema Neuro: A&O X4 cranial nerves II through XII are grossly intact no focal neuro deficits Skin: No obvious skin lesions or rashes Psych: Appropriate affect pleasant and cooperative Results & Data Results & Data ([facility]) Vital Signs (Past 12 Hours) Vital Signs Temp Pulse Resp BP Pulse Ox 04/24/21 15:00 36.5 C 69 16 109/73 92 04/24/21 09:27 90 04/24/21 07:27 36.5 C 56 L 16 101/68 93 PG Care Time/CCT Total # of Minutes Spent Total Time Spent with Patient: Total time spent is greater than 50% in coordination of care (as documented) at patient's floor/unit and/or counseling patient: Coding Level of Care Code 88308 Subseq Hosp Care Lvl 2 Diagnoses Hypoxemia R09.02 Interstitial lung disease J84.9 Chronic kidney disease, stage 3 N18.3 GERD (gastroesophageal reflux disease) K21.9 Leukocytosis D72.829 COVID U07.1
[2021-04-24] MEDS: ENOXAPARIN INJ 30 MG/0.3 ML SYR SQ SCH (21:44)
[2021-04-25] MEDS: HEPARIN 100 UNIT/ML 5ML FLUSH FLUSH PRN ×2 (05:52→09:29)
[2021-04-25 06:43] LABS: Creatinine Clr Calc Pharmacy 36.2 ml/min; Est GFR (African American) 44.3 ml/min; Est GFR (Non-African American) 38.2 ml/min
[2021-04-25] MEDS ORDERED: FUROSEMIDE INJ 20 MG/2 ML VIAL IV ONE (09:01)
[2021-04-25] MEDS: TOCOPHERYL, DL-ALPHA 100 UNITS CAP PO SCH (09:11)
[2021-04-25] MEDS: CHOLECALCIFEROL 1,000 UNITS 25 MCG TAB PO SCH (09:11)
[2021-04-25] MEDS: guaiFENesin 600 MG TABCR PO SCH (09:11)
[2021-04-25] MEDS: SACCHAROMYCES BOULARDII 250 MG CAP PO SCH (09:11)
[2021-04-25] MEDS: dexAMETHasone 6 MG in SYRINGE 0 ML IV SCH (09:11)
[2021-04-25] MEDS: MAGNESIUM CHLORIDE 64MG DELAYED REL TAB PO SCH (09:12)
[2021-04-25] MEDS: MULTIVITAMIN TAB PO SCH (09:12)
[2021-04-25] MEDS: SULFAMETHOXAZOLE/TRIMETHOPRIM DS 800/160MG TAB PO SCH (09:13)
[2021-04-25] MEDS: FAMOTIDINE 20 MG TAB PO SCH (09:13)
[2021-04-25] MEDS: BENZONATATE 100 MG CAPSULE PO SCH ×2 (09:28→13:37)
--- NOTE | 2021-04-25 17:03 | Discharge Summary ---
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 She presents emergency department symptoms as noted above, in particular worsening over the past 2 to 3 days. Principal Diagnosis 1. Covid Pneumonia with Hypoxemia 2. Interstitial Lung Disease with flare Discharge Exam General: Resting comfortably in her hospital bed. NAD. HEENT: Head is AT/NC buccal mucosa is moist and pink Neck: No JVD. Negative hepatojugular reflex Cardiac: RRR without M/G/R Lungs: Speaking full sentences on ambient air. Diminished breath sounds throughout without W/R/R Abdomen: Normoactive X4. Soft and nontender in all quadrants. Extremities: No peripheral clubbing cyanosis or edema Neuro: A&O X4 cranial nerves II through XII are grossly intact no focal neuro deficits Skin: No obvious skin lesions or rashes Psych: Appropriate affect pleasant and cooperative Discharge Data Allergies Allergy/AdvReac Type Severity Reaction Status Date / Time adhesive Allergy Intermediate Skin Verified 04/16/21 14:54 reaction diazepam Allergy Intermediate Paradoxial Verified 04/16/21 14:54 reaction sorbitol Allergy Mild Gastrointestinal Verified 04/16/21 14:54 Upset Consultations 04/16/21 19:27 ED Decision to Admit Stat 04/17/21 18:13 Consult Pulmonology Routine Ordered Studies 04/16/21 14:46 CT chest diagnostic w con Stat IMPRESSION: 1. Multifocal airspace consolidation is typical for pneumonia. Clinical c orrelation will be required and radiographic follow-up to resolution is recommended. 2. Findings of underlying chronic interstitial lung disease are likely similar to previous. 3. Cardiomegaly. 4. No pleural effusion is identified. 5. Prominent mediastinal and hilar lymph nodes are likely reactive. Follow-up CXR done 04/23: IMPRESSION: COPD with interval development of patchy interstitial and alveolar opacities characteristic of a viral type pneumonitis and probable Covid 19 pneumonia. 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 Follows Dr. Cameron as an outpatient COVID-19 x2and influenza bio [facility] testing negative CT of the chest showed multifocal airspace consolidation typical for pneumonia Completed a full course of IV antibiotic therapy (Zosyn and azithromycin)-- with limited response Limited response until IV steroids added and uptitrated (was not overly bronchospastic but does have h/o pulmonary fibrosis and thought to be potentially in a flare). Was receiving 80 mg IV every 8 hours. Pulmonology has been on board. Appreciate recommendations treated with pulmonary toilet, mucolytic agents, and antitussives with steroids, did have adequate favorable response/improvement in symptoms. Was able to be down titrated on her supplemental oxygen and taken off to [facility] on 04/21 There was concern that she would require bronchoscopy prior to discharge (given her limited clinica response upfront); however, deemed not necessary given her favorable response with steroids. Given Covid pandemic and limited resources, ability to do this was limited At this point, patient has been seen by her established seam closer who felt that no need for bronchoscopy at this time given favorable response; however, chest x-ray was repeated (04/23) that showed concern for developing Covid It was thought that the abnormality seen on x-ray was likely given her underlying fibrosis given her significant clinical response; however, for completeness sake a repeat Covid test was performed and surprisingly came back positivesee below (2) COVID: Patient with 2 negative Covid tests upon admission Subsequent Covid test done on 04/23 given abnormality seen on chest x-ray. This did come back positive I suspect that this has been the underlying issue from the beginning; however, patient had a false negative test She was requiring supplemental oxygen upfront. At this point, outside of the window for remdesivir Was treated with Solu-Medrol but then converted to Decadron with transition to long taper of prednisone given her underlying interstitial lung disease (as outlined by [id number] mg twice a day with down taper by 5 mg weekly until seen back in clinic) Patient is doing rather well considering her underlying lung condition/interstitial lung disease She is fully vaccinated including her booster She seems to be not requiring any supplemental oxygen at rest but does require supplemental oxygen with limited exertion such as toileting Has been medically stable X days requiring no supplemental oxygen at rest Did have a formal two-step pulse oximetry done this morning. Pulse oximetry at rest has been between 90 and 94%. With ambulation she did drop down to 86% requiring 2 L to keep her above 90%. Patient was concerned regarding her lack of central heat and needing to light her stove with a rotor pilot light. Education will be provided by the [employer] regarding this (advised to stay 6 feet away from stove when lighting [employer]) Patient very reluctant to go home tonight as she reports her son will be transporting her and he had his Covid booster today and just "feels tired". Explained to patient at length there is no medical reason to keep her in the hospital. She has been stable for days. Okay for her son to lay down for a little bit but she is discharged. We are in a pandemic crisis and have no beds available for acute patients. She is and has been medically and HD stable for D/C to home. Can not keep her in the hospital because her son feels unwell from his covid booster. (3) Interstitial lung disease: places her at risk for Gram negative pneumonia--patient completed a full course of Zosyn and azithromycin. See above Plan is for long taper of prednisone as outlined by pulmonology Will need prophylactic Bactrim on Mondays, Wednesdays, and Fridays until prednisone dose is less than 20 mg a day Will need pulmonary function testing and follow-up chest x-ray as an outpatientfollow-up with pulmonology for this Pulmonary medicine sent off testing for fungus, still pending (4) Chronic kidney disease, stage 3: Creatinine 1.3 today (5) GERD (gastroesophageal reflux disease): On no long-term treatment at this time. on famotidine 20 mg p.o. twice daily (6) Leukocytosis: Leukocytosis presumed steroid-induced at this time pt requests florastor Plan for likely discharge tomorrow Total Time Total Time Spent Total Time Spent (In Minutes): 45 Discharge Plan Discharge Items Patient Disposition: Home - Self-Care Reason For Visit: PNEUMONIA Discharge Diagnosis: 1. Covid- 19 with associated Pneumonia Activity: As commented below Activity Comment: as tolerated- use oxygen with ambulation Non-emergency contact: Primary Care Provider and Industrial Gas Fitter Helper Call non-emergency contact if: you have any medication questions Follow-up/Referrals: Brooklyn Khan MD [Primary Care Provider] - 04/27/21 11:30 am (TELEHEALTH VISIT WITH LUIS FELIPE ) Papa Cameron MD [Physician] - 05/07/21 10:15 am Diet: Regular Addtl Attending Provider Instructions: - you were hospitalized with shortness of breath. Initially was thought that you may have had pneumonia (bacterial); however, with lack of response to antibiotics, this was unlikely. - you initially has 3 negative covid tests - You were started on steroids given your underlying history of pulmonary fibrosis (as it was thought that this was potentially a flare) and this did help with your symptoms - you showed favorable response - a follow up chest x-ray was performed that showed findings consistent with covid - a repeat covid test was done and subsequently came back positive - I suspect that the ones done initially were false negative tests - You did not meet criteria for treatment with Remdesivir but were treated with continued steroids - Dr. Cameron (your established seam closer) is recommending a slow tapering of prednisone (20mg twice a day-40mg total, and to decrease by a 5mg/weekly until you are seen in follow up in the clinic) --you were prescribed a 10mg tablet. Will need to break it is half to make desired dose --start with 2 tabs twice a day x1 week (20mg twice a day) --then 2 tabs (20mg) in the am and 1.5 (15mg) in the evening x1 week --then 1.5 tab (15mg) twice a day x 1 week --then 1.5 tab (15mg) in the am and 1 tab (10mg) in the evening x 1 week --then 1 tab (10mg) twice a day x 1 week --then 1 tab (10mg) in the am and 1/2 (5mg) tab in the evening x1 week --then 1/2 tab (5mg) twice a day x1 week --then 1/2 tab (5mg) daily x 1 week --then 1/2 tab (5mg) every other day x 1 week - Take Bactrim on Mondays, Wednesdays and Fridays until your prednisone dose is below 20mg/day--> to help prevent Pneumocystis Pneumonia - follow up with Dr. Cameron (call his office tomorrow to make a follow up appt) - use supplemental Oxygen to maintain a pulse ox of >/=88% (you do not seen to need O2 at rest but you do require it with ambulation) - keep your oxygen 6 feet away from your rotor pilot stove as O2 is combustible - when you follow up with Pulmonology, they can help determine continued need for supplemental O2 - will need a follow up CXR (at discretion of pulmonology) - return to the ED for new or worsening symptoms Pending Studies at Discharge: No Stand-Alone Forms: My [facility] Medications and DC Order Prescriptions: New sulfamethoxazole-trimethoprim [Bactrim DS] 800-160 mg Tablet 1 tab PO MoWeFr@0900 Qty: 30 RF: 0 prednisone 10 mg tablet 10 mg PO DIRECTED Qty: 120 RF: 2 Continued Anoro Ellipta 62.5-25 mcg/actuation blister with device 1 inh inhalation DAILY Qty: 60 RF: 2 multivitamin [Daily Multi-Vitamin] Tablet 1 tab PO QAM RF: 0 coenzyme Q10 100 mg capsule 200 mg PO QAM RF: 0 turmeric 400 mg capsule 1,000 mg PO QAM RF: 0 cholecalciferol (vitamin D3) 25 mcg (1,000 unit) capsule 25 mcg PO QAM RF: 0 vitamin E 200 unit capsule 400 unit PO DAILY RF: 0 ascorbate calcium (vitamin C) 500 mg tablet 500 mg PO QAM RF: 0 calcium carbonate 500 mg calcium (1,250 mg) tablet,chewable 500 mg PO QAM RF: 0 Slow-Mag 71.5 mg tablet,delayed release (DR/EC) 71.5 mg PO QAM RF: 0 pseudoephedrine-guaifenesin [Mucinex D Maximum Strength] 120-1,200 mg Tablet Extended Release 12 Hr 1 tab PO Q12H PRN (Reason: Congestion) RF: 0 Discontinued estradiol [Climara] 0.075 mg/24 hr patch weekly 1 patch Transdermal WK Qty: 12 RF: 3 ciprofloxacin HCl 500 mg tablet 500 mg PO BID RF: 0 No Action furosemide 20 mg tablet 20 mg PO DAILY PRN (Reason: edema) Qty: 30 RF: 2 Discharge Orders: Discharge Order (Routine); Ordered 04/25/21 Ordered By: Nicole Flores/Other Patient Handouts: COVID-19 Home Care Admission Data Admit Date/Time: 04/16/21 19:21 Attending Provider: Noel Sharma Admit Provider: Irvin Tirado Primary Care Provider: Brooklyn Khan. Other Providers: Irvin Tirado ; Terrance Nuno Other Interventions: Discharge Summary Assessment (RN) Last Done: 04/25/21 16:28 Supervising Physician Co-Signing Physician Notes Patient seen and examined on the day of discharge. I agree with the discharge summary by Nicole GAITAN. I have reviewed the chart including labs, imaging and plans for discharge. patient feeling well on room air, she needs 2L on exertion, home oxygen arranged she is eating well, no GI symptoms discussed plan with Dr. Cameron, long steroid taper, Bactrim, follow up with pulmonology - Pneumonitis: thought to be secondary to chemotherapy, long steroid taper, stable on room air at rest, needs oxygen on exertion - COVID 19: initially tested negative, now positive, no need for oxygen at rest continue steroid therapy, monitor for any worsening of her breathing Coding Level of Care Code D/C DAY MANAGEMENT >30 MINS Diagnoses Hypoxemia R09.02 COVID U07.1 Interstitial lung disease J84.9 Chronic kidney disease, stage 3 N18.3 GERD (gastroesophageal reflux disease) K21.9 Leukocytosis D72.829
== END 2021-04-25 18:47 | disposition home or self-care (01) | DRG 177 ==
LOC: ED 13:32 → SUATTDRO 19:21 → 2W 19:21 → 3E 04-20 13:39

== ENCOUNTER 2021-07-04 14:23 | Observation (INO) ==
[2021-07-04 16:00] LABS: Basophils # (auto) 0.03 K/uL (0-0.2); Basophils % (auto) 0.3 %; Eosinophils # (auto) 0.12 K/uL (0-0.5); Hematocrit (blood only) 36.9 % (37-47); Hemoglobin 12.4 g/dL (12.0-16.0); Immature Granulocytes # (auto) 0.06 K/uL (0.00-0.02); Immature Granulocytes % (auto) 0.5 %; Lymphocytes % (auto) 20.7 %; Mean Corpuscular Hemoglobin 33.2 pg (25-34); Mean Corpuscular Hgb Conc 33.6 g/dL (32-36); Mean Corpuscular Volume 98.9 fL (80-100); Mean Platelet Volume 9.5 fL (7.4-10.4); Monocytes # (auto) 1.06 K/uL (0.11-0.59); Monocytes % (auto) 9.1 %; Neutrophils # (auto) 7.94 K/uL (1.4-6.5); Neutrophils % (auto) 68.4 %; Platelet Count 366 K/uL (130-400); RDW Coefficient of Variation 14.6 % (11.5-14.5); RDW Standard Deviation 53.1 fL (36.4-46.3); Red Blood Count 3.73 M/uL (4.2-5.4); White Blood Count 11.61 K/uL (4.8-10.8)
[2021-07-04 16:12] LABS: Partial Thromboplastin Ratio 1.3; Partial Thromboplastin Time 34.5 Seconds (21.0-31.0); Prothrombin Time 9.8 Seconds (9.0-12.0)
[2021-07-04 16:23] LABS: Troponin I < 0.03 ng/ml (0-0.04)
[2021-07-04 16:25] LABS: Alanine Aminotransferase 14 U/L (7-52); Albumin Globulin Ratio 1.1 (0.9-2); Albumin Level 3.4 gm/dl (3.4-5.0); Alkaline Phosphatase 61 U/L (34-104); Anion Gap 8 (3-11); Aspartate Aminotransferase 21 U/L (13-39); BUN Creatinine Ratio 23.8 (10-20); Bilirubin,Total 0.2 mg/dl (0.2-1.0); Blood Urea Nitrogen 29 mg/dl (6-23); Calcium 8.8 mg/dl (8.5-10.1); Carbon Dioxide 26 mmol/L (21-32); Chloride 103 mmol/L (98-107); Est GFR (African American) 49.1 ml/min; Est GFR (Non-African American) 42.4 ml/min; Globulin 3.2 gm/dl (2.5-4.0); Glucose 95 mg/dl (70-99(Fasting)); Potassium 4.2 mmol/L (3.5-5.1); Sodium 137 mmol/L (136-145); Total Protein 6.6 gm/dl (6.0-8.3)
--- NOTE | 2021-07-04 16:59 | XRay Report ---
XR chest 1V portable CLINICAL HISTORY: SOB. COMPARISON STUDY: 05/08/2021 TECHNIQUE: 1 view of the chest FINDINGS: Single frontal view of the chest demonstrates the cardiomediastinal silhouette to be within normal li mits. Compared to the previous examination, there has been significant interval worsening of diffuse interstitial and alveolar opacities bilaterally. The findings are most characteristic of worsening vi ral type pneumonitis and probable Covid pneumonia. Port-A-Cath is again seen. There is no evidence fo r pleural effusion. There is no evidence for vascular congestion. There is no acute osseous pathology . IMPRESSION: 1. Significant interval worsening of diffuse interstitial and alveolar opacities bilaterally most sherman racteristic of viral type pneumonitis and worsening Covid pneumonia. ACT 112: Negative or not required by law. Electronically signed by: Pernell Daly M.D. 07/04/2021 4:57 PM
--- NOTE | 2021-07-04 17:43 | Emergency Department Note ---
Impression & Plan ILD (interstitial lung disease), ORTEGA (dyspnea on exertion), Hypoxia ED Provider Note NAME: LOGAN BILLINGSLEY AGE: 76 SEX: F : 1945 ARRIVES VIA: Walk-In INFORMANT: Patient, ED PROVIDER(S): Fredis Biswas MD Chief Complaint: Shortness of breath HPI: Patient presents due to concern for shortness of breath and dyspnea on exertion. The patient was concerned as at home she has had increasing functional dyspnea even though that she has been on 2 L. Patient was most recently seen in the outpatient setting by pulmonology Dr. Cameron. The patient does have a history of unclear etiology interstitial lung disease. The patient has had worsening dyspnea and hypoxemia with a new oxygen requirement at her most recent visit June 18. The patient has had mild productive cough with clear viscous sputum. Patient does not have a history of smoking. The patient is vaccinated for COVID. The patient denies any leg swelling history of DVT or PE. The patient denies any recent travel or known sick contacts. Patient denies any recent surgeries procedures or hospitalizations. Patient is currently on a steroid taper. Patient has been taking her medications but does not believe that she is improving. The patient was also concerned as at night she would wake up and noted that her pulse ox was in the 60s. The patient does not know if she has a history of sleep apnea or not but does not use a CPAP. ROS: See HPI for pertinent positives and negatives. A total of 10 systems were reviewed and otherwise negative. Past medical history: See below Surgical history: See below Social history: See below Physical Exam: GENERAL: Mild tachypnea noted, wearing glasses and a mask, nasal cannula in place. EYE EXAM: Normal conjunctiva. PERRL, no anisocoria and EOM's grossly intact w/o pain. NECK: Supple, no nuchal rigidity, no adenopathy, non-tender. No signs of meningismus. Not stridulous LUNGS: Diffuse coarse sounds throughout with associated crackles. Normal chest wall mechanics. HEART: NSR, no MRG. ABDOMEN: Abdomen soft, non-tender, normo-active bowel sounds, no masses, no rebound or guarding. BACK: No CVA TTP. SKIN: No rashes and no bruising. UPPER EXTREMITIES: Upper extremities are grossly normal. LOWER EXTREMITIES: Grossly normal, no edema. Negative Homans' sign bilaterally. NEURO EXAM: A&O x3, cranial nerves II-XII grossly intact, normal speech, moves all 4 extremities on command w/o issue. Differential diagnoses: Reactive airway disease, pneumonia, pneumothorax, COPD, CHF, infections, cardiac ischemia, pulmonary embolism, musculoskeletal, gastrointestinal, as well as other pathologies. Course: Patient was seen and evaluated the bedside. Full history physical exam was performed. EKG interpreted by me Normal sinus rhythm, to 69, normal intervals, normal axis, T wave inversion in lead III. T wave inversion in V3. No obvious ST changes. No significant change from comparison EKG April 16, 2021 Imaging Studies: See Below Cardiac monitoring: An order was placed for continuous cardiac monitoring. The monitor shows a rate of 75 with sinus rhythm. MDM: Patient was seen due to concern for shortness of breath. The patient does have some coarse breath sounds and the patient has reported to be hypoxic at home. Patient was ordered steroids, IV fluids as well as DuoNeb treatment. Covid test also obtained. The patient is up to 3 L in the room as the patient did have some mild tachypnea but the patient is able to complete sentences. Blood work was obtained and showed a white count of 11 with a hemoglobin of 12. The patient's platelet count is unremarkable. Kidney function 1.22. The patient's troponin is negative. EKG with no ischemic changes from comparison. Chest x- ray does show worsening diffuse interstitial and alveolar opacities which may be consistent with a viral type pneumonitis so the patient is Covid negative and has a history of interstitial lung disease. Patient was ordered additional treatments and I did speak with the on-call hospitalist Dr. Mai and the patient was admitted to the medicine service. Past Med/Surg History Medical History Chronic kidney disease, stage 3 single kidney Diverticular disease GERD (gastroesophageal reflux disease) History of scarlet fever 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 History of uterine cancer Hyperlipidemia declines statins Impaired fasting glucose Microscopic colitis Microscopic hematuria Osteoarthritis Temporomandibular joint disorder Ureteral stricture, right Vertigo Surgical History History of anesthesia reaction DYSPNEA IN PACU WITH KRISHNA (2017); NO NOTED ISSUES WITH SUBSEQUENT ANESTHESIA/SURGERIES History of bilateral tubal ligation History of breast biopsy History of cholecystectomy History of colonoscopy History of esophagogastroduodenoscopy (EGD) History of nephrectomy, right S/P laparoscopic hand assisted right nephroureterectomy, retroperitoneal dissection: 07/16/18: Grade view 1, MAC#3, ETT 7.0 at [facility] History of total abdominal hysterectomy and bilateral salpingo-oophorectomy History of vascular access device Aport left chest wall 09/2018 Hx of cystoscopy WITH BIOPSY + STENT; SUBSEQUENT STENT REMOVAL Family History Father Family history of diabetes mellitus Asthma Congestive heart failure (CHF) Grandfather (Paternal) No problems noted. 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/Laundry Supervisor Required: No Beliefs That Will Affect Care: None marital status: Current Living Situation: Alone current occupational status: retired 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 How many Children do You have: 3 Feels Safe at Home: Yes Childhood Exposure to Second-Hand Smoke: Yes Diet Comment: does eat some fish Dental Care, Regularly: Yes Physical Activity Frequency: Daily Seatbelt Use: always Sunscreen Use: Yes Assistive Devices: None Allergies Allergies Allergy/AdvReac Type Severity Reaction Status Date / Time adhesive Allergy Intermediate Skin Verified 07/04/21 18:33 reaction diazepam Allergy Intermediate Paradoxial Verified 07/04/21 18:33 reaction sorbitol Allergy Mild Gastrointestinal Verified 07/04/21 18:33 Upset Home Meds Home Medications Medication Instructions Recorded Confirmed multivitamin (Daily Multi-Vitamin) 1 tab PO QAM 06/10/19 07/04/21 coenzyme Q10 100 mg capsule 200 mg PO QAM cap 09/01/20 07/04/21 ascorbate calcium (vitamin C) 500 500 mg PO QAM 09/26/20 07/04/21 mg tablet cholecalciferol (vitamin D3) 25 25 mcg PO QAM 09/26/20 07/04/21 mcg (1,000 unit) capsule turmeric 400 mg capsule 1,000 mg PO QAM cap 09/26/20 07/04/21 vitamin E 200 unit capsule 400 unit PO DAILY cap 09/26/20 07/04/21 calcium carbonate 500 mg calcium 500 mg PO QAM 04/16/21 07/04/21 (1,250 mg) chewable tablet magnesium chloride 71.5 mg 71.5 mg PO 3XWK 04/16/21 07/04/21 (magnesium chloride) tablet,delayed release (Slow-Mag) pseudoephedrine-guaifenesin ER 120 1 tab PO Q12H PRN 04/16/21 07/04/21 mg-1,200 mg tab,extend release 12hr (Mucinex D Maximum Strength) furosemide 20 mg tablet 20 mg PO DAILY PRN 07/04/21 07/04/21 omega 7-pfb-iag-fish oil 1,000 mg 1 cap PO DAILY 07/04/21 07/04/21 (120 mg-180 mg) capsule sodium chloride 0.65 % nasal spray 2 spray INTRANASAL QID PRN 07/04/21 07/04/21 aerosol Previous Rx's Medication Instructions Recorded sulfamethoxazole 800 1 tab PO MoWeFr@0900 #30 tab 04/25/21 mg-trimethoprim 160 mg tablet (Bactrim DS) Climara 0.075 mg/24 hr transdermal 1 patch TRANSDERMAL WK #12 ea NS 06/08/21 patch (estradiol) Oxygen Home #1 ea 06/18/21 prednisone 2.5 mg tablet 2.5 mg PO Q OTHER DAY #15 tab 06/18/21 Oxygen Home #1 ea 06/28/21 Results & Data (ED) Vital Signs Vital Signs - 24 hr 07/04/21 14:24 07/04/21 14:34 07/04/21 15:55 Temperature 36.5 C Temperature Source Temporal Artery Scan Pulse Rate 75 Pulse Rate [Finger] 652 H Pulse Rate from SpO2 Sensor Pulse Rhythm Regular Pulse Strength Normal Respiratory Rate 22 Respiratory Effort / Characteristics Non-Labored Spontaneous Respiratory Depth Normal Respiratory Pattern Regular Blood Pressure 105/70 Blood Pressure [Right Arm] Blood Pressure Mean 81 Blood Pressure Mean [Right Arm] Blood Pressure Position Sitting Blood Pressure Position [Right Arm] Pulse Oximetry 90 97 97 Oxygen Delivery Method Nasal Cannula Nasal Cannula Nasal Cannula Oxygen Flow Rate 2 2 2 Sepsis Recent Fever Within 48 Hours No Sepsis New/Unexplained Change in Mental Status No Sepsis Action Taken by Nursing No Action Required Oxygen Flow Rate - Titration 3 Pulse Oximetry Post Tiitration 95 07/04/21 18:16 07/04/21 18:20 07/04/21 18:30 Temperature Temperature Source Pulse Rate 69 70 72 Pulse Rate [Finger] Pulse Rate from SpO2 Sensor 69 71 Pulse Rhythm Pulse Strength Respiratory Rate 16 21 22 Respiratory Effort / Characteristics Respiratory Depth Respiratory Pattern Blood Pressure Blood Pressure [Right Arm] Blood Pressure Mean Blood Pressure Mean [Right Arm] Blood Pressure Position Blood Pressure Position [Right Arm] Pulse Oximetry 100 100 Oxygen Delivery Method Oxygen Flow Rate Sepsis Recent Fever Within 48 Hours Sepsis New/Unexplained Change in Mental Status Sepsis Action Taken by Nursing Oxygen Flow Rate - Titration Pulse Oximetry Post Tiitration 07/04/21 18:31 07/04/21 18:40 07/04/21 19:31 Temperature Temperature Source Pulse Rate 79 73 Pulse Rate [Finger] 75 Pulse Rate from SpO2 Sensor Pulse Rhythm Pulse Strength Respiratory Rate 21 23 16 Respiratory Effort / Characteristics Respiratory Depth Respiratory Pattern Blood Pressure 126/68 Blood Pressure [Right Arm] 137/74 Blood Pressure Mean 87 Blood Pressure Mean [Right Arm] 95 Blood Pressure Position Blood Pressure Position [Right Arm] Sitting Pulse Oximetry 99 Oxygen Delivery Method Nasal Cannula Oxygen Flow Rate 3 Sepsis Recent Fever Within 48 Hours Sepsis New/Unexplained Change in Mental Status Sepsis Action Taken by Nursing Oxygen Flow Rate - Titration Pulse Oximetry Post Tiitration 07/04/21 20:31 07/04/21 21:30 Temperature Temperature Source Pulse Rate Pulse Rate [Finger] 72 Pulse Rate from SpO2 Sensor Pulse Rhythm Pulse Strength Respiratory Rate 18 Respiratory Effort / Characteristics Respiratory Depth Respiratory Pattern Blood Pressure Blood Pressure [Right Arm] 113/78 Blood Pressure Mean Blood Pressure Mean [Right Arm] 89 Blood Pressure Position Blood Pressure Position [Right Arm] Pulse Oximetry 99 96 Oxygen Delivery Method Nasal Cannula Nasal Cannula Oxygen Flow Rate 3 3 Sepsis Recent Fever Within 48 Hours Sepsis New/Unexplained Change in Mental Status Sepsis Action Taken by Nursing Oxygen Flow Rate - Titration Pulse Oximetry Post Tiitration Home Medications Current Medication List: was personally reviewed by me Laboratory Data Attestation: I reviewed the patient's lab results. Result diagrams: 07/04/21 15:45 07/04/21 15:45 Lab Results 07/04/21 07/04/21 07/04/21 Range/Units 15:45 15:45 15:45 WBC 11.61 H (4.8-10.8) K/uL RBC 3.73 L (4.2-5.4) M/uL Hgb 12.4 (12.0-16.0) g/dL Hct 36.9 L (37-47) % MCV 98.9 (80-100) fL MCH 33.2 (25-34) pg MCHC 33.6 (32-36) g/dL RDW Std Deviation 53.1 H (36.4-46.3) fL RDW Coeff of Marlene 14.6 H (11.5-14.5) % Plt Count 366 (130-400) K/uL MPV 9.5 (7.4-10.4) fL Immature Gran % (Auto) 0.5 % Neut % (Auto) 68.4 % Lymph % (Auto) 20.7 % [place] % (Auto) 9.1 % Eos % (Auto) 1.0 % Baso % (Auto) 0.3 % Neut # (Auto) 7.94 H (1.4-6.5) K/uL Lymph # (Auto) 2.40 (1.2-3.4) K/uL [place] # (Auto) 1.06 H (0.11-0.59) K/uL Eos # (Auto) 0.12 (0-0.5) K/uL Baso # (Auto) 0.03 (0-0.2) K/uL Immature Gran # (Auto) 0.06 H (0.00-0.02) K/uL PT 9.8 (9.0-12.0) Seconds INR 1.0 (0.9-1.1) APTT 34.5 H (21.0-31.0) Seconds PTT Ratio 1.3 Sodium 137 (136-145) mmol/L Potassium 4.2 (3.5-5.1) mmol/L Chloride 103 (98-107) mmol/L Carbon Dioxide 26 (21-32) mmol/L Anion Gap 8 (3-11) BUN 29 H (6-23) mg/dl Creatinine 1.22 H (0.6-1.2) mg/dl Est Cr Clr Drug Dosing Not Reportable Est GFR ( Amer) 49.1 ml/min Est GFR (Non-Af Amer) 42.4 ml/min BUN/Creatinine Ratio 23.8 H (10-20) Glucose 95 (70-99(Fasting)) mg/dl Calcium 8.8 (8.5-10.1) mg/dl Magnesium 2.0 (1.7-2.4) mg/dl Total Bilirubin 0.2 (0.2-1.0) mg/dl AST 21 (13-39) U/L ALT 14 (7-52) U/L Alkaline Phosphatase 61 (34-104) U/L Troponin I < 0.03 (0-0.04) ng/ml Total Protein 6.6 (6.0-8.3) gm/dl Albumin 3.4 (3.4-5.0) gm/dl Globulin 3.2 (2.5-4.0) gm/dl Albumin/Globulin Ratio 1.1 (0.9-2) SARS-CoV-2, RNA, NAAT (NEGATIVE) 07/04/21 Range/Units 18:09 WBC (4.8-10.8) K/uL RBC (4.2-5.4) M/uL Hgb (12.0-16.0) g/dL Hct (37-47) % MCV (80-100) fL MCH (25-34) pg MCHC (32-36) g/dL RDW Std Deviation (36.4-46.3) fL RDW Coeff of Marlene (11.5-14.5) % Plt Count (130-400) K/uL MPV (7.4-10.4) fL Immature Gran % (Auto) % Neut % (Auto) % Lymph % (Auto) % [place] % (Auto) % Eos % (Auto) % Baso % (Auto) % Neut # (Auto) (1.4-6.5) K/uL Lymph # (Auto) (1.2-3.4) K/uL [place] # (Auto) (0.11-0.59) K/uL Eos # (Auto) (0-0.5) K/uL Baso # (Auto) (0-0.2) K/uL Immature Gran # (Auto) (0.00-0.02) K/uL PT (9.0-12.0) Seconds INR (0.9-1.1) APTT (21.0-31.0) Seconds PTT Ratio Sodium (136-145) mmol/L Potassium (3.5-5.1) mmol/L Chloride (98-107) mmol/L Carbon Dioxide (21-32) mmol/L Anion Gap (3-11) BUN (6-23) mg/dl Creatinine (0.6-1.2) mg/dl Est Cr Clr Drug Dosing Est GFR ( Amer) ml/min Est GFR (Non-Af Amer) ml/min BUN/Creatinine Ratio (10-20) Glucose (70-99(Fasting)) mg/dl Calcium (8.5-10.1) mg/dl Magnesium (1.7-2.4) mg/dl Total Bilirubin (0.2-1.0) mg/dl AST (13-39) U/L ALT (7-52) U/L Alkaline Phosphatase (34-104) U/L Troponin I (0-0.04) ng/ml Total Protein (6.0-8.3) gm/dl Albumin (3.4-5.0) gm/dl Globulin (2.5-4.0) gm/dl Albumin/Globulin Ratio (0.9-2) SARS-CoV-2, RNA, NAAT NEGATIVE (NEGATIVE) Administered Medications Discontinued Medications Albuterol (Albut/Ipratrop 3mg/0.5mg Neb 3 Ml Vial) 3 ml NEB NOW STA; Protocol Stop: 07/04/21 18:02 Last Admin: 07/04/21 18:18 Dose: 3 ml Documented by: [id number] Sodium Chloride (Nss 1000ml) 500 mls @ 999 mls/hr IV .Q31M ONE Stop: 07/04/21 18:33 Last Infusion: 07/04/21 18:49 Dose: 0 mls/hr Documented by: [id number] Admin: 07/04/21 18:18 Dose: 999 mls/hr Documented by: [id number] Methylprednisolone (Methylprednisolone 40 Mg/Ml Vial) 40 mg IV NOW STA Stop: 07/04/21 18:02 Last Admin: 07/04/21 18:18 Dose: 40 mg Documented by: [id number] Imaging Data Radiologist's Impression: Chest X-Ray 07/04/21 14:38 XR chest 1V portable CLINICAL HISTORY: SOB. COMPARISON STUDY: 05/08/2021 TECHNIQUE: 1 view of the chest FINDINGS: Single frontal view of the chest demonstrates the cardiomediastinal silhouette to be within normal limits. Compared to the previous examination, there has been significant interval worsening of diffuse interstitial and alveolar opacities bilaterally. The findings are most characteristic of worsening viral type pneumonitis and probable Covid pneumonia. Port-A-Cath is again seen. There is no evidence for pleural effusion. There is no evidence for vascular congestion. There is no acute osseous pathology. IMPRESSION: 1. Significant interval worsening of diffuse interstitial and alveolar opacities bilaterally most characteristic of viral type pneumonitis and worsening Covid pneumonia. ACT 112: Negative or not required by law. Electronically signed by: Pernell Daly M.D. 07/04/2021 4:57 PM Discharge Plan Visit Data Chief Complaint: Shortness of Breath/Dyspnea Stated Complaint: SEVERE SOB ED Provider: Fredis Biswas Discharge Problem: ILD (interstitial lung disease), ORTEGA (dyspnea on exertion), Hypoxia Patient Disposition: Admitted As Inpatient Forms Stand Alone Forms: [facility] Prescriptions Prescriptions: No Action estradiol [Climara] 0.075 mg/24 hr patch weekly 1 patch Transdermal WK Qty: 12 RF: 3 (DME) Oxygen Home Liters Per Minute See Rx Instructions .Route Qty: 1 RF: 0 multivitamin [Daily Multi-Vitamin] Tablet 1 tab PO QAM RF: 0 prednisone 2.5 mg tablet 2.5 mg PO Q OTHER DAY Qty: 15 RF: 0 (DME) Oxygen Home Liters Per Minute See Rx Instructions .MEDSUPPLY Qty: 1 RF: 0 coenzyme Q10 100 mg capsule 200 mg PO QAM RF: 0 turmeric 400 mg capsule 1,000 mg PO QAM RF: 0 cholecalciferol (vitamin D3) 25 mcg (1,000 unit) capsule 25 mcg PO QAM RF: 0 vitamin E 200 unit capsule 400 unit PO DAILY RF: 0 ascorbate calcium (vitamin C) 500 mg tablet 500 mg PO QAM RF: 0 furosemide 20 mg tablet 20 mg PO DAILY PRN (Reason: Edema) RF: 0 omega 8-fpp-qzm-fish oil 1,000 mg (120 mg-180 mg) Capsule 1 cap PO DAILY RF: 0 [place] Nasal Mist 0.65 % Aerosol,[place] 2 spray INTRANASAL QID PRN (Reason: nasal dryness) RF: 0 calcium carbonate 500 mg calcium (1,250 mg) tablet,chewable 500 mg PO QAM RF: 0 Slow-Mag 71.5 mg tablet,delayed release (DR/EC) 71.5 mg PO 3XWK RF: 0 pseudoephedrine-guaifenesin [Mucinex D Maximum Strength] 120-1,200 mg Tablet Extended Release 12 Hr 1 tab PO Q12H PRN (Reason: Congestion) RF: 0 sulfamethoxazole-trimethoprim [Bactrim DS] 800-160 mg Tablet 1 tab PO MoWeFr@0900 Qty: 30 RF: 0 Referrals Referrals: Brooklyn Khan MD [Primary Care Provider] -
[2021-07-04] MEDS ORDERED: ALBUT/IPRATROP 3MG/0.5MG NEB 3 ML VIAL NEB STA (18:01)
[2021-07-04] MEDS ORDERED: SODIUM CHLORIDE 0.9% 1000ML 500 ML IV ONE (18:03)
--- NOTE | 2021-07-04 18:51 | History & Physical Report ---
Date of Service July 04, 2021 Assessment & Plan (1) Acute respiratory failure with hypoxia: Plan: Acute on chronic hypoxic respiratory failure,? 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 Covid on admission is negative but with worsening opacities on CXR as noted below Increased risk of gram-negative pneumonia. Is on Bactrim prophylaxis prior to admission Friday/Friday/Friday up until 2-3 weeks ago (stopped week 6 of her taper) Last PFTs 01/2021: FVC 1.91, 68% predicted. FEV1 1.44, 69% predicted, FEV1/FVC 75, 101% predicted. Restrictive with decreased DLCO and no response to bronchodilators, no change compared to 04/2020 Trace leukocytosis in the setting of steroid use Hemoglobin 12.4 Troponin negative. CXR: Significant interval worsening of diffuse interstitial and alveolar opacities consistent with viral pneumonitis/Covid EKG: Normal sinus rhythm, no territorial ST changes. No T wave inversions in lead III, no tachycardia to suggest underlying PE - Has been prescribed lasix for leg edema, uses lasix PO rarely per Dr. Hardy. No swelling in week or so in her legs. Has not needed lasix. Patient received methylprednisolone 40 mg IV in ER - Procal pending, low susp for superimposed PNA but pt at risk for PJP Pulmonary consulted (2) Chronic kidney disease, stage 3: Plan: CKD 3 Creatinine 1.22 on admission, at baseline Last nephrology visit 05/22/2021. No notable anemia, baseline creatinine 1.41.7 Was encouraged to use her Lasix as needed for fluid retention in the setting of prednisone taper Legs at baseline, has not use Lasix as noted above (3) GERD (gastroesophageal reflux disease): Plan: GERD Continue Pepcid 20 mg p.o. twice daily Defer PPI at this time (4) Microscopic colitis: Plan: Hx of Microscopic Colitis, lymphocytic and collaginous - Previously on budesonide, now diet managed per pt - Triggered by gemcitabane and cisplated - no recent flare DVT prophylaxis: heparin due to kidney disease, SCDs Diet: Regular Disposition: Medical/surgical CODE STATUS: Full code History of Present Illness Primary Care Provider: Brooklyn Khan MD Yuly is a 76-year-old female with a past medical history of GERD, urothelial carcinoma of the kidney, CKD 3, interstitial lung disease with past biopsy showing UIP who presents with acute on chronic worsening of her shortness of breath and dyspnea on exertion for 2 to 3 days. Has been undergoing an outpatient prednisone taper. Yuly reports she has felt very weak, much more weak in the last 7 days and worsened in the last 2-3 days. Has a pulse ox at home and notes her O2 levels have been 'dropping much further'. Even with a 25 foot oxygen cord to help her to the bathroom her levels started dropping to the low Last night woke up suddenly with dizziness and shortness of breath and found her oxygen in the 60-70s at night. Has not needed/used CPAP at home in the past. Endorses sinus congestion for a few days, saw Dr. Rodriguez office who recommended flonase which does clear her sinuses in conjunction with saline. No chest pain, no chest pressure No fevers, no chills, sweats but is a little cold in the room. has felt intermittently chilly in the past 'like a fever' but not today/yesterday Primary concern is the weakness and low oxygen levels Physical therapist noticed that she was improved, plateaud, and has been worse in the last few days Takes prednisone on her 9th week of a taper. Is down to 2.5mg every other day, was previously on 5mg every day Medical History: Reviewed Medications: Reviewed Surgical History: Reviewed Allergies: Reviewed Social History: No tobacco, etoh, or reacreational drug use. Code Status:Surrogate decision maker would be her Medical POA Elena Kaplan. Does not want her children to make decisions for her. DNI/DNR Allergies Allergy/AdvReac Type Severity Reaction Status Date / Time adhesive Allergy Intermediate Skin Verified 07/04/21 18:33 reaction diazepam Allergy Intermediate Paradoxial Verified 07/04/21 18:33 reaction sorbitol Allergy Mild Gastrointestinal Verified 07/04/21 18:33 Upset Home Medications Medication Instructions Recorded Confirmed Type multivitamin (Daily Multi-Vitamin) 1 tab PO QAM 06/10/19 07/04/21 History coenzyme Q10 100 mg capsule 200 mg PO QAM cap 09/01/20 07/04/21 History ascorbate calcium (vitamin C) 500 500 mg PO QAM 09/26/20 07/04/21 History mg tablet cholecalciferol (vitamin D3) 25 25 mcg PO QAM 09/26/20 07/04/21 History mcg (1,000 unit) capsule turmeric 400 mg capsule 1,000 mg PO QAM cap 09/26/20 07/04/21 History vitamin E 200 unit capsule 400 unit PO DAILY cap 09/26/20 07/04/21 History calcium carbonate 500 mg calcium 500 mg PO QAM 04/16/21 07/04/21 History (1,250 mg) chewable tablet magnesium chloride 71.5 mg 71.5 mg PO 3XWK 04/16/21 07/04/21 History (magnesium chloride) tablet,delayed release (Slow-Mag) pseudoephedrine-guaifenesin ER 120 1 tab PO Q12H PRN 04/16/21 07/04/21 History mg-1,200 mg tab,extend release 12hr (Mucinex D Maximum Strength) sulfamethoxazole 800 1 tab PO MoWeFr@0900 #30 tab 04/25/21 07/04/21 Rx mg-trimethoprim 160 mg tablet (Bactrim DS) Climara 0.075 mg/24 hr transdermal 1 patch TRANSDERMAL WK #12 ea NS 06/08/21 07/04/21 Rx patch (estradiol) Oxygen Home #1 ea 06/18/21 06/18/21 Rx prednisone 2.5 mg tablet 2.5 mg PO Q OTHER DAY #15 tab 06/18/21 07/04/21 Rx Oxygen Home #1 ea 06/28/21 Rx furosemide 20 mg tablet 20 mg PO DAILY PRN 07/04/21 07/04/21 History omega 7-ynv-blf-fish oil 1,000 mg 1 cap PO DAILY 07/04/21 07/04/21 History (120 mg-180 mg) capsule sodium chloride 0.65 % nasal spray 2 spray INTRANASAL QID PRN 07/04/21 07/04/21 History aerosol Past Med/Surg History Medical History Chronic kidney disease, stage 3 single kidney Diverticular disease GERD (gastroesophageal reflux disease) History of scarlet fever 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 History of uterine cancer Hyperlipidemia declines statins Impaired fasting glucose Microscopic colitis Microscopic hematuria Osteoarthritis Temporomandibular joint disorder Ureteral stricture, right Vertigo Surgical History History of anesthesia reaction DYSPNEA IN PACU WITH KRISHNA (2017); NO NOTED ISSUES WITH SUBSEQUENT ANESTHESIA/SURGERIES History of bilateral tubal ligation History of breast biopsy History of cholecystectomy History of colonoscopy History of esophagogastroduodenoscopy (EGD) History of nephrectomy, right S/P laparoscopic hand assisted right nephroureterectomy, retroperitoneal dissection: 07/16/18: Grade view 1, MAC#3, ETT 7.0 at [facility] History of total abdominal hysterectomy and bilateral salpingo-oophorectomy History of vascular access device Aport left chest wall 09/2018 Hx of cystoscopy WITH BIOPSY + STENT; SUBSEQUENT STENT REMOVAL Family History Father Family history of diabetes mellitus Asthma Congestive heart failure (CHF) Grandfather (Paternal) No problems noted. Grandmother (Paternal) Throat cancer Uncle Lung cancer Maternal side-smoker Cancer of nasal cavities Aunt Breast cancer Maternal Mother Congestive heart failure (CHF) Other No family history of bleeding disorder Denies family history of Ovarian cancer Prostate cancer Myocardial infarction Colorectal cancer Social History Smoking Status: Never smoker Second Hand Exposure: Yes (As a child, mother smoked); Hx Alcohol Use: No Hx Substance Use: No Preferred Language: Afghan Communication Ability: Effective Visual Impairment: No Limitations Hearing Ability: Normal Time Clerk Required: No Beliefs That Will Affect Care: None marital status: Current Living Situation: Alone current occupational status: retired 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 NAD. Cooperative. HEENT: Atraumatic, normocephalic. Visual acuity and hearing grossly intact. Pulm: Bilateral crackles with increased intensity on mid/late inspiration appreciated bilaterally. Symmetrical chest rise. No respiratory distress Cardiac: RRR, -mrg. Radial pulses intact and symmetrical. Abdominal: Nontender, nondistended, soft. BS present. 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 Trace ankle edema bilaterally. Radial pulse and PT pulse intact bilaterally. Results & Data Results & Data ([facility]) Vital Signs (Past 12 Hours) Vital Signs Temp Pulse Pulse Resp BP Pulse Ox 07/04/21 18:40 73 23 07/04/21 18:31 79 21 126/68 07/04/21 18:30 72 22 07/04/21 18:20 70 21 100 07/04/21 18:16 69 16 100 07/04/21 15:55 652 H 97 07/04/21 14:34 36.5 C 75 22 105/70 97 07/04/21 14:24 90 PG Care Time/CCT Total # of Minutes Spent Total Time Spent with Patient: Total time spent is greater than 50% in coordination of care (as documented) at patient's floor/unit and/or counseling patient: Coding Level of Care Code INT OBSERVATION CARE 50M LVL 2 Diagnoses Chronic kidney disease, stage 3 N18.3 GERD (gastroesophageal reflux disease) K21.9 Microscopic colitis K52.839 Acute respiratory failure with hypoxia J96.01
[2021-07-05] MEDS ORDERED: POLYETHYLENE (MIRALAX) 17 GM PACK PO PRN (00:17)
[2021-07-05] MEDS ORDERED: SODIUM CHLORIDE 0.65% NA SOLN 45 ML (OCEAN) PRN (00:17)
[2021-07-05] MEDS: FLUTICASONE PROPIONATE NA SPR 16 GM BTL SCH ×3 (02:40→20:50)
[2021-07-05] MEDS: FAMOTIDINE 20 MG in SYRINGE 3 ML IV SCH ×3 (03:32→20:51)
[2021-07-05] MEDS: HEPARIN 100 UNIT/ML 5ML FLUSH FLUSH PRN ×3 (03:37→20:54)
[2021-07-05] MEDS: HEPARIN SOD 5,000 UNIT/0.5 ML VIAL SQ SCH ×3 (05:41→20:51)
[2021-07-05] MEDS: ACETAMINOPHEN 325 MG TAB PO PRN (05:45)
--- NOTE | 2021-07-05 08:15 | Hospitalist Progress Note ---
Date of Service July 05, 2021 Assessment & Plan (1) Acute respiratory failure with hypoxia: Plan: Acute on chronic hypoxic respiratory failure,? 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 Covid on admission is negative but with worsened opacities on CXR as noted below Increased risk of gram-negative pneumonia. Was on Bactrim prophylaxis prior to admission Friday/Friday/Friday up until 2-3 weeks ago (stopped week 6 of her taper) Last PFTs 01/2021: FVC 1.91, 68% predicted. FEV1 1.44, 69% predicted, FEV1/FVC 75, 101% predicted. Restrictive with decreased DLCO and no response to bronchodilators, no change compared to 04/2020 Trace leukocytosis in the setting of steroid use Hemoglobin 12.4 Troponin negative. CXR: Significant interval worsening of diffuse interstitial and alveolar opacities consistent with viral pneumonitis/Covid EKG: Normal sinus rhythm, no territorial ST changes. No T wave inversions in lead III, no tachycardia to suggest underlying PE Patient received methylprednisolone 40 mg IV in ER. Deferred additional high- dose steroids, continue prednisone 2.5 mg daily -Procalcitonin negative CRP 2.0, last April 2021. Pulmonary consulted. Appreciate recommendations. Pulse ox overnight study ordered, continued on prednisone 2.5 mg daily. BMP with mild elevation, trace ankle edema, no vascular congestion, Cr at baselin with elevated BUN/CrR. Resumed lasix 20 (2) Chronic kidney disease, stage 3: Plan: CKD 3 Creatinine 1.22 on admission, at baseline Last nephrology visit 05/22/2021. No notable anemia, baseline creatinine 1.41.7 No pedal edema Lasix as above (3) GERD (gastroesophageal reflux disease): Plan: GERD Continue Pepcid 20 mg p.o. twice daily (4) Microscopic colitis: Plan: Hx of Microscopic Colitis, lymphocytic and collaginous - Previously on budesonide, now diet managed per pt - Triggered by gemcitabane and cisplated - no recent flare Patient denies chronic/watery diarrhea (5) Fatigue: Plan: Insulin hypoxia as above Stable mild leukocytosis in the setting of steroid use, afebrile, pro-Rick negative TSH/T4 pending No abdominal symptoms MCV 100.8, hemoglobin 12.5. Folate/B12 pending Covid negative, recent + 04/23/2021 No abdominal/urinary symptoms Plan: DVT prophylaxis: heparin due to kidney disease, SCDs Diet: Regular Disposition: Medical/surgical CODE STATUS: Full code Admission and Anticipated Discharge Date Admission Date: July 04, 2021 Subjective Seen at bedside, patient feels similar to previous. No shortness of breath at rest, with fluctuating 2 to 3 L oxygen requirement. Continues t feel tired, but a little better than before and hopeful to go home soon. Does feel anxious, and is very anxious about being back on prednisone 2.5 mg daily. No nausea/vomiting/watery diarrhea. No cough at assessment. No chest pain. She is not having any fever/chills/sweats. +chronic sinus congestin at baseline Review of Systems Review of Systems: All systems reviewed & are unremarkable except as noted in Subjective Physical Exam Physical Exam: General: A&Ox3. NAD. Cooperative. HEENT: Atraumatic, normocephalic. Visual acuity and hearing grossly intact. Pulm: Bilateral crackles similar to prior. Symmetrical chest rise. No respiratory distress Cardiac: RRR, -mrg. Radial pulses intact and symmetrical. Abdominal: Nontender, nondistended, soft. BS present. Extremities: Moves all extremities equally, trace ankle edema bilaterally, radial pulse and PT pulse intact bilaterally. Results & Data Results & Data ([facility]) Vital Signs (Past 12 Hours) Vital Signs Temp Pulse Resp BP Pulse Ox 07/05/21 07:16 36.9 C 65 16 98/59 L 98 07/05/21 01:07 16 97 07/05/21 00:38 16 97 07/05/21 00:19 36.4 C L 73 16 115/59 L 97 07/04/21 21:30 72 18 113/78 96 07/04/21 20:31 99 PG Care Time/CCT Total # of Minutes Spent Total Time Spent with Patient: Total time spent is greater than 50% in coordination of care (as documented) at patient's floor/unit and/or counseling patient: Coding Level of Care Code 26805 Subseq Hosp Care Lvl 2 Diagnoses Acute respiratory failure with hypoxia J96.01 Chronic kidney disease, stage 3 N18.3 GERD (gastroesophageal reflux disease) K21.9 Microscopic colitis K52.839 Fatigue R53.83
[2021-07-05] MEDS: TOCOPHERYL, DL-ALPHA 100 UNITS CAP PO SCH (08:41)
[2021-07-05] MEDS: CHOLECALCIFEROL 1,000 UNITS 25 MCG TAB PO SCH (08:41)
[2021-07-05 09:03] LABS: Basophils # (auto) 0.01 K/uL (0-0.2); Basophils % (auto) 0.1 %; Hematocrit (blood only) 38.1 % (37-47); Hemoglobin 12.5 g/dL (12.0-16.0); Immature Granulocytes # (auto) 0.02 K/uL (0.00-0.02); Immature Granulocytes % (auto) 0.2 %; Lymphocytes # (auto) 2.42 K/uL (1.2-3.4); Lymphocytes % (auto) 21.5 %; Mean Corpuscular Hemoglobin 33.1 pg (25-34); Mean Corpuscular Hgb Conc 32.8 g/dL (32-36); Mean Corpuscular Volume 100.8 fL (80-100); Mean Platelet Volume 9.6 fL (7.4-10.4); Monocytes % (auto) 7.1 %; Neutrophils # (auto) 7.99 K/uL (1.4-6.5); Neutrophils % (auto) 71.1 %; Platelet Count 404 K/uL (130-400); RDW Coefficient of Variation 14.8 % (11.5-14.5); RDW Standard Deviation 54.2 fL (36.4-46.3); Red Blood Count 3.78 M/uL (4.2-5.4); White Blood Count 11.24 K/uL (4.8-10.8)
[2021-07-05 09:32] LABS: BUN Creatinine Ratio 22.1 (10-20); Calcium 8.8 mg/dl (8.5-10.1); Creatinine Clr Calc Pharmacy 41.5 ml/min; Est GFR (African American) 49.1 ml/min; Est GFR (Non-African American) 42.4 ml/min
--- NOTE | 2021-07-05 11:35 | Pulmonary Consultation ---
Date of Consultation July 05, 2021 Assessment & Plan (1) ILD (interstitial lung disease): (2) ORTEGA (dyspnea on exertion): (3) Hypoxia: (4) Abnormal CT scan of lung: Impression: 76-year-old female with biopsy-proven UIP and recent diagnosis of Covid pneumonitis completing prolonged steroid taper now with 1 episode of nocturnal tachycardia and hypoxemia. On review of her films, I do not see significant progression of her underlying lung disease and her oxygenation appears to be relatively stable. Clinically she looks relatively good currently. Recommendations: 1. Recommend checking BNP, procalcitonin, and CRP level to better evaluate her complaints. If BNP was elevated, diuretics may be warranted. If procalcitonin is elevated, work-up for additional infectious etiology might be appropriate and if CRP was elevated, consideration for more aggressive immune suppression might be appropriate. 2. Would recommend continuing prednisone at 2.5 mg daily for now. Given her clinical stability, I do not think I would increase the steroids in the absence of elevated biomarkers or clear radiographic progression. 3. Continue supplemental oxygen titrated to keep saturations at or above 88%. Would recommend an overnight oximetry study with the patient on oxygen to ensure that her 3 L at night is adequate. 4. Recommend continuing work-up for her complaints of fatigue and exhaustion. This could be related to tapering of the prednisone although her taper has been relatively slow. I am not suspicious that this is related to her underlying lung disease as again it appears to be relatively clinically and radiographically stable at this point time. I anticipate that if the patient's lab work should come back unrevealing and she does reasonably well, she may be able to be dismissed from the hospital within the next day or 2. History of Present Illness Attending Physician: Juliocesar Mai MD History of Present Illness Asked by hospitalist to assist in evaluation management this patient with known interstitial lung disease and post-COVID fibrosis and chronic hypoxemic respiratory failure admitted with weakness and episode of nocturnal tachycardia and hypoxemia. History is obtained from review of the electronic medical record and discussion with the patient. This 76-year-old female is known to me from clinic. She has a history of bi opsy-proven UIP, possibly related to previous chemotherapy related to her urothelial carcinoma. She is followed by nephrology for chronic kidney disease. She was admitted about 2 months ago with progression of interstitial lung disease and found to be positive for Covid. She is completing a slow outpatient prednisone taper and is currently down to 2.5 mg every other day. The patient reports that a few nights ago she woke up acutely feeling poorly. She checked her oxygen level and despite using her oxygen at 2 L/min states her oxygen level was down 70% range. She was also tachycardic in the 130s. She did not increase her oxygen. She has been on a stable dose of 2 to 3 L/min continuously and working with physical therapy at home. She denies fevers chills night sweats or other constitutional symptoms. She has had some issues with nasal congestion and postnasal drip for which she uses [id number] saline sinus irrigation and Flonase. She denies any syncope or presyncope. She has noted some mild swelling of her ankles and uses Lasix on an as-needed basis. She presented to the emergency room and was admitted. She did receive an empiric dose of Solu-Medrol in the emergency room. Her chest x-ray essentially appears unchanged. Allergies Allergy/AdvReac Type Severity Reaction Status Date / Time adhesive Allergy Intermediate Skin Verified 07/04/21 18:33 reaction diazepam Allergy Intermediate Paradoxial Verified 07/04/21 18:33 reaction sorbitol Allergy Mild Gastrointestinal Verified 07/04/21 18:33 Upset Home Medications Medication Instructions Recorded Confirmed Type multivitamin (Daily Multi-Vitamin) 1 tab PO QAM 06/10/19 07/04/21 History coenzyme Q10 100 mg capsule 200 mg PO QAM cap 09/01/20 07/04/21 History ascorbate calcium (vitamin C) 500 500 mg PO QAM 09/26/20 07/04/21 History mg tablet cholecalciferol (vitamin D3) 25 25 mcg PO QAM 09/26/20 07/04/21 History mcg (1,000 unit) capsule turmeric 400 mg capsule 1,000 mg PO QAM cap 09/26/20 07/04/21 History vitamin E 200 unit capsule 400 unit PO DAILY cap 09/26/20 07/04/21 History calcium carbonate 500 mg calcium 500 mg PO QAM 04/16/21 07/04/21 History (1,250 mg) chewable tablet magnesium chloride 71.5 mg 71.5 mg PO 3XWK 04/16/21 07/04/21 History (magnesium chloride) tablet,delayed release (Slow-Mag) pseudoephedrine-guaifenesin ER 120 1 tab PO Q12H PRN 04/16/21 07/04/21 History mg-1,200 mg tab,extend release 12hr (Mucinex D Maximum Strength) sulfamethoxazole 800 1 tab PO MoWeFr@0900 #30 tab 04/25/21 07/04/21 Rx mg-trimethoprim 160 mg tablet (Bactrim DS) Climara 0.075 mg/24 hr transdermal 1 patch TRANSDERMAL WK #12 ea NS 06/08/21 07/04/21 Rx patch (estradiol) Oxygen Home #1 ea 06/18/21 06/18/21 Rx prednisone 2.5 mg tablet 2.5 mg PO Q OTHER DAY #15 tab 06/18/21 07/04/21 Rx Oxygen Home #1 ea 06/28/21 Rx furosemide 20 mg tablet 20 mg PO DAILY PRN 07/04/21 07/04/21 History omega 5-ufr-vhl-fish oil 1,000 mg 1 cap PO DAILY 07/04/21 07/04/21 History (120 mg-180 mg) capsule sodium chloride 0.65 % nasal spray 2 spray INTRANASAL QID PRN 07/04/21 07/04/21 History aerosol Patient History Medical History Chronic kidney disease, stage 3 single kidney Diverticular disease GERD (gastroesophageal reflux disease) History of scarlet fever 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 History of uterine cancer Hyperlipidemia declines statins Impaired fasting glucose Microscopic colitis Microscopic hematuria Osteoarthritis Temporomandibular joint disorder Ureteral stricture, right Vertigo Surgical History History of anesthesia reaction DYSPNEA IN PACU WITH KRISHNA (2017); NO NOTED ISSUES WITH SUBSEQUENT ANESTHESIA/SURGERIES History of bilateral tubal ligation History of breast biopsy History of cholecystectomy History of colonoscopy History of esophagogastroduodenoscopy (EGD) History of nephrectomy, right S/P laparoscopic hand assisted right nephroureterectomy, retroperitoneal dissection: 07/16/18: Grade view 1, MAC#3, ETT 7.0 at [facility] History of total abdominal hysterectomy and bilateral salpingo-oophorectomy History of vascular access device Aport left chest wall 09/2018 Hx of cystoscopy WITH BIOPSY + STENT; SUBSEQUENT STENT REMOVAL Family History Father Family history of diabetes mellitus Asthma Congestive heart failure (CHF) Grandfather (Paternal) No problems noted. Grandmother (Paternal) Throat cancer Uncle Lung cancer Maternal side-smoker Cancer of nasal cavities Aunt Breast cancer Maternal Mother Congestive heart failure (CHF) Other No family history of bleeding disorder Denies family history of Ovarian cancer Prostate cancer Myocardial infarction Colorectal cancer Social History Smoking Status: Never smoker Second Hand Exposure: No; Do You Dip or Chew Tobacco: No; Hx Alcohol Use: No Hx Substance Use: No Preferred Language: Azeri Communication Ability: Effective Visual Impairment: No Limitations Hearing Ability: Normal Historical Archeologist Required: No Beliefs That Will Affect Care: None marital status: Current Living Situation: Alone current occupational status: retired 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 How many Children do You have: 3 Other Information That Helps Us Care for You: No Feels Safe at Home: Yes Safety Concerns: Feels Safe At This Time Childhood Exposure to Second-Hand Smoke: Yes Diet Comment: does eat some fish Dental Care, Regularly: Yes Physical Activity Frequency: Daily Seatbelt Use: always Sunscreen Use: Yes Assistive Devices: Glasses Review of Systems Review of Systems: All systems reviewed & are unremarkable except as noted in HPI & below Physical Exam Constitutional: WD/WN, vitals as above Neck: trachea midline, no thyromegaly Respiratory: normal respiratory effort; no respiratory distress and no labored breathing Auscultation: + crackles Cardiovascular: RRR, no murmur, no edema Gastrointestinal (Abdomen): normal bowel sounds, soft, nontender, no hepatosplenomegaly Musculoskeletal: Extremities: extremities normal to inspection Skin: no rashes, warm and dry Neurologic: Nonfocal exam Lymphatic: no cervical lymphadenopathy Results & Data Results & Data ([facility]) Vital Signs (Past 12 Hours) Vital Signs Temp Pulse Resp BP Pulse Ox 07/05/21 07:16 36.9 C 65 16 98/59 L 98 07/05/21 01:07 16 97 07/05/21 00:38 16 97 07/05/21 00:19 36.4 C L 73 16 115/59 L 97 Critical Care Results & Data Vital Signs (Past 12 Hours) Vital Signs Temp Pulse Resp BP Pulse Ox 07/05/21 07:16 36.9 C 65 16 98/59 L 98 07/05/21 01:07 16 97 07/05/21 00:38 16 97 07/05/21 00:19 36.4 C L 73 16 115/59 L 97 Lab & Micro Results (Past 24 Hours) RBC 3.78 M/uL (4.2-5.4) L 07/05/21 WBC 11.24 K/uL (4.8-10.8) H 07/05/21 Hgb 12.5 g/dL (12.0-16.0) 07/05/21 Hct 38.1 % (37-47) 07/05/21 MCV 100.8 fL (80-100) H 07/05/21 MCH 33.1 pg (25-34) 07/05/21 MCHC 32.8 g/dL (32-36) 07/05/21 RDW Standard Deviation 54.2 fL (36.4-46.3) H 07/05/21 RDW Coefficient of Variation 14.8 % (11.5-14.5) H 07/05/21 Plt Count 404 K/uL (130-400) H 07/05/21 MPV 9.6 fL (7.4-10.4) 07/05/21 Neutrophils (%) (Auto) 71.1 % 07/05/21 Lymphocytes (%) (Auto) 21.5 % 07/05/21 Monocytes # (Auto) 0.80 K/uL (0.11-0.59) H 07/05/21 Eosinophils # (Auto) 0.00 K/uL (0-0.5) 07/05/21 Immature Granulocyte % (Auto) 0.2 % 07/05/21 Neutrophils # (Auto) 7.99 K/uL (1.4-6.5) H 07/05/21 Lymphocytes # (Auto) 2.42 K/uL (1.2-3.4) 07/05/21 Monocytes # (Auto) 0.80 K/uL (0.11-0.59) H 07/05/21 Eosinophils # (Auto) 0.00 K/uL (0-0.5) 07/05/21 Basophils # (Auto) 0.01 K/uL (0-0.2) 07/05/21 Immature Granulocyte # (Auto) 0.02 K/uL (0.00-0.02) 07/05/21 Na 140 mmol/L (136-145) 07/05/21 K 4.0 mmol/L (3.5-5.1) 07/05/21 Cl 107 mmol/L (98-107) 07/05/21 CO2 27 mmol/L (21-32) 07/05/21 Anion Gap 6 (3-11) 07/05/21 BUN 27 mg/dl (6-23) H 07/05/21 Creatinine 1.22 mg/dl (0.6-1.2) H 07/05/21 Estimated GFR ( Amer) 49.1 ml/min 07/05/21 Estimated GFR (Non-Af Amer) 42.4 ml/min 07/05/21 BUN/Creatinine Ratio 22.1 (10-20) H 07/05/21 Glu 100 mg/dl (70-99(Fasting)) H 07/05/21 Ca 8.8 mg/dl (8.5-10.1) 07/05/21 Total Bilirubin 0.2 mg/dl (0.2-1.0) 07/04/21 AST 21 U/L (13-39) 07/04/21 ALT 14 U/L (7-52) 07/04/21 Alkaline Phosphatase 61 U/L (34-104) 07/04/21 TP 6.6 gm/dl (6.0-8.3) 07/04/21 Albumin 3.4 gm/dl (3.4-5.0) 07/04/21 Globulin 3.2 gm/dl (2.5-4.0) 07/04/21 Albumin/Globulin Ratio 1.1 (0.9-2) 07/04/21 Mg 2.0 mg/dl (1.7-2.4) 07/04/21 15:45 07/04/21 Calcium Level 8.8 mg/dl (8.5-10.1) 07/05/21 08:36 07/05/21 Prothromb Time International Ratio 1.0 (0.9-1.1) 07/04/21 15:45 07/04/21 Diagnostic Findings (Past 24 Hours) Chest X-Ray 07/04/21 14:38 XR chest 1V portable CLINICAL HISTORY: SOB. COMPARISON STUDY: 05/08/2021 TECHNIQUE: 1 view of the chest FINDINGS: Single frontal view of the chest demonstrates the cardiomediastinal silhouette to be within normal limits. Compared to the previous examination, there has been significant interval worsening of diffuse interstitial and alveolar opacities bilaterally. The findings are most characteristic of worsening viral type pneumonitis and probable Covid pneumonia. Port-A-Cath is again seen. There is no evidence for pleural effusion. There is no evidence for vascular congestion. There is no acute osseous pathology. IMPRESSION: 1. Significant interval worsening of diffuse interstitial and alveolar opacities bilaterally most characteristic of viral type pneumonitis and worsening Covid pneumonia. ACT 112: Negative or not required by law. Electronically signed by: Pernell Daly M.D. 07/04/2021 4:57 PM I & O Totals 24 Hours 07/04/21 07/05/21 07/06/21 06:59 06:59 06:59 Intake Total 700 / 700 Balance 700 / 700 Cumulative 07/04/21 14:23 thru 07/05/21 05:08 Intake Total 700 Balance 700 RT Ventilator Mngmt (Last Documented) Ventilator Ordered Settings Respiratory Rate 16 07/05/21 07:16 Ventilator - PT Measurements Respiratory Rate 16 PG Care Time/CCT Total # of Minutes Spent Total Time Spent with Patient: Total time spent is greater than 50% in coordination of care (as documented) at patient's floor/unit and/or counseling patient: Coding Level of Care Code 53048 Initial Inpt Care Lvl 2 Diagnoses ILD (interstitial lung disease) J84.9 ORTEGA (dyspnea on exertion) R06.[address] scan of lung R91.8
[2021-07-05] MEDS: predniSONE 2.5 MG TAB PO SCH (13:03)
--- NOTE | 2021-07-05 14:46 | Electrocardiogram Report ---
Test Reason : Blood Pressure : / mmHG Vent. Rate : 069 BPM Atrial Rate : 069 BPM P-R Int : 138 ms QRS Dur : 084 ms QT Int : 372 ms P-R-T Axes : 049 016 010 degrees QTc Int : 398 ms Normal sinus rhythm Left atrial enlargement Poor R wave progression, consider anterior DC vs. lead placement vs. LVH Abnormal ECG When compared with ECG of 16-APR-2021 15:04, No significant change was found Confirmed by Andrew Vann ([id number]) on 07/05/2021 2:46:19 PM Referred By: Confirmed By:Andrew Vann
[2021-07-06] MEDS ORDERED: guaiFENesin 600 MG TABCR PO PRN (00:13)
[2021-07-06] MEDS: ACETAMINOPHEN 325 MG TAB PO PRN (00:29)
[2021-07-06] MEDS: HEPARIN 100 UNIT/ML 5ML FLUSH FLUSH PRN ×2 (05:58→08:23)
[2021-07-06 06:26] LABS: Basophils # (auto) 0.04 K/uL (0-0.2); Basophils % (auto) 0.4 %; Eosinophils % (auto) 4.2 %; Hematocrit (blood only) 35.4 % (37-47); Hemoglobin 11.3 g/dL (12.0-16.0); Immature Granulocytes # (auto) 0.03 K/uL (0.00-0.02); Immature Granulocytes % (auto) 0.3 %; Lymphocytes # (auto) 2.79 K/uL (1.2-3.4); Lymphocytes % (auto) 29.6 %; Mean Corpuscular Hemoglobin 32.1 pg (25-34); Mean Corpuscular Hgb Conc 31.9 g/dL (32-36); Mean Corpuscular Volume 100.6 fL (80-100); Mean Platelet Volume 9.6 fL (7.4-10.4); Monocytes # (auto) 1.19 K/uL (0.11-0.59); Monocytes % (auto) 12.6 %; Neutrophils # (auto) 4.97 K/uL (1.4-6.5); Neutrophils % (auto) 52.9 %; Platelet Count 346 K/uL (130-400); RDW Standard Deviation 55.4 fL (36.4-46.3); Red Blood Count 3.52 M/uL (4.2-5.4); White Blood Count 9.42 K/uL (4.8-10.8)
[2021-07-06 06:54] LABS: BUN Creatinine Ratio 26.8 (10-20); Calcium 8.3 mg/dl (8.5-10.1); Creatinine Clr Calc Pharmacy 39.9 ml/min; Est GFR (African American) 46.8 ml/min; Est GFR (Non-African American) 40.4 ml/min; Potassium 3.9 mmol/L (3.5-5.1)
[2021-07-06 07:15] LABS: Folate (Folic Acid) > 22.30 ng/ml (>5.38)
[2021-07-06 07:16] LABS: Vitamin B12 898 pg/ml (211-911)
[2021-07-06] MEDS: predniSONE 2.5 MG TAB PO SCH (08:10)
[2021-07-06] MEDS: CHOLECALCIFEROL 1,000 UNITS 25 MCG TAB PO SCH (08:11)
[2021-07-06] MEDS: FLUTICASONE PROPIONATE NA SPR 16 GM BTL SCH (08:11)
[2021-07-06] MEDS: TOCOPHERYL, DL-ALPHA 100 UNITS CAP PO SCH (08:11)
[2021-07-06] MEDS: HEPARIN SOD 5,000 UNIT/0.5 ML VIAL SQ SCH (08:16)
[2021-07-06] MEDS: FAMOTIDINE 20 MG in SYRINGE 3 ML IV SCH (08:23)
[2021-07-06] MEDS ORDERED: FUROSEMIDE 20 MG TAB PO SCH (09:00)
--- NOTE | 2021-07-06 14:10 | Pulmonology Progress Note ---
Date of Service July 06, 2021 Assessment & Plan (1) ILD (interstitial lung disease): (2) ORTEGA (dyspnea on exertion): (3) Hypoxia: (4) Abnormal CT scan of lung: Plan: Impression: 76-year-old female with biopsy-proven UIP and recent diagnosis of Covid pneumonitis completing prolonged steroid taper now with 1 episode of nocturnal tachycardia and hypoxemia. Her CT scan demonstrates stable fibrotic changes. BNP, procalcitonin, and CRP are all normal. Recommendations: 1. With normal CRP, BNP, and pro calcitonin, not suspicious of secondary infection, fluid overload, or progression of airway inflammation. Her CT scan demonstrates stable fibrotic changes. 2. Can go back to prednisone 2.5 mg every other day for 1 additional week and then stop. 3. Continue supplemental oxygen titrated to keep saturations at or above 88%. Overnight oximetry was reviewed. Recommend the patient use 4 L of oxygen at night and with physical activity. 2 L is okay at rest. She can continue to follow her oxygen saturations with pulse oximetry at home and try and keep them at or above 90%. 4 from a lung standpoint, the patient appears stable to potentially discharge home. I will have our office contact her for telephone follow-up visit in 2 to 3 weeks. She is scheduled to see me back in the clinic in about 2 to 3 months. The above recommendations and plan were discussed with the patient. Questions were answered to the best of my ability. She expressed understanding and is in agreement with the plan. Okay to discharge from pulmonary standpoint. Feel f ree to contact us if we can be of additional assistance Admission and Anticipated Discharge Date Admission Date: July 04, 2021 Subjective Patient seen and examined. She is able to ambulate to the restroom but does become dyspneic with ambulation. She is not expectorating any phlegm. No fevers chills or night sweats. She feels like she is improved from previous. She did complete an overnight oximetry on 3 L with the results noted below. Review of Systems Review of Systems: All systems reviewed & are unremarkable except as noted in Subjective Physical Exam Constitutional: WD/WN, vitals as above Neck: trachea midline, no thyromegaly Respiratory: normal respiratory effort; no respiratory distress and no labored breathing Auscultation: + crackles Cardiovascular: RRR, no murmur, no edema Gastrointestinal (Abdomen): normal bowel sounds, soft, nontender, no hepat osplenomegaly Musculoskeletal: Extremities: extremities normal to inspection Skin: no rashes, warm and dry Neurologic: Nonfocal exam Lymphatic: no cervical lymphadenopathy Results & Data Results & Data ([facility]) Vital Signs (Past 12 Hours) Vital Signs Temp Pulse Resp BP Pulse Ox 07/06/21 07:39 36.6 C 67 16 96/66 L 93 Laboratory Results 07/06/21 05:52 07/06/21 05:52 Procalcitonin was negative CRP level of 1.25 BNP [address] of the chest from today was independently reviewed. Radiology interpretation is pending however on my review there appear to be stable fibrotic changes compared to CT scan from about 3 months ago. The groundglass opacities appear improved or resolved with a few residual areas of persistent airspace opacity. Overnight oximetry on 3 L/min did demonstrate a few transient oxygen desaturations into the mid to low 80% range. Most of these were fairly transient however the patient would likely benefit from increasing her oxygen delivery to 4 L/min PG Care Time/CCT Total # of Minutes Spent Total Time Spent with Patient: Total time spent is greater than 50% in coordination of care (as documented) at patient's floor/unit and/or counseling patient: Coding Level of Care Code 14094 Subseq Hosp Care Lvl 2 Diagnoses ILD (interstitial lung disease) J84.9 ORTEGA (dyspnea on exertion) R06.[address] scan of lung R91.8
[2021-07-06 15:45] VITALS: BP 108/73; PULSE 65; TEMP 98.1; O2SAT 96
--- NOTE | 2021-07-06 15:56 | Discharge Summary ---
Date of Service July 06, 2021 Admission HPI Per Admitting Provider Yuly is a 76-year-old female with a past medical history of GERD, urothelial carcinoma of the kidney, CKD 3, interstitial lung disease with past biopsy showing UIP who presents with acute on chronic worsening of her shortness of breath and dyspnea on exertion for 2 to 3 days. Has been undergoing an outpatient prednisone taper. Yuly reports she has felt very weak, much more weak in the last 7 days and worsened in the last 2-3 days. Has a pulse ox at home and notes her O2 levels have been 'dropping much further'. Even with a 25 foot oxygen cord to help her to the bathroom her levels started dropping to the low Last night woke up suddenly with dizziness and shortness of breath and found her oxygen in the 60-70s at night. Has not needed/used CPAP at home in the past. Endorses sinus congestion for a few days, saw Dr. Rodriguez office who recommended flonase which does clear her sinuses in conjunction with saline. No chest pain, no chest pressure No fevers, no chills, sweats but is a little cold in the room. has felt intermittently chilly in the past 'like a fever' but not today/yesterday Primary concern is the weakness and low oxygen levels Physical therapist noticed that she was improved, plateaud, and has been worse in the last few days Takes prednisone on her 9th week of a taper. Is down to 2.5mg every other day, was previously on 5mg every day Medical History: Reviewed Medications: Reviewed Surgical History: Reviewed Allergies: Reviewed Social History: No tobacco, etoh, or reacreational drug use. Code Status:Surrogate decision maker would be her Medical POA Elena Kaplan. Does not want her children to make decisions for her. DNI/DNR Principal Diagnosis Interstitial lung disease Chronic respiratory failure with hypoxia Discharge Exam General: A&Ox3. NAD. Cooperative. On oxygen, 3 L. HEENT: Atraumatic, normocephalic. Visual acuity and hearing grossly intact Pulm: Coarse crackles best appreciated at mid expiration diffusely, no rales or wheezes. No respiratory distress. Cardiac: RRR, -mrg. Radial pulses intact and symmetrical. Abdominal: Nontender, nondistended, soft. BS present. Discharge Data Allergies Allergy/AdvReac Type Severity Reaction Status Date / Time adhesive Allergy Intermediate Skin Verified 07/04/21 18:33 reaction diazepam Allergy Intermediate Paradoxial Verified 07/04/21 18:33 reaction sorbitol Allergy Mild Gastrointestinal Verified 07/04/21 18:33 Upset Consultations 07/04/21 19:06 ED Decision to Admit Stat 07/05/21 00:17 Consult Pulmonology Routine Ordered Studies 07/06/21 12:51 CT chest diagnostic wo con Routine Hospital Course (1) Acute respiratory failure with hypoxia: Yuly is a 76-year-old female with a past medical history of GERD, urothelial carcinoma of the kidney, CKD 3, interstitial lung disease with past biopsy showing UIP who presents with acute on chronic worsening of her shortness of breath and dyspnea on exertion for 2 to 3 days. Has been undergoing an outpatient prednisone taper. She was treated with a dose of 40 mg of methylprednisolone in the ER and then moved back to her home dosing of steroids, with clinical improvement. She did not show signs of superimposed pneumonia/infection, fluid overload, or severe fibrotic progression during admission. She had a mild increase in CRP which decreased. Repeat CTchest consistent with stable fibrotic changes. Overnight pulse oximetry did show desaturations to the low 80s for about 12 events, had one additional desaturation to the 70s in the setting of her oxygen falling off. Nighttime oxygen was increased to 4 L based on this. Will have close follow-up to pulmonology as outpatient. CT compared pre-covid 01/2021 with rapidly progressed fibrosis, but stable compared to 04/16/2021 To do as outpatient: 1. Continue prednisone 2.5 mg every other day for 1 week, then discontinue prednisone 2. Increase nighttime oxygen to 4 L, daytime 2 L at rest. Goal SPO2 greater than 90% 3. Close follow-up to pulmonology and PCP. Pulmonology appointment virtually in 2 to 3 weeks and clinic visit in 2 to 3 months. Acute on chronic hypoxic respiratory failure, improved Underlying interstitial lung disease and pulmonary fibrosis, likely due to gemcitabine/chemotherapy in the past Prior biopsy with usual interstitial pneumonia pattern Desaturates easily while speaking, maintaining SPO2 greater than 90% on 2-3 L otherwise Prior Covid in March with residual positive test in April. Last PFTs 01/2021: FVC 1.91, 68% predicted. FEV1 1.44, 69% predicted, FEV1/FVC 75, 101% predicted. Restrictive with decreased DLCO and no response to bronchodilators, no change compared to 04/2020 Trace leukocytosis in the setting of steroid use Hemoglobin 12.4 Troponin negative. CXR: Significant interval worsening of diffuse interstitial and alveolar opacities consistent with viral pneumonitis/Covid EKG: Normal sinus rhythm, no territorial ST changes. No T wave inversions in lead III, no tachycardia to suggest underlying PE Patient received methylprednisolone 40 mg IV in ER. Deferred additional high- dose steroids, continue prednisone 2.5 mg qod -Procalcitonin negative, afebrile without indication of acute infection BNP 300, no signs of fluid overload, BUN/creatinine ratio slightly elevated with normal creatinine, clinically euvolemic during admission CRP 2.0, last April 2021, down trended day of discharge Pulmonary consulted during admission, appreciate recommendations. (2) Chronic kidney disease, stage 3: CKD 3 Creatinine 1.22 on admission, at baseline Last nephrology visit 05/22/2021. No notable anemia, baseline creatinine 1.41.7 No pedal edema No acute kidney injury observed during admission (3) GERD (gastroesophageal reflux disease): GERD Continue Pepcid 20 mg p.o. twice daily (4) Microscopic colitis: Hx of Microscopic Colitis, lymphocytic and collaginous - Previously on budesonide, now diet managed per pt - Triggered by gemcitabane and cisplated - no recent flare Patient denies chronic/watery diarrhea (5) Fatigue: Insulin hypoxia as above Stable mild leukocytosis in the setting of steroid use, afebrile, pro-Rick negative TSH normal during admission No abdominal symptoms MCV 100.8, hemoglobin 12.5. Folate and B12 levels during admission were normal Covid negative, recent + 04/23/2021 No abdominal/urinary symptoms DVT prophylaxis: heparin due to kidney disease, SCDs Diet: Regular Disposition: Medical/surgical CODE STATUS: Full code Total Time Total Time Spent Total Time Spent (In Minutes): Time spend day of discharge 55 minutes including direct patient care, documentation, review of labs and images, and coordination of care. Discharge Plan Discharge Items Patient Disposition: Home - Self-Care Reason For Visit: ACUTE HYPOXIC RF Discharge Diagnosis: Chronic hypoxic respiratory failure, usual interstitial pneumonia Activity: Per Instructions section Non-emergency contact: Primary Care Provider and B[employer] Call non-emergency contact if: you have any medication questions, your symptoms worsen and your pain is not controlled Follow-up/Referrals: Brooklyn Khan MD [Primary Care Provider] - 07/16/21 3:00 pm Papa Cameron MD [Physician] - 08/06/21 9:30 am Diet: Regular Addtl Attending Provider Instructions: You were seen in the hospital for weakness and increased shortness of breath. Your lab work did not show evidence of fluid overload or infection. Your chest x-ray showed some changes consistent with post viral inflammation/fibrosis. You clinically improved following your treatment with a dose of steroids and returned to your dose of prednisone 2.5 mg every other day. An inflammatory marker called CRP was slightly elevated on admission, this was improving day of discharge. An overnight oxygen study did show that your levels decreased to the low 80s periodically, there was one decrease to the 70s likely associated with your oxygen falling off. Based on these results it has been recommended that you use 4 L of oxygen at night. You were ambulating near your normal baseline at time of discharge, and were discharged home with close follow-up to your primary care doctor and pulmonology. When you return home please continue taking prednisone 2.5 mg daily by mouth every other day for 1 week, then stop taking prednisone. Please call the pulmonology office and let them know how you are feeling as you taper this medication. Please use 4 L of oxygen when sleeping at night when you return home. A follow-up appointment is being scheduled for you with Dr. Khan. You should be seen within 1 to 2 weeks. If you do not receive a call to confirm this appointment, please contact their office at the number above. A follow-up appointment is being scheduled for you with pulmonology. You should receive a call to confirm this appointment, if you do not receive a call please contact their office at the number above. If you develop any new or worsening symptoms including fever, chills, sweats, chest pain, chest pressure, difficulty breathing, uncontrolled nausea/vomiting, rash, wheezing, passing out or nearly passing out, bleeding, black/bloody bowel movements, or other new or concerning symptoms please call your primary care physician, or call 911 for re-evaluation in the emergency department if you are very concerned. Pending Studies at Discharge: No Stand-Alone Forms: My [employer], Smoking Cessation Medications and DC Order Prescriptions: Continued estradiol [Climara] 0.075 mg/24 hr patch weekly 1 patch Transdermal WK Qty: 12 RF: 3 (DME) Oxygen Home Liters Per Minute See Rx Instructions .Route Qty: 1 RF: 0 multivitamin [Daily Multi-Vitamin] Tablet 1 tab PO QAM RF: 0 prednisone 2.5 mg tablet 2.5 mg PO Q OTHER DAY Qty: 15 RF: 0 (DME) Oxygen Home Liters Per Minute See Rx Instructions .MEDSUPPLY Qty: 1 RF: 0 coenzyme Q10 100 mg capsule 200 mg PO QAM RF: 0 turmeric 400 mg capsule 1,000 mg PO QAM RF: 0 cholecalciferol (vitamin D3) 25 mcg (1,000 unit) capsule 25 mcg PO QAM RF: 0 vitamin E 200 unit capsule 400 unit PO DAILY RF: 0 ascorbate calcium (vitamin C) 500 mg tablet 500 mg PO QAM RF: 0 furosemide 20 mg tablet 20 mg PO DAILY PRN (Reason: Edema) RF: 0 omega 4-yww-fug-fish oil 1,000 mg (120 mg-180 mg) Capsule 1 cap PO DAILY RF: 0 [place] Nasal Mist 0.65 % Aerosol,Seltzer 2 spray INTRANASAL QID PRN (Reason: nasal dryness) RF: 0 calcium carbonate 500 mg calcium (1,250 mg) tablet,chewable 500 mg PO QAM RF: 0 Slow-Mag 71.5 mg tablet,delayed release (DR/EC) 71.5 mg PO 3XWK RF: 0 pseudoephedrine-guaifenesin [Mucinex D Maximum Strength] 120-1,200 mg Tablet Extended Release 12 Hr 1 tab PO Q12H PRN (Reason: Congestion) RF: 0 Discontinued sulfamethoxazole-trimethoprim [Bactrim DS] 800-160 mg Tablet 1 tab PO MoWeFr@0900 Qty: 30 RF: 0 Discharge Orders: Discharge Order (Routine); Ordered 07/06/21 Ordered By: Juliocesar Mai Admission Data Admit Date/Time: 07/04/21 19:25 Attending Provider: Juliocesar Mai Admit Provider: Juliocesar Mai Primary Care Provider: Brooklyn Khan Other Providers: Vicente Mckeon ; Juliocesar Mai ; Papa Cameron Coding Level of Care Code D/C DAY MANAGEMENT >30 MINS Diagnoses Acute respiratory failure with hypoxia J96.01 Chronic kidney disease, stage 3 N18.3 GERD (gastroesophageal reflux disease) K21.9 Microscopic colitis K52.839 Fatigue R53.83
--- NOTE | 2021-07-06 16:00 | CT Scan Report ---
CT chest diagnostic wo con CLINICAL HISTORY: IUP, fibrosis TECHNIQUE: Multidetector row helical CT of the chest was performed. Coronal and sagittal reformations were obtained. Automated dose lowering techniques and/or adjustment according to patient size were u tilized for this exam. Comparison: Comparison is made to CT chest 04/16/[address] chest 01/29/[address] chest 08/06/2019 FINDINGS: Lungs and pleura: Extensive fibrotic changes are seen throughout the lungs, markedly increased from p rior exams. A few stacked microcysts are seen. Heart and pericardium: Heart size is normal. No pericardial effusion. Vessels: The pulmonary trunk is enlarged measuring 31 mm. There is a left portacatheter. Mediastinum and sachin: Subcentimeter lymph nodes are seen. Chest wall and lower neck: Unremarkable. Abdomen: Patient is status post cholecystectomy. Bones: Degenerative changes in the thoracic spine. IMPRESSION: Interval rapid progression of extensive fibrotic changes with some vomiting coming at the lung bases. This is favored to represent chronic interstitial lung disease with superimposed postinfectious fibr otic changes. ACT 112: Negative or not required by law. Electronically signed by: Noel Cordova M.D. 07/06/2021 3:59 PM
== END 2021-07-06 17:10 | disposition home or self-care (01) ==
LOC: ED 14:23 → 3W 14:23

== ENCOUNTER 2023-03-01 17:10 | Inpatient (IN) ==
--- NOTE | 2023-03-01 17:44 | Emergency Department Note ---
History of Present Illness General Chief complaint: Shortness of Breath/Dyspnea Stated complaint: SOB Time Seen by Provider: 03/01/23 17:32 Source: patient, EMS, RN notes reviewed and old records reviewed (I have reiewed a hospice note on 01/23/2023) Mode of arrival: ambulatory Limitations: no limitations History of Present Illness This patient is a 77-year-old female who is a palliative care patient is on oxygen for end-stage pulmonary fibrosis comes in after of increased shortness of breath for last 4 to 5 days. She has has a minimal cough and will get cramps with coughing under her chest but no chest pain no fall or trauma. She did have a fever on Friday or and called the palliative care nurse and they put her on azithromycin of which she is on day 3. She has had no abdominal pain no pain or swelling in her legs. She does wear her oxygen at baseline 3.5 L she also uses a compression vest and Mucomyst nebs. She tells me she was on hospice at 1 point but they switched her back to palliative care according to her. When I discussed CODE STATUS she says she is a DO NOT RESUSCITATE or intubate, and she acknowledges that she has end-stage disease Home Medications Medication Instructions Recorded Confirmed Type acetylcysteine 200 mg/mL (20 %) 2 ml inhalation Q4 03/01/23 03/01/23 History solution azithromycin 250 mg tablet 250 - 500 mg PO DIRECTED 03/01/23 03/01/23 History benzonatate 100 mg capsule 100 mg PO TID PRN Cough 03/01/23 03/01/23 History estradiol 0.075 mg/24 hr weekly 1 patch transdermal WE 03/01/23 03/01/23 History transdermal patch furosemide 20 mg tablet 20 mg PO DAILY PRN .edema 03/01/23 03/01/23 History guaifenesin 1,200 mg tablet, 1,200 mg PO BID 03/01/23 03/01/23 History extended release 12 hr (Mucus-ER MAX) oxycodone 5 mg tablet 2.5 mg PO DAILY PRN Pain 03/01/23 03/01/23 History oxycodone 5 mg tablet 2.5 mg PO TID 03/01/23 03/01/23 History sodium chloride 7 % for 4 ml inhalation .BID UD 03/01/23 03/01/23 History nebulization Allergies Allergy/AdvReac Type Severity Reaction Status Date / Time adhesive Allergy Intermediate Skin Verified 03/01/23 18:54 reaction diazepam Allergy Intermediate Paradoxial Verified 03/01/23 18:54 reaction sorbitol Allergy Mild Gastrointestinal Verified 03/01/23 18:54 Upset Past Med/Surg History Medical History Chronic kidney disease, stage 3 single kidney Diverticular disease GERD (gastroesophageal reflux disease) History of scarlet fever 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 History of uterine cancer Hyperlipidemia declines statins Impaired fasting glucose Microscopic colitis Microscopic hematuria Osteoarthritis Temporomandibular joint disorder Ureteral stricture, right Vertigo Surgical History History of anesthesia reaction DYSPNEA IN PACU WITH KRISHNA (2017); NO NOTED ISSUES WITH SUBSEQUENT ANESTHESIA/SURGERIES History of bilateral tubal ligation History of breast biopsy History of cholecystectomy History of colonoscopy History of esophagogastroduodenoscopy (EGD) History of nephrectomy, right S/P laparoscopic hand assisted right nephroureterectomy, retroperitoneal dissection: 07/16/18: Grade view 1, MAC#3, ETT 7.0 at [facility] History of total abdominal hysterectomy and bilateral salpingo-oophorectomy History of vascular access device Aport left chest wall 09/2018 Hx of cystoscopy WITH BIOPSY + STENT; SUBSEQUENT STENT REMOVAL Family History Father Family history of diabetes mellitus Asthma Congestive heart failure (CHF) Grandfather (Paternal) No problems noted. Grandmother (Paternal) Throat cancer Uncle Lung cancer Maternal side-smoker Cancer of nasal cavities Aunt Breast cancer Maternal Mother Congestive heart failure (CHF) Other No family history of bleeding disorder Denies family history of Ovarian cancer Prostate cancer Myocardial infarction Colorectal cancer Social History Smoking Status: Never smoker Second Hand Exposure: No; Do You Dip or Chew Tobacco: No; Hx Alcohol Use: No Hx Substance Use: No Preferred Language: German Communication Ability: Effective Visual Impairment: No Limitations Hearing Ability: Normal Consumer Insights Specialist Required: No Beliefs That Will Affect Care: None marital status: / Current Living Situation: Alone current occupational status: retired 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 How many Children do You have: 1 Feels Safe at Home: Yes Childhood Exposure to Second-Hand Smoke: Yes Diet: regular Diet Comment: does eat some fish Dental Care, Regularly: Yes Physical Activity Frequency: 1-2 Times per Week Seatbelt Use: always Sunscreen Use: Yes Assistive Devices: Glasses and Oxygen - Continuous Review of Systems A total of 10 systems reviewed and were otherwise negative Physical Exam Vital Signs Vital Signs - 24 hr 03/01/23 17:24 03/01/23 17:32 03/01/23 17:38 Temperature 36.4 C L Temperature Source Oral Pulse Rate 78 80 Pulse Rate [Left Finger] Pulse Rhythm Regular Pulse Rhythm [Left Finger] Pulse Strength Normal Pulse Strength [Left Finger] Respiratory Rate 28 H Respiratory Effort / Characteristics SOB on Exertion SOB on Exertion Respiratory Depth Normal Deep Respiratory Pattern Rapid/Shallow Blood Pressure 112/65 Blood Pressure [Right Arm] Blood Pressure Mean 80 Blood Pressure Mean [Right Arm] Blood Pressure Position [Right Arm] Pulse Oximetry 100 Oxygen Delivery Method Non-rebreather Non-rebreather Oxygen Flow Rate 15 15 Sepsis Recent Fever Within 48 Hours No Sepsis New/Unexplained Change in Mental Status No Sepsis Action Taken by Nursing No Action Required 03/01/23 17:47 03/01/23 17:48 03/01/23 19:20 Temperature 36.4 C L Temperature Source Oral Pulse Rate 82 Pulse Rate [Left Finger] 80 76 Pulse Rhythm Regular Pulse Rhythm [Left Finger] Regular Regular Pulse Strength Pulse Strength [Left Finger] Normal Respiratory Rate 28 H 28 H 20 Respiratory Effort / Characteristics SOB on Exertion Non-Labored Spontaneous Respiratory Depth Normal Respiratory Pattern Rapid/Shallow Regular Blood Pressure Blood Pressure [Right Arm] 112/65 116/76 Blood Pressure Mean Blood Pressure Mean [Right Arm] 80 89 Blood Pressure Position [Right Arm] Lying Pulse Oximetry 97 99 100 Oxygen Delivery Method Non-rebreather Non-rebreather Non-rebreather Oxygen Flow Rate 15 15 Sepsis Recent Fever Within 48 Hours Sepsis New/Unexplained Change in Mental Status Sepsis Action Taken by Nursing General: Well developed well nourished older female who is on supplemental oxygen but appears in no acute distress, breathing comfortably on room air. Normal speech, speaking full sentences HEENT: Normal cephalic atraumatic. Pupils are equal round and reactive to light. Extraocular movements are intact. Oropharynx is pink with moist mucous membranes. No swelling of the mouth lips or tongue. Neck: Supple with a midline trachea. No meningeal signs or stiffness, no JVD or bruits. No Stridor. Chest crackles to auscultation bilaterally. No wheezes or rhonchi. No increased work of breathing. Heart: Regular rate and rhythm without murmurs or gallops. Abdomen: Soft nontender, nondistended without rebound guarding or rigidity. Extremities: No cyanosis clubbing or edema. No calf tenderness or assymetry Spine/Back. Non tender to palpation. No CVA tenderness Skin: Good turgor without rashes. Neurologic exam: Cranial nerves two through 12 are intact. Motor and sensation are intact and symmetrical throughout. Course Administered Medications Discontinued Medications Piperacillin Sod/Tazobactam Sod (Zosyn) 4.5 gm in 100 mls @ 200 mls/hr IV NOW ONE Stop: 03/01/23 18:57 Last Infusion: 03/01/23 20:10 Dose: 0 mls/hr Documented By: Admin: 03/01/23 19:16 Dose: 200 mls/hr Documented By: CAMI Medical Decision Making Differential Diagnosis Pulmonary fibrosis, pneumonia, CHF, acute coronary syndromes, pneumothorax, infection, sepsis, PE, electrolyte or metabolic abnormality, anemia, COVID Medical Records Attestation: I reviewed the patient's medical records. Home Medications Current Medication List: was personally reviewed by me Laboratory Data Attestation: I reviewed the patient's lab results. 03/01/23 Unknown 03/01/23 Unknown Lab Results 03/01/23 03/01/23 03/01/23 Range/Units Unknown Unknown Unknown WBC 13.19 H (4.8-10.8) K/ul RBC 4.15 L (4.20-5.40) M/uL Hgb 12.9 (12.0-16.0) g/dl Hct 38.7 (37.0-47.0) % MCV 93.3 (80.0-100.0) fL MCH 31.1 (25.0-34.0) pg MCHC 33.3 (32.0-36.0) g/dL RDW Std Deviation 40.1 (36.4-46.3) fL RDW Coeff of Marlene 11.7 (11.5-14.5) % Plt Count 314 (130-400) K/uL MPV 10.3 (9.4-12.4) fL Immature Gran % (Auto) 0.3 % Neut % (Auto) 76.3 % Lymph % (Auto) 8.6 % Carbon % (Auto) 12.4 % Eos % (Auto) 2.0 % Baso % (Auto) 0.4 % Neut # (Auto) 10.06 H (1.40-6.50) K/uL Lymph # (Auto) 1.14 L (1.20-3.40) K/uL Carbon # (Auto) 1.63 H (0.11-0.59) K/uL Eos # (Auto) 0.27 (0.00-0.50) K/uL Baso # (Auto) 0.05 (0.00-0.20) K/uL Immature Gran # (Auto) 0.04 (0.01-0.20) K/uL Sodium 134 L (136-145) mmol/L Potassium 4.3 (3.5-5.1) mmol/L Chloride 98 (98-107) mmol/L Carbon Dioxide 28 (21-32) mmol/L Anion Gap 8 (3-11) BUN 22 (6-23) mg/dl Creatinine 1.22 H (0.6-1.2) mg/dl Est Cr Clr Drug Dosing 35.0 ml/min Est GFR ( Amer) 48.8 ml/min Est GFR (Non-Af Amer) 42.1 ml/min BUN/Creatinine Ratio 18.0 (10-20) Glucose 117 H (70-99(Fasting)) mg/dl Lactate 1.0 (0.4-2.0) mmol/L Calcium 9.0 (8.6-10.3) mg/dl Magnesium 1.8 (1.7-2.4) mg/dl Total Bilirubin 0.4 (0.2-1.0) mg/dl Direct Bilirubin 0.0 (0-0.2) mg/dl AST 24 (13-39) U/L ALT 12 (7-52) U/L Alkaline Phosphatase 66 (34-104) U/L Troponin I High Sens 41.4 H (0-14) pg/ml Total Protein 7.1 (6.0-8.3) gm/dl Albumin 3.4 (3.4-5.0) gm/dl Procalcitonin (0-0.5) ng/ml Adenovirus (PCR) (NotDetected) B. pertussis DNA (PCR) (NotDetected) B.parapertussis DNA PCR (NotDetected) C. pneumoniae DNA (PCR) (NotDetected) Coronavirus OC43 (PCR) (NotDetected) Coronavirus HKU1 (PCR) (NotDetected) Coronavirus 229E (PCR) (NotDetected) SARS-CoV-2 (PCR) (NotDetected) Coronavirus NL63 (PCR) (NotDetected) Human Metapneumovir PCR (NotDetected) Influenza Type A (PCR) (NotDetected) Influenza Type B (PCR) (NotDetected) M. pneumoniae (PCR) (NotDetected) Parainfluenza 1 (PCR) (NotDetected) Parainfluenza 2 (PCR) (NotDetected) Parainfluenza 3 (PCR) (NotDetected) Parainfluenza 4 (PCR) (NotDetected) RSV (PCR) (NotDetected) Entero/Rhino (PCR) (NotDetected) 03/01/23 03/01/23 Range/Units Unknown Unknown WBC (4.8-10.8) K/ul RBC (4.20-5.40) M/uL Hgb (12.0-16.0) g/dl Hct (37.0-47.0) % MCV (80.0-100.0) fL MCH (25.0-34.0) pg MCHC (32.0-36.0) g/dL RDW Std Deviation (36.4-46.3) fL RDW Coeff of Marlene (11.5-14.5) % Plt Count (130-400) K/uL MPV (9.4-12.4) fL Immature Gran % (Auto) % Neut % (Auto) % Lymph % (Auto) % Carbon % (Auto) % Eos % (Auto) % Baso % (Auto) % Neut # (Auto) (1.40-6.50) K/uL Lymph # (Auto) (1.20-3.40) K/uL Carbon # (Auto) (0.11-0.59) K/uL Eos # (Auto) (0.00-0.50) K/uL Baso # (Auto) (0.00-0.20) K/uL Immature Gran # (Auto) (0.01-0.20) K/uL Sodium (136-145) mmol/L Potassium (3.5-5.1) mmol/L Chloride (98-107) mmol/L Carbon Dioxide (21-32) mmol/L Anion Gap (3-11) BUN (6-23) mg/dl Creatinine (0.6-1.2) mg/dl Est Cr Clr Drug Dosing ml/min Est GFR ( Amer) ml/min Est GFR (Non-Af Amer) ml/min BUN/Creatinine Ratio (10-20) Glucose (70-99(Fasting)) mg/dl Lactate (0.4-2.0) mmol/L Calcium (8.6-10.3) mg/dl Magnesium (1.7-2.4) mg/dl Total Bilirubin (0.2-1.0) mg/dl Direct Bilirubin (0-0.2) mg/dl AST (13-39) U/L ALT (7-52) U/L Alkaline Phosphatase (34-104) U/L Troponin I High Sens (0-14) pg/ml Total Protein (6.0-8.3) gm/dl Albumin (3.4-5.0) gm/dl Procalcitonin 0.06 (0-0.5) ng/ml Adenovirus (PCR) Not Detected (NotDetected) B. pertussis DNA (PCR) Not Detected (NotDetected) B.parapertussis DNA PCR Not Detected (NotDetected) C. pneumoniae DNA (PCR) Not Detected (NotDetected) Coronavirus OC43 (PCR) Not Detected (NotDetected) Coronavirus HKU1 (PCR) Not Detected (NotDetected) Coronavirus 229E (PCR) Not Detected (NotDetected) SARS-CoV-2 (PCR) Not Detected (NotDetected) Coronavirus NL63 (PCR) Not Detected (NotDetected) Human Metapneumovir PCR Not Detected (NotDetected) Influenza Type A (PCR) Not Detected (NotDetected) Influenza Type B (PCR) Not Detected (NotDetected) M. pneumoniae (PCR) Not Detected (NotDetected) Parainfluenza 1 (PCR) Not Detected (NotDetected) Parainfluenza 2 (PCR) Not Detected (NotDetected) Parainfluenza 3 (PCR) Not Detected (NotDetected) Parainfluenza 4 (PCR) Not Detected (NotDetected) RSV (PCR) Not Detected (NotDetected) Entero/Rhino (PCR) Not Detected (NotDetected) Imaging Data Attestation: I personally reviewed and interpreted this imaging study as follows: My Impression: Chest x-raythere is significant airspace opacities consistent with her underlying pulmonary fibrosis but there may also be overlying infection. No p neumothorax Radiologist's Impression: Chest X-Ray 03/01/23 17:43 XR chest 1V portable CLINICAL HISTORY: Sepsis TECHNIQUE: Single frontal radiograph of the chest was obtained. Comparison: Comparison is made to chest radiograph 08/31/2021 FINDINGS: Lines and tubes are stable. Cardiomegaly is noted. Interstitial thickening is again seen. There is interval development of multifocal airspace opacities. No evidence of pleural effusion or pneumothorax. IMPRESSION: 1. Interval development of airspace opacities compatible with multifocal pneumonia. 2. Interstitial lung disease and cardiomegaly are again noted. ACT 112: Negative or not required by law. Electronically signed by: Noel Cordova M.D. 03/01/2023 6:14 PM ECG Data Attestation: I personally reviewed and interpreted this ECG as follows: Indication: + SOB/dyspnea Rate (beats per minute): 75 Rhythm: + normal sinus ECG Intervals/blocks: + Normal QRS, + Normal QT and + Normal VT ECG Redig: + Normal ECG ST segments: + Normal ST segments ECG Findings: + PACs Comparison ECG Date: from (08/31/2021) Change: no significant change MDM Narrative This patient comes in described above she was brought in by EMS. I reviewed recent palliative care note. She has end-stage pulmonary fibrosis. she is actually feeling better at present looks well on supplemental oxygen. Her lungs are crackly consistent with her pulmonary fibrosis but she has equal breath sounds. EKG was obtained and she was placed on a bus driver/monitor her EKG does not suggest acute coronary syndrome or arrhythmia. Her chest x-ray shows findings consistent with pulmonary fibrosis which is very advanced with likely overlying infection. COVID testing/bio fire was negative. White count is mildly elevated lactic acid is not. She is dosing of electrolyte or metabolic abnormalities. Reviewed her old records she did receive Zosyn before I gave her Zosyn 4.5 g IV. She is also receiving azithromycin at home and they need to continue this as well. The patient does not want to come in and she is a DO NOT RESUSCITATE. I did discuss case with Dr. Pro who saw the patient in the ED and will be admitting/observing her for these measures. She had stable vital signs I do not believe she is septic her lactic acid is within normal limits as well. Given concern for fluid overload/CHF she was not given any additional fluids as her chest x-ray looks potentially very wet as well. Continuous cardiac monitoring: Orders placed in EMR for continuous cardiac monitoring: Upon my evaluation patient was noted to be in normal sinus rhythm with a rate of 75 Impression & Plan Pneumonia, Hypoxemia, Pulmonary fibrosis, Lab test negative for COVID-19 virus, SOB (shortness of breath), DNR (do not resuscitate) Discharge Plan Visit Data Chief Complaint: Shortness of Breath/Dyspnea Stated Complaint: SOB ED Provider: Ajith Hernandez Discharge Problem: Pneumonia, Hypoxemia, Pulmonary fibrosis, Lab test negative for COVID-19 virus, SOB (shortness of breath), DNR (do not resuscitate) Forms Stand Alone Forms: My [facility] Prescriptions Prescriptions: No Action acetylcysteine 200 mg/mL (20 %) solution 2 ml inhalation Q4 azithromycin 250 mg tablet 250 - 500 mg PO DIRECTED Rx Instructions: Take 2 tabs day 1, take 1 tab for the next 4 days estradiol 0.075 mg/24 hr patch weekly 1 patch transdermal WE Rx Instructions: Ran out benzonatate 100 mg capsule 100 mg PO TID PRN (Reason: Cough) furosemide 20 mg Tablet 20 mg PO DAILY PRN (Reason: .edema) oxycodone 5 mg tablet 2.5 mg PO TID Rx Instructions: May take an additional 1/2 tablet sodium chloride 7 % solution for nebulization 4 ml INHALATION .BID UD guaifenesin [Mucus-ER MAX] 1,200 mg tablet extended release 12hr 1,200 mg PO BID oxycodone 5 mg tablet 2.5 mg PO DAILY PRN (Reason: Pain) Rx Instructions: This is in addition to her tid dosing. Referrals Referrals: Brooklyn Khan MD [Primary Care Provider] -
--- NOTE | 2023-03-01 18:16 | XRay Report ---
XR chest 1V portable CLINICAL HISTORY: Sepsis TECHNIQUE: Single frontal radiograph of the chest was obtained. Comparison: Comparison is made to chest radiograph 08/31/2021 FINDINGS: Lines and tubes are stable. Cardiomegaly is noted. Interstitial thickening is again seen. There is in terval development of multifocal airspace opacities. No evidence of pleural effusion or pneumothorax. IMPRESSION: 1. Interval development of airspace opacities compatible with multifocal pneumonia. 2. Interstitial lung disease and cardiomegaly are again noted. ACT 112: Negative or not required by law. Electronically signed by: Noel Cordova M.D. 03/01/2023 6:14 PM
[2023-03-01 18:19] LABS: Basophils # (auto) 0.05 K/uL (0.00-0.20); Basophils % (auto) 0.4 %; Eosinophils # (auto) 0.27 K/uL (0.00-0.50); Hematocrit (blood only) 38.7 % (37.0-47.0); Hemoglobin 12.9 g/dl (12.0-16.0); Immature Granulocytes # (auto) 0.04 K/uL (0.01-0.20); Immature Granulocytes % (auto) 0.3 %; Lymphocytes # (auto) 1.14 K/uL (1.20-3.40); Lymphocytes % (auto) 8.6 %; Mean Corpuscular Hemoglobin 31.1 pg (25.0-34.0); Mean Corpuscular Hgb Conc 33.3 g/dL (32.0-36.0); Mean Corpuscular Volume 93.3 fL (80.0-100.0); Mean Platelet Volume 10.3 fL (9.4-12.4); Monocytes # (auto) 1.63 K/uL (0.11-0.59); Monocytes % (auto) 12.4 %; Neutrophils # (auto) 10.06 K/uL (1.40-6.50); Neutrophils % (auto) 76.3 %; Platelet Count 314 K/uL (130-400); RDW Coefficient of Variation 11.7 % (11.5-14.5); RDW Standard Deviation 40.1 fL (36.4-46.3); Red Blood Count 4.15 M/uL (4.20-5.40); White Blood Count 13.19 K/ul (4.8-10.8)
[2023-03-01 18:26] LABS: Albumin Level 3.4 gm/dl (3.4-5.0); Bilirubin,Total 0.4 mg/dl (0.2-1.0); Est GFR (African American) 48.8 ml/min; Est GFR (Non-African American) 42.1 ml/min; Magnesium 1.8 mg/dl (1.7-2.4); Potassium 4.3 mmol/L (3.5-5.1); Total Protein 7.1 gm/dl (6.0-8.3)
[2023-03-01] MEDS ORDERED: PIPERACILLIN/TAZOBACTAM 4.5 GM/100 ML BAG IV ONE (18:28)
[2023-03-01 18:32] LABS: Troponin I High Sensitivity 41.4 pg/ml (0-14)
--- NOTE | 2023-03-01 18:43 | History & Physical Report ---
Date of Service March 01, 2023 Assessment & Plan (1) Multifocal pneumonia: Plan: Multifocal pneumonia Patient with baseline end-stage interstitial lung disease/end-stage pulmonary fibrosis previously hospice but now off hospice and palliative care, poor respiratory baseline See goals of care discussion below We will admit on Levaquin; no QT prolongation. 750 mg, renally adjusted every 48 hours Continue supplemental oxygen up to nonrebreather. If patient clinically worsens or desats, transition to ELECTRICIAN RADIO at that time. Patient does not wish for intubation or escalation to invasive measures or ICU level of care (2) Goals of care, counseling/discussion: Plan: Long discussion with Yuly and her son at bedside. Yuly is aware that she has progressive incurable and irreversible lung disease that is severe and end- stage on oxygen. She reports she is generally functional and can walk to the bathroom on 3.5 L of oxygen at home, but suddenly worsened on Friday had a fever approximately 100 degrees and felt that her dyspnea was much worse and did not improve either at rest or with oxygen. She notes that she was hospice at 1 point, transition back to palliative for concerns of getting certain medications/nebulizers but feels comfortable transitioning back to hospice either when she suddenly worsens from any untreatable acute event, or should her chronic baseline dyspnea worsened to the point where she would need escalating doses of narcotics to relieve her dyspnea. Currently she is on 1/2 tablet of oxycodone 3 times daily with 1 additional dose available to her which she feels is not sedating and works very well for dyspnea normally, although not in the last week. With her labs showing evidence of multifocal pneumonia she would like admission for high risk multifocal pneumonia and antibiotic treatment; however she notes that if she were to worsen and was not improving then she would want to transition to ELECTRICIAN RADIO while in the hospital/return home on comfort me asures if able. She does not currently have a hospital bed at home and this was not set up initially with hospice, and would like to try to treat her pneumonia currently. He is currently on nonrebreather. Discussed various options including inpatient admission with continued nonrebreather supplementation and antibiotics, returning home on home hospice, and inpatient versus outpatient antibiotic treatment. Due to her acutely worsened oxygen requirements and potentially treatable multifocal pneumonia, on shared decision making will admit for treatment of multifocal pneumonia on Levaquin. If she worsens then transition to ELECTRICIAN RADIO with the goal of home hospice if stable. If she improves then would like to return home and continue palliative but not hospice at this time, but with readiness to transition to hospice as soon as her baseline lung disease declined to the point where her home oxygen supply cannot relieve her dyspnea with current levels of opiates. (3) Chronic respiratory failure: (4) Chronic kidney disease, stage 3: Plan: At baseline on admission, trend BMP daily (5) GERD (gastroesophageal reflux disease): (6) Hyperlipidemia: (7) Palliative care encounter: (8) Interstitial lung disease: Plan: Chronic, end-stage Continue chest physiotherapy, nebulized saline, acetylcysteine Dyspnea and pneumonia management as otherwise noted Plan DVT prophylaxis: SCDs Disposition: Medical surgical. Discussed with patient, will place on MedSurg. If respiratory status worsens would transition to ELECTRICIAN RADIO, no cardiac arrhythmia/symptoms Diet: Liberalized regular CODE STATUS: DNR/DNI History of Present Illness Primary Care Provider: Brooklyn Khan MD Yuly is a 77-year-old female with a past medical history of end-stage pulmonary fibrosis on palliative care who presents with increased shortness of breath for 4 to 5 days, normal cough, cramps while coughing. She had a fever e arlier in the week did not improve on azithromycin.Worsening shortness of breath for several days. On azithromycin this past week without improvement. +Fevers x2 days. Pain in general has worsened. Below 20mg TDD of oxycodone, but has gone up from 3 half tablets to around 5 half tablets of oxycodone to reduce air hunger in the last week. Also helps with panic attacks. Long discussion with Yuly and her son at bedside. Yuly is aware that she has progressive incurable and irreversible lung disease that is severe and end- stage on oxygen. She reports she is generally functional and can walk to the bathroom on 3.5 L of oxygen at home, but suddenly worsened on Friday had a fever approximately 100 degrees and felt that her dyspnea was much worse and did not improve either at rest or with oxygen. She notes that she was hospice at 1 point, transition back to palliative for concerns of getting certain medications/nebulizers but feels comfortable transitioning back to hospice either when she suddenly worsens from any untreatable acute event, or should her chronic baseline dyspnea worsened to the point where she would need escalating doses of narcotics to relieve her dyspnea. Currently she is on 1/2 tablet of oxycodone 3 times daily with 1 additional dose available to her which she feels is not sedating and works very well for dyspnea normally, although not in the last week. With her labs showing evidence of multifocal pneumonia she would like admission for high risk multifocal pneumonia and antibiotic treatment; however she notes that if she were to worsen and was not improving then she would want to transition to ELECTRICIAN RADIO while in the hospital/return home on comfort measures if able. She does not currently have a hospital bed at home and this was not set up initially with hospice, and would like to try to treat her pneumonia currently. He is currently on nonrebreather. Discussed various options including inpatient admission with continued nonrebreather supplementat ion and antibiotics, returning home on home hospice, and inpatient versus outpatient antibiotic treatment. Due to her acutely worsened oxygen requirements and potentially treatable multifocal pneumonia, on shared decision making will admit for treatment of multifocal pneumonia on Levaquin. If she worsens then transition to ELECTRICIAN RADIO with the goal of home hospice if stable. If she improves then would like to return home and continue palliative but not hospice at this time, but with readiness to transition to hospice as soon as her baseline lung disease declined to the point where her home oxygen supply cannot relieve her dyspnea with current levels of opiates. Allergies Allergy/AdvReac Type Severity Reaction Status Date / Time adhesive Allergy Intermediate Skin Verified 03/01/23 18:54 reaction diazepam Allergy Intermediate Paradoxial Verified 03/01/23 18:54 reaction sorbitol Allergy Mild Gastrointestinal Verified 03/01/23 18:54 Upset Home Medications Medication Instructions Recorded Confirmed Type acetylcysteine 200 mg/mL (20 %) 2 ml inhalation Q4 03/01/23 03/01/23 History solution azithromycin 250 mg tablet 250 - 500 mg PO DIRECTED 03/01/23 03/01/23 History benzonatate 100 mg capsule 100 mg PO TID PRN Cough 03/01/23 03/01/23 History estradiol 0.075 mg/24 hr weekly 1 patch transdermal WE 03/01/23 03/01/23 History transdermal patch furosemide 20 mg tablet 20 mg PO DAILY PRN .edema 03/01/23 03/01/23 History guaifenesin 1,200 mg tablet, 1,200 mg PO BID 03/01/23 03/01/23 History extended release 12 hr (Mucus-ER MAX) oxycodone 5 mg tablet 2.5 mg PO DAILY PRN Pain 03/01/23 03/01/23 History oxycodone 5 mg tablet 2.5 mg PO TID 03/01/23 03/01/23 History sodium chloride 7 % for 4 ml inhalation .BID UD 03/01/23 03/01/23 History nebulization Past Med/Surg History Medical History Chronic kidney disease, stage 3 single kidney Diverticular disease GERD (gastroesophageal reflux disease) History of scarlet fever 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 History of uterine cancer Hyperlipidemia declines statins Impaired fasting glucose Microscopic colitis Microscopic hematuria Osteoarthritis Temporomandibular joint disorder Ureteral stricture, right Vertigo Surgical History History of anesthesia reaction DYSPNEA IN PACU WITH KRISHNA (2017); NO NOTED ISSUES WITH SUBSEQUENT ANESTHESIA/SURGERIES History of bilateral tubal ligation History of breast biopsy History of cholecystectomy History of colonoscopy History of esophagogastroduodenoscopy (EGD) History of nephrectomy, right S/P laparoscopic hand assisted right nephroureterectomy, retroperitoneal dissection: 07/16/18: Grade view 1, MAC#3, ETT 7.0 at [facility] History of total abdominal hysterectomy and bilateral salpingo-oophorectomy History of vascular access device Aport left chest wall 09/2018 Hx of cystoscopy WITH BIOPSY + STENT; SUBSEQUENT STENT REMOVAL Family History Father Family history of diabetes mellitus Asthma Congestive heart failure (CHF) Grandfather (Paternal) No problems noted. Grandmother (Paternal) Throat cancer Uncle Lung cancer Maternal side-smoker Cancer of nasal cavities Aunt Breast cancer Maternal Mother Congestive heart failure (CHF) Other No family history of bleeding disorder Denies family history of Ovarian cancer Prostate cancer Myocardial infarction Colorectal cancer Social History Smoking Status: Never smoker Second Hand Exposure: No; Do You Dip or Chew Tobacco: No; Hx Alcohol Use: No Hx Substance Use: No Preferred Language: Swedish Communication Ability: Effective Visual Impairment: No Limitations Hearing Ability: Normal Manager Retail Required: No Beliefs That Will Affect Care: None marital status: / Current Living Situation: Alone current occupational status: retired 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 NAD. Cooperative. Frail appearing HEENT: Atraumatic, normocephalic. Pulm: Diminished, diffuse fine crackles symmetrical chest rise. No increased work of breathing. No respiratory distress. On nonrebreather Cardiac: RRR, -mrg. Radial pulses intact and symmetrical. Abdominal: Nontender, nondistended, soft. BS present. Results & Data Results & Data Vital Signs (Past 12 Hours) Vital Signs Temp Pulse Pulse Resp BP BP Pulse Ox 03/01/23 17:48 36.4 C L 80 28 H 112/65 99 03/01/23 17:47 82 28 H 97 03/01/23 17:38 80 03/01/23 17:32 03/01/23 17:24 36.4 C L 78 28 H 112/65 100 O2 Del Method O2 Flow Rate 03/01/23 17:48 Non-rebreather 15 03/01/23 17:47 Non-rebreather 03/01/23 17:38 03/01/23 17:32 Non-rebreather 15 03/01/23 17:24 Non-rebreather 15 PG Care Time/CCT Total # of Minutes Spent Total Time Spent with Patient: Total time spent is greater than 50% in coordination of care (as documented) at patient's floor/unit and/or counseling patient: Coding Level of Care Code 35494 INT INP/OBS CARE 3/75MIN Diagnoses Multifocal pneumonia J18.9 Goals of care, counseling/discussion Z71.89 Chronic respiratory failure J96.10 Chronic kidney disease, stage 3 N18.3 GERD (gastroesophageal reflux disease) K21.9 Hyperlipidemia E78.5 Palliative care encounter Z51.5 Interstitial lung disease J84.9
[2023-03-01 19:04] LABS: Adenovirus PCR Not Detected (NotDetected); Bordetella parapertussis PCR Not Detected (NotDetected); Bordetella pertussis PCR Not Detected (NotDetected); Chlamydia pneumoniae PCR Not Detected (NotDetected); Coronavirus 229E PCR Not Detected (NotDetected); Coronavirus CoV-2 (COVID19)PCR Not Detected (NotDetected); Coronavirus HKU1 PCR Not Detected (NotDetected); Coronavirus NL63 PCR Not Detected (NotDetected); Coronavirus OC43PCR Not Detected (NotDetected); Human Metapneumovirus PCR Not Detected (NotDetected); Influenza A PCR Not Detected (NotDetected); Influenza B PCR Not Detected (NotDetected); Mycoplasma pneumoniae PCR Not Detected (NotDetected); Parainfluenza Virus 1 PCR Not Detected (NotDetected); Parainfluenza Virus 2 PCR Not Detected (NotDetected); Parainfluenza Virus 3 PCR Not Detected (NotDetected); Parainfluenza Virus 4 PCR Not Detected (NotDetected); Respiratory Syncytial VirusPCR Not Detected (NotDetected); Rhinovirus/Enterovirus PCR Not Detected (NotDetected)
[2023-03-01] MEDS ORDERED: LORazepam 0.5 MG TAB PO PRN (21:13)
[2023-03-01] MEDS ORDERED: BENZONATATE 100 MG CAPSULE PO PRN (22:34)
[2023-03-01] MEDS ORDERED: ACETYLCYSTEINE 20% INHAL SOLN 4ML ***DISPENSED BY RESP. INH PRN (22:43)
[2023-03-01] MEDS ORDERED: MoRPHine SULFATE 2 MG/ML CARP IV STA (22:44)
[2023-03-01] MEDS: oxyCODONE HCL IR 5 MG TAB (IMMEDIATE RELEASE) PO SCH (22:55)
[2023-03-01] MEDS: guaiFENesin 600 MG TABCR PO SCH (22:56)
[2023-03-01] MEDS ORDERED: diphenhydrAMINE Capsule 25 MG CAP PO ONE (22:59)
[2023-03-01] MEDS ORDERED: MELATONIN 3 MG TAB PO PRN (22:59)
[2023-03-01] MEDS: levoFLOXacin/D5W 750 MG/150 ML BAG IV SCH (22:59)
[2023-03-01] MEDS: ACETAMINOPHEN 325 MG TAB PO PRN (23:35)
--- NOTE | 2023-03-02 07:25 | Hospitalist Progress Note ---
Date of Service March 02, 2023 Assessment & Plan (1) Pneumonia: (2) Pulmonary fibrosis: (3) Hypoxemia: (4) Goals of care, counseling/discussion: (5) Palliative care encounter: Plan Multifocal pneumonia -Patient with baseline end-stage interstitial lung disease/end-stage pulmonary fibrosis previously hospice but now off hospice and palliative care, poor respiratory baseline -See full goals of care discussion in H&P -Continue Levaquin 750 mg, renally adjusted every 48 hours -Discussed that at <24 hours of treatment, it may be premature to determine if antibiotics will be beneficial. -This afternoon, patient had desat to 60s-70s when moving bedside commode, has had increased O2 requirement later in the day -Will have rosario catheter placed for comfort -Ordered morphine for respiratory distress -Continue supplemental oxygen up to nonrebreather. If patient continues to clinically worsen, transition to MAIL LIST PROCESSOR at that time. Patient does not wish for intubation or escalation to invasive measures or ICU level of care Goals of care, counseling/discussion -Yuly is aware that she has progressive incurable and irreversible lung disease that is severe and end-stage on oxygen. -She reports she is generally functional and can walk to the bathroom on 3.5 L of oxygen at home, but suddenly worsened on Friday. -Notes that she would like to try to treat her pneumonia but if she is not improving then she would want to transition to MAIL LIST PROCESSOR while in the hospital/return home on comfort measures if able. Chronic kidney disease, stage 3 -At baseline on admission, trend BMP daily -Levaquin renally dosed Interstitial lung disease -Chronic, end-stage -Continue chest physiotherapy, nebulized saline, acetylcysteine -Dyspnea and pneumonia management as otherwise noted Plan DVT prophylaxis: SCDs Disposition: Medical surgical. Discussed with patient, will place on MedSur. If respiratory status worsens would transition to MAIL LIST PROCESSOR, no cardiac arrhythmia/symptoms Diet: Liberalized regular CODE STATUS: DNR/DNI Admission and Anticipated Discharge Date Admission Date: March 01, 2023 Supervising Physician Co-Signing Physician Notes I personally examined the patient and verified all mccarthy points of history and exam, discussed case, and agree with decision making with Dr Mcghee feeling a little less SOB than 1-2hrs ago. vitals noted mild respiratory distress/mild conversational dyspnea and mild accessory muscles. no pallor or icterus. no focal deficits Probable pneumonia superimposed on severe pulmonary fibrosis with acute on chronic respiratory failureshe has been discussing big picture and end-of-life issues with Dr. Mcghee. Applauded her having the foresight to have these discussions. At the same time discussed that right now it is also quite reasonable to have a bit of an artificial "tunnel vision" for how she does over the next few days given that some of her respiratory distress may all be due to an acute pneumonia that could resolve with antibiotic treatment. Continue antibiotics and supportive care, follow closely. May end up at end-of-life/hospice decision points, but certainly too soon to tell with the strong potential of overlying infection. DVT proph - heparin SQ Subjective Patient seen and examined at bedside. Patient endorses increased work of breathing and expresses anxiety about her progression of respiratory symptoms. Patient notes she and her sons had a long discussion of palliative vs. hospice/comfort measures on admission last night. Also endorses constipation. Review of Systems Review of Systems: As per above Physical Exam Constitutional: + acute distress and + frail appearing Eyes: + anicteric sclerae; no conjunctival abnormality ENMT: Ears: no external ear abnormality Nose: no external nose abnormality Moist mucous membranes Respiratory: Diminished lung sounds throughout. High flow nasal cannula in place Cardiovascular: Rate/Rhythm: regular rhythm and + tachycardic No lower extremity edema Gastrointestinal (Abdomen): Abdomen soft, nontender and nondistended Skin: no rashes, warm and dry Results & Data Results & Data Vital Signs (Past 12 Hours) Vital Signs Temp Pulse Pulse Resp BP Pulse Ox O2 Del Method 03/02/23 07:19 36.3 C L 76 20 122/71 98 High Flow Nasal Cannula 03/02/23 00:06 High Flow Nasal Cannula 03/01/23 23:07 36.3 C L 87 20 113/71 91 High Flow Nasal Cannula 03/01/23 22:27 Non-rebreather 03/01/23 21:38 94 H 03/01/23 21:32 80 22 128/80 99 Nebulizer O2 Flow Rate 03/02/23 07:19 15 03/02/23 00:06 15 03/01/23 23:07 15 03/01/23 22:27 15 03/01/23 21:38 03/01/23 21:32 15 Resident Activity Tracking Resident Involvement: Resident Care Provided Care Provided: Adult Hospital Medicine (1) Pneumonia Laterality: bilateral Lung location: unspecified part of lung Pneumonia type: due to unspecified organism Qualified Code(s): J18.9 - Pneumonia, unspecified organism
[2023-03-02] MEDS: oxyCODONE HCL IR 5 MG TAB (IMMEDIATE RELEASE) PO SCH ×3 (07:35→20:37)
[2023-03-02] MEDS: guaiFENesin 600 MG TABCR PO SCH ×2 (07:35→20:36)
[2023-03-02] MEDS: SODIUM CHLOR 7% 4 ML NEB INH SCH ×2 (07:41→18:32)
[2023-03-02] MEDS ORDERED: HEPARIN 100 UNIT/ML 5ML FLUSH FLUSH PRN (07:47)
[2023-03-02] MEDS: ACETAMINOPHEN 325 MG TAB PO PRN ×2 (08:16→22:37)
[2023-03-02] MEDS: oxyCODONE HCL IR 5 MG TAB (IMMEDIATE RELEASE) PO PRN (11:49)
[2023-03-02] MEDS ORDERED: MoRPHine SULFATE 2 MG/ML CARP IV STA (14:38)
[2023-03-02 17:14] LABS: Appearance Urine Clear (Clear); Bacteria Urine Automated Negative (Negative); Bilirubin Urine Negative (Negative); Blood Urine Negative (Negative); Color Urine Yellow; Epithelial Cell Urine Auto >30 /lpf (0-5); Glucose Urine UA Negative (Negative); Ketones Urine Trace (Negative); Leukocyte Esterase Urine Negative (Negative); Nitrite Urine Negative (Negative); Protein Urine 1+ (Negative); Specific Gravity Urine 1.028 (1.000-1.030); Urobilinogen Urine Negative (Negative); pH Urine 5.5 (4.5-7.5)
--- NOTE | 2023-03-02 19:28 | Billing Data ---
Date of Service March 02, 2023 Coding Level of Care Code 51128 SUB INP/OBS CARE 3MIN
[2023-03-02] MEDS: HEPARIN SOD 5,000 UNIT/0.5 ML VIAL SQ SCH (20:38)
[2023-03-02] MEDS ORDERED: MoRPHine SULFATE 2 MG/ML CARP ONE (20:49)
[2023-03-02] MEDS: MoRPHine SULFATE 2 MG/ML CARP IV PRN (20:50)
[2023-03-03] MEDS: MoRPHine SULFATE 2 MG/ML CARP IV PRN ×3 (05:28→18:02)
[2023-03-03] MEDS: SODIUM CHLOR 7% 4 ML NEB INH SCH ×2 (07:16→20:19)
--- NOTE | 2023-03-03 07:29 | Hospitalist Progress Note ---
Date of Service March 03, 2023 Assessment & Plan (1) Pneumonia: (2) Pulmonary fibrosis: (3) Hypoxemia: (4) Goals of care, counseling/discussion: (5) Palliative care encounter: Plan Multifocal pneumonia in setting of severe pulmonary fibrosis with acute on chronic respiratory failure -previously hospice but now off hospice and palliative care, -Continue Levaquin 750 mg, renally adjusted every 48 hours -Discussed that at <24 hours of treatment, it may be premature to determine if antibiotics will be beneficial. -This afternoon, patient had desat to 60s-70s when moving bedside commode, has had increased O2 requirement later in the day -Rosario catheter placed for comfort, started bowel regimen to address constipation -Continue oxygen up to nonrebreather. If patient continues to clinically worsen, transition to BRIM STITCHER at that time. Patient does not wish for intubation or escalation to invasive measures or ICU level of care -Palliative care consulted, appreciate recommendations -Patient declined other medication changes at this time Goals of care, counseling/discussion -Yuly is aware that she has progressive incurable and irreversible lung disease that is severe and end-stage on oxygen. -She reports she is generally functional and can walk to the bathroom on 3.5 L of oxygen at home, but suddenly worsened on Friday. -Notes that she would like to try to treat her pneumonia but if she is not improving then she would want to transition to BRIM STITCHER while in the hospital/return home on comfort measures if able. -prn lorazepam and oxycodone for air hunger Chronic kidney disease, stage 3 -At baseline on admission, trend BMP daily -Levaquin renally dosed Interstitial lung disease -Chronic, end-stage -Continue chest physiotherapy, nebulized saline, acetylcysteine Plan DVT prophylaxis: SCDs Diet: Liberalized regular Line- rosario Admission and Anticipated Discharge Date Admission Date: March 01, 2023 Supervising Physician Co-Signing Physician Notes Resident Physician Supervision Note: I independently interviewed and examined the patient and verified the mccarthy history and physical, reviewed labs and image studies and agree with resident findings and care plan. Subjective Patient seen and examined at bedside. Patient notes that she is anxious, unsure of how things will progress. Notes that the oxy does help but takes some time to start working. Review of Systems Review of Systems: As per above Physical Exam Constitutional: + acute distress and + frail appearing Eyes: + anicteric sclerae; no conjunctival abnormality ENMT: Ears: no external ear abnormality Nose: no external nose abnormality Respiratory: + labored breathing and + cough Auscultation: + diminished lung sounds High flow nasal cannula Cardiovascular: Rate/Rhythm: regular rhythm and + tachycardic Skin: no rashes, warm and dry Psychiatric: A+Ox3, euthymic affect Results & Data Results & Data Vital Signs (Past 12 Hours) Vital Signs Temp Pulse Resp BP Pulse Ox O2 Del Method O2 Flow Rate 03/03/23 07:18 78 22 93 High Flow Nasal Cannula 25 03/03/23 03:47 81 22 96 High Flow Nasal Cannula 25 03/03/23 00:19 98 High Flow Nasal Cannula 35 03/02/23 20:50 36.7 C 76 24 97/63 L 92 High Flow Nasal Cannula 40 03/02/23 22:52 69 22 93 High Flow Nasal Cannula 30 03/02/23 20:54 High Flow Nasal Cannula 40 FiO2 03/03/23 07:18 70 03/03/23 03:47 80 03/03/23 00:19 85 03/02/23 20:50 90 03/02/23 22:52 80 03/02/23 20:54 Resident Activity Tracking Resident Involvement: Resident Care Provided Care Provided: Adult Hospital Medicine (1) Pneumonia Laterality: bilateral Lung location: unspecified part of lung Pneumonia type: due to unspecified organism Qualified Code(s): J18.9 - Pneumonia, unspecified organism
[2023-03-03 07:43] LABS: Basophils # (auto) 0.02 K/uL (0.00-0.20); Basophils % (auto) 0.2 %; Eosinophils # (auto) 0.03 K/uL (0.00-0.50); Eosinophils % (auto) 0.3 %; Hematocrit (blood only) 35.1 % (37.0-47.0); Hemoglobin 11.8 g/dl (12.0-16.0); Immature Granulocytes # (auto) 0.06 K/uL (0.01-0.20); Immature Granulocytes % (auto) 0.5 %; Lymphocytes # (auto) 1.24 K/uL (1.20-3.40); Lymphocytes % (auto) 10.6 %; Mean Corpuscular Hemoglobin 31.2 pg (25.0-34.0); Mean Corpuscular Hgb Conc 33.6 g/dL (32.0-36.0); Mean Corpuscular Volume 92.9 fL (80.0-100.0); Mean Platelet Volume 10.3 fL (9.4-12.4); Monocytes # (auto) 1.54 K/uL (0.11-0.59); Monocytes % (auto) 13.2 %; Neutrophils # (auto) 8.81 K/uL (1.40-6.50); Neutrophils % (auto) 75.2 %; Platelet Count 249 K/uL (130-400); RDW Coefficient of Variation 11.9 % (11.5-14.5); RDW Standard Deviation 40.1 fL (36.4-46.3); Red Blood Count 3.78 M/uL (4.20-5.40)
[2023-03-03 07:46] LABS: BUN Creatinine Ratio 21.3 (10-20); Creatinine Clr Calc Pharmacy 26.7 ml/min; Est GFR (African American) 35.2 ml/min; Est GFR (Non-African American) 30.3 ml/min; Potassium 4.7 mmol/L (3.5-5.1)
[2023-03-03] MEDS: oxyCODONE HCL IR 5 MG TAB (IMMEDIATE RELEASE) PO SCH ×3 (09:02→20:24)
[2023-03-03] MEDS: ACETAMINOPHEN 325 MG TAB PO PRN ×2 (09:03→21:03)
[2023-03-03] MEDS: HEPARIN SOD 5,000 UNIT/0.5 ML VIAL SQ SCH ×2 (09:03→20:25)
[2023-03-03] MEDS: guaiFENesin 600 MG TABCR PO SCH ×2 (09:06→20:27)
[2023-03-03] MEDS: LACTATED RINGER'S 1,000 ML IV SCH ×2 (09:08→19:30)
[2023-03-03] MEDS ORDERED: PHENAZOPYRIDINE HCL 200 MG TAB PO PRN (11:02)
[2023-03-03] MEDS: POLYETHYLENE (MIRALAX) 17 GM PACK PO SCH ×2 (13:06→20:27)
--- NOTE | 2023-03-03 16:38 | Palliative Care Consultation ---
Date of Consultation March 03, 2023 Assessment & Plan (1) Dyspnea and respiratory abnormalities: Yuly does not want any meds changed at this time Recommend adding a fan to keep on low oscillation - air movement across face will reduce the sensation of dyspnea. (2) Weakness generalized: (3) Anxiety associated with dying process: (4) Palliative care by specialist: (5) Advanced care planning/counseling discussion: ACP x 45min over 2 visits today She is very anxious and dyspneic She is aware she may need hospice at this point She hopes she can recover from infection enough to return home Less sure about how care at home might look but has familiarity with hospice from prior We reviewed some non pharma approaches for managing dyspnea We reviewed Pall Care for PF, I provided her with printed materials from [facility] at her request - she declines using hospital WIFi bc it is "unsecured." Plan noted above Too anxious for more conversation today Does not want med changes but I offered a trial of low dose TDF 12mcg and also changing oxy tabs to oral roxanol elixir Will follow up tomorrow TS 120min over 2 visits, 45min in face to face ACP Updated primary team Thank you for allowing us to participate in the ongoing care of this patient. Please don't hesitate to call or page with any additional concerns. Dr. eMredith Vences DNP Director, Palliative Care History of Present Illness Reason for Consultation: pulm fibrosis, high flow Attending Physician: Pearl Kay MD History of Present Illness Yuly was admitted from home with progressive respiratory failure and air hunger. She carries a diagnosis of pulmonary fibrosis for which she is followed by [facility] palliative medicine in [facility]. Medical history includes CKD, reflux, hyperlipidemia, interstitial lung disease as a result of chemotherapy for urothelial cancer in 2018, IBS and a prior history in 1997 of uterine cancer. Her urothelial cancer was treated with a right nephrectomy and chemotherapy. As result of her chemotherapy, she developed pulmonary fibrosis. This was further complicated in 2020 when she developed COVID and had COVID associated respiratory failure. This led to further complications and decline in pulmonary fibrosis and she became oxygen dependent [id number]. She reports that she had been on home hospice for short period of time but then due to improvement, they discharged her from hospice and she is maintained on the [facility] palliative care program. She sees the provider at the [place] office periodically. Her last visit that is documented in the chart is from 01/23/2023. At that time she was continuing to manage her dyspnea with continuous oxygen at 3 to 4 L nasal, Mucomyst nebulizers, normal saline nebulizers, compression vest with pacing activities. She was also using low- dose oxycodone at 2.5 mg p.o. 3 times daily, did not use any as needed doses and while she did have a prescription for as needed Ativan at home, she was not using this. She states part of her reluctance to use Ativan was because of her prior bad reaction to Valium. She struggles with opioid related constipation and decreasing appetite. Her performance status has been declining. On 1013, she called an ambulance and sought ER evaluation for progressive air hunger without any relief from current opioids. She increased oxycodone at home to a total of 7 tablets in a day without significant relief and O2 saturations were dropping into the mid 80s. Evaluation in the emergency department demonstrated a probable pneumonia superimposed on very severe pulmonary fibrosis consistent with an acute on chronic respiratory failure. She is hopeful that treatment for her pneumonia will allow enough improvement to be able to return home possibly with the addition of hospice. She is quite concerned about the utilization of high flow nasal cannula and understands that this may be a limiting factor with her not being able to return home. Yuly used to work for the [employer] before she retired. She is fairly well versed and informed about pulmonary fibrosis and tells me that she understands she has end-stage disease. She was told back in August 2022 that she had maximized medical therapies for her pulmonary fibrosis and that there was a formal recommendation at that time for hospice. Despite enrolling in hospice, she did well enough to stay stable and ultimately was discharged from hospice. She now follows with the palliative medicine program at the [place] location for [facility]. The time of my visit today, she is sitting upright in bed, on high flow nasal cannula, and extremely anxious and dyspneic. She tells me she has become progressively more short of breath with this current exacerbation and has not been able to feel significant improvement. She is getting some IV morphine which she feels does provide relief however it is not long-lasting. She states that her anxiety has been increasing as part of the dyspnea related distress. She is reluctant to take Ativan due to a prior reaction she had to diazepam (Valium). Allergies Allergy/AdvReac Type Severity Reaction Status Date / Time adhesive Allergy Intermediate Skin Verified 03/01/23 18:54 reaction diazepam Allergy Intermediate Paradoxial Verified 03/01/23 18:54 reaction sorbitol Allergy Mild Gastrointestinal Verified 03/01/23 18:54 Upset Home Medications Medication Instructions Recorded Confirmed Type acetylcysteine 200 mg/mL (20 %) 2 ml inhalation Q4 03/01/23 03/01/23 History solution azithromycin 250 mg tablet 250 - 500 mg PO DIRECTED 03/01/23 03/01/23 History benzonatate 100 mg capsule 100 mg PO TID PRN Cough 03/01/23 03/01/23 History estradiol 0.075 mg/24 hr weekly 1 patch transdermal WE 03/01/23 03/01/23 History transdermal patch furosemide 20 mg tablet 20 mg PO DAILY PRN .edema 03/01/23 03/01/23 History guaifenesin 1,200 mg tablet, 1,200 mg PO BID 03/01/23 03/01/23 History extended release 12 hr (Mucus-ER MAX) oxycodone 5 mg tablet 2.5 mg PO DAILY PRN Pain 03/01/23 03/01/23 History oxycodone 5 mg tablet 2.5 mg PO TID 03/01/23 03/01/23 History sodium chloride 7 % for 4 ml inhalation .BID UD 03/01/23 03/01/23 History nebulization Patient History Medical History Chronic kidney disease, stage 3 single kidney Diverticular disease GERD (gastroesophageal reflux disease) History of scarlet fever 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 History of uterine cancer Hyperlipidemia declines statins Impaired fasting glucose Microscopic colitis Microscopic hematuria Osteoarthritis Temporomandibular joint disorder Ureteral stricture, right Vertigo Surgical History History of anesthesia reaction DYSPNEA IN PACU WITH KRISHNA (2017); NO NOTED ISSUES WITH SUBSEQUENT ANESTHESIA/SURGERIES History of bilateral tubal ligation History of breast biopsy History of cholecystectomy History of colonoscopy History of esophagogastroduodenoscopy (EGD) History of nephrectomy, right S/P laparoscopic hand assisted right nephroureterectomy, retroperitoneal dissection: 07/16/18: Grade view 1, MAC#3, ETT 7.0 at [facility] History of total abdominal hysterectomy and bilateral salpingo-oophorectomy History of vascular access device Aport left chest wall 09/2018 Hx of cystoscopy WITH BIOPSY + STENT; SUBSEQUENT STENT REMOVAL Family History Father Family history of diabetes mellitus Asthma Congestive heart failure (CHF) Grandfather (Paternal) No problems noted. Grandmother (Paternal) Throat cancer Uncle Lung cancer Maternal side-smoker Cancer of nasal cavities Aunt Breast cancer Maternal Mother Congestive heart failure (CHF) Other No family history of bleeding disorder Denies family history of Ovarian cancer Prostate cancer Myocardial infarction Colorectal cancer Social History Smoking Status: Never smoker Second Hand Exposure: No; Do You Dip or Chew Tobacco: No; Hx Alcohol Use: No Hx Substance Use: No Preferred Language: Andorran Communication Ability: Effective Visual Impairment: No Limitations Hearing Ability: Normal Swing Driver Required: No Beliefs That Will Affect Care: None marital status: / Current Living Situation: Family current occupational status: retired 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 How many Children do You have: 1 Feels Safe at Home: Yes Safety Concerns: Feels Safe At This Time Childhood Exposure to Second-Hand Smoke: Yes Diet: regular Diet Comment: does eat some fish Dental Care, Regularly: Yes Physical Activity Frequency: 1-2 Times per Week Seatbelt Use: always Sunscreen Use: Yes Assistive Devices: Oxygen - Continuous Review of Systems Review of Systems: All systems reviewed & are unremarkable except as noted in Subjective See HPI Physical Exam Physical Exam: Sitting at nearly 90 degrees in bed, with noted respiratory distress, use of accessory muscles, conversational dyspnea, labored breathing, and tachypneic. There are some bitemporal wasting noted. She is anxious and appears overwhelmed. On exam, lungs are noted to be diffusely crackles and bilaterally. Heart tones are tachycardic, there is no murmur appreciated. Abdomen is softly distended and nontender but bowel sounds are present. She has some generalized weakness but strength is equal bilaterally. Her skin is pale and cool and there is no obvious rash or mottling. She is awake alert and oriented x3. Mood is noted to be anxious with some pressured speech and trouble focusing. Results & Data Vital Signs (Past 12 Hours) Vital Signs Temp Pulse Resp BP Pulse Ox Pulse Ox O2 Del Method 03/03/23 15:29 78 20 93 High Flow Nasal Cannula 03/03/23 15:01 36.4 C L 80 18 99/60 L 93 High Flow Nasal Cannula 03/03/23 08:00 99 03/03/23 10:42 80 24 93 High Flow Nasal Cannula 03/03/23 08:43 High Flow Nasal Cannula 03/03/23 07:59 36.5 C 80 16 109/72 85 L High Flow Nasal Cannula 03/03/23 07:18 78 22 93 High Flow Nasal Cannula O2 Del Method O2 Flow Rate O2 Flow Rate FiO2 03/03/23 15:29 35 80 03/03/23 15:01 35 03/03/23 08:00 High Flow Nasal Cannula 35 03/03/23 10:42 35 80 03/03/23 08:43 35 03/03/23 07:59 35 03/03/23 07:18 25 70 Laboratory Results Data reviewed Diagnostic Findings Chest x-ray 03/01/2023 demonstrates interval development of airspace opacities compatible with multifocal pneumonia. Interstitial lung disease and cardiomegaly are noted. Pulmonary function test from May 2022 demonstrated an FEV1 of 53% predicted with FVC of 43% predicted. Bronchodilators were not administered. Lung volumes confirm a severe restriction with total lung capacity 37% predicted, FRC 35% predicted and RV 32% predicted. Her diffusion capacity is significantly reduced to 41% of predicted. Compared to her prior studies of October 2021, FEV1 is essentially unchanged but total lung capacity has decreased by almost 500 mL and diffusion capacity remains about the same. PG Care Time/CCT Total # of Minutes Spent Total Time Spent: 120 Total Time Spent with Patient: Total time spent is greater than 50% in coordination of care (as documented) at patient's floor/unit and/or counseling patient: Advanced Care Planning 68819 Advanced Care Planning 30 Min 56150 Advanced Care Planning Additional 30 [place] [address] IN/OBS CONSULT LVL 5,80M Patient Type New History Comprehensive Exam Comprehensive Medical Decision Making High Complexity Diagnoses Dyspnea and respiratory abnormalities R06.00; R06.89 Weakness generalized R53.1 Anxiety associated with dying process F41.1 Palliative care by specialist Z51.5 Advanced care planning/counseling discussion Z71.89 Additional Codes Advanced Care Planning - 26442 Advanced Care Planning 30 Min: 96568 Advanced Care Planning 30 Min ([id number]) Advanced Care Planning - 77774 Advanced Care Planning Additional 30 Min: 09702 Advanced Care Planning Additional 30 Min ([id number])
[2023-03-03] MEDS ORDERED: [UNRECOGNIZED DRUG - REMARK] SCH (18:59)
[2023-03-03] MEDS: ESTRADIOL 0.075 MG TD SCH (20:23)
[2023-03-03] MEDS: levoFLOXacin/D5W 750 MG/150 ML BAG IV SCH (22:53)
[2023-03-04] MEDS: [UNRECOGNIZED DRUG - REMARK] SCH ×3 (00:01→15:31)
[2023-03-04] MEDS: MoRPHine SULFATE 2 MG/ML CARP IV PRN ×2 (01:13→11:08)
[2023-03-04] MEDS: PROCHLORPERAZINE 5 MG in SYRINGE 4 ML IV PRN ×2 (02:58→21:43)
--- NOTE | 2023-03-04 06:27 | Electrocardiogram Report ---
Test Reason : Blood Pressure : / mmHG Vent. Rate : 079 BPM Atrial Rate : 079 BPM P-R Int : 132 ms QRS Dur : 074 ms QT Int : 336 ms P-R-T Axes : 047 -03 020 degrees QTc Int : 385 ms Poor data quality, interpretation may be adversely affected Sinus rhythm with Premature atrial complexes Otherwise normal ECG When compared with ECG of 31-AUG-2021 15:21, Nonspecific T wave abnormality no longer evident in Anterior leads Confirmed by Hima Ham ([id number]) on 03/04/2023 6:26:46 AM Referred By: REFERRED SELF Confirmed By:Hima Ham
--- NOTE | 2023-03-04 07:00 | Hospitalist Progress Note ---
Date of Service March 04, 2023 Assessment & Plan (1) Pneumonia: (2) Pulmonary fibrosis: (3) Hypoxemia: (4) Goals of care, counseling/discussion: (5) Palliative care encounter: Plan Multifocal pneumonia in setting of severe pulmonary fibrosis with acute on chronic respiratory failure -previously hospice but now off hospice and palliative care, -Continue Levaquin 750 mg, renally adjusted every 48 hours -Discussed that at 2 days of treatment, it may be premature to determine if antibiotics will be beneficial. -This afternoon, patient had desat to 60s-70s when moving bedside commode, has had increased O2 requirement later in the day -Rosario catheter placed for comfort, started bowel regimen to address constipation -Continue oxygen up to nonrebreather. If patient continues to clinically worsen, transition to RADIOLOGY TECHNICIAN at that time. Patient does not wish for intubation or escalation to invasive measures or ICU level of care -consider pulmonary consult Goals of care, counseling/discussion -Yuly is aware that she has progressive incurable and irreversible lung disease that is severe and end-stage on oxygen. -She reports she is generally functional and can walk to the bathroom on 3.5 L of oxygen at home, but suddenly worsened on Friday. -Notes that she would like to try to treat her pneumonia but if she is not improving then she would want to transition to RADIOLOGY TECHNICIAN while in the hospital/return home on comfort measures if able. -Palliative care consulted, appreciate recommendations -prn lorazepam and oxycodone for air hunger -increased oxycodone dosage to 5mg tid and 5mgs prn dose to help with air hunger ANALILIA on Chronic kidney disease, stage 3 -Creatinine rise to 1.6. back to baseline. -Levaquin renally dosed Interstitial lung disease -Chronic, end-stage -Continue chest physiotherapy, nebulized saline, acetylcysteine Plan DVT prophylaxis: SCDs Diet: Liberalized regular Line- rosario Admission and Anticipated Discharge Date Admission Date: March 01, 2023 Supervising Physician Co-Signing Physician Notes Resident Physician Supervision Note: I independently interviewed and examined the patient and verified the mccarthy history and physical, reviewed labs and image studies and agree with resident findings and care plan. Subjective Patient seen and examined at bedside. This afternoon patient had increased work of breathing, was straining to have a bowel movement. Review of Systems Review of Systems: As per above Physical Exam Constitutional: + acute distress and + frail appearing Eyes: + anicteric sclerae; no conjunctival abnormality ENMT: Ears: no external ear abnormality Nose: no external nose abnormality Respiratory: + labored breathing and + cough Auscultation: + diminished lung sounds Cardiovascular: Rate/Rhythm: regular rhythm and + tachycardic Skin: no rashes, warm and dry Psychiatric: Orientation: alert, oriented to person, oriented to place and oriented to time Affect: + anxious affect Results & Data Results & Data Vital Signs (Past 12 Hours) Vital Signs Temp Pulse Resp BP Pulse Ox O2 Del Method O2 Flow Rate 03/04/23 02:26 75 24 94 High Flow Nasal Cannula 35 03/03/23 23:19 79 18 97 High Flow Nasal Cannula 35 03/03/23 20:20 65 20 95 High Flow Nasal Cannula 35 03/03/23 20:12 High Flow Nasal Cannula 35 03/03/23 20:06 36.3 C L 62 18 115/78 94 High Flow Nasal Cannula 35 FiO2 03/04/23 02:26 75 03/03/23 23:19 75 03/03/23 20:20 75 03/03/23 20:12 75 03/03/23 20:06 75 Resident Activity Tracking Resident Involvement: Resident Care Provided Care Provided: Adult Hospital Medicine (1) Pneumonia Laterality: bilateral Lung location: unspecified part of lung Pneumonia type: due to unspecified organism Qualified Code(s): J18.9 - Pneumonia, unspecified organism
[2023-03-04] MEDS: SODIUM CHLOR 7% 4 ML NEB INH SCH ×2 (07:03→20:26)
[2023-03-04] MEDS: guaiFENesin 600 MG TABCR PO SCH ×2 (07:58→20:08)
[2023-03-04] MEDS: HEPARIN SOD 5,000 UNIT/0.5 ML VIAL SQ SCH ×2 (07:58→20:11)
[2023-03-04] MEDS: POLYETHYLENE (MIRALAX) 17 GM PACK PO SCH ×4 (08:00→20:08)
[2023-03-04] MEDS: oxyCODONE HCL IR 5 MG TAB (IMMEDIATE RELEASE) PO SCH ×3 (08:04→20:10)
[2023-03-04 08:35] LABS: Basophils # (auto) 0.04 K/uL (0.00-0.20); Basophils % (auto) 0.3 %; Eosinophils # (auto) 0.06 K/uL (0.00-0.50); Eosinophils % (auto) 0.5 %; Hematocrit (blood only) 32.8 % (37.0-47.0); Hemoglobin 11.1 g/dl (12.0-16.0); Immature Granulocytes # (auto) 0.06 K/uL (0.01-0.20); Immature Granulocytes % (auto) 0.5 %; Lymphocytes # (auto) 1.19 K/uL (1.20-3.40); Lymphocytes % (auto) 9.7 %; Mean Corpuscular Hemoglobin 31.4 pg (25.0-34.0); Mean Corpuscular Hgb Conc 33.8 g/dL (32.0-36.0); Mean Corpuscular Volume 92.9 fL (80.0-100.0); Mean Platelet Volume 10.4 fL (9.4-12.4); Monocytes # (auto) 1.53 K/uL (0.11-0.59); Monocytes % (auto) 12.5 %; Neutrophils # (auto) 9.35 K/uL (1.40-6.50); Neutrophils % (auto) 76.5 %; Platelet Count 253 K/uL (130-400); RDW Coefficient of Variation 11.7 % (11.5-14.5); RDW Standard Deviation 39.8 fL (36.4-46.3); Red Blood Count 3.53 M/uL (4.20-5.40); White Blood Count 12.23 K/ul (4.8-10.8)
[2023-03-04 08:55] LABS: Albumin Globulin Ratio 0.9 (0.9-2); Albumin Level 2.9 gm/dl (3.4-5.0); Bilirubin,Total 0.4 mg/dl (0.2-1.0); Calcium 8.7 mg/dl (8.6-10.3); Creatinine Clr Calc Pharmacy 33.6 ml/min; Est GFR (African American) 46.5 ml/min; Est GFR (Non-African American) 40.1 ml/min; Globulin 3.3 gm/dl (2.5-4.0); Potassium 4.8 mmol/L (3.5-5.1); Total Protein 6.2 gm/dl (6.0-8.3)
[2023-03-04] MEDS: LACTATED RINGER'S 1,000 ML IV SCH ×2 (09:07→18:57)
--- NOTE | 2023-03-04 16:08 | Palliative Care Progress Note ---
Date of Service March 04, 2023 Assessment & Plan (1) Dyspnea and respiratory abnormalities: Plan: increase to oxy IR 5mg po TID (2) Advanced care planning/counseling discussion: Plan: I asked Signal Testerraven Miller to join me today. We had a baltazar and lengthy conversation face to face with pt for 75min. She is deeply philosophical and while she was raised oriental orthodox, it is Travis Zoroastrian appeals to her the most; she spoke at length about how she defined spirituality and her connection to the world jas nature and people. She had a lot of questions about symptom mgt. Her greatest fear, that she told us today, is "I'm afraid of really suffering on my way out of this world because I have been so fortunate to have a good, happy. I want that same peace and ease through the end and I don't want my family traumatized by my struggling." Letting go/allowing others to help share this burden is where she resists most, bc of the fear. We agreed to a trial of increased oxy IR to 5mg PO TID and will leave prn morphine unchanged. if no relief in 2 days, will transition to duragesic but we agreed we would try uptitration of a med she has done well on for months first before switching to a new med. extensive support and reassurance provided. We DID NOT discuss potential what if scenarios, today focused on symptom mgt and building a therapeutic rapport. more to follow in the days ahead. (3) Palliative care by specialist: (4) Anxiety associated with dying process: Plan: she declines BZD due to prior reaction to valium reluctant to try another new med but we discussed option of celexa vs ?buspar (5) Weakness generalized: Plan as noted above Thank you for allowing us to participate in the ongoing care of this patient. Please don't hesitate to call or page with any additional concerns. Dr. Meredith Vences DNP Director, Palliative Care Admission and Anticipated Discharge Date Admission Date: March 01, 2023 Subjective still breathless moved to a room "with a better view of nature, this makes me happier" had a nice visit with son still very anxious pt seen today with open source developer she worries about relying on PO meds when she feels herself growing weaker and having more trouble with pills. she is worried what will happen when she is at home if she has another dyspnea crisis. Review of Systems Review of Systems: All systems reviewed & are unremarkable except as noted in Subjective Physical Exam Physical Exam: Sitting at nearly 90 degrees in bed, with noted respiratory distress, use of accessory muscles, conversational dyspnea, labored breathing, and tachypneic. There are some bitemporal wasting noted. She is anxious and appears overwhelmed. On exam, lungs are noted to be diffusely crackles and bilaterally. Heart tones are tachycardic, there is no murmur appreciated. Abdomen is softly distended and nontender but bowel sounds are present. She has some generalized weakness but strength is equal bilaterally. Her skin is pale and cool and there is no obvious rash or mottling. She is awake alert and oriented x3. Mood is noted to be anxious with some pressured speech and trouble focusing. Results & Data Vital Signs (Past 12 Hours) Vital Signs Temp Pulse Resp BP Pulse Ox Pulse Ox O2 Del Method 03/04/23 15:45 82 24 98 High Flow Nasal Cannula 03/04/23 14:55 36.5 C 70 20 132/71 97 High Flow Nasal Cannula 03/04/23 11:16 80 20 99 High Flow Nasal Cannula 03/04/23 08:59 High Flow Nasal Cannula 03/04/23 08:00 92 03/04/23 08:29 76 96 High Flow Nasal Cannula 03/04/23 08:26 36.5 C 75 20 97/62 L 90 High Flow Nasal Cannula 03/04/23 07:05 82 18 98 High Flow Nasal Cannula 03/04/23 07:03 80 18 98 High Flow Nasal Cannula O2 Del Method O2 Flow Rate O2 Flow Rate FiO2 03/04/23 15:45 40 100 03/04/23 14:55 40 03/04/23 11:16 40 100 03/04/23 08:59 35 65 03/04/23 08:00 High Flow Nasal Cannula 35 03/04/23 08:29 35 65 03/04/23 08:26 35 65 03/04/23 07:05 35 75 03/04/23 07:03 35 75 PG Care Time/CCT Total # of Minutes Spent Total Time Spent: 115 Total Time Spent with Patient: Total time spent is greater than 50% in coordination of care (as documented) at patient's floor/unit and/or counseling patient: 75 min in ACP balance with pt, clinical care coordination Advanced Care Planning 84428 Advanced Care Planning 30 Min 45451 Advanced Care Planning Additional 30 Min [place] [address] SUB INP/OBS CARE 3/50MIN Patient Type Established History Comprehensive Exam Comprehensive Medical Decision Making High Complexity Diagnoses Dyspnea and respiratory abnormalities R06.00; R06.89 Advanced care planning/counseling discussion Z71.89 Palliative care by specialist Z51.5 Anxiety associated with dying process F41.1 Weakness generalized R53.1 Additional Codes Advanced Care Planning - 55336 Advanced Care Planning 30 Min: 68100 Advanced Care Planning 30 Min ([id number]) Advanced Care Planning - 58519 Advanced Care Planning Additional 30 Min: 00947 Advanced Care Planning Additional 30 Min ([id number])
--- NOTE | 2023-03-04 16:11 | Communication Note ---
Date of Service: March 04, 2023 I called pt [facility] med provide Charlotte CORRAL at [phone] and for her with Tiki/office system analyst. Charlotte is at a CME today and will call back tomorrow, I elft my direct cell phone for her to contact me at her convenience. Thank you for allowing us to participate in the ongoing care of this patient. Please don't hesitate to call or page with any additional concerns. Dr. Meredith Vences DNP Director, Palliative Care
[2023-03-04] MEDS: oxyCODONE HCL IR 5 MG TAB (IMMEDIATE RELEASE) PO PRN ×2 (16:26→16:51)
[2023-03-04] MEDS ORDERED: ONDANSETRON INJ 2 MG/ML 2 ML VIAL IV STA (17:43)
[2023-03-05] MEDS: [UNRECOGNIZED DRUG - REMARK] SCH ×4 (00:46→23:32)
[2023-03-05] MEDS: oxyCODONE HCL IR 5 MG TAB (IMMEDIATE RELEASE) PO PRN (02:48)
[2023-03-05] MEDS: ACETAMINOPHEN 325 MG TAB PO PRN (04:51)
[2023-03-05] MEDS ORDERED: KETOROLAC TROMETHAMINE 15 MG/ML VIAL IV ONE (05:35)
[2023-03-05] MEDS ORDERED: oxyCODONE HCL IR 5 MG TAB (IMMEDIATE RELEASE) PO PRN ×2 (06:02)
[2023-03-05] MEDS ORDERED: LORazepam 0.5 MG TAB PO PRN ×2 (06:11→19:58)
[2023-03-05] MEDS: SODIUM CHLOR 7% 4 ML NEB INH SCH ×2 (07:05→20:18)
--- NOTE | 2023-03-05 07:34 | Hospitalist Progress Note ---
Date of Service March 05, 2023 Assessment & Plan (1) Pneumonia: (2) Pulmonary fibrosis: (3) Hypoxemia: (4) Goals of care, counseling/discussion: (5) Palliative care encounter: Plan Multifocal pneumonia in setting of severe pulmonary fibrosis with acute on chronic respiratory failure -previously hospice but now off hospice and palliative care, -Continue Levaquin 750 mg, renally adjusted every 48 hours -Discussed that at >3 days of antibiotic treatment, her likelihood from recovering from current status is not likely -Continue oxygen up to nonrebreather. If patient continues to clinically worsen, transition to PURCHASING/RECEIVING at that time. Patient does not wish for intubation or escalation to invasive measures or ICU level of care -Currently on 35L HFNC -Pulmonology consulted, Goals of care, counseling/discussion -Yuly is aware that she has progressive incurable and irreversible lung disease that is severe and end-stage on oxygen. -She reports she is generally functional and can walk to the bathroom on 3.5 L of oxygen at home, but suddenly worsened on Friday. -Notes that she would like to try to treat her pneumonia but if she is not improving then she would want to transition to PURCHASING/RECEIVING while in the hospital/return home on comfort measures if able. -She has become increasingly hypotensive throughout the day and hyperkalemic, discussed with family and patient that her condition is declining -Palliative care consulted, appreciate recommendations -prn lorazepam and oxycodone for air hunger -Added prn Dilaudid IV for air hunger/pain -Further discussions with patient and her son, Jun. Patient and family not fully ready to transition to comfort care at this time. ANALILIA on Chronic kidney disease, stage 3 -Creatinine rise to 1.6. -Levaquin renally dosed Hyperkalemia -Potassium of 5.9 and 6.4 today -received calcium gluconate IV, IV insulin/D-50 -Added lokelma, EKG ordered Interstitial lung disease -Chronic, end-stage -Continue chest physiotherapy, nebulized saline, acetylcysteine Plan DVT prophylaxis: SCDs Diet: Liberalized regular Line -Pendleton catheter placed for comfort, started bowel regimen to address constipation Admission and Anticipated Discharge Date Admission Date: March 01, 2023 Supervising Physician Co-Signing Physician Notes Resident Physician Supervision Note: I independently interviewed and examined the patient and verified the mccarthy history and physical, reviewed labs and image studies and agree with resident findings and care plan. Subjective Patient seen and examined at bedside on multiple occasion. reported being more comfortable with taking oxycodone. still feeling anxious Review of Systems Review of Systems: As per above Physical Exam Constitutional: + acute distress and + frail appearing Eyes: + anicteric sclerae; no conjunctival abnormality ENMT: Ears: no external ear abnormality Nose: no external nose abnormality Respiratory: + labored breathing and + cough Auscultation: + diminished lung sounds Cardiovascular: Rate/Rhythm: regular rhythm and + tachycardic Skin: no rashes, warm and dry Psychiatric: Orientation: alert, oriented to person, oriented to place and oriented to time Affect: + anxious affect Results & Data Results & Data Vital Signs (Past 12 Hours) Vital Signs Temp Pulse Resp BP Pulse Ox O2 Del Method O2 Flow Rate 03/05/23 07:07 66 20 98 High Flow Nasal Cannula 40 03/05/23 03:14 64 22 99 High Flow Nasal Cannula 40 03/05/23 01:26 62 20 98 High Flow Nasal Cannula 35 03/04/23 23:54 High Flow Nasal Cannula 35 03/04/23 20:27 83 22 98 High Flow Nasal Cannula 40 03/04/23 20:20 37 C 87 20 100/60 97 High Flow Nasal Cannula 35 FiO2 03/05/23 07:07 100 03/05/23 03:14 100 03/05/23 01:26 90 03/04/23 23:54 90 03/04/23 20:27 100 03/04/23 20:20 90 Resident Activity Tracking Resident Involvement: Resident Care Provided Care Provided: Adult Hospital Medicine (1) Pneumonia Laterality: bilateral Lung location: unspecified part of lung Pneumonia type: due to unspecified organism Qualified Code(s): J18.9 - Pneumonia, unspecified organism
[2023-03-05 08:46] LABS: Basophils # (auto) 0.03 K/uL (0.00-0.20); Basophils % (auto) 0.2 %; Eosinophils # (auto) 0.04 K/uL (0.00-0.50); Eosinophils % (auto) 0.3 %; Hematocrit (blood only) 35.2 % (37.0-47.0); Hemoglobin 11.5 g/dl (12.0-16.0); Immature Granulocytes # (auto) 0.07 K/uL (0.01-0.20); Immature Granulocytes % (auto) 0.6 %; Lymphocytes # (auto) 1.22 K/uL (1.20-3.40); Lymphocytes % (auto) 9.9 %; Mean Corpuscular Hemoglobin 31.4 pg (25.0-34.0); Mean Corpuscular Hgb Conc 32.7 g/dL (32.0-36.0); Mean Corpuscular Volume 96.2 fL (80.0-100.0); Mean Platelet Volume 10.1 fL (9.4-12.4); Monocytes # (auto) 1.76 K/uL (0.11-0.59); Monocytes % (auto) 14.2 %; Neutrophils # (auto) 9.25 K/uL (1.40-6.50); Neutrophils % (auto) 74.8 %; Platelet Count 217 K/uL (130-400); RDW Coefficient of Variation 11.9 % (11.5-14.5); Red Blood Count 3.66 M/uL (4.20-5.40); White Blood Count 12.37 K/ul (4.8-10.8)
[2023-03-05 09:19] LABS: Albumin Globulin Ratio 0.9 (0.9-2); Albumin Level 2.9 gm/dl (3.4-5.0); BUN Creatinine Ratio 21.7 (10-20); Bilirubin,Total 0.7 mg/dl (0.2-1.0); Calcium 9.2 mg/dl (8.6-10.3); Creatinine Clr Calc Pharmacy 20.6 ml/min; Est GFR (African American) 25.7 ml/min; Est GFR (Non-African American) 22.2 ml/min; Globulin 3.2 gm/dl (2.5-4.0); Potassium 5.9 mmol/L (3.5-5.1); Total Protein 6.1 gm/dl (6.0-8.3)
[2023-03-05] MEDS: POLYETHYLENE (MIRALAX) 17 GM PACK PO SCH ×3 (10:05→20:56)
[2023-03-05] MEDS: HEPARIN SOD 5,000 UNIT/0.5 ML VIAL SQ SCH ×2 (10:05→20:55)
[2023-03-05] MEDS: guaiFENesin 600 MG TABCR PO SCH ×2 (10:05→20:55)
[2023-03-05] MEDS: oxyCODONE HCL IR 5 MG TAB (IMMEDIATE RELEASE) PO SCH ×3 (10:05→20:55)
[2023-03-05 13:26] LABS: BUN Creatinine Ratio 20.5 (10-20); Calcium 9.3 mg/dl (8.6-10.3); Creatinine Clr Calc Pharmacy 17.5 ml/min; Est GFR (African American) 21.1 ml/min; Est GFR (Non-African American) 18.2 ml/min; Potassium 6.4 mmol/L (3.5-5.1)
[2023-03-05] MEDS ORDERED: DEXTROSE 50% 50 ML SYRINGE IV STA (13:30)
[2023-03-05] MEDS ORDERED: STAT IV STA (13:30)
[2023-03-05] MEDS ORDERED: SODIUM ZIRCONIUM CYCLOSILICATE 10 GM PACKET PO ONE (13:32)
[2023-03-05] MEDS ORDERED: INSULIN HUMAN REGULAR PER UNIT 10 UNITS in SYRINGE 9.9 ML IV STA (13:37)
[2023-03-05] MEDS ORDERED: CALCIUM GLUCONATE 10% 1,000 MG in SODIUM CHLOR 0.9% MINI-B 50 ML IV ONE (13:45)
--- NOTE | 2023-03-05 15:03 | Pulmonary Consultation ---
Date of Consultation March 05, 2023 Assessment & Plan (1) Chronic respiratory failure: (2) Interstitial lung disease: (3) Anxiety associated with dying process: (4) Goals of care, counseling/discussion: Plan I had a lengthy discussion with the patient regarding her goals of care and her interstitial lung disease. She is very clear that she understands that her condition is irreversible at this time. She seems to understand that she is currently at the end of her life. She has significant anxiety related to her breathlessness. She is reluctant to try higher doses of opiates. She will occasionally refuse doses of oxycodone according to her bedside nurse. She has had an adverse reaction to morphine which caused nausea. She is reluctant to try benzodiazepines due to paradoxical anxiety. She has ongoing discussions with palliative care medicine. Unfortunately she is now going into renal failure and has an elevated potassium. She is being moved to a monitored telemetry bed by the hospitalist service due to her hypotension and elevated potassium levels. I discussed with the hospitalist resident team regarding her overall condition and we are all in agreement that she has an end-stage process, but unfortunately the patient is somewhat unclear regarding her goals. She is very clear that she would not want to be resuscitated or intubated in the event of a cardiopulmonary arrest. I do not think that systemic corticosteroids will make a difference in her pulmonary outcome at this point and may actually worsen her underlying anxiety. She notes a history of severe anxiety related to taking prednisone and methylprednisone. Unfortunately, at this time, I have nothing further to add. Thank you for allowing me to participate in the care of the patient. Please call me with questions. History of Present Illness Reason for Consultation: End-stage ILD Attending Physician: Pearl Kay MD History of Present Illness 77-year-old female who presented to the hospital 03/01/2013 due to increasing shortness of breath with a history of urothelial cell cancer. She was diagnosed with malignancy in 2018 and underwent cytotoxic chemotherapy with gemcitabine and cisplatin. In July 2019 she was discovered to have evidence of ILD and she was referred to pulmonary medicine. She was seen by Dr. Cameron. She underwent a right lung biopsy in 2020. Pathology was negative for malignancy. 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 She has followed closely with Dr. Cameron. She last visited with him in May in the office and ultimately she was referred to hospice. She she has been followed by the hospitalist service this admission and has been started on Levaquin and supplemental oxygen. She has also been followed by palliative care medicine. Chest x-ray 03/01/2013 revealed multifocal airspace opacities overlying fibrotic lung disease. This afternoon she has been having trouble with hypotension and severe hypoxemia requiring high flow oxygen. Patient notes that she has had adverse reactions to Ativan and morphine. She describes a paradoxical anxiety related to Ativan and nausea related to morphine. She is somewhat unclear of her goals. She understands that her condition is end-stage and that she is likely nearing the end of her life. She is breathless with speaking more than 2-3 words. She is currently requiring near maximal high flow settings to maintain saturations in the low 90s. She gets nauseous when speaking more than a few words. She is currently being moved to a telemetry monitored bed due to her elevated potassium levels and ongoing renal failure. Allergies Allergy/AdvReac Type Severity Reaction Status Date / Time adhesive Allergy Intermediate Skin Verified 03/01/23 18:54 reaction diazepam Allergy Intermediate Paradoxial Verified 03/01/23 18:54 reaction sorbitol Allergy Mild Gastrointestinal Verified 03/01/23 18:54 Upset Home Medications Medication Instructions Recorded Confirmed Type acetylcysteine 200 mg/mL (20 %) 2 ml inhalation Q4 03/01/23 03/01/23 History solution azithromycin 250 mg tablet 250 - 500 mg PO DIRECTED 03/01/23 03/01/23 History benzonatate 100 mg capsule 100 mg PO TID PRN Cough 03/01/23 03/01/23 History estradiol 0.075 mg/24 hr weekly 1 patch transdermal WE 03/01/23 03/01/23 History transdermal patch furosemide 20 mg tablet 20 mg PO DAILY PRN .edema 03/01/23 03/01/23 History guaifenesin 1,200 mg tablet, 1,200 mg PO BID 03/01/23 03/01/23 History extended release 12 hr (Mucus-ER MAX) oxycodone 5 mg tablet 2.5 mg PO DAILY PRN Pain 03/01/23 03/01/23 History oxycodone 5 mg tablet 2.5 mg PO TID 03/01/23 03/01/23 History sodium chloride 7 % for 4 ml inhalation .BID UD 03/01/23 03/01/23 History nebulization Patient History Medical History Chronic kidney disease, stage 3 single kidney Diverticular disease GERD (gastroesophageal reflux disease) History of scarlet fever 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 History of uterine cancer Hyperlipidemia declines statins Impaired fasting glucose Microscopic colitis Microscopic hematuria Osteoarthritis Temporomandibular joint disorder Ureteral stricture, right Vertigo Surgical History History of anesthesia reaction DYSPNEA IN PACU WITH KRISHNA (2017); NO NOTED ISSUES WITH SUBSEQUENT ANESTHESIA/SURGERIES History of bilateral tubal ligation History of breast biopsy History of cholecystectomy History of colonoscopy History of esophagogastroduodenoscopy (EGD) History of nephrectomy, right S/P laparoscopic hand assisted right nephroureterectomy, retroperitoneal dissection: 07/16/18: Grade view 1, MAC#3, ETT 7.0 at [facility], [place] History of total abdominal hysterectomy and bilateral salpingo-oophorectomy History of vascular access device Aport left chest wall 09/2018 Hx of cystoscopy WITH BIOPSY + STENT; SUBSEQUENT STENT REMOVAL Family History Father Family history of diabetes mellitus Asthma Congestive heart failure (CHF) Grandfather (Paternal) No problems noted. Grandmother (Paternal) Throat cancer Uncle Lung cancer Maternal side-smoker Cancer of nasal cavities Aunt Breast cancer Maternal Mother Congestive heart failure (CHF) Other No family history of bleeding disorder Denies family history of Ovarian cancer Prostate cancer Myocardial infarction Colorectal cancer Social History Smoking Status: Never smoker Second Hand Exposure: No; Do You Dip or Chew Tobacco: No; Hx Alcohol Use: No Hx Substance Use: No Preferred Language: Malay Communication Ability: Effective Visual Impairment: No Limitations Hearing Ability: Normal Tanner [employer] Drum Continuous Process Required: No Beliefs That Will Affect Care: None marital status: / Current Living Situation: Family current occupational status: retired 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 How many Children do You have: 1 Feels Safe at Home: Yes Safety Concerns: Feels Safe At This Time Childhood Exposure to Second-Hand Smoke: Yes Diet: regular Diet Comment: does eat some fish Dental Care, Regularly: Yes Physical Activity Frequency: 1-2 Times per Week Seatbelt Use: always Sunscreen Use: Yes Assistive Devices: Oxygen - Continuous Review of Systems Review of Systems: All systems reviewed & are unremarkable except as noted in HPI & below Physical Exam Constitutional: WD/WN, vitals as above Neck: trachea midline, no thyromegaly Respiratory: + respiratory distress, + labored breathing, + uses accessory muscles and + tachypneic Auscultation: + crackles Cardiovascular: RRR, no murmur, no edema Gastrointestinal (Abdomen): normal bowel sounds, soft, nontender, no hepatosplenomegaly Musculoskeletal: Extremities: extremities normal to inspection Skin: no rashes, warm and dry Neurologic: Nonfocal exam Lymphatic: no cervical lymphadenopathy Results & Data Results & Data Vital Signs (Past 12 Hours) Vital Signs Temp Pulse Resp BP BP Pulse Ox O2 Del Method 03/05/23 14:43 36.5 C 52/27 L 03/05/23 14:45 72/52 L 03/05/23 14:37 52 L 20 97 High Flow Nasal Cannula 03/05/23 11:39 72 22 96 High Flow Nasal Cannula 03/05/23 08:00 36.3 C L 78 40 H 85/57 L 99 High Flow Nasal Cannula 03/05/23 07:07 66 20 98 High Flow Nasal Cannula 03/05/23 03:14 64 22 99 High Flow Nasal Cannula O2 Flow Rate FiO2 03/05/23 14:43 03/05/23 14:45 03/05/23 14:37 03/05/23 11:39 35 90 03/05/23 08:00 03/05/23 07:07 40 100 03/05/23 03:14 40 100 PG Care Time/CCT Total # of Minutes Spent Total Time Spent with Patient: Total time spent is greater than 50% in coordination of care (as documented) at patient's floor/unit and/or counseling patient: Coding Level of Care Code 65741 INT INP/OBS CARE 3/75MIN Diagnoses Chronic respiratory failure J96.10 Interstitial lung disease J84.9 Anxiety associated with dying process F41.1 Goals of care, counseling/discussion Z71.89
[2023-03-05] MEDS ORDERED: DEXTROSE 50% 50 ML SYRINGE IV ONE (15:49)
--- NOTE | 2023-03-05 16:53 | Electrocardiogram Report ---
Test Reason : Blood Pressure : / mmHG Vent. Rate : 083 BPM Atrial Rate : 083 BPM P-R Int : 104 ms QRS Dur : 070 ms QT Int : 332 ms P-R-T Axes : 144 083 -28 degrees QTc Int : 390 ms Unusual P axis, possible ectopic atrial rhythm Low voltage QRS Cannot rule out Anteroseptal infarct , age undetermined Abnormal ECG When compared with ECG of 01-MAR-2023 17:22, Ectopic atrial rhythm is now Present Confirmed by Hima Ham ([id number]) on 03/05/2023 4:53:12 PM Referred By: REFERRED SELF Confirmed By:Hima Ham
[2023-03-05] MEDS: PROCHLORPERAZINE 5 MG in SYRINGE 4 ML IV PRN (18:37)
[2023-03-05] MEDS: HYDROmorphone INJ 0.5 MG/0.5 ML SYR IV PRN ×3 (19:26→23:28)
[2023-03-05] MEDS ORDERED: ONDANSETRON INJ 2 MG/ML 2 ML VIAL IV PRN (19:58)
[2023-03-05] MEDS ORDERED: GLYCOPYRROLATE 0.2 MG/ML VIAL IV PRN (19:58)
[2023-03-05] MEDS ORDERED: LORazepam 2 MG/1 ML VIAL IV PRN (19:58)
[2023-03-05] MEDS ORDERED: ONDANSETRON 4 MG OD TAB SL PRN (19:58)
--- NOTE | 2023-03-05 21:32 | Communication Note ---
Date of Service: March 05, 2023 Palliative medicine note Patient's case was discussed on multiple occasions with pulmonary/critical care, primary medicine team, and an attempt was made to reach her son, Jun. Her pulmonary status is overall worsening. She is not improving despite escalating medical therapies. In addition her renal function is worsening and her potassium is rising. She is now being transferred to a monitored telemetry unit. I was able to speak with her outpatient palliative medicine provider earlier today who advised the patient has had multiple prior discussions with regards to the terminal nature of her lung disease and is always expressed a very consistent preference to have a peaceful end-of-life process. Unfortunately her son has remained rather inconsistent in his understanding and continues to be angry at the overall fact that she has a lung disease that is not curable that was attributable to the side effects of chemo. We will continue to work with medical teams, patient and family but it is likely that she will this admission. Her outpatient palliative medicine provider is willing to participate telephonically in a family meeting if needed. No charge submitted. TS 25min Thank you for allowing us to participate in the ongoing care of this patient. Please don't hesitate to call or page with any additional concerns. Dr. Meredith Vences DNP Director, Palliative Care
[2023-03-05] MEDS: levoFLOXacin/D5W 750 MG/150 ML BAG IV SCH (23:24)
[2023-03-05] MEDS: ESTRADIOL 0.075 MG TD SCH (23:32)
[2023-03-06] MEDS: HYDROmorphone INJ 0.5 MG/0.5 ML SYR IV PRN ×4 (01:48→07:57)
--- NOTE | 2023-03-06 07:02 | Hospitalist Progress Note ---
Date of Service March 06, 2023 Assessment & Plan (1) Pneumonia: (2) Pulmonary fibrosis: (3) Hypoxemia: (4) Goals of care, counseling/discussion: (5) Palliative care encounter: Plan Multifocal pneumonia in setting of severe pulmonary fibrosis with acute on chronic respiratory failure -previously hospice but now off hospice and palliative care, -Continue Levaquin 750 mg, renally adjusted every 48 hours -Discussed that at >3 days of antibiotic treatment, her likelihood from recovering from current status is not likely -Continue oxygen up to nonrebreather. If patient continues to clinically worsen, transition to DOCK MANAGER at that time. Patient does not wish for intubation or escalation to invasive measures or ICU level of care -Currently on 35L HFNC -Pulmonology consulted, Goals of care, counseling/discussion -Yuly is aware that she has progressive incurable and irreversible lung disease that is severe and end-stage on oxygen. -She reports she is generally functional and can walk to the bathroom on 3.5 L of oxygen at home, but suddenly worsened on Friday. -Notes that she would like to try to treat her pneumonia but if she is not improving then she would want to transition to DOCK MANAGER while in the hospital/return home on comfort measures if able. -She has become increasingly hypotensive throughout the day and hyperkalemic, discussed with family and patient that her condition is declining -Palliative care consulted, appreciate recommendations -prn lorazepam and oxycodone for air hunger -Added prn Dilaudid IV for air hunger/pain ANALILIA on Chronic kidney disease, stage 3 -Creatinine rise to 1.6. -Levaquin renally dosed Hyperkalemia -Potassium of 5.9 and 6.4 today -received calcium gluconate IV, IV insulin/D-50 -Added lokelma, EKG ordered Interstitial lung disease -Chronic, end-stage -Continue chest physiotherapy, nebulized saline, acetylcysteine Plan DVT prophylaxis: SCDs Diet: Liberalized regular Line -Pendleton catheter placed for comfort, started bowel regimen to address constipation Admission and Anticipated Discharge Date Admission Date: March 01, 2023 Subjective Patient seen and examined at bedside. Review of Systems Review of Systems: As per above Physical Exam Constitutional: + acute distress and + frail appearing Eyes: + anicteric sclerae; no conjunctival abnormality ENMT: Ears: no external ear abnormality Nose: no external nose abnormality Respiratory: + labored breathing and + cough Auscultation: + diminished lung sounds Cardiovascular: Rate/Rhythm: regular rhythm and + tachycardic Skin: no rashes, warm and dry Psychiatric: A+Ox3, euthymic affect Orientation: alert, oriented to person, oriented to place and oriented to time Affect: + anxious affect Results & Data Results & Data Vital Signs (Past 12 Hours) Vital Signs Pulse Resp Pulse Ox O2 Del Method O2 Flow Rate FiO2 03/06/23 03:11 18 High Flow Nasal Cannula 35 70 03/05/23 22:31 High Flow Nasal Cannula 35 90 03/05/23 20:05 62 20 93 High Flow Nasal Cannula 35 70 Resident Activity Tracking Resident Involvement: Resident Care Provided Care Provided: Adult Hospital Medicine (1) Pneumonia Laterality: bilateral Lung location: unspecified part of lung Pneumonia type: due to unspecified organism Qualified Code(s): J18.9 - Pneumonia, uns pecified organism
[2023-03-06] MEDS: [UNRECOGNIZED DRUG - REMARK] SCH (07:57)
[2023-03-06] MEDS: oxyCODONE HCL IR 5 MG TAB (IMMEDIATE RELEASE) PO SCH (07:58)
--- NOTE | 2023-03-06 16:57 | Discharge Summary ---
Date of Service March 06, 2023 Admission HPI Per Admitting Provider Yuly is a 77-year-old female with a past medical history of end-stage pulmonary fibrosis on palliative care who presents with increased shortness of breath for 4 to 5 days, normal cough, cramps while coughing. She had a fever earlier in the week did not improve on azithromycin.Worsening shortness of breath for several days. On azithromycin this past week without improvement. +Fevers x2 days. Pain in general has worsened. Below 20mg TDD of oxycodone, but has gone up from 3 half tablets to around 5 half tablets of oxycodone to reduce air hunger in the last week. Also helps with panic attacks. Long discussion with Yuly and her son at bedside. Yuly is aware that she has progressive incurable and irreversible lung disease that is severe and end- stage on oxygen. She reports she is generally functional and can walk to the bathroom on 3.5 L of oxygen at home, but suddenly worsened on Friday had a fever approximately 100 degrees and felt that her dyspnea was much worse and did not improve either at rest or with oxygen. She notes that she was hospice at 1 point, transition back to palliative for concerns of getting certain medications/nebulizers but feels comfortable transitioning back to hospice either when she suddenly worsens from any untreatable acute event, or should her chronic baseline dyspnea worsened to the point where she would need escalating doses of narcotics to relieve her dyspnea. Currently she is on 1/2 tablet of oxycodone 3 times daily with 1 additional dose available to her which she feels is not sedating and works very well for dyspnea normally, although not in the last week. With her labs showing evidence of multifocal pneumonia she would like admission for high risk multifocal pneumonia and antibiotic treatment; however she notes that if she were to worsen and was not improving then she would want to transition to [employer] while in the hospital/return home on comfort measures if able. She does not currently have a hospital bed at home and this was not set up initially with hospice, and would like to try to treat her pneumonia currently. He is currently on nonrebreather. Discussed various options including inpatient admission with continued nonrebreather supplementation and antibiotics, returning home on home hospice, and inpatient versus outpatient antibiotic treatment. Due to her acutely worsened oxygen requirements and potentially treatable multifocal pneumonia, on shared decision making will admit for treatment of multifocal pneumonia on Levaquin. If she worsens then transition to [employer] with the goal of home hospice if stable. If she improves then would like to return home and continue palliative but not hospice at this time, but with readiness to transition to hospice as soon as her baseline lung disease declined to the point where her home oxygen supply cannot relieve her dyspnea with current levels of opiates. Admission Exam Per Admitting Provider General: A&Ox3. NAD. Cooperative. Frail appearing HEENT: Atraumatic, normocephalic. Pulm: Diminished, diffuse fine crackles symmetrical chest rise. No increased work of breathing. No respiratory distress. On nonrebreather Cardiac: RRR, -mrg. Radial pulses intact and symmetrical. Abdominal: Nontender, nondistended, soft. BS present. Principal Diagnosis Respiratory Failure Discharge Exam I was not able to physically exam today prior to her passing. Discharge Data Allergies Allergy/AdvReac Type Severity Reaction Status Date / Time adhesive Allergy Intermediate Skin Verified 03/01/23 18:54 reaction diazepam Allergy Intermediate Paradoxial Verified 03/01/23 18:54 reaction sorbitol Allergy Mild Gastrointestinal Verified 03/01/23 18:54 Upset Consultations 03/01/23 18:43 ED Decision to Admit Stat 03/01/23 19:55 Consult Palliative Care Routine 03/05/23 08:43 Consult Pulmonology Routine Ordered Studies Chest X-Ray 03/01/23 17:43 XR chest 1V portable CLINICAL HISTORY: Sepsis TECHNIQUE: Single frontal radiograph of the chest was obtained. Comparison: Comparison is made to chest radiograph 08/31/2021 FINDINGS: Lines and tubes are stable. Cardiomegaly is noted. Interstitial thickening is again seen. There is interval development of multifocal airspace opacities. No evidence of pleural effusion or pneumothorax. IMPRESSION: 1. Interval development of airspace opacities compatible with multifocal pneumonia. 2. Interstitial lung disease and cardiomegaly are again noted. ACT 112: Negative or not required by law. Electronically signed by: Noel Cordova M.D. 03/01/2023 6:14 PM Hospital Course (1) Advanced care planning/counseling discussion: (2) Palliative care by specialist: (3) Anxiety associated with dying process: (4) Weakness generalized: (5) Dyspnea and respiratory abnormalities: (6) Pneumonia: (7) Hypoxemia: Plan Acute on chronic respiratory failure due to Multifocal pneumonia in setting of severe pulmonary fibrosis ANALILIA on Chronic kidney disease, stage 3 Hyperkalemia Previously was on hospice but later left hospice and palliative care due to severe pulmonary fibrosis. She presented after several days of worsening respiratory status, failing to improve on oral Zithromax. On admission she was found to have multifocal pneumonia and was started on Levaquin. Potassium of 5.9 and 6.4 yesterday. Received calcium gluconate IV, IV insulin/D-50, lokelma. Despite antibiotic treatment, patient had increasing oxygen requirement up to 40L high flow nasal cannula. Discussions were held between patient, her son, palliative, pulmonology and patient ultimately decided to transition to [employer] on 03/05. Patient today, 03/06/13. Goals of care, counseling/discussion Yuly was aware that she has progressive incurable and irreversible lung disease that is severe and end-stage on oxygen.She reported she is generally functional and can walk to the bathroom on 3.5 L of oxygen at home, but suddenly worsened on Friday. Notes that she would like to try to treat her pneumonia but if she is not improving then she would want to transition to [employer] MERCH[employer] CO[employer]ATOR while in the hospital/return home on comfort measures if able.She has become increasingly hypotensive throughout the day and hyperkalemic, discussed with family and patient that her condition is declining. See above. Total Time Total Time Spent Total Time Spent (In Minutes): . Discharge Plan Discharge Items Patient Disposition: Other Date/Time: 03/06/23 08:23 Supervising Physician Co-Signing Physician Notes Resident Physician Supervision Note: I independently interviewed and examined the patient and verified the mccarthy history and physical, reviewed labs and image studies and agree with resident findings and care plan.
== END 2023-03-06 10:20 | disposition expired | DRG 193 ==
LOC: ED 17:10 → SUATTDRO 19:54 → EDINP 19:54 → 3W 22:27 → 2W 03-05 17:45
DX: Z88.8 Allergy status to other drugs, medicaments and biological substances; F41.8 Other specified anxiety disorders; Z83.3 Family history of diabetes mellitus; N18.30 Chronic kidney disease, stage 3 unspecified; Z51.5 Encounter for palliative care; E87.5 Hyperkalemia; Z66 Do not resuscitate; N17.9 Acute kidney failure, unspecified; J84.10 Pulmonary fibrosis, unspecified; J18.9 Pneumonia, unspecified organism; J96.20 Acute and chronic respiratory failure, unspecified whether with hypoxia or hypercapnia